=== PATIENT | male | born 1990 | race Caucasian/White ===

== ENCOUNTER 2018-11-05 12:28 | Emergency (ER) | payer SELFPAY ==
[2018-11-05] MEDS ORDERED: NA CHLORIDE 0.9% 2,000 ML ONE (13:01)
[2018-11-05] MEDS ORDERED: MORPHINE 4 MG/ML SYR ONE ×2 (13:01→15:12)
[2018-11-05] MEDS ORDERED: ONDANSETRON 4 MG/2 ML VIAL ONE (13:01)
[2018-11-05] MEDS ORDERED: TETANUS & DIPHTHERIA TOX,ADULT 0.5 ML VIAL ONE (13:02)
[2018-11-05 13:11] LABS: Absolute Lymphocytes (CBC) 0.7 K/uL (0.7-4.9); Absolute Monocytes 0.4 K/uL (0.1-1.3); Absolute Neutrophil 3.7 K/uL (1.8-8.0); Basophils % 0.9 % (0-1.3); Eosinophils % 5.2 % (0-4.4); Hematocrit 50.2 % (39.6-49.0); Lymphocytes % 13.4 % (15.3-44.8); MPV 10.6 fL (7.6-11.3); Monocytes % 8.6 % (3.3-12.3); RBC Red Blood Cell Count 5.11 M/uL (4.33-5.43)
[2018-11-05 13:39] LABS: ALT/SGPT 131 U/L (12-78); AST/SGOT 120 U/L (15-37); Albumin 4.3 g/dL (3.4-5.0); Alkaline Phosphatase 108 U/L (45-117); BUN Blood Urea Nitrogen 11 mg/dL (7-18); Bicarbonate 16 mmol/L (21-32); Bilirubin Direct 0.2 mg/dL (0-0.2); Glucose Level 213 mg/dL (74-106); Lipase 107 U/L (73-393); Potassium 4.5 mmol/L (3.5-5.1); Protein, Total 7.9 g/dL (6.4-8.2); Sodium Level 133 mmol/L (136-145)
[2018-11-05 13:44] LABS: Blood Morphology Comment NOT SEEN (NOT SEEN); Platelet Estimate DECR; Urine White Blood Cell Casts OK
--- NOTE | 2018-11-05 14:09 | RAD REPORT ---
EXAM DESCRIPTION: CT - CTHCSPWOC - 11/05/2018 2:03 pm CLINICAL HISTORY: Trauma, head and neck injury. laceration head, syncope;Pain COMPARISON: No comparisons TECHNIQUE: Axial 5 mm thick images of the head were obtained. Axial 2 mm thick images of the cervical spine were obtained with sagittal and coronal reconstruction images generated and reviewed. All CT scans are performed using dose optimization technique as appropriate and may include automated exposure control or mA/KV adjustment according to patient size. FINDINGS: CT HEAD WITHOUT CONTRAST: No acute hemorrhage, hydrocephalus or extra-axial collection is identified.No areas of brain edema or midline shift. The paranasal sinuses and mastoids are clear.The calvarium is intact. CT CERVICAL SPINE WITHOUT CONTRAST: No fracture or subluxation.No prevertebral soft tissues swelling is identified. IMPRESSION: No acute intracranial or cervical spine findings.
--- NOTE | 2018-11-05 14:13 | RAD REPORT ---
EXAM DESCRIPTION: CTAbdomen Pelvis W Contrast - 11/05/2018 2:03 pm CLINICAL HISTORY: Abdominal pain. ABD PAIN COMPARISON: No comparisons TECHNIQUE: Biphasic CT imaging of the abdomen and pelvis was performed with 100 ml non-ionic IV cont rast. All CT scans are performed using dose optimization technique as appropriate and may include automated exposure control or mA/KV adjustment according to patient size. FINDINGS: The lung bases are clear. Diffuse fatty liver is present. Focal liver lesion or biliary dilatation not observed. The spleen, pa ncreas, adrenal glands and kidneys are within normal limits. No bowel obstruction, free air, free fluid or abscess. Prominent amount of stool is retained in the c olon. The appendix is normal. No evidence of significant lymphadenopathy. No suspicious bony findings. IMPRESSION: Moderate fecal retention in the colon. Diffuse fatty liver.
--- NOTE | 2018-11-05 16:01 | EDPHYS ---
Physician Documentation [facility] Name: Mitchell Mendez III Age: 27 yrs Sex: Male : 1990 Arrival Date: 11/05/2018 Time: 12:30 Bed 13 Private MD: ED Physician Edson Hoang HPI: 11/05 13:54 This 27 yrs old Male presents to ER via EMS with complaints of Vomiting, pm1 Diarrhea, Syncope, Head laceration. 13:54 The patient has experienced syncope, collapsed. Onset: The symptoms/episode pm1 began/occurred just prior to arrival. Duration: This was a single episode. Context: the episode(s) was witnessed, by family, mother, occurred at home, Just prior to the episode the patient experienced vomiting and diarrhea for 3 days. Associated injury: Head/face: back of head and scalp, laceration. Associated signs and symptoms: Pertinent positives: abdominal pain, diarrhea, vomiting. Current symptoms: Currently, the patient is not experiencing any symptoms. The patient has not experienced similar symptoms in the past. The patient has not recently seen a physician. Historical: - Allergies: 13:15 No Known Allergies; mg2 - Home Meds: 13:15 None [Active]; mg2 - PMHx: 13:15 None; mg2 - PSHx: 13:15 None; mg2 - Immunization history:: Flu vaccine is not up to date. - Social history:: Smoking status: Patient uses tobacco products, smokes one-half pack cigarettes per day, Patient uses alcohol, but reports only rare drinking. - Ebola Screening: : No symptoms or risks identified at this time. ROS: 13:54 Constitutional: Negative for fever, chills, and weight loss, Eyes: Negative for injury, pm1 pain, redness, and discharge, ENT: Negative for injury, pain, and discharge, Neck: Negative for injury, pain, and swelling, Cardiovascular: Negative for chest pain, palpitations, and edema, Respiratory: Negative for shortness of breath, cough, wheezing, and pleuritic chest pain. 13:54 Back: Negative for injury and pain, : Negative for injury, bleeding, discharge, and swelling, MS/Extremity: Negative for injury and deformity. 13:54 Abdomen/GI: Positive for abdominal pain, nausea, vomiting, and diarrhea, Negative for constipation. 13:54 Skin: Positive for laceration(s), of the scalp and back of head. 13:54 Neuro: Positive for headache, syncope, Negative for altered mental status. Exam: 22:58 Abdomen/GI: Inspection: abdomen appears normal, Bowel sounds: normal, Palpation: pm1 abdomen is soft and non-tender. 22:58 Constitutional: This is a well developed, well nourished patient who is awake, alert, and in no acute distress. Eyes: Pupils equal round and reactive to light, extra-ocular motions intact. Lids and lashes normal. Conjunctiva and sclera are non-icteric and not injected. Cornea within normal limits. Periorbital areas with no swelling, redness, or edema. ENT: Nares patent. No nasal discharge, no septal abnormalities noted. Tympanic membranes are normal and external auditory canals are clear. Oropharynx with no redness, swelling, or masses, exudates, or evidence of obstruction, uvula midline. Mucous membranes moist. Neck: Trachea midline, no thyromegaly or masses palpated, and no cervical lymphadenopathy. Supple, full range of motion without nuchal rigidity, or vertebral point tenderness. No Meningismus. Chest/axilla: Normal chest wall appearance and motion. Nontender with no deformity. No lesions are appreciated. Cardiovascular: Regular rate and rhythm with a normal S1 and S2. No gallops, murmurs, or rubs. Normal PMI, no JVD. No pulse deficits. Respiratory: Lungs have equal breath sounds bilaterally, clear to auscultation and percussion. No rales, rhonchi or wheezes noted. No increased work of breathing, no retractions or nasal flaring. Back: No spinal tenderness. No costovertebral tenderness. Full range of motion. Skin: Warm, dry with normal turgor. Normal color with no rashes, no lesions, and no evidence of cellulitis. MS/ Extremity: Pulses equal, no cyanosis. Neurovascular intact. Full, normal range of motion. Neuro: Awake and alert, GCS 15, oriented to person, place, time, and situation. Cranial nerves II-XII grossly intact. Motor strength 5/5 in all extremities. Sensory grossly intact. Cerebellar exam normal. Normal gait. 22:58 Head/face: Noted is no obvious of injury or deformity except a laceration(s), that is linear, 7 cm(s), of the back of head and scalp. Vital Signs: 12:34 BP 107 / 83; Pulse 109; Resp 18; Temp 98.3; Pulse Ox 100% on R/A; Weight 58.97 kg; mg2 Height 6 ft. 3 in. (190.50 cm); Pain 4/10; 13:54 BP 120 / 78; Pulse 90; Resp 18; Temp 98; Pulse Ox 100% on R/A; mg2 15:17 BP 121 / 64; Pulse 61; Resp 18; Temp 98; Pulse Ox 100% on R/A; Pain 3/10; mg2 16:12 BP 120 / 70; Pulse 60; Resp 8; Temp 98; Pulse Ox 100% on R/A; Pain 0/10; mg2 12:34 Body Mass Index 16.25 (58.97 kg, 190.50 cm) mg2 Laceration: 15:25 Wound Repair of 7cm ( 2.8in ) subcutaneous laceration to scalp. Linear shaped.. Distal pm1 neuro/vascular/tendon intact. Wound prep: Extensive cleansing with hibiclenz by nurse, Wound irrigation with saline by nurse, Wound explored extensively, Copious irrigation. Skin closed with 12 1-0 Pennington using staple gun. Dressed with 4x4's, Kerlix. Patient tolerated well. MDM: 12:36 Patient medically screened. [facility] 15:59 Data reviewed: vital signs. Data interpreted: Pulse oximetry: on room air is 100 %. pm1 Interpretation: normal. Counseling: I had a detailed discussion with the patient and/or guardian regarding: the historical points, exam findings, and any diagnostic results supporting the discharge/admit diagnosis, lab results, radiology results, the need for outpatient follow up, to return to the emergency department if symptoms worsen or persist or if there are any questions or concerns that arise at home. 11/05 12:40 Order name: Basic Metabolic Panel pm1 11/05 12:40 Order name: CBC with Diff; Complete Time: 14:07 pm11/05 12:40 Order name: Creatinine for Radiology; Complete Time: 14:07 pm11/05 12:40 Order name: Hepatic Function; Complete Time: 14:07 pm1 11/05 12:40 Order name: Lipase; Complete Time: 14:07 pm11/05 12:42 Order name: Basic Metabolic Panel; Complete Time: 14:07 EDMS 11/05 12:40 Order name: CT Head C Spine; Complete Time: 14:16 pm1 11/05 12:40 Order name: CT Abd/Pelvis - W/Contrast: IV contrast only; Complete Time: 14:16 pm1 11/05 13:16 Order name: CBC Smear Scan; Complete Time: 14:07 [facility] 11/05 12:40 Order name: IV Saline Lock; Complete Time: 13:13 pm1 11/05 12:40 Order name: Labs collected and sent; Complete Time: 13:13 pm1 11/05 12:40 Order name: Urine Dipstick-Ancillary (obtain specimen) pm1 Administered Medications: 13:11 Drug: Tetanus-Diphtheria Toxoid Adult 0.5 ml {Rehab Services Aide: [employer]. Exp: mg2 08/30/2020. Lot #: [id number]. } Route: IM; Site: right deltoid; 15:17 Follow up: Response: No adverse reaction mg2 13:11 Drug: NS 0.9% 1000 ml Route: IV; Rate: 1000 ml; Site: right forearm; mg2 15:15 Follow up: Response: No adverse reaction; IV Status: Completed infusion; IV Intake: mg2 1000ml 13:11 Drug: Zofran 4 mg Route: IVP; Site: right forearm; mg2 15:15 Follow up: Response: No adverse reaction; Marked relief of symptoms mg2 13:11 Drug: morphine 4 mg Route: IVP; Site: right forearm; mg2 15:15 Follow up: Response: No adverse reaction; Marked relief of symptoms mg2 13:53 Drug: NS 0.9% 1000 ml Route: IV; Rate: 1000 ml; Site: right forearm; mg2 15:16 Follow up: Response: No adverse reaction; IV Status: Completed infusion; IV Intake: mg2 1000ml 15:10 Drug: morphine 4 mg Route: IVP; Site: right forearm; mg2 16:12 Follow up: Response: No adverse reaction; Marked relief of symptoms mg2 Disposition: 11/06 06:52 Co-signature as Attending Physician, Edson Hoang MD I agree with the assessment and shani plan of care. Disposition: 11/05/18 16:00 Discharged to Home. Impression: Superficial injury of head, Laceration without foreign body of scalp, Vomiting, Diarrhea, unspecified, Dehydration. - Condition is Stable. - Discharge Instructions: Food Choices to Help Relieve Diarrhea, Adult, Dehydration, Adult, Diarrhea, Adult, Head Injury, Adult, Laceration Care, Adult, Nausea and Vomiting, Adult, Stitches, Pennington, or Adhesive Wound Closure, Viral Gastroenteritis, Adult, Rehydration, Adult. - Prescriptions for Zofran 4 mg Oral Tablet - take 1 tablet by ORAL route every 12 hours As needed; 20 tablet. promethazine 25 mg Oral Tablet - take 1 tablet by ORAL route every 6 hours As needed; 20 tablet. Bentyl 20 mg Oral Tablet - take 1 tablet by ORAL route every 6 hours As needed; 20 tablet. - Medication Reconciliation Form, Thank You Letter, Antibiotic Education, Prescription Opioid Use form. - Follow up: Emergency Department; When: As needed; Reason: Worsening of condition. Follow up: Private Physician; When: 10 - 14 days; Reason: Recheck today's complaints, Continuance of care, Staple/Suture removal, Re-evaluation by your physician. - Problem is new. - Symptoms have improved. Signatures: Dispatcher [employer] EDMS Edson Hoang MD MD cha Marinas, Patrick, ENTERPRISE CLOUD ARCHITECT ENTERPRISE CLOUD ARCHITECT pm1 Devendra Murray RN RN mg2 Corrections: (The following items were deleted from the chart) 11/05 16:04 16:00 11/05/2018 16:00 Discharged to Home. Impression: Superficial injury of head; pm1 Laceration without foreign body of scalp; Vomiting; Diarrhea, unspecified. Condition is Stable. Forms are Medication Reconciliation Form, Thank You Letter, Antibiotic Education, Prescription Opioid Use. Follow up: Emergency Department; When: As needed; Reason: Worsening of condition. Follow up: Private Physician; When: 10 - 14 days; Reason: Recheck today's complaints, Continuance of care, Staple/Suture removal, Re-evaluation by your physician. Problem is new. Symptoms have improved. pm1 16:17 16:04 11/05/2018 16:00 Discharged to Home. Impression: Superficial injury of head; mg2 Laceration without foreign body of scalp; Vomiting; Diarrhea, unspecified; Dehydration. Condition is Stable. Discharge Instructions: Food Choices to Help Relieve Diarrhea, Adult, Diarrhea, Adult, Head Injury, Adult, Laceration Care, Adult, Nausea and Vomiting, Adult, Stitches, Pennington, or Adhesive Wound Closure, Viral Gastroenteritis, Adult. Prescriptions for Zofran 4 mg Oral Tablet - take 1 tablet by ORAL route every 12 hours As needed; 20 tablet, promethazine 25 mg Oral Tablet - take 1 tablet by ORAL route every 6 hours As needed; 20 tablet. and Forms are Medication Reconciliation Form, Thank You Letter, Antibiotic Education, Prescription Opioid Use. Follow up: Emergency Department; When: As needed; Reason: Worsening of condition. Follow up: Private Physician; When: 10 - 14 days; Reason: Recheck today's complaints, Continuance of care, Staple/Suture removal, Re-evaluation by your physician. Problem is new. Symptoms have improved. pm1 22:57 13:54 This 27 yrs old Male presents to ER via EMS with unknown complaint. pm1 pm1
--- NOTE | 2018-11-05 16:01 | ER ---
Nurse's Notes [facility] Name: Mitchell Mendez III Age: 27 yrs Sex: Male : 1990 Arrival Date: 11/05/2018 Time: 12:30 Bed 13 Private MD: Diagnosis: Superficial injury of head;Laceration without foreign body of scalp;Vomiting;Diarrhea, unspecified;Dehydration Presentation: 11/05 12:30 Presenting complaint: EMS states: he's been sick for 3 days now, nauseous, had stomach mg2 bug, been warm/feverish today today he was found by his mon on the floor, been incoherent since then doesn't remember how he get there, sustained 2 lacerations in the scalp. BGL-155 mg/dl. Transition of care: patient was not received from another setting of care. Onset of symptoms was October 31, 2018. Risk Assessment: Do you want to hurt yourself or someone else? Patient reports no desire to harm self or others. Initial Sepsis Screen: Does the patient meet any 2 criteria? No. Patient's initial sepsis screen is negative. Does the patient have a suspected source of infection? No. Patient's initial sepsis screen is negative. Care prior to arrival: None. 12:30 Method Of Arrival: EMS: [facility] mg2 12:30 Acuity: CAROLINE 3 mg2 Triage Assessment: 13:16 General: Appears in no apparent distress. comfortable, Behavior is calm, cooperative. mg2 Pain: Complains of pain in scalp, abdomen Pain does not radiate. Pain currently is 3 out of 10 on a pain scale. Quality of pain is described as aching, Pain began gradually. EENT: No signs and/or symptoms were reported regarding the EENT system. Neuro: Level of Consciousness is awake, alert, obeys commands, Oriented to person, place, time, situation. Neuro:. Cardiovascular: Capillary refill < 3 seconds Patient's skin is warm and dry. Respiratory: Airway is patent Respiratory effort is even, unlabored, Respiratory pattern is regular, symmetrical. GI: No signs and/or symptoms were reported involving the gastrointestinal system. GI: Reports lower abdominal pain, upper abdominal pain, diarrhea, nausea, vomiting, since 3 days. : No signs and/or symptoms were reported regarding the genitourinary system. Derm: Skin is pale, Wound noted scalp Wound is open and 2 separate lac. Musculoskeletal: Circulation, motion, and sensation intact. Capillary refill < 3 seconds. Injury Description: Laceration was sustained 1-2 hours ago. a small amount of bleeding noted at this time. Historical: - Allergies: 13:15 No Known Allergies; mg2 - Home Meds: 13:15 None [Active]; mg2 - PMHx: 13:15 None; mg2 - PSHx: 13:15 None; mg2 - Immunization history:: Flu vaccine is not up to date. - Social history:: Smoking status: Patient uses tobacco products, smokes one-half pack cigarettes per day, Patient uses alcohol, but reports only rare drinking. - Ebola Screening: : No symptoms or risks identified at this time. Screenin:21 Abuse screen: Denies threats or abuse. Denies injuries from another. Nutritional mg2 screening: No deficits noted. Tuberculosis screening: No symptoms or risk factors identified. Fall Risk IV access (20 points). Assessment: 15:17 General: Appears in no apparent distress. comfortable, Behavior is calm, cooperative. mg2 Pain: Complains of pain in scalp Pain does not radiate. Pain currently is 3 out of 10 on a pain scale. Quality of pain is described as aching, Pain began gradually, Is intermittent. Neuro: Level of Consciousness is awake, alert, obeys commands, Oriented to person, place, time, situation. Cardiovascular: Capillary refill < 3 seconds Patient's skin is warm and dry. Respiratory: Airway is patent Respiratory effort is even, unlabored, Respiratory pattern is regular, symmetrical. GI: No signs and/or symptoms were reported involving the gastrointestinal system. : No signs and/or symptoms were reported regarding the genitourinary system. EENT: No signs and/or symptoms were reported regarding the EENT system. Derm: Skin is intact, is healthy with good turgor, Skin is pink, warm \T\ dry. normal. Musculoskeletal: Circulation, motion, and sensation intact. Capillary refill < 3 seconds. 16:12 Reassessment: Patient states feeling better. Patient states symptoms have improved. mg2 Vital Signs: 12:34 BP 107 / 83; Pulse 109; Resp 18; Temp 98.3; Pulse Ox 100% on R/A; Weight 58.97 kg; mg2 Height 6 ft. 3 in. (190.50 cm); Pain 4/10; 13:54 BP 120 / 78; Pulse 90; Resp 18; Temp 98; Pulse Ox 100% on R/A; mg2 15:17 BP 121 / 64; Pulse 61; Resp 18; Temp 98; Pulse Ox 100% on R/A; Pain 3/10; mg2 16:12 BP 120 / 70; Pulse 60; Resp 8; Temp 98; Pulse Ox 100% on R/A; Pain 0/10; mg2 12:34 Body Mass Index 16.25 (58.97 kg, 190.50 cm) mg2 ED Course: 12:30 Patient arrived in ED. mg2 12:32 Triage completed. mg2 12:34 Bert Rodriguez, GAS GENERATOR OPERATOR is PHCP. pm1 12:34 Edson Hoang MD is Attending Physician. pm1 12:45 Devendra Murray RN is Primary Nurse. mg2 13:15 Inserted saline lock: 20 gauge in right forearm, using aseptic technique. Blood mg2 collected. 13:21 Patient has correct armband on for positive identification. Call light in reach. Side mg2 rails up X 1. Pulse ox on. NIBP on. Door closed. Warm blanket given. 13:21 Arm band placed on. mg2 14:03 CT completed. Patient tolerated procedure well. Patient moved to CT via wheelchair. sw Patient moved back from CT. 14:03 CT Head C Spine In Process Unspecified. EDMS 14:04 CT Abd/Pelvis - W/Contrast: IV contrast only In Process Unspecified. EDMS 15:41 Assist provider with laceration repair on back of head that was 2.5 cm. or less using mg2 stefan. Set up tray. Performed by Bert Rodriguez GAS GENERATOR OPERATOR Dressed with 4X4s, Patient tolerated well. 12 stefan applied on 2 lac. 16:16 IV discontinued, intact, bleeding controlled, No redness/swelling at site. Pressure mg2 dressing applied. Administered Medications: 13:11 Drug: Tetanus-Diphtheria Toxoid Adult 0.5 ml {Exp[employer]iter Service Order: [employer]. Exp: mg2 08/30/2020. Lot #: [id number]. } Route: IM; Site: right deltoid; 15:17 Follow up: Response: No adverse reaction mg2 13:11 Drug: NS 0.9% 1000 ml Route: IV; Rate: 1000 ml; Site: right forearm; mg2 15:15 Follow up: Response: No adverse reaction; IV Status: Completed infusion; IV Intake: mg2 1000ml 13:11 Drug: Zofran 4 mg Route: IVP; Site: right forearm; mg2 15:15 Follow up: Response: No adverse reaction; Marked relief of symptoms mg2 13:11 Drug: morphine 4 mg Route: IVP; Site: right forearm; mg2 15:15 Follow up: Response: No adverse reaction; Marked relief of symptoms mg2 13:53 Drug: NS 0.9% 1000 ml Route: IV; Rate: 1000 ml; Site: right forearm; mg2 15:16 Follow up: Response: No adverse reaction; IV Status: Completed infusion; IV Intake: mg2 1000ml 15:10 Drug: morphine 4 mg Route: IVP; Site: right forearm; mg2 16:12 Follow up: Response: No adverse reaction; Marked relief of symptoms mg2 Intake: 15:15 IV: 1000ml; Total: 1000ml. mg2 15:16 IV: 1000ml; Total: 2000ml. mg2 Outcome: 16:00 Discharge ordered by MD. pm1 16:17 Discharged to home ambulatory, with family. mg2 16:17 Condition: stable 16:17 Discharge instructions given to patient, family, Instructed on discharge instructions, follow up and referral plans. medication usage, Demonstrated understanding of instructions, follow-up care, medications, wound care, Prescriptions given X 3. 16:17 Patient left the ED. mg2 Signatures: Dispatcher [employer] EDMS Jillian Buckley Patrick GAS GENERATOR OPERATOR GAS GENERATOR OPERATOR pm1 Devendra Murray, RN RN mg2 Corrections: (The following items were deleted from the chart) 13:15 12:34 Pulse 109bpm; Resp 18bpm; Pulse Ox 100% RA; Temp 98.3F; 58.97 kg; Height 6 ft. 3 mg2 in.; BMI: 16.2; Pain 4/10; mg2 15:46 13:15 No provider procedures requiring assistance completed. mg2 mg2
[2018-11-05 16:24] VITALS: O2SAT 100
[2018-11-05 16:26] VITALS: TEMP 98
[2018-11-05 16:29] VITALS: BP 120/70
== END 2018-11-05 16:17 | disposition home or self-care (01) ==
LOC: ER 12:28
PROC: 0JQ00ZZ Repair Scalp Subcutaneous Tissue and Fascia, Open Approach (ICD-10-PCS; principal; 2018-11-05)
DX: S01.01XA Laceration without foreign body of scalp, initial encounter (principal); E86.0 Dehydration; R11.10 Vomiting, unspecified; R19.7 Diarrhea, unspecified; S00.90XA Unspecified superficial injury of unspecified part of head, initial encounter; F17.210 Nicotine dependence, cigarettes, uncomplicated; Z23 Encounter for immunization
CPT/HCPCS: 36415; 70450; 72125; 74177; 80048; 80076; 83690; 85025; 90471; 90714; 96361; 96374; 96375; 99285; J2405; J7030; Q9967

== ENCOUNTER 2019-02-16 18:15 | Emergency (ER) | payer SELFPAY ==
--- NOTE | 2019-02-16 19:17 | RAD REPORT ---
EXAM DESCRIPTION: CT - Head Brain Wo Cont - 02/16/2019 7:00 pm CLINICAL HISTORY: Seizures COMPARISON: None. TECHNIQUE: Axial 5 mm thick images of the head were obtained without IV contrast. All CT scans are performed using dose optimization technique as appropriate and may include automated exposure control or mA/KV adjustment according to patient size. FINDINGS: No intracranial hemorrhage, mass, edema or shift of mid-line structures. No acute infarcti on changes seen. No abnormal extra-axial fluid collections. Ventricles are normal. Mastoid air cells and visualized portions of the paranasal sinuses are clear. No acute bony findings. IMPRESSION: Negative non-contrast CT head examination.
[2019-02-16 19:30] LABS: Absolute Lymphocytes (CBC) 1.7 K/uL (0.7-4.9); Basophils % 1.8 % (0-1.3); Hematocrit 44.4 % (39.6-49.0); Lymphocytes % 30.3 % (15.3-44.8); MPV 8.3 fL (7.6-11.3); RBC Red Blood Cell Count 4.52 M/uL (4.33-5.43)
[2019-02-16 19:49] LABS: Protime INR 0.88
[2019-02-16 19:57] LABS: ALT/SGPT 48 U/L (12-78); AST/SGOT 44 U/L (15-37); Albumin 4.3 g/dL (3.4-5.0); Alkaline Phosphatase 90 U/L (45-117); BUN Blood Urea Nitrogen 12 mg/dL (7-18); Bicarbonate 27 mmol/L (21-32); Bilirubin Direct 0.1 mg/dL (0-0.2); Bilirubin Total 0.3 mg/dL (0.2-1.0); Glucose Level 106 mg/dL (74-106); Potassium 3.8 mmol/L (3.5-5.1); Protein, Total 7.8 g/dL (6.4-8.2); Sodium Level 143 mmol/L (136-145)
[2019-02-16 20:12] LABS: Urine Blood NEGATIVE (NEG); Urine Glucose NEGATIVE (NEG); Urine Protein 2+ (NEG); Urine Specific Gravity 1.025 (1.005-1.030)
[2019-02-16 20:37] LABS: Barbiturates NEGATIVE (NEGATIVE); Benzodiazepines POSITIVE (NEGATIVE); Cocaine NEGATIVE (NEGATIVE); METHAMPHETAM NEGATIVE (NEGATIVE); Methadone NEGATIVE (NEGATIVE); Opiates NEGATIVE (NEGATIVE); Phencyclidine NEGATIVE (NEGATIVE); THC Cannibis NEGATIVE (NEGATIVE)
--- NOTE | 2019-02-16 21:21 | EDPHYS ---
Physician Documentation [facility] Name: Mitchell Mendez III Age: 28 yrs Sex: Male : 1990 Arrival Date: 02/16/2019 Time: 18:19 Bed 2 Private MD: ED Physician Torsten Arvizu HPI: 02/16 19:05 This 28 yrs old Male presents to ER via Ambulatory with complaints of pm1 Probable Seizure. 19:05 The patient presents after having a possible seizure episode, for the past 4 days pm1 except for today. Mother reports 5 minutes duration of generalized shaking. No postictal period. Character of seizure(s): Loss of consciousness: it is not known if the patient experienced loss of consciousness, Motor activity: generalized, Incontinence: none, Apnea: the patient did not experience apnea, Circulation: the patient did not experience evidence of pulse disturbance, Eye movements: are unknown. Context: the seizure(s) was witnessed, by family, mother, occurred at home, Contributing factors: recent alcohol abuse. Seizure Hx: the patient has no previous seizure history. Associated injury: The patient did not suffer any apparent associated injury. Current symptoms: Currently, the patient is not experiencing any symptoms. The patient has not recently seen a physician. Historical: - Allergies: 18:49 No Known Allergies; iw - Home Meds: 18:49 None [Active]; iw - PMHx: 18:50 None; iw - PSHx: 18:49 None; iw - Immunization history:: Adult Immunizations unknown. - Social history:: Smoking status: Smoking status: Patient uses tobacco products, smokes one-half pack cigarettes per day. - Ebola Screening: : Patient negative for fever greater than or equal to 101.5 degrees Fahrenheit, and additional compatible Ebola Virus Disease symptoms Patient denies exposure to infectious person Patient denies travel to an Ebola-affected area in the 21 days before illness onset No symptoms or risks identified at this time. ROS: 19:05 Constitutional: Negative for fever, chills, and weight loss, Eyes: Negative for injury, pm1 pain, redness, and discharge, ENT: Negative for injury, pain, and discharge, Neck: Negative for injury, pain, and swelling, Cardiovascular: Negative for chest pain, palpitations, and edema, Respiratory: Negative for shortness of breath, cough, wheezing, and pleuritic chest pain, Abdomen/GI: Negative for abdominal pain, nausea, vomiting, diarrhea, and constipation, Back: Negative for injury and pain, MS/Extremity: Negative for injury and deformity, Skin: Negative for injury, rash, and discoloration. 19:05 Neuro: Positive for seizure activity, Negative for altered mental status, numbness, tingling, weakness. Exam: 19:05 Constitutional: This is a well developed, well nourished patient who is awake, alert, pm1 and in no acute distress. Head/Face: Normocephalic, atraumatic. Eyes: Pupils equal round and reactive to light, extra-ocular motions intact. Lids and lashes normal. Conjunctiva and sclera are non-icteric and not injected. Cornea within normal limits. Periorbital areas with no swelling, redness, or edema. ENT: Nares patent. No nasal discharge, no septal abnormalities noted. Tympanic membranes are normal and external auditory canals are clear. Oropharynx with no redness, swelling, or masses, exudates, or evidence of obstruction, uvula midline. Mucous membranes moist. Neck: Trachea midline, no thyromegaly or masses palpated, and no cervical lymphadenopathy. Supple, full range of motion without nuchal rigidity, or vertebral point tenderness. No Meningismus. Chest/axilla: Normal chest wall appearance and motion. Nontender with no deformity. No lesions are appreciated. Cardiovascular: Regular rate and rhythm with a normal S1 and S2. No gallops, murmurs, or rubs. Normal PMI, no JVD. No pulse deficits. Respiratory: Lungs have equal breath sounds bilaterally, clear to auscultation and percussion. No rales, rhonchi or wheezes noted. No increased work of breathing, no retractions or nasal flaring. Abdomen/GI: Soft, non-tender, with normal bowel sounds. No distension or tympany. No guarding or rebound. No evidence of tenderness throughout. Back: No spinal tenderness. No costovertebral tenderness. Full range of motion. Skin: Warm, dry with normal turgor. Normal color with no rashes, no lesions, and no evidence of cellulitis. MS/ Extremity: Pulses equal, no cyanosis. Neurovascular intact. Full, normal range of motion. 19:05 Neuro: Orientation: is normal, Mentation: is normal, Motor: is normal, moves all fours. Vital Signs: 18:49 BP 121 / 82; Pulse 106; Resp 18; Temp 98.2; Pulse Ox 98% on R/A; iw 19:32 BP 111 / 78; Pulse 90; Resp 16; Pulse Ox 95% on R/A; mt 20:00 BP 115 / 76; Pulse 89; Resp 16; Pulse Ox 98% on R/A; rr5 21:00 BP 119 / 76; Pulse 84; Resp 19; Pulse Ox 98% ; rr5 22:00 BP 125 / 70; Pulse 85; Resp 17; Temp 98; Pulse Ox 99% ; rr5 [place] Coma Score: 19:20 Eye Response: spontaneous(4). Verbal Response: oriented(5). Motor Response: obeys rr5 commands(6). Total: 15. MDM: 18:42 Patient medically screened. pm1 21:19 Data reviewed: vital signs. Data interpreted: Pulse oximetry: on room air is 95 %. pm1 Interpretation: normal. Counseling: I had a detailed discussion with the patient and/or guardian regarding: the historical points, exam findings, and any diagnostic results supporting the discharge/admit diagnosis, lab results, radiology results, the need for outpatient follow up, to return to the emergency department if symptoms worsen or persist or if there are any questions or concerns that arise at home. 02/16 18:46 Order name: Acetaminophen; Complete Time: 20:05 pm1 02/16 18:46 Order name: Basic Metabolic Panel; Complete Time: 20:05 pm1 02/16 18:46 Order name: CBC with Diff; Complete Time: 19:41 pm1 02/16 18:46 Order name: ETOH Level; Complete Time: 20:58 pm1 02/16 18:46 Order name: Hepatic Function; Complete Time: 20:05 pm1 02/16 18:46 Order name: PT-INR; Complete Time: 20:05 pm1 02/16 18:46 Order name: Ptt, Activated; Complete Time: 20:05 pm1 02/16 18:46 Order name: Salicylate; Complete Time: 20:05 pm1 02/16 18:46 Order name: Urine Drug Screen; Complete Time: 20:58 pm1 02/16 18:46 Order name: EKG; Complete Time: 18:48 pm1 02/16 18:46 Order name: EKG - Nurse/Tech; Complete Time: 19:15 pm1 02/16 18:46 Order name: IV Saline Lock; Complete Time: 19:16 pm1 02/16 18:46 Order name: CT Head Brain wo Cont; Complete Time: 19:32 pm1 02/16 20:07 Order name: Urine Dipstick--Ancillary (enter results); Complete Time: 20:58 em1 02/16 18:46 Order name: Labs collected and sent; Complete Time: 19:16 pm1 02/16 18:46 Order name: Urine Dipstick-Ancillary (obtain specimen); Complete Time: 20:05 pm1 Administered Medications: No medications were administered Disposition: 02/16/19 21:20 Discharged to Home. Impression: Alcohol abuse. - Condition is Stable. - Discharge Instructions: Finding Treatment for Addiction, Seizure, Adult, Alcohol Abuse and Nutrition. - Prescriptions for chlordiazepoxide HCl 25 mg Oral capsule - take 1 capsule by ORAL route as directed Day 1: Librium 25 mg every 6 hours scheduled, Day 2: Librium 25 mg every 8 hours scheduled, Day 3: Librium 25 mg every 12 hours scheduled, Day 4: Librium 25 mg at bedtime scheduled, Day 5: Librium 25 mg at bedtime scheduled; 11 capsule. - Medication Reconciliation Form, Thank You Letter, Antibiotic Education, Prescription Opioid Use form. - Follow up: Emergency Department; When: As needed; Reason: Worsening of condition. Follow up: Private Physician; When: 2 - 3 days; Reason: Recheck today's complaints, Continuance of care, Re-evaluation by your physician. - Problem is new. - Symptoms have improved. Signatures: Dispatcher [employer] Tania Olson RN RN iw Marinas, Patrick, NP ELECTROPHYSIOLOGY TECHNOLOGIST pm1 Leonidas Kumar RN RN rr5 Corrections: (The following items were deleted from the chart) 21:36 21:20 02/16/2019 21:20 Discharged to Home. Impression: Alcohol abuse; Benzodiazepime pm1 abuse. Condition is Stable. Forms are Medication Reconciliation Form, Thank You Letter, Antibiotic Education, Prescription Opioid Use. Follow up: Emergency Department; When: As needed; Reason: Worsening of condition. Follow up: Private Physician; When: 2 - 3 days; Reason: Recheck today's complaints, Continuance of care, Re-evaluation by your physician. Problem is new. Symptoms have improved. pm1 22:08 21:36 02/16/2019 21:20 Discharged to Home. Impression: Alcohol abuse. Condition is rr5 Stable. Discharge Instructions: Finding Treatment for Addiction, Alcohol Abuse and Nutrition. Forms are Medication Reconciliation Form, Thank You Letter, Antibiotic Education, Prescription Opioid Use. Follow up: Emergency Department; When: As needed; Reason: Worsening of condition. Follow up: Private Physician; When: 2 - 3 days; Reason: Recheck today's complaints, Continuance of care, Re-evaluation by your physician. Problem is new. Symptoms have improved. pm1
--- NOTE | 2019-02-16 21:21 | ER ---
Nurse's Notes [facility] Name: Mitchell Mendez III Age: 28 yrs Sex: Male : 1990 Arrival Date: 02/16/2019 Time: 18:19 Bed 2 Private MD: Diagnosis: Alcohol abuse Presentation: 02/16 18:46 Presenting complaint: Patient states: has been having a lot of seizures for past couple iw weeks, was seen here 3 weeks ago for seizure, mother states he had a seizure once a day for past 4 days, not today, seizure behavior described as foaming at mouth and shaking/jerking that lasts about 5 minutes with no post-ictal period. Transition of care: patient was not received from another setting of care. Onset of symptoms was February 08, 2019. Risk Assessment: Do you want to hurt yourself or someone else? Patient reports no desire to harm self or others. Initial Sepsis Screen: Does the patient meet any 2 criteria? No. Patient's initial sepsis screen is negative. Does the patient have a suspected source of infection? No. Patient's initial sepsis screen is negative. Care prior to arrival: None. 18:46 Method Of Arrival: Ambulatory iw 18:46 Acuity: CAROLINE 3 iw Historical: - Allergies: 18:49 No Known Allergies; iw - Home Meds: 18:49 None [Active]; iw - PMHx: 18:50 None; iw - PSHx: 18:49 None; iw - Immunization history:: Adult Immunizations unknown. - Social history:: Smoking status: Smoking status: Patient uses tobacco products, smokes one-half pack cigarettes per day. - Ebola Screening: : Patient negative for fever greater than or equal to 101.5 degrees Fahrenheit, and additional compatible Ebola Virus Disease symptoms Patient denies exposure to infectious person Patient denies travel to an Ebola-affected area in the 21 days before illness onset No symptoms or risks identified at this time. Screenin:22 Abuse screen: Denies threats or abuse. Denies injuries from another. Nutritional rr5 screening: No deficits noted. Tuberculosis screening: No symptoms or risk factors identified. Fall Risk Secondary diagnosis (15 points) seizures, IV access (20 points). Total Lemus Fall Scale indicates Low Risk Score (25-44 pts). Fall prevention measures have been instituted. Side Rails Up X 2 Placed close to Nursing Station Frequent Obs/Assesments occuring Family Present and informed to notify staff if they need to leave bedside As available Patient and Family Educated on Fall Prevention Program and strategies. Assessment: 19:20 General: Appears in no apparent distress. comfortable, Behavior is calm, cooperative, rr5 appropriate for age. Pain: Denies pain. Neuro: Level of Consciousness is awake, alert, obeys commands, Oriented to person, place, time, situation, Appropriate for age Reports weakness had a seizures. Cardiovascular: Capillary refill < 3 seconds Patient's skin is warm and dry. Respiratory: Airway is patent Respiratory effort is even, unlabored, Respiratory pattern is regular, symmetrical. GI: No signs and/or symptoms were reported involving the gastrointestinal system. : No signs and/or symptoms were reported regarding the genitourinary system. EENT: No signs and/or symptoms were reported regarding the EENT system. Derm: Skin is intact, Skin temperature is warm. Musculoskeletal: Circulation, motion, and sensation intact. Capillary refill < 3 seconds. 20:31 Reassessment: Patient appears in no apparent distress at this time. Patient is alert, rr5 oriented x 3, equal unlabored respirations, skin warm/dry/pink. no seizure activity noted. awaiting for laboratory results. Patient states feeling better. Patient states symptoms have improved. 21:30 Reassessment: Patient appears in no apparent distress at this time. Patient and/or rr5 family updated on plan of care and expected duration. Pain level reassessed. Patient is alert, oriented x 3, equal unlabored respirations, skin warm/dry/pink. reassess by the ED provider ordered for discharge patient agreed. 22:05 Reassessment: Patient appears in no apparent distress at this time. Patient is alert, rr5 oriented x 3, equal unlabored respirations, skin warm/dry/pink. discharge instruction given and explained without complaints made. Vital Signs: 18:49 BP 121 / 82; Pulse 106; Resp 18; Temp 98.2; Pulse Ox 98% on R/A; iw 19:32 BP 111 / 78; Pulse 90; Resp 16; Pulse Ox 95% on R/A; mt 20:00 BP 115 / 76; Pulse 89; Resp 16; Pulse Ox 98% on R/A; rr5 21:00 BP 119 / 76; Pulse 84; Resp 19; Pulse Ox 98% ; rr5 22:00 BP 125 / 70; Pulse 85; Resp 17; Temp 98; Pulse Ox 99% ; rr5 [place] Coma Score: 19:20 Eye Response: spontaneous(4). Verbal Response: oriented(5). Motor Response: obeys rr5 commands(6). Total: 15. ED Course: 18:19 Patient arrived in ED. mr 18:41 Bert Rodriguez, DENNIS is PHCP. pm1 18:41 Torsten Arvizu MD is Attending Physician. pm1 18:48 Triage completed. iw 18:49 Arm band placed on. iw 18:[address] via stretcher. nj 18:59 CT completed. Patient tolerated procedure well. Patient moved back from CT. id 19:04 Areli Salazar, RN is Primary Nurse. 19:04 Leonidas Kumar, PALAK is Primary Nurse. rr5 19:15 CT Head Brain wo Cont In Process Unspecified. EDMS 19:22 Inserted saline lock: 20 gauge in right forearm, using aseptic technique. Blood rr5 collected. 21:50 No provider procedures requiring assistance completed. IV discontinued, intact, rr5 bleeding controlled, No redness/swelling at site. Pressure dressing applied. 21:52 Seizure precautions initiated. rr5 Administered Medications: No medications were administered Outcome: 21:20 Discharge ordered by MD. pm1 22:05 Discharged to home ambulatory, with family. rr5 22:05 Condition: stable 22:05 Discharge instructions given to patient, Instructed on discharge instructions, follow up and referral plans. medication usage, Demonstrated understanding of instructions, follow-up care, medications, Prescriptions given X 1. 22:08 Patient left the ED. rr5 Signatures: Dispatcher [employer] Carmina Benitez Irene, PALAK CID Areli Salazar, RN RN Bert Rodriguez, EDNNIS BURGLARY INVESTIGATOR pm1 Eduard Jones [place] Leonidas Kumar RN RN rr5
[2019-02-16 23:33] VITALS: TEMP 98.2
[2019-02-16 23:34] VITALS: BP 111/78; O2SAT 95
--- NOTE | 2019-02-17 10:37 | EKG ---
Test Date: 2019-02-16 Test Time: 18:49:56 Rotor Assembler: DIAMOND MEASUREMENT RESULTS: Intervals: Rate: 101 MA: 140 QRSD: 92 QT: 328 QTc: 425 [place]: P: 65 MA: 140 QRS: 76 T: 56 INTERPRETIVE STATEMENTS: Sinus tachycardia Possible Left atrial enlargement Nonspecific T wave abnormality Abnormal ECG No previous ECG available for comparison Electronically Signed On 02-17-19 10:36:35 CDT by Puneet Blake
== END 2019-02-16 22:08 | disposition home or self-care (01) ==
LOC: ER 18:15
DX: F10.10 Alcohol abuse, uncomplicated (principal); F17.210 Nicotine dependence, cigarettes, uncomplicated
CPT/HCPCS: 36415; 70450; 80048; 80076; 80307; 80320; 80329; 81003; 85025; 85610; 85730; 93005; 99284

== ENCOUNTER 2019-03-20 18:34 | Emergency (ER) | payer SELFPAY ==
[2019-03-20] MEDS ORDERED: HYDROCODONE/APAP 7.5/325 MG TAB ONE (19:05)
--- NOTE | 2019-03-20 19:23 | ER ---
Nurse's Notes [facility] Name: Mitchell Mendez III Age: 28 yrs Sex: Male : 1990 Arrival Date: 03/20/2019 Time: 18:36 Bed 20 Private MD: Diagnosis: Pain in right shoulder Presentation: 03/20 18:37 Presenting complaint: Right shoulder pain after lifting tree limb 2-3 days ago. hb Transition of care: patient was not received from another setting of care. Onset of symptoms was March 18, 2019. Risk Assessment: Do you want to hurt yourself or someone else? Patient reports no desire to harm self or others. Care prior to arrival: None. 18:37 Method Of Arrival: Ambulatory hb 18:37 Acuity: CAROLINE 4 hb 19:15 Initial Sepsis Screen: Does the patient meet any 2 criteria? No. Patient's initial cc3 sepsis screen is negative. Does the patient have a suspected source of infection? No. Patient's initial sepsis screen is negative. Triage Assessment: 19:15 General: Appears in no apparent distress. comfortable, Behavior is calm, cooperative, cc3 appropriate for age. Pain: Complains of pain in right shoulder. Historical: - Allergies: 18:41 No Known Allergies; hb - Home Meds: 18:41 None [Active]; hb - PMHx: 18:41 None; hb - PSHx: 18:41 None; hb - Immunization history:: Adult Immunizations up to date. - Social history:: Smoking status: Patient uses tobacco products, smokes one-half pack cigarettes per day. - Ebola Screening: : No symptoms or risks identified at this time. Screenin:15 Abuse screen: Denies threats or abuse. Denies injuries from another. Nutritional cc3 screening: No deficits noted. Tuberculosis screening: No symptoms or risk factors identified. Fall Risk Ambulatory Aid- None/Bed Rest/Nurse Assist (0 pts). Gait- Normal/Bed Rest/Wheelchair (0 pts) Mental Status- Oriented to own ability (0 pts). Assessment: 19:15 Reassessment: Patient appears in no apparent distress at this time. Patient and/or cc3 family updated on plan of care and expected duration. Pain level reassessed. Patient is alert, oriented x 3, equal unlabored respirations, skin warm/dry/pink. Received this male patient from morning shift BAKERY MANAGERDahiana Ochoa as a case of right shoulder pain. No IV cannula in situ. General: Appears in no apparent distress. comfortable, Behavior is calm, cooperative, appropriate for age. Pain: Complains of pain in right shoulder Pain currently is 8 out of 10 on a pain scale. Quality of pain is described as aching. Neuro: Level of Consciousness is awake, alert, obeys commands, Oriented to person, place, time, situation, Appropriate for age. Cardiovascular: Denies chest pain, Capillary refill < 3 seconds in bilateral fingers Patient's skin is warm and dry. Respiratory: Airway is patent Respiratory effort is even, unlabored, Respiratory pattern is regular, symmetrical. GI: Abdomen is flat. : No signs and/or symptoms were reported regarding the genitourinary system. EENT: No signs and/or symptoms were reported regarding the EENT system. Derm: Skin is intact, is healthy with good turgor, Skin is pink, warm \T\ dry. normal. Musculoskeletal: Circulation, motion, and sensation intact. Range of motion: intact in all extremities. 19:45 Reassessment: Patient appears in no apparent distress at this time. Patient and/or cc3 family updated on plan of care and expected duration. Pain level reassessed. Patient is alert, oriented x 3, equal unlabored respirations, skin warm/dry/pink. DNENIS Rodriguez discharged the patient home with prescription given. No IV cannula in situ. Patient left ER vitally stable and ambulatory. No valuables left in the patient's room. Patient states feeling better. Patient states symptoms have improved. Vital Signs: 18:40 BP 135 / 90; Pulse 93; Resp 16; Temp 97.2; Pulse Ox 100% on R/A; Weight 65.77 kg; em Height 6 ft. 3 in. (190.50 cm); Pain 8/10; 19:45 BP 129 / 87; Pulse 89; Resp 15 S; Temp 97.6(O); Pulse Ox 100% on R/A; Pain 4/10; cc3 18:40 Body Mass Index 18.12 (65.77 kg, 190.50 cm) em ED Course: 18:36 Patient arrived in ED. mr 18:40 Triage completed. hb 18:41 Arm band placed on. hb 18:43 Don Ray LVN is Primary Nurse. em 18:49 Bert Rodriguez NP is PHCP. pm1 18:49 Cory Lopez MD is Attending Physician. pm1 19:15 Patient has correct armband on for positive identification. Bed in low position. Call cc3 light in reach. Side rails up X 1. Pulse ox on. NIBP on. 19:18 Shoulder Right (2 View) XRAY In Process Unspecified. EDMS 19:45 No provider procedures requiring assistance completed. Patient did not have IV access cc3 during this emergency room visit. Administered Medications: 19:17 Drug: [place] (7.5 mg-325 mg) 1 tabs Route: PO; 19:45 Follow up: Response: No adverse reaction; Pain is decreased; RASS: Alert and Calm (0) cc3 Outcome: 19:23 Discharge ordered by . pm1 19:45 Discharged to home ambulatory. cc3 19:45 Condition: stable 19:45 Discharge instructions given to patient, Instructed on discharge instructions, follow up and referral plans. medication usage, Demonstrated understanding of instructions, follow-up care, medications, Prescriptions given X 1. 19:48 Patient left the ED. cc3 Signatures: Dispatcher [employer] EDFL Eyad Carmina Ray, Don, BAKERY MANAGER BAKERY MANAGER em Bert Rodriguez, BAG MAKING MACHINE OPERATOR BAG MAKING MACHINE OPERATOR pm1 Annalise Cobb, PALAK RN Marlee Harding Muna Stewart cc3 Corrections: (The following items were deleted from the chart) 18:58 18:40 BP 135 / 90; Pulse 16bpm; Resp 93bpm; Pulse Ox 100% RA; Temp 97.2F; 65.77 kg; em Height 6 ft. 3 in.; BMI: 18.1; Pain 8/10; hb 21:42 19:15 Pain: Complains of pain in right shoulder Pain currently is 6 out of 10 on a pain cc3 scale. Quality of pain is described as aching, cc3
--- NOTE | 2019-03-20 19:24 | EDPHYS ---
Physician Documentation [facility] Name: Mitchell Mendez III Age: 28 yrs Sex: Male : 1990 Arrival Date: 03/20/2019 Time: 18:36 Bed 20 Private MD: ED Physician Cory Lopez HPI: 03/20 18:57 This 28 yrs old Male presents to ER via Ambulatory with complaints of Right pm1 Shoulder Pain. 18:57 The patient or guardian complains of pain, that is acute. right shoulder. Context: The pm1 problem was sustained outdoors, The patient experiences decreased range of motion, when attempts to raise arm, The patient reports no obvious deformity. Onset: The symptoms/episode began/occurred 3 day(s) ago. Modifying factors: the symptoms are alleviated by remaining still, The symptoms are aggravated by raising shoulder. Associated signs and symptoms: Pertinent negatives: Numbness in right arm tingling. Severity of symptoms: in the emergency department the symptoms are unchanged. Treatment prior to arrival includes: no previous treatment. Patient was lifting a log and holding the heavy end. The person he was lifting the log with dropped her end earlier than he expected so all the weight of the log was transferred to him and caused pain to his right shoulder. Historical: - Allergies: 18:41 No Known Allergies; hb - Home Meds: 18:41 None [Active]; hb - PMHx: 18:41 None; hb - PSHx: 18:41 None; hb - Immunization history:: Adult Immunizations up to date. - Social history:: Smoking status: Patient uses tobacco products, smokes one-half pack cigarettes per day. - Ebola Screening: : No symptoms or risks identified at this time. ROS: 18:57 Constitutional: Negative for fever, chills, and weight loss, Neck: Negative for injury, pm1 pain, and swelling, Cardiovascular: Negative for chest pain, palpitations, and edema, Respiratory: Negative for shortness of breath, cough, wheezing, and pleuritic chest pain, Abdomen/GI: Negative for abdominal pain, nausea, vomiting, diarrhea, and constipation, Back: Negative for injury and pain. 18:57 Skin: Negative for injury, rash, and discoloration, Neuro: Negative for headache, weakness, numbness, tingling, and seizure. 18:57 MS/extremity: Positive for pain, of the right shoulder. Exam: 18:57 Constitutional: This is a well developed, well nourished patient who is awake, alert, pm1 and in no acute distress. Head/Face: Normocephalic, atraumatic. 18:57 Chest/axilla: Normal chest wall appearance and motion. Nontender with no deformity. No lesions are appreciated. Cardiovascular: Regular rate and rhythm with a normal S1 and S2. No gallops, murmurs, or rubs. Normal PMI, no JVD. No pulse deficits. Respiratory: Lungs have equal breath sounds bilaterally, clear to auscultation and percussion. No rales, rhonchi or wheezes noted. No increased work of breathing, no retractions or nasal flaring. Abdomen/GI: Soft, non-tender, with normal bowel sounds. No distension or tympany. No guarding or rebound. No evidence of tenderness throughout. Back: No spinal tenderness. No costovertebral tenderness. Full range of motion. Skin: Warm, dry with normal turgor. Normal color with no rashes, no lesions, and no evidence of cellulitis. 18:57 Neck: External neck: tenderness, of the right trapezius, C-spine: appears grossly normal, no vertebral tenderness, no crepitus, vertebral tenderness, is not appreciated, ROM/movement: is normal, is supple. 18:57 Musculoskeletal/extremity: Extremities: grossly normal except: noted in the right shoulder: tenderness, at supraspinatus insertion point. Patient with pain attempting to raise right arm up past shoulder level, There is no evidence of deformity. 18:57 Neuro: Orientation: is normal, Motor: is normal, moves all fours. Vital Signs: 18:40 BP 135 / 90; Pulse 93; Resp 16; Temp 97.2; Pulse Ox 100% on R/A; Weight 65.77 kg; em Height 6 ft. 3 in. (190.50 cm); Pain 8/10; 19:45 BP 129 / 87; Pulse 89; Resp 15 S; Temp 97.6(O); Pulse Ox 100% on R/A; Pain 4/10; cc3 18:40 Body Mass Index 18.12 (65.77 kg, 190.50 cm) em MDM: 18:50 Patient medically screened. pm 19:01 Data reviewed: vital signs. Data interpreted: Pulse oximetry: on room air is 100 %. pm1 Interpretation: normal. 19:22 Counseling: I had a detailed discussion with the patient and/or guardian regarding: the pm1 historical points, exam findings, and any diagnostic results supporting the discharge/admit diagnosis, radiology results, the need for outpatient follow up, for definitive care, a orthopedic surgeon, MRI of shoulder to rule out rotator cuff injury, to return to the emergency department if symptoms worsen or persist or if there are any questions or concerns that arise at home. 03/20 18:55 Order name: Shoulder Right (2 View) XRAY pm1 03/20 18:57 Order name: Sling; Complete Time: 19:16 pm1 Administered Medications: 19:17 Drug: [place] (7.5 mg-325 mg) 1 tabs Route: PO; 19:45 Follow up: Response: No adverse reaction; Pain is decreased; RASS: Alert and Calm (0) cc3 Disposition: 03/20/19 19:23 Discharged to Home. Impression: Pain in right shoulder. - Condition is Stable. - Discharge Instructions: Rotator Cuff Injury, Shoulder Pain, How to Use a Sling. - Prescriptions for Tramadol 50 mg Oral Tablet - take 1 tablet by ORAL route every 8 hours as needed; 12 tablet. - Medication Reconciliation Form, Thank You Letter, Antibiotic Education, Prescription Opioid Use form. - Follow up: Emergency Department; When: As needed; Reason: Worsening of condition. Follow up: Private Physician; When: 2 - 3 days; Reason: Recheck today's complaints, Continuance of care, Re-evaluation by your physician. - Problem is new. - Symptoms have improved. Addendum: 03/22/2019 22:45 Co-signature as Attending Physician, Cory Lopez MD. g s Signatures: Dispatcher [employer] EDMS Bert Rodriguez, DENNIS [employer] APPLICATIONS ENGINEER pm1 Annalise Cobb, PALAK RN Marlee Harding Cory Lopez MD MD gs Cordel, Charlene cc3 Corrections: (The following items were deleted from the chart) 03/20 19:48 19:23 03/20/2019 19:23 Discharged to Home. Impression: Pain in right shoulder. cc3 Condition is Stable. Discharge Instructions: Rotator Cuff Injury, Shoulder Pain, How to Use a Sling. Prescriptions for Tramadol 50 mg Oral Tablet - take 1 tablet by ORAL route every 8 hours as needed; 12 tablet. and Forms are Medication Reconciliation Form, Thank You Letter, Antibiotic Education, Prescription Opioid Use. Follow up: Emergency Department; When: As needed; Reason: Worsening of condition. Follow up: Private Physician; When: 2 - 3 days; Reason: Recheck today's complaints, Continuance of care, Re-evaluation by your physician. Problem is new. Symptoms have improved. pm1
[2019-03-20 19:52] VITALS: BP 135/90; TEMP 97.2; O2SAT 100
--- NOTE | 2019-03-20 22:46 | RAD REPORT ---
EXAM DESCRIPTION: Shoulder Right 2 View - 03/20/2019 7:18 pm CLINICAL HISTORY: Right shoulder pain following lifting injury COMPARISON: None. TECHNIQUE: Internal and external rotation views of the right shoulder were obtained. FINDINGS: There is no fracture or dislocation. AC joint is normal in appearance. No acute or suspic ious findings. IMPRESSION: Negative two-view right shoulder examination.
== END 2019-03-20 19:48 | disposition home or self-care (01) ==
LOC: ER 18:34
DX: M25.511 Pain in right shoulder (principal); F17.210 Nicotine dependence, cigarettes, uncomplicated
CPT/HCPCS: 99284

== ENCOUNTER 2019-05-18 19:13 | Emergency (ER) | payer SELFPAY ==
[2019-05-18] MEDS ORDERED: TETANUS & DIPHTHERIA TOX,ADULT 0.5 ML VIAL ONE (20:00)
--- NOTE | 2019-05-18 20:48 | EDPHYS ---
Physician Documentation [facility] Name: Mitchell Mendez III Age: 28 yrs Sex: Male : 1990 Arrival Date: 05/18/2019 Time: 19:15 Bed 16 Private MD: ED Physician Asad Lea HPI: 05/19 04:50 This 28 yrs old Male presents to ER via Ambulatory with complaints of Wrist tw4 Injury. 04:50 The patient or guardian reports a laceration. tw4 Historical: - Allergies: 05/18 19:24 No Known Allergies; aj1 - Home Meds: 19:24 Xanax Oral [Active]; aj1 - PMHx: 19:24 scoliosis; aj1 - Immunization history:: Flu vaccine is not up to date. - Social history:: Smoking status: Patient uses tobacco products, smokes one pack cigarettes per day. - Ebola Screening: : Patient denies travel to an Ebola-affected area in the 21 days before illness onset. Vital Signs: 19:24 BP 115 / 85; Pulse 108; Resp 20; Temp 98.6; Pulse Ox 98% on R/A; Weight 58.97 kg (R); aj1 Height 6 ft. 3 in. (190.50 cm) (R); Pain 6/10; 20:52 BP 121 / 94; Pulse 92; Resp 16; Pulse Ox 98% on R/A; jb4 19:24 Body Mass Index 16.25 (58.97 kg, 190.50 cm) aj1 MDM: 19:36 Patient medically screened. tw4 Administered Medications: 20:01 CANCELLED (Physician Discretion): ADAcel 0.5 ml IM once; indicated for adults and tw4 teenagers 11 to 64 years of age 20:12 Drug: Tetanus-Diphtheria Toxoid Adult 0.5 ml {Crime Specialist: [email or web address]. Exp: jb4 11/13/2020. Lot #: [id number]. } Route: IM; Site: left deltoid; 20:56 Follow up: Response: No adverse reaction jb4 Disposition: 05/18/19 20:48 Discharged to Home. Impression: Laceration of dorsal aspect of left hand, laceration superficial volar aspect of left wrist. - Condition is Stable. - Discharge Instructions: Laceration Care, Adult. - Medication Reconciliation Form, Thank You Letter, Antibiotic Education, Prescription Opioid Use form. - Follow up: Private Physician; When: Upon discharge from the Emergency Department; Reason: Recheck today's complaints, Continuance of care. - Problem is new. - Symptoms have improved. Signatures: Silvana Garcia, RN RN aj1 Bruce Viramontes RN RN jb4 Asad Lea MD MD tw4 Corrections: (The following items were deleted from the chart) 20:01 19:58 ADAcel 0.5 ml IM once; indicated for adults and teenagers 11 to 64 years of age tw4 ordered. tw4 20:56 20:48 05/18/2019 20:48 Discharged to Home. Impression: Laceration of dorsal aspect of jb4 left hand; laceration superficial volar aspect of left wrist. Condition is Stable. Forms are Medication Reconciliation Form, Thank You Letter, Antibiotic Education, Prescription Opioid Use. Follow up: Private Physician; When: Upon discharge from the Emergency Department; Reason: Recheck today's complaints, Continuance of care. Problem is new. Symptoms have improved. tw4
--- NOTE | 2019-05-18 20:48 | ER ---
Nurse's Notes [facility] Name: Mitchell Mendez III Age: 28 yrs Sex: Male : 1990 Arrival Date: 05/18/2019 Time: 19:15 Bed 16 Private MD: Diagnosis: Laceration of dorsal aspect of left hand;laceration superficial volar aspect of left wrist Presentation: 05/18 19:23 Presenting complaint: Mother states: He was splitting wood with my and a piece aj1 of wood got him and cut his wrist and his hand. Bandage noted to right wrist, dry and intact. Transition of care: patient was not received from another setting of care. Onset of symptoms was May 18, 2019. Risk Assessment: Do you want to hurt yourself or someone else? Patient reports no desire to harm self or others. Initial Sepsis Screen: Does the patient meet any 2 criteria? HR > 90 bpm. No. Patient's initial sepsis screen is negative. Does the patient have a suspected source of infection? No. Patient's initial sepsis screen is negative. Care prior to arrival: None. 19:23 Method Of Arrival: Ambulatory aj 19:23 Acuity: CAROLINE 4 aj1 Triage Assessment: 19:24 General: Appears in no apparent distress. comfortable, Behavior is calm, cooperative, aj1 appropriate for age. Pain: Complains of pain in palmar aspect of right wrist Pain currently is 6 out of 10 on a pain scale. Neuro: Level of Consciousness is awake, alert, obeys commands. Cardiovascular: Patient's skin is warm and dry. Respiratory: Airway is patent Respiratory effort is even, unlabored, Respiratory pattern is regular, symmetrical. Musculoskeletal: Range of motion: intact in all extremities. Injury Description: Laceration sustained to medial aspect of right wrist and dorsum of right hand. Historical: - Allergies: 19:24 No Known Allergies; aj1 - Home Meds: 19:24 Xanax Oral [Active]; aj1 - PMHx: 19:24 scoliosis; aj1 - Immunization history:: Flu vaccine is not up to date. - Social history:: Smoking status: Patient uses tobacco products, smokes one pack cigarettes per day. - Ebola Screening: : Patient denies travel to an Ebola-affected area in the 21 days before illness onset. Screenin:30 Abuse screen: Denies threats or abuse. Nutritional screening: No deficits noted. jb4 Tuberculosis screening: No symptoms or risk factors identified. Fall Risk None identified. Assessment: 19:30 General: Appears in no apparent distress. comfortable, Behavior is calm, cooperative, jb4 appropriate for age. Pain: Denies pain. Neuro: Level of Consciousness is awake, alert, obeys commands, Oriented to person, place, time, situation. Cardiovascular: Respiratory: Airway is patent Respiratory effort is even, unlabored, Respiratory pattern is regular, symmetrical. GI: No signs and/or symptoms were reported involving the gastrointestinal system. : No signs and/or symptoms were reported regarding the genitourinary system. EENT: No signs and/or symptoms were reported regarding the EENT system. Derm: Skin is intact, Skin is pink, warm \T\ dry. Musculoskeletal: Circulation, motion, and sensation intact. Range of motion: intact in all extremities. 19:30 Injury Description: Laceration sustained to dorsum of left hand and palmar aspect of jb4 left wrist is clean, full thickness, superficial, 0.5 to 2.5 cm long, 2.6 to 7.5 cm long, a small amount of bleeding noted at this time. 20:52 Reassessment: Patient appears in no apparent distress at this time. Patient and/or jb4 family updated on plan of care and expected duration. Pain level reassessed. Patient is alert, oriented x 3, equal unlabored respirations, skin warm/dry/pink. Vital Signs: 19:24 BP 115 / 85; Pulse 108; Resp 20; Temp 98.6; Pulse Ox 98% on R/A; Weight 58.97 kg (R); aj1 Height 6 ft. 3 in. (190.50 cm) (R); Pain 6/10; 20:52 BP 121 / 94; Pulse 92; Resp 16; Pulse Ox 98% on R/A; jb4 19:24 Body Mass Index 16.25 (58.97 kg, 190.50 cm) aj1 ED Course: 19:15 Patient arrived in ED. jg7 19:23 Triage completed. aj1 19:24 Arm band placed on Patient placed in an exam room. aj1 19:26 Bruce Viramontes, RN is Primary Nurse. jb4 19:30 Patient has correct armband on for positive identification. Placed in gown. Bed in low jb4 position. Call light in reach. Side rails up X 1. Pulse ox on. NIBP on. 19:34 Asad Lea MD is Attending Physician. tw4 20:54 Assist provider with laceration repair on dorsum of left hand and palmar aspect of left jb4 wrist that was between 2.6 to 7.5 cm using Steri-strips. Performed by Asad Lea MD Patient tolerated well. Patient did not have IV access during this emergency room visit. Administered Medications: 20:01 CANCELLED (Physician Discretion): ADAcel 0.5 ml IM once; indicated for adults and tw4 teenagers 11 to 64 years of age 20:12 Drug: Tetanus-Diphtheria Toxoid Adult 0.5 ml {Environmental Consultant: [email or web address]. Exp: jb4 11/13/2020. Lot #: [id number]. } Route: IM; Site: left deltoid; 20:56 Follow up: Response: No adverse reaction jb4 Outcome: 20:48 Discharge ordered by . tw4 20:56 Patient left the ED. 4 Signatures: Silvana Garcia, RN RN aj1 Bruce Viramontes RN RN jb4 Asad Lea MD MD tw4 Yancy Farah jg7
[2019-05-18 21:07] VITALS: TEMP 98.6; O2SAT 98
[2019-05-18 21:09] VITALS: BP 121/94
== END 2019-05-18 20:56 | disposition home or self-care (01) ==
LOC: ER 19:13
DX: S61.412A Laceration without foreign body of left hand, initial encounter (principal); S61.512A Laceration without foreign body of left wrist, initial encounter; W26.8XXA Contact with other sharp object(s), not elsewhere classified, initial encounter; Y93.89 Activity, other specified; Y92.9 Unspecified place or not applicable; F17.210 Nicotine dependence, cigarettes, uncomplicated; Z23 Encounter for immunization
CPT/HCPCS: 90471; 90714; 99283

== ENCOUNTER 2019-12-28 21:33 | Emergency (ER) | payer SELFPAY ==
[2019-12-28 22:43] LABS: Absolute Lymphocytes (CBC) 1.1 K/uL (0.7-4.9); Basophils % 0.5 % (0-1.3); Hematocrit 37.9 % (39.6-49.0); Lymphocytes % 28.9 % (15.3-44.8); MPV 8.5 fL (7.6-11.3); RBC Red Blood Cell Count 3.73 M/uL (4.33-5.43)
[2019-12-28 22:46] LABS: Protime INR 0.91
[2019-12-28 23:23] LABS: Barbiturates NEGATIVE (NEGATIVE); Benzodiazepines POSITIVE (NEGATIVE); Cocaine NEGATIVE (NEGATIVE); METHAMPHETAM NEGATIVE (NEGATIVE); Methadone NEGATIVE (NEGATIVE); Opiates NEGATIVE (NEGATIVE); Phencyclidine NEGATIVE (NEGATIVE); THC Cannibis NEGATIVE (NEGATIVE)
[2019-12-28 23:25] LABS: Potassium 3.9 mmol/L (3.5-5.1)
--- NOTE | 2019-12-29 00:04 | EDPHYS ---
Physician Documentation [facility] Name: Mitchell Mendez III Age: 29 yrs Sex: Male : 1990 Arrival Date: 12/28/2019 Time: 21:52 Bed 18 Private MD: ED Physician Kirill Flores HPI: 12/27 22:15 This 29 yrs old Male presents to ER via EMS with complaints of Seizure. mh7 22:15 The patient presents. mh7 22:16 The patient presents after having a single isolated seizure, that lasted an unknown mh7 period of time, the episode(s) was witnessed, by family. Character of seizure(s):. 22:17 Character of seizure(s): Loss of consciousness: it is not known if the patient mh7 experienced loss of consciousness, Motor activity: the motor activity is unknown, Incontinence: none, Apnea: the patient did not experience apnea, Circulation: the patient did not experience evidence of pulse disturbance, Eye movements: are unknown. Seizure onset: today. Context: the seizure(s) was witnessed, by family, occurred at home, occurred while the patient was at rest, Contributing factors: unknown. Seizure Hx: Original onset: since childhood,\E\ Cause: unknown, Last seizure: The patient's last seizure was approximately 2 week(s) ago, Usual frequency: irregular frequency, Seizure medications: none. Associated injury: The patient did not suffer any apparent associated injury. EMS care: none. Current symptoms: Currently, the patient is not experiencing any symptoms, the patient feels back to baseline, no decreased level of consciousness, no confusion, no dysphasia, no headache, no paralysis, no visual changes. The patient has experienced similar episodes in the past, multiple times. Historical: - Allergies: 21:57 No Known Allergies; mt2 - PMHx: 21:57 Seizures; mt2 - Immunization history:: Adult Immunizations up to date. - Social history:: Smoking status: Patient reports the use of cigarette tobacco products, smokes one-half pack cigarettes per day, Patient/guardian denies using alcohol, street drugs. ROS: 22:17 Constitutional: Negative for fever, chills, and weight loss, Eyes: Negative for injury, mh7 pain, redness, and discharge, ENT: Negative for injury, pain, and discharge, Neck: Negative for injury, pain, and swelling, Cardiovascular: Negative for chest pain, palpitations, and edema, Respiratory: Negative for shortness of breath, cough, wheezing, and pleuritic chest pain, Abdomen/GI: Negative for abdominal pain, nausea, vomiting, diarrhea, and constipation, Back: Negative for injury and pain, : Negative for injury, bleeding, discharge, and swelling, MS/Extremity: Negative for injury and deformity, Skin: Negative for injury, rash, and discoloration, Psych: Negative for depression, anxiety, suicide ideation, homicidal ideation, and hallucinations, Allergy/Immunology: Negative for hives, rash, and allergies, Endocrine: Negative for neck swelling, polydipsia, polyuria, polyphagia, and marked weight changes, Hematologic/Lymphatic: Negative for swollen nodes, abnormal bleeding, and unusual bruising. Exam: 22:17 Constitutional: This is a well developed, well nourished patient who is awake, alert, mh7 and in no acute distress. Head/Face: Normocephalic, atraumatic. Eyes: Pupils equal round and reactive to light, extra-ocular motions intact. Lids and lashes normal. Conjunctiva and sclera are non-icteric and not injected. Cornea within normal limits. Periorbital areas with no swelling, redness, or edema. ENT: Nares patent. No nasal discharge, no septal abnormalities noted. Tympanic membranes are normal and external auditory canals are clear. Oropharynx with no redness, swelling, or masses, exudates, or evidence of obstruction, uvula midline. Mucous membranes moist. Neck: Trachea midline, no thyromegaly or masses palpated, and no cervical lymphadenopathy. Supple, full range of motion without nuchal rigidity, or vertebral point tenderness. No Meningismus. Chest/axilla: Normal chest wall appearance and motion. Nontender with no deformity. No lesions are appreciated. Cardiovascular: Regular rate and rhythm with a normal S1 and S2. No gallops, murmurs, or rubs. Normal PMI, no JVD. No pulse deficits. Respiratory: Lungs have equal breath sounds bilaterally, clear to auscultation and percussion. No rales, rhonchi or wheezes noted. No increased work of breathing, no retractions or nasal flaring. Abdomen/GI: Soft, non-tender, with normal bowel sounds. No distension or tympany. No guarding or rebound. No evidence of tenderness throughout. Back: No spinal tenderness. No costovertebral tenderness. Full range of motion. Skin: Warm, dry with normal turgor. Normal color with no rashes, no lesions, and no evidence of cellulitis. MS/ Extremity: Pulses equal, no cyanosis. Neurovascular intact. Full, normal range of motion. Neuro: Awake and alert, GCS 15, oriented to person, place, time, and situation. Cranial nerves II-XII grossly intact. Motor strength 5/5 in all extremities. Sensory grossly intact. Cerebellar exam normal. Normal gait. Psych: Awake, alert, with orientation to person, place and time. Behavior, mood, and affect are within normal limits. Vital Signs: 21:40 BP 133 / 101; Pulse 86; Resp 17; Temp 97.9; Pulse Ox 97% on R/A; Weight 56.7 kg; Pain mt2 0/10; 22:05 BP 110 / 71; Pulse 85; Resp 16; Pulse Ox 99% on R/A; Pain 5/10; mt2 23:30 BP 129 / 89; Pulse 79; Resp 16; Pulse Ox 97% on R/A; Pain 0/10; mt2 12/28 00:14 BP 132 / 83; Pulse 83; Resp 16; Temp 98.0(TE); Pulse Ox 97% ; Pain 0/10; mt2 MDM: 12/27 22:12 Patient medically screened. [facility] 23:59 Differential diagnosis: seizure, Alcohol Abuse, Substance Abuse. Data reviewed: vital [facility] signs, nurses notes, EMS record, old medical records, lab test result(s), CBC, drug level(s), alcohol, electrolytes, urine drug screen. Data interpreted: Pulse oximetry: on room air is 97 %. Interpretation: normal. Counseling: I had a detailed discussion with the patient and/or guardian regarding: the historical points, exam findings, and any diagnostic results supporting the discharge/admit diagnosis, lab results, radiology results, the need for outpatient follow up, to return to the emergency department if symptoms worsen or persist or if there are any questions or concerns that arise at home. Response to treatment: the patient's symptoms have resolved after treatment, the patient's blood pressure is in an acceptable range, mental status has returned to baseline, the patient no longer shows bradycardia, the patient is not short of breath, the patient is not tachycardic, the patient's pain is gone, the patient's temperature has normalized. 12/27 22:13 Order name: CBC with Diff; Complete Time: 22:46 [facility] 12/27 22:13 Order name: Basic Metabolic Panel; Complete Time: 23:45 [facility] 12/27 22:13 Order name: Protime (+inr); Complete Time: 22:54 [facility] 12/27 22:13 Order name: Ptt, Activated; Complete Time: 22:54 [facility] 12/27 22:13 Order name: Alcohol Level; Complete Time: 23:45 [facility] 12/27 22:13 Order name: UDS; Complete Time: 23:45 [facility] 12/27 22:13 Order name: CT Head Brain wo Cont 7 Administered Medications: No medications were administered Disposition: 12/29/19 00:03 Discharged to Home. Impression: Alcohol abuse. - Condition is Stable. - Discharge Instructions: Alcohol Use Disorder, Alcohol Intoxication, [id number]. - Medication Reconciliation Form, Thank You Letter, Antibiotic Education, Prescription Opioid Use form. - Follow up: Private Physician; When: 1 - 2 days; Reason: Worsening of condition, Recheck today's complaints, Continuance of care, Re-evaluation by your physician. Follow up: Saad Grier MD; When: 1 - 2 days; Reason: Worsening of condition, Recheck today's complaints. - Problem is an acute exacerbation. - Symptoms have improved. Signatures: Dispatcher [employer] EDMS Kirill Flores MD MD 7 Irma Gavin RN RN mt2 Corrections: (The following items were deleted from the chart) 12/28 00:16 00:03 12/29/2019 00:03 Discharged to Home. Impression: Alcohol abuse. Condition is mt2 Stable. Forms are Medication Reconciliation Form, Thank You Letter, Antibiotic Education, Prescription Opioid Use. Follow up: Private Physician; When: 1 - 2 days; Reason: Worsening of condition, Recheck today's complaints, Continuance of care, Re-evaluation by your physician. Follow up: Saad Grier; When: 1 - 2 days; Reason: Worsening of condition, Recheck today's complaints. Problem is an acute exacerbation. Symptoms have improved. mh7
--- NOTE | 2019-12-29 00:04 | ER ---
Nurse's Notes [facility] Name: Mitchell Mendez III Age: 29 yrs Sex: Male : 1990 Arrival Date: 12/28/2019 Time: 21:52 Bed 18 Private MD: Diagnosis: Alcohol abuse Presentation: 12/27 21:40 Chief complaint: EMS states: BIBA FROM HOME WITNESSED SZ FROM PARENTS/ PT WITH HX OF SZ mt2 DURING CHILDHOOD. HAS NOT TAKEN ANY MEDS SINCE THEN. PER EMS UPON ARRIVAL PT WAS A\T\OX3. VS WNL. ABLE TO RECALL EPISODE. PT STATES SEVERAL FALLS IN THE T MONTH HITTING HEAD. 2 WEEKS AGO WENT TO ED AND HAD OSMAR PUT IN. Coronavirus screen: Patient denies a cough. Patient denies shortness of breath or difficulty breathing. Patient denies measured and/or subjective temperature greater than 100.4F prior to today's visit. Patient denies travel on a cruise ship or to a country the [facility] currently lists as an affected area. Patient denies contact with known and/or suspected case of COVID-19. Ebola Screen: No symptoms or risks identified at this time. Initial Sepsis Screen: Does the patient meet any 2 criteria? No. Patient's initial sepsis screen is negative. Does the patient have a suspected source of infection? No. Patient's initial sepsis screen is negative. Risk Assessment: Do you want to hurt yourself or someone else? Patient reports no desire to harm self or others. Onset of symptoms was December 28, 2019. 21:40 Method Of Arrival: EMS: [facility] mt2 21:40 Acuity: CAROLINE 3 mt2 Triage Assessment: 21:40 General: Appears in no apparent distress. comfortable, Behavior is calm, cooperative. mt2 Pain: Denies pain. 21:40 EENT: No deficits noted. Neuro: No deficits noted. Seizure activity reported prior to mt2 arrival. Cardiovascular: No deficits noted. Respiratory: No deficits noted. GI: No deficits noted. : No deficits noted. Derm: No deficits noted. Musculoskeletal: No deficits noted. Historical: - Allergies: 21:57 No Known Allergies; mt2 - PMHx: 21:57 Seizures; mt2 - Immunization history:: Adult Immunizations up to date. - Social history:: Smoking status: Patient reports the use of cigarette tobacco products, smokes one-half pack cigarettes per day, Patient/guardian denies using alcohol, street drugs. Screenin:59 Abuse screen: Denies threats or abuse. Nutritional screening: No deficits noted. mt2 Tuberculosis screening: No symptoms or risk factors identified. Fall Risk Fall in past 12 months (25 points). Assessment: 21:59 Reassessment: No changes from previously documented assessment. Patient and/or family mt2 updated on plan of care and expected duration. Pain level reassessed. Patient denies pain at this time. 22:30 Reassessment: Patient and/or family updated on plan of care and expected duration. Pain mt2 level reassessed. Patient denies pain at this time. General: Appears uncomfortable. General: Behavior is anxious. 23:30 Reassessment: No changes from previously documented assessment. Patient and/or family mt2 updated on plan of care and expected duration. Pain level reassessed. Patient denies pain at this time. 12/28 00:14 Reassessment: Patient and/or family updated on plan of care and expected duration. Pain mt2 level reassessed. Patient denies pain at this time. Patient states symptoms have improved. General: Appears in no apparent distress. Behavior is cooperative. Vital Signs: 12/27 21:40 BP 133 / 101; Pulse 86; Resp 17; Temp 97.9; Pulse Ox 97% on R/A; Weight 56.7 kg; Pain mt2 0/10; 22:05 BP 110 / 71; Pulse 85; Resp 16; Pulse Ox 99% on R/A; Pain 5/10; mt2 23:30 BP 129 / 89; Pulse 79; Resp 16; Pulse Ox 97% on R/A; Pain 0/10; mt2 12/28 00:14 BP 132 / 83; Pulse 83; Resp 16; Temp 98.0(TE); Pulse Ox 97% ; Pain 0/10; mt2 ED Course: 12/27 21:40 Arm band placed on right wrist. Patient placed in the treatment room. mt2 21:52 Patient arrived in ED. lp1 21:53 Irma Gavin RN is Primary Nurse. mt2 21:57 Triage completed. mt2 22:00 Kirill Flores MD is Attending Physician. 7 22:00 Patient has correct armband on for positive identification. Placed in gown. Bed in low mt2 position. Call light in reach. Side rails up X2. Seizure precautions initiated. 22:00 Maintain EMS IV. Dressing intact. Good blood return noted. Site clean \T\ dry. Gauge \T\ mt 2 site: 20 G LEFT AC. 22:33 UDS Sent. mt2 22:33 Alcohol Level Sent. mt2 22:33 Protime (+inr) Sent. mt2 22:33 Ptt, Activated Sent. mt2 22:33 Basic Metabolic Panel Sent. mt2 22:33 CBC with Diff Sent. mt2 22:52 CT Head Brain wo Cont In Process Unspecified. EDLA 12/28 00:01 Saad Grier MD is Referral Physician. [facility] 00:14 No provider procedures requiring assistance completed. IV discontinued, intact, mt2 bleeding controlled, No redness/swelling at site. Pressure dressing applied. Administered Medications: No medications were administered Outcome: 00:03 Discharge ordered by . [facility] 00:14 Discharged to home ambulatory. ga2 00:14 Condition: good 00:14 Discharge instructions given to patient, Instructed on discharge instructions, follow up and referral plans. Demonstrated understanding of instructions, follow-up care, medications. 00:16 Patient left the ED. ga2 Signatures: Dispatcher [employer] EDLA Cheryl Smith RN RN lp1 Kirill Flores MD MD 7 Irma Gavin RN RN mt2
[2019-12-29 10:24] VITALS: O2SAT 97
[2019-12-29 10:25] VITALS: BP 132/83; TEMP 98
--- NOTE | 2019-12-30 10:48 | RAD REPORT ---
EXAM DESCRIPTION: CT - Head Brain Wo Cont - 12/29/2019 3:10 am CLINICAL HISTORY: 29 years Male, SEIZURE TECHNIQUE: 5 mm axial images were obtained along with 3 mm reformatted coronal and sagittal images. This exam was performed according to our departmental dose-optimization program, which includes autom ated exposure control, adjustment of the mA and/or kV according to patient size and/or use of iterati ve reconstruction technique. COMPARISON: 02/16/2019. FINDINGS: No acute abnormal extracerebral fluid collections are demonstrated. The cortical sulci, ventricles, and cisterns are within normal limits. There are no areas of altered attenuation identified to suggest acute hemorrhage, infarction, or mass lesion. The visualized portions of the paranasal sinuses and mastoid air cells are clear. IMPRESSION: 1. Normal study. Electronically signed by: Hima Ferrari MD 12/28/2019 11:03 PM CDT Due to temporary technical issues with the PACS/Fluency reporting system, reports are being signed by the in house radiologist without review as a courtesy to ensure prompt reporting. The interpreting r adiologist is fully responsible for the content of the report.
== END 2019-12-29 00:16 | disposition home or self-care (01) ==
LOC: ER 21:33
DX: F10.10 Alcohol abuse, uncomplicated (principal); F17.210 Nicotine dependence, cigarettes, uncomplicated
CPT/HCPCS: 36415; 70450; 80048; 80307; 80320; 85025; 85610; 85730; 99284

== ENCOUNTER 2020-08-17 10:56 | Inpatient (IN) | payer SELFPAY ==
[2020-08-17 12:11] LABS: Absolute Lymphocytes (CBC) 0.4 K/uL (0.7-4.9); Basophils % 0.5 % (0-1.3); Hematocrit 52.3 % (39.6-49.0); MPV 9.3 fL (7.6-11.3)
[2020-08-17] MEDS ORDERED: NA CHLORIDE 0.9% 2,000 ML ONE (12:24)
[2020-08-17] MEDS ORDERED: ONDANSETRON 4 MG/2 ML VIAL ONE (12:24)
[2020-08-17 12:39] LABS: Albumin 5.1 g/dL (3.4-5.0); Bilirubin Direct 0.2 mg/dL (0-0.2); Bilirubin Total 1.2 mg/dL (0.2-1.0); Potassium 4.1 mmol/L (3.5-5.1); Protein, Total 9.4 g/dL (6.4-8.2)
--- NOTE | 2020-08-17 12:49 | RAD REPORT ---
EXAM DESCRIPTION: CT - Abdomen Pelvis W Contrast - 08/17/2020 12:25 pm CLINICAL HISTORY: Abdominal pain COMPARISON: 2019 TECHNIQUE: Computed axial tomography of the abdomen pelvis was obtained. 100 cc Isovue-300 was admin istered intravenously. Oral contrast was not requested which limits evaluation of bowel. All CT scans are performed using dose optimization technique as appropriate and may include automated exposure control or mA/KV adjustment according to patient size. FINDINGS: Marked fatty liver. Hepatomegaly. Spleen, adrenal and kidneys appear unremarkable. Mild stranding adjacent to pancreatic There is no evidence of diverticulitis. Normal appendix. Borderline gallbladder distention The wall of portions of the ascending colon, transverse colon left colon appear mildly thickened. Mild anterior subluxation L5 on S1 with subchondral sclerosis involving the vertebral endplates presu mably degenerative nature. IMPRESSION: The wall of portions of the ascending colon, transverse colon left colon appear mildly t hickened. . This may indicate a mild colitis Mild peripancreatic stranding may indicate mild pancreatitis Borderline gallbladder distention
[2020-08-17 12:55] LABS: White Blood Cell Scan OK (OK)
[2020-08-17 12:56] LABS: Blood Morphology Comment NOT SEEN (NOT SEEN); Platelet Estimate DECR
[2020-08-17 14:45] LABS: SARS-COV-2 RT PCR NEGATIVE (NEGATIVE)
--- NOTE | 2020-08-17 14:45 | RAD REPORT ---
EXAM DESCRIPTION: US - Abdomen Exam Limited - 08/17/2020 2:32 pm CLINICAL HISTORY: Abdominal pain. COMPARISON: None. FINDINGS: The gallbladder wall is not thickened. A gallstone is not seen. Borderline gallbladder di stention The common bile duct is upper limits normal caliber. IMPRESSION: Borderline gallbladder distention
[2020-08-17] MEDS ORDERED: MORPHINE 4 MG/ML SYR ONE ×2 (15:11→17:05)
--- NOTE | 2020-08-17 16:01 | EDPHYS ---
Physician Documentation [facility] Name: Mitchell Mendez III Age: 29 yrs Sex: Male : 1990 Arrival Date: 08/17/2020 Time: 10:59 Bed 4 Private MD: ED Physician Harris Batista HPI: 08/17 11:35 This 29 yrs old Male presents to ER via Ambulatory with complaints of rn Vomiting/Diarrhea, Abdominal Pain. 11:35 The patient presents to the emergency department with nausea, vomiting, diarrhea, rn abdominal pain, of the abdomen diffusely, described as achy. The patient presents to the emergency department with abdominal pain, and does not radiate. Onset: The symptoms/episode began/occurred 3 day(s) ago. Possible causes: unknown. The symptoms are aggravated by food , The symptoms are alleviated by nothing. Associated signs and symptoms: Pertinent positives: abdominal pain, diarrhea, nausea, vomiting, Pertinent negatives: fever, GI bleeding. Severity of symptoms: At their worst the symptoms were moderate in the emergency department the symptoms are unchanged. The patient has experienced a previous episode. The patient has not recently seen a physician. Historical: - Allergies: 11:24 No Known Allergies; aa5 - PMHx: 11:24 Seizures; Scoliosis; aa5 - Immunization history:: Adult Immunizations up to date. - Family history:: not pertinent. - Social history:: Smoking status: . - Hospitalizations: : No recent hospitalization is reported. ROS: 11:35 Constitutional: Negative for fever, chills Eyes: Negative for injury, pain, redness, rn and discharge, Cardiovascular: Negative for chest pain, palpitations, and edema, Respiratory: Negative for shortness of breath, cough, wheezing, and pleuritic chest pain, Abdomen/GI: Negative for constipation Back: Negative for injury and pain, : Negative for injury, bleeding, discharge, and swelling, MS/Extremity: Negative for injury and deformity, Skin: Negative for injury, rash, and discoloration, Neuro: Negative for headache, numbness, tingling 11:35 All other systems are negative. Exam: 11:35 Constitutional: Thin male, ambulatory to room Head/Face: Normocephalic, atraumatic. rn Eyes: Pupils equal round and reactive to light ENT: dry MM Neck: No Meningismus. Cardiovascular: Tachycardic, regular Respiratory: Mild tachypnea, speaking full sentences. Abdomen/GI: Soft, non-tender, non-distended Skin: Warm, dry MS/ Extremity: Pulses equal, no cyanosis. Neuro: Awake and alert, GCS 15 Vital Signs: 11:21 BP 138 / 99; Pulse 101; Resp 20 S; Temp 98.1(O); Pulse Ox 98% on R/A; Weight 59 kg; bp Height 6 ft. 3 in. (190.50 cm); 12:48 BP 155 / 94; Pulse 87; Resp 17; Pulse Ox 100% ; bp 14:08 BP 125 / 74; Pulse 81; Resp 11; Pulse Ox 98% on R/A; mh5 14:58 BP 140 / 88; Pulse 82; Resp 16; Pulse Ox 99% on R/A; mh5 16:00 BP 146 / 82; Pulse 87; Resp 17; Pulse Ox 99% ; bp 18:00 BP 150 / 92; Pulse 84; Resp 17; Pulse Ox 96% ; bp 19:00 BP 146 / 89; Pulse 75; Resp 19; Pulse Ox 99% ; Pain 8/10; rr5 20:00 BP 141 / 80; Pulse 70; Resp 17; Pulse Ox 98% on R/A; rr5 21:09 BP 133 / 84; Pulse 69; Resp 19; Pulse Ox 97% on R/A; ea 21:40 BP 160 / 94; Pulse 79; Resp 18; Temp 98.4; Pulse Ox 99% ; rr5 11:21 Body Mass Index 16.26 (59.00 kg, 190.50 cm) bp MDM: 11:26 Patient medically screened. rn 15:59 Differential diagnosis: Nonspecific abd pain, cholecystitis, pancreatitis, rn appendicitis, diverticulitis, viral gastroenteritis, gastroenteritis. Data reviewed: vital signs, nurses notes, lab test result(s), radiologic studies, CT scan, ultrasound, and as a result, I will admit patient. Counseling: I had a detailed discussion with the patient and/or guardian regarding: the historical points, exam findings, and any diagnostic results supporting the discharge/admit diagnosis, lab results, radiology results, the need for further work-up and treatment in the hospital. Response to treatment: the patient's symptoms have mildly improved after treatment, and as a result, I will admit patient. Admission orders: after a detailed discussion of the patient's condition and case, the admit orders are written by me. ED course: Pt will be admitted to Dr. Gomez for colits, pancreatitis, is a drinker, reports nightcaps. No surgical intervention needed at this point, will cover with abx and administer fluids. . 08/17 11:27 Order name: Basic Metabolic Panel rn 08/17 11:27 Order name: CBC with Diff rn 08/17 11:27 Order name: Hepatic Function rn 08/17 11:27 Order name: Lipase; Complete Time: 12:47 rn 08/17 11:28 Order name: Basic Metabolic Panel; Complete Time: 12:47 EDMS 08/17 11:28 Order name: CBC with Automated Diff; Complete Time: 13:54 EDMS 08/17 11:27 Order name: CT Abd/Pelvis - IV Contrast Only; Complete Time: 13:54 rn 08/17 11:28 Order name: Liver (Hepatic) Function; Complete Time: 12:47 EDMS 08/17 12:12 Order name: CBC Smear Scan; Complete Time: 13:54 EDMS 08/17 12:48 Order name: US Abdomen Limited; Complete Time: 14:51 rn 08/17 14:45 Order name: COVID-19/FLU A+B; Complete Time: 14:51 EDMS 08/17 18:49 Order name: MRI; Complete Time: 18:59 EDMS 08/17 11:27 Order name: IV Saline Lock; Complete Time: 12:24 rn 08/17 11:27 Order name: Labs collected and sent; Complete Time: 12:24 rn Administered Medications: 12:00 Drug: Zofran (Ondansetron) 4 mg Route: IVP; Site: left upper arm; bp 19:06 Follow up: Response: No adverse reaction bp 12:00 Drug: NS 0.9% 1000 ml Route: IV; Rate: 1000 ml; Site: left upper arm; bp 19:05 Follow up: IV Status: Completed infusion; IV Intake: 1000ml bp 12:00 Drug: NS 0.9% 1000 ml Route: IV; Rate: 1000 ml; Site: left upper arm; bp 19:06 Follow up: IV Status: Completed infusion; IV Intake: 1000ml bp 15:00 Drug: morphine 4 mg Route: IVP; Site: left upper arm; bp 19:03 Follow up: Response: Pain is decreased bp 16:30 Drug: Cipro 400 mg Volume: 200 ml; Route: IVPB; Infused Over: 60 mins; Site: left upper bp arm; 19:03 Follow up: IV Status: Completed infusion; IV Intake: 200ml bp 16:30 Drug: Flagyl 500 mg Volume: 100 ml; Route: IVPB; Rate: 200 ml/hr; Infused Over: 30 bp mins; Site: left upper arm; 19:04 Follow up: IV Status: Completed infusion; IV Intake: 100ml bp 16:45 Drug: Lactated Ringers Solution 1000 ml Route: IV; Rate: 150 ml/hr; Site: left upper bp arm; 19:04 Follow up: IV Status: Completed infusion; IV Intake: 1000ml bp 16:45 Drug: morphine 4 mg Route: IVP; Site: left upper arm; bp 19:05 Follow up: Response: Pain is decreased bp 16:45 Drug: Zofran (Ondansetron) 4 mg Route: IVP; Site: left upper arm; bp 19:05 Follow up: Response: No adverse reaction bp Disposition: 08/17/20 16:00 Hospitalization ordered by Analilia Gomez for Inpatient Admission. Preliminary diagnosis are Acidosis, Dehydration, Colitis, Acute pancreatitis. - Bed requested for Telemetry/MedSurg (Inpatient). - Status is Inpatient Admission. ea - Condition is Stable. - Problem is new. - Symptoms have improved. Signatures: Dispatcher [employer] EDMS Don Ray RN RN em Nieto, Roman, MD MD rn Calderon, Audri, RN RN aa5 Cecy Marques RN RN ea Peltier, Brian, RN RN bp Corrections: (The following items were deleted from the chart) 13:55 11:35 Influenza Screen (A \T\ B)+BA.LAB.BRZ ordered. EDMS EDMS 13:55 11:35 CORONAVIRUS+MR.LAB.BRZ ordered. EDCA EDMS 16:47 16:00 Hospitalization Ordered by Analilia Gomez MD for Inpatient Admission. Preliminary aa5 diagnosis is Acidosis; Dehydration; Colitis; Acute pancreatitis. Bed requested for Telemetry/MedSurg (Inpatient). Status is Inpatient Admission. Condition is Stable. Problem is new. Symptoms have improved. rn 21:04 16:47 08/17/2020 16:00 Hospitalization Ordered by Analilia Gomez MD for Inpatient em Admission. Preliminary diagnosis is Acidosis; Dehydration; Colitis; Acute pancreatitis. Bed requested for [facility] ER HOLD. Status is Inpatient Admission. Condition is Stable. Problem is new. Symptoms have improved. aa5 21:38 21:04 08/17/2020 16:00 Hospitalization Ordered by Analilia Gomez MD for Inpatient ea Admission. Preliminary diagnosis is Acidosis; Dehydration; Colitis; Acute pancreatitis. Bed requested for Telemetry/MedSurg (Inpatient). Status is Inpatient Admission. Condition is Stable. Problem is new. Symptoms have improved. em
--- NOTE | 2020-08-17 16:01 | ER ---
Nurse's Notes [facility] Name: Mitchell Mendez III Age: 29 yrs Sex: Male : 1990 Arrival Date: 08/17/2020 Time: 10:59 Bed 4 Private MD: Diagnosis: Acidosis;Dehydration;Colitis;Acute pancreatitis Presentation: 08/17 11:21 Chief complaint: Patient states: vomiting for 3 days, cramping all over, unable to aa5 tolerate fluids and food. Pt states "I had diarrhea but I have nothing else in my stomach to go again". Coronavirus screen: diarrhea, nausea, vomiting. Ebola Screen: Patient negative for fever greater than or equal to 101.5 degrees Fahrenheit, and additional compatible Ebola Virus Disease symptoms. Initial Sepsis Screen: Does the patient meet any 2 criteria? HR > 90 bpm. Does the patient have a suspected source of infection? No. Patient's initial sepsis screen is negative. Risk Assessment: Do you want to hurt yourself or someone else? Patient reports no desire to harm self or others. Onset of symptoms was August 2020. 11:21 Method Of Arrival: Ambulatory aa5 11:21 Acuity: CAROLINE 3 aa5 Triage Assessment: 11:45 General: Appears distressed, uncomfortable, slender, Behavior is cooperative, bp appropriate for age, anxious. Pain: Complains of pain in abdomen. EENT: No deficits noted. Neuro: No deficits noted. Cardiovascular: No deficits noted. Respiratory: No deficits noted. GI: Reports diarrhea, nausea. : No signs and/or symptoms were reported regarding the genitourinary system. Derm: No deficits noted. Musculoskeletal: No deficits noted. Historical: - Allergies: 11:24 No Known Allergies; aa5 - PMHx: 11:24 Seizures; Scoliosis; aa5 - Immunization history:: Adult Immunizations up to date. - Family history:: not pertinent. - Social history:: Smoking status: . - Hospitalizations: : No recent hospitalization is reported. Screenin:45 Abuse screen: Denies threats or abuse. Denies injuries from another. Nutritional bp screening: No deficits noted. Tuberculosis screening: No symptoms or risk factors identified. Fall Risk None identified. Assessment: 11:45 General: SEE TRIAGE NOTE. bp 12:48 Reassessment: No changes from previously documented assessment. Patient and/or family bp updated on plan of care and expected duration. Pain level reassessed. CT RESULTS PENDING. GI: Abdomen is non-distended. 15:00 Reassessment: No changes from previously documented assessment. Patient and/or family bp updated on plan of care and expected duration. Pain level reassessed. PT NPO PER MD. 16:00 Reassessment: No changes from previously documented assessment. Patient and/or family bp updated on plan of care and expected duration. Pain level reassessed. ADMIT INITIATED. 18:00 Reassessment: PT TO CT. bp 19:30 General: Appears in no apparent distress. uncomfortable, Behavior is calm, cooperative, rr5 appropriate for age. 19:30 Pain: Complains of pain in abdomen. Neuro: Level of Consciousness is awake, alert, rr5 obeys commands, Oriented to person, place, time. Cardiovascular: Capillary refill < 3 seconds Patient's skin is warm and dry. Respiratory: Airway is patent Respiratory effort is even, unlabored, Respiratory pattern is regular, symmetrical. GI: Abdomen is non-distended, Reports lower abdominal pain, upper abdominal pain, diarrhea, nausea. : No signs and/or symptoms were reported regarding the genitourinary system. Derm: Skin is intact, is healthy with good turgor, Skin temperature is warm. Musculoskeletal: Circulation, motion, and sensation intact. Capillary refill < 3 seconds. 20:00 Reassessment: Patient and/or family updated on plan of care and expected duration. Pain ea level reassessed. Pt resting with eyes closed, respirations even and unlabored, chest expansions even and symmetrical. 21:00 Reassessment: Patient appears in no apparent distress at this time. Patient and/or rr5 family updated on plan of care and expected duration. Pain level reassessed. Patient is alert, oriented x 3, equal unlabored respirations, skin warm/dry/pink. awaiting for room assignment. 21:45 Reassessment: Patient appears in no apparent distress at this time. morphine given as rr5 PRN dose signed in [facility] prior admission in 230. Vital Signs: 11:21 BP 138 / 99; Pulse 101; Resp 20 S; Temp 98.1(O); Pulse Ox 98% on R/A; Weight 59 kg; bp Height 6 ft. 3 in. (190.50 cm); 12:48 BP 155 / 94; Pulse 87; Resp 17; Pulse Ox 100% ; bp 14:08 BP 125 / 74; Pulse 81; Resp 11; Pulse Ox 98% on R/A; mh5 14:58 BP 140 / 88; Pulse 82; Resp 16; Pulse Ox 99% on R/A; mh5 16:00 BP 146 / 82; Pulse 87; Resp 17; Pulse Ox 99% ; bp 18:00 BP 150 / 92; Pulse 84; Resp 17; Pulse Ox 96% ; bp 19:00 BP 146 / 89; Pulse 75; Resp 19; Pulse Ox 99% ; Pain 8/10; rr5 20:00 BP 141 / 80; Pulse 70; Resp 17; Pulse Ox 98% on R/A; rr5 21:09 BP 133 / 84; Pulse 69; Resp 19; Pulse Ox 97% on R/A; ea 21:40 BP 160 / 94; Pulse 79; Resp 18; Temp 98.4; Pulse Ox 99% ; rr5 11:21 Body Mass Index 16.26 (59.00 kg, 190.50 cm) bp ED Course: 10:59 Patient arrived in ED. mr 11:21 Arm band placed on. aa5 11:23 Triage completed. aa5 11:26 Harris Batista MD is Attending Physician. rn 11:45 Patient has correct armband on for positive identification. Bed in low position. Call bp light in reach. Side rails up X2. 11:46 Jeff Steward, RN is Primary Nurse. bp 12:00 Inserted saline lock: 20 gauge in left upper arm, using aseptic technique. Blood bp collected. 12:25 CT Abd/Pelvis - IV Contrast Only In Process Unspecified. EDMS 13:07 US Abdomen Limited In Process Unspecified. EDMS 16:00 Analilia Gomez MD is Hospitalizing Provider. rn 21:07 No provider procedures requiring assistance completed. Patient admitted, IV remains in ea place. Administered Medications: 12:00 Drug: Zofran (Ondansetron) 4 mg Route: IVP; Site: left upper arm; bp 19:06 Follow up: Response: No adverse reaction bp 12:00 Drug: NS 0.9% 1000 ml Route: IV; Rate: 1000 ml; Site: left upper arm; bp 19:05 Follow up: IV Status: Completed infusion; IV Intake: 1000ml bp 12:00 Drug: NS 0.9% 1000 ml Route: IV; Rate: 1000 ml; Site: left upper arm; bp 19:06 Follow up: IV Status: Completed infusion; IV Intake: 1000ml bp 15:00 Drug: morphine 4 mg Route: IVP; Site: left upper arm; bp 19:03 Follow up: Response: Pain is decreased bp 16:30 Drug: Cipro 400 mg Volume: 200 ml; Route: IVPB; Infused Over: 60 mins; Site: left upper bp arm; 19:03 Follow up: IV Status: Completed infusion; IV Intake: 200ml bp 16:30 Drug: Flagyl 500 mg Volume: 100 ml; Route: IVPB; Rate: 200 ml/hr; Infused Over: 30 bp mins; Site: left upper arm; 19:04 Follow up: IV Status: Completed infusion; IV Intake: 100ml bp 16:45 Drug: Lactated Ringers Solution 1000 ml Route: IV; Rate: 150 ml/hr; Site: left upper bp arm; 19:04 Follow up: IV Status: Completed infusion; IV Intake: 1000ml bp 16:45 Drug: morphine 4 mg Route: IVP; Site: left upper arm; bp 19:05 Follow up: Response: Pain is decreased bp 16:45 Drug: Zofran (Ondansetron) 4 mg Route: IVP; Site: left upper arm; bp 19:05 Follow up: Response: No adverse reaction bp Intake: 19:03 IV: 200ml; Total: 200ml. bp 19:04 IV: 100ml; Total: 300ml. bp 19:04 IV: 1000ml; Total: 1300ml. bp 19:05 IV: 1000ml; Total: 2300ml. bp 19:06 IV: 1000ml; Total: 3300ml. bp Outcome: 16:00 Decision to Hospitalize by Provider. rn 21:07 Instructed on the need for admit. ea 21:33 Admitted to Med/surg accompanied by tech, via stretcher, room 230, with chart, Report rr5 called to bibiana 21:33 Condition: stable 21:38 Patient left the ED. ea Signatures: Dispatcher [employer] EDNC CastanoCarmina Roman, MD MD rn Calderon, Audri RN RN Candi Garnica Cecy Chambers RN RN ea Peltier, Brian, RN RN bp Roque, Leonidas, RN RN rr5 Corrections: (The following items were deleted from the chart) 19:02 11:21 BP 138 / 99; Pulse 101bpm; Resp 20bpm; Spontaneous; Pulse Ox 98% RA; Temp 98.1F bp Oral; aa5
[2020-08-17] MEDS ORDERED: ACETAMINOPHEN 500 MG TAB PO PRN (16:34)
[2020-08-17] MEDS ORDERED: ONDANSETRON 4 MG/2 ML VIAL IV PRN (16:34)
[2020-08-17] MEDS: NA CHLORIDE 0.9% 1,000 ML IV SCH ×2 (17:00→23:14)
[2020-08-17] MEDS ORDERED: Ringers Lactate 1,000 ML IV ONE (17:05)
[2020-08-17] MEDS ORDERED: CIPROFLOXACIN 400mg IV 400 MG/200 ML BAG IV ONE (17:07)
[2020-08-17] MEDS: METRONIDAZOLE 500mg IVPB 500 MG/100 ML BAG IV SCH (18:00)
[2020-08-17] MEDS ORDERED: NA CHLORIDE 0.9% 1,000 ML ONE (18:43)
--- NOTE | 2020-08-17 18:49 | RAD REPORT ---
EXAM DESCRIPTION: MRICholangiogram08/17/2020 6:31 pm CLINICAL HISTORY: Abdominal pain COMPARISON: June 2018 cat scan and ultrasound TECHNIQUE: Magnetic resonance cholangiogram was performed.3D MIP reconstruction performed FINDINGS: A filling defect within the gallbladder is not seen. The gallbladder is distended. The wal l is not thickened The biliary tree is normal caliber without a filling defect. Pancreatic duct is normal caliber. Small amount peripancreatic fluid IMPRESSION: Distended gallbladder Small amount of peripancreatic fluid likely related to pancreatitis
[2020-08-17] MEDS ORDERED: INFLUENZA VACCINE (for 3y+) 0.5 ML DOSE IMVAC ONE (20:00)
[2020-08-17] MEDS ORDERED: CEFTRIAXONE/SWI 1gm 1 GM/10 ML SYR ONE (20:09)
[2020-08-17] MEDS: CEFTRIAXONE/SWI 1gm 1 GM/10 ML SYR IVP SCH (20:13)
[2020-08-17] MEDS: MORPHINE 2 MG/ML SYR IV PRN (21:35)
[2020-08-17] MEDS ORDERED: MORPHINE 2 MG/ML SYR ONE (21:54)
[2020-08-17 22:56] VITALS: BMI 16.9
[2020-08-18] MEDS: METRONIDAZOLE 500mg IVPB 500 MG/100 ML BAG IV SCH ×4 (00:08→16:11)
[2020-08-18] MEDS: MORPHINE 2 MG/ML SYR IV PRN ×5 (01:40→20:44)
[2020-08-18 03:40] LABS: Absolute Lymphocytes (CBC) 0.6 K/uL (0.7-4.9); Basophils % 0.4 % (0-1.3); Hematocrit 39.8 % (39.6-49.0); Lymphocytes % 11.8 % (15.3-44.8); MPV 9.7 fL (7.6-11.3); RBC Red Blood Cell Count 4.01 M/uL (4.33-5.43)
[2020-08-18 03:43] LABS: Protime INR 0.92
[2020-08-18 04:14] LABS: ALT/SGPT 96 U/L (12-78); AST/SGOT 72 U/L (15-37); Albumin 3.4 g/dL (3.4-5.0); Alkaline Phosphatase 92 U/L (45-117); BUN Blood Urea Nitrogen 8 mg/dL (7-18); Bicarbonate 21 mmol/L (21-32); Bilirubin Total 0.7 mg/dL (0.2-1.0); Glucose Level 88 mg/dL (74-106); HDL Cholesterol 67 mg/dL (40-60); Potassium 3.8 mmol/L (3.5-5.1); Protein, Total 6.3 g/dL (6.4-8.2); Sodium Level 138 mmol/L (136-145)
[2020-08-18 04:15] LABS: LDL Cholesterol, Calculated 78 (<130); Lipase 1438 U/L (73-393)
[2020-08-18 04:18] LABS: Blood Morphology Comment NOT SEEN (NOT SEEN); Platelet Estimate DECR; White Blood Cell Scan OK (OK)
[2020-08-18] MEDS: NA CHLORIDE 0.9% 1,000 ML IV SCH ×4 (06:19→20:51)
--- NOTE | 2020-08-18 08:43 | P.HP ---
Certification for Inpatient Patient admitted to: Inpatient With expected LOS: >2 Midnights Patient will require the following post-hospital care: None Practitioner: I am a practitioner with admitting privileges, knowledge of patient current condition, hospital course, and medical plan of care. Services: Services provided to patient in accordance with Admission requirements found in Title 42 Section 412.3 of the Code of Federal Regulations Patient History Date of Service: 08/17/20 Reason for admission: Abdominal pain/acute pancreatitis History of Present Illness: Patient is a 29-year-old gentleman who denies any prior medical problems the states that he was having some abdominal discomfort over the last week. It got progressively worse over the last 24-48 hr so he decided to come into the emergency room for further evaluation. Patient was having intractable nausea and vomiting. He states that he is not a heavy drinker. His last drink was about a week ago. He does not feel that he drank heavily. He has had a workup in the emergency room with elevated lipase levels and CT imaging indicating acute pancreatitis. There is no evidence of gallstones. Will check the lipid profile as well. Patient will be admitted to the hospital for further evaluation. Allergies No Known Allergies Allergy (Verified 08/17/20 23:26) Home Medications: NK [No Home Meds] 08/17/20 - Past Medical/Surgical History Has patient received pneumonia vaccine in the past: No -: None Past Surgical History: Patient denies surgical history - Family History Father Family History: Reviewed- Non-Contributory - Social History Smoking Status: Current every day smoker Alcohol use: Yes Place of Residence: Home Review of Systems 10-point ROS is otherwise unremarkable Physical Examination - Vital Signs Temperature: 98.7 F Blood Pressure: 137/68 Pulse: 71 Respirations: 16 Pulse Ox (%): 96 - Physical Exam General: Alert, In no apparent distress, Oriented x3 HEENT: Atraumatic, PERRLA, Mucous membr. moist/pink, EOMI, Sclerae nonicteric Neck: Supple, 2+ carotid pulse no bruit, No LAD, Without JVD or thyroid abnormality Respiratory: Clear to auscultation bilaterally, Normal air movement Cardiovascular: Normal pulses, Regular rate/rhythm, Normal S1 S2 Gastrointestinal: Absent bowel sounds, Distended, Tenderness, Rebound, Guarding Musculoskeletal: No clubbing, No swelling, No tenderness Integumentary: No rashes Neurological: Normal gait, Normal speech, Normal strength at 5/5 x4 extr, Normal tone, Sensation intact, Cranial nerves 3-12 intact, Normal affect Lymphatics: No axilla or inguinal lymphadenopathy - Studies Laboratory Data (last 24 hrs) 08/17/20 12:00: WBC 9.70, Hgb 17.3, Hct 52.3 H, Plt Count 106 L 08/17/20 12:00: Sodium 132 L, Potassium 4.1, BUN 14, Creatinine 1.36 H, Glucose 146 H, Total Bilirubin 1.2 H, AST 147 H, ALT 167 H, Alkaline Phosphatase 150 H, Lipase 4641 H Assessment & Plan - Problems (Diagnosis) (1) Acute pancreatitis Current Visit: Yes Status: Acute - Plan 1. Continue with IV hydration 2. Continue with IV antibiotics 3. Continue with pain control 4. NPO 5. GI consultation; outpatient colonoscopy in 6-12 weeks 6. Serial H&H, and we will monitor CBC, BMP, LFTs and lipase along with electrolytes. 7. GI and DVT prophylaxis Discharge Plan: Home Plan to discharge in: Greater than 2 days - Advance Directives Does patient have a Living Will: No Does patient have a Durable POA for Healthcare: No - Code Status/Comfort Care Code Status Assessed: Yes Code Status: Full Code Critical Care: No Time Spent Managing PTS Care (In Minutes): 45
--- NOTE | 2020-08-18 08:49 | P.PN ---
Subjective Date of Service: 08/18/20 Subjective: No new changes, No C/O voiced, Improving Review of Systems 10-point ROS is otherwise unremarkable Physical Examination - Vital Signs Temperature: 98.7 F Blood Pressure: 137/68 Pulse: 71 Respirations: 16 Pulse Ox (%): 96 - Physical Exam General: Alert, In no apparent distress, Oriented x3 Respiratory: Clear to auscultation bilaterally, Normal air movement Cardiovascular: Regular rate/rhythm, Normal S1 S2, No murmurs Gastrointestinal: Non-distended, Absent bowel sounds, Tenderness Musculoskeletal: No clubbing, No swelling, No tenderness Neurological: Normal speech, Sensation intact, Cranial nerves 3-12 intact - Studies Laboratory Data (last 24 hrs) 08/17/20 12:00: WBC 9.70, Hgb 17.3, Hct 52.3 H, Plt Count 106 L 08/17/20 12:00: Sodium 132 L, Potassium 4.1, BUN 14, Creatinine 1.36 H, Glucose 146 H, Total Bilirubin 1.2 H, AST 147 H, ALT 167 H, Alkaline Phosphatase 150 H, Lipase 4641 H Medications List Reviewed: Yes Assessment & Plan - Problems (Diagnosis) (1) Acute pancreatitis Current Visit: Yes Status: Acute - Plan Continue with plan of care as mentioned below 1. Continue with IV hydration 2. Continue with IV antibiotics 3. Continue with pain control 4. NPO 5. GI consultation; 6. Monitor CBC, BMP, LFTs and lipase along with electrolytes. 7. GI and DVT prophylaxis Discharge Plan: Home Plan to discharge in: Greater than 2 days - Advance Directives Does patient have a Living Will: No Does patient have a Durable POA for Healthcare: No - Code Status/Comfort Care Code Status: Full Code Critical Care: No Time Spent Managing PTS Care (In Minutes): 35
[2020-08-18] MEDS: CEFTRIAXONE/SWI 1gm 1 GM/10 ML SYR IVP SCH ×2 (11:57→20:44)
[2020-08-18 15:16] VITALS: O2SAT 99
[2020-08-19] MEDS: METRONIDAZOLE 500mg IVPB 500 MG/100 ML BAG IV SCH ×4 (00:12→17:11)
[2020-08-19] MEDS: MORPHINE 2 MG/ML SYR IV PRN ×3 (02:10→20:55)
[2020-08-19] MEDS: NA CHLORIDE 0.9% 1,000 ML IV SCH ×4 (06:04→16:58)
[2020-08-19 06:16] LABS: Absolute Lymphocytes (CBC) 1.1 K/uL (0.7-4.9); Basophils % 0.8 % (0-1.3); MPV 10.2 fL (7.6-11.3); RBC Red Blood Cell Count 4.05 M/uL (4.33-5.43)
[2020-08-19 06:35] LABS: ALT/SGPT 83 U/L (12-78); AST/SGOT 80 U/L (15-37); Albumin 3.5 g/dL (3.4-5.0); Alkaline Phosphatase 95 U/L (45-117); BUN Blood Urea Nitrogen 6 mg/dL (7-18); Bicarbonate 20 mmol/L (21-32); Bilirubin Direct 0.2 mg/dL (0-0.2); Bilirubin Total 0.9 mg/dL (0.2-1.0); Glucose Level 73 mg/dL (74-106); Lipase 623 U/L (73-393); Magnesium 1.9 mg/dL (1.8-2.4); Phosphorus 1.8 mg/dL (2.5-4.9); Potassium 3.5 mmol/L (3.5-5.1); Protein, Total 6.4 g/dL (6.4-8.2); Sodium Level 138 mmol/L (136-145)
[2020-08-19] MEDS ORDERED: POTASSIUM PHOS 30 MM in NA CHLORIDE 0.9% 500 ML IV ONE (07:41)
[2020-08-19] MEDS: CEFTRIAXONE/SWI 1gm 1 GM/10 ML SYR IVP SCH ×2 (09:00→20:55)
[2020-08-20] MEDS: METRONIDAZOLE 500mg IVPB 500 MG/100 ML BAG IV SCH ×3 (06:00→13:00)
[2020-08-20] MEDS: CEFTRIAXONE/SWI 1gm 1 GM/10 ML SYR IVP SCH (10:19)
[2020-08-20 13:16] LABS: Absolute Lymphocytes (CBC) 0.7 K/uL (0.7-4.9); Basophils % 1.5 % (0-1.3); Hematocrit 41.8 % (39.6-49.0); Lymphocytes % 19.4 % (15.3-44.8); MPV 9.9 fL (7.6-11.3); RBC Red Blood Cell Count 4.26 M/uL (4.33-5.43)
[2020-08-20 13:33] LABS: ALT/SGPT 110 U/L (12-78); AST/SGOT 160 U/L (15-37); Albumin 3.7 g/dL (3.4-5.0); Alkaline Phosphatase 97 U/L (45-117); BUN Blood Urea Nitrogen 2 mg/dL (7-18); Bicarbonate 29 mmol/L (21-32); Bilirubin Total 0.6 mg/dL (0.2-1.0); Glucose Level 103 mg/dL (74-106); Lipase 1082 U/L (73-393); Potassium 3.8 mmol/L (3.5-5.1); Sodium Level 140 mmol/L (136-145)
[2020-08-23 05:50] VITALS: BP 137/68; TEMP 98.7
--- NOTE | 2020-08-23 05:51 | P.PN ---
Date of Service: 08/19/20 Subjective Subjective: Patient continues to improve with no new Changes. Pain is improved. Advance diet as tolerated Review of Systems 10-point ROS is otherwise unremarkable Physical Examination - Vital Signs Reviewed - Physical Exam General: Alert, In no apparent distress, Oriented x3 Respiratory: Clear to auscultation bilaterally, Normal air movement Cardiovascular: Regular rate/rhythm, Normal S1 S2, No murmurs Gastrointestinal: Non-distended, Absent bowel sounds, Tenderness Musculoskeletal: No clubbing, No swelling, No tenderness Neurological: Normal speech, Sensation intact, Cranial nerves 3-12 intact Assessment & Plan - Problems (Diagnosis) (1) Acute pancreatitis Current Visit: Yes Status: Acute - Plan Continue with plan of care as mentioned below 1. Continue with IV hydration 2. Continue with IV antibiotics 3. Continue with pain control 4. Clear liquid diet and advance as tolerated 5. GI consultation As an outpatient 6. Monitor CBC, BMP, LFTs and lipase along with electrolytes. 7. GI and DVT prophylaxis Discharge Plan: Home Plan to discharge in: Greater than 2 days - Advance Directives Does patient have a Living Will: No Does patient have a Durable POA for Healthcare: No - Code Status/Comfort Care Code Status: Full Code Critical Care: No Time Spent Managing PTS Care (In Minutes): 35
--- NOTE | 2020-08-23 05:52 | P.DS ---
Discharge Date: 08/20/20 Disposition: AMA-LEFT AGAINST MEDICAL ADVIC Reason for Admission: Abdominal pain/acute pancreatitis - Problems (1) Acute pancreatitis Status: Resolved Brief History of Present Illness: Patient is a 29-year-old gentleman who denies any prior medical problems the states that he was having some abdominal discomfort over the last week. It got progressively worse over the last 24-48 hr so he decided to come into the emergency room for further evaluation. Patient was having intractable nausea and vomiting. He states that he is not a heavy drinker. His last drink was about a week ago. He does not feel that he drank heavily. He has had a workup in the emergency room with elevated lipase levels and CT imaging indicating acute pancreatitis. There is no evidence of gallstones. Will check the lipid profile as well. Patient will be admitted to the hospital for further evaluation. Hospital Course: Discussion was doing better. However his liver enzymes and is lipase more elevated. I want him to stay overnight but he wanted to leave. He went ahead and signed a form that leave against medical advice. 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 Vital Signs/Physical Exam: Temp Pulse Resp BP Pulse Ox 98.7 F 71 16 137/68 96 08/23/20 05:50 08/23/20 05:50 08/23/20 05:50 08/23/20 05:50 08/23/20 05:50 General: Alert, In no apparent distress, Oriented x3 Laboratory Data at Discharge: WBC 3.50 K/uL (4.3-10.9) L D 08/20/20 12:55 Hgb 14.0 g/dL (13.6-17.9) 08/20/20 12:55 Hct 41.8 % (39.6-49.0) 08/20/20 12:55 Plt Count 91 K/uL (152-406) L D 08/20/20 12:55 PT 10.6 SECONDS (9.5-12.5) 08/18/20 03:15 INR 0.92 08/18/20 03:15 APTT 28.6 SECONDS (24.3-36.9) 08/18/20 03:15 Sodium 140 mmol/L (136-145) 08/20/20 12:55 Potassium 3.8 mmol/L (3.5-5.1) 08/20/20 12:55 BUN 2 mg/dL (7-18) L 08/20/20 12:55 Creatinine 0.41 mg/dL (0.55-1.3) L 08/20/20 12:55 Glucose 103 mg/dL (74-106) 08/20/20 12:55 Phosphorus 1.8 mg/dL (2.5-4.9) L 08/19/20 05:47 Magnesium 1.9 mg/dL (1.8-2.4) 08/19/20 05:47 Total Bilirubin 0.6 mg/dL (0.2-1.0) 08/20/20 12:55 AST 160 U/L (15-37) H 08/20/20 12:55 ALT 110 U/L (12-78) H 08/20/20 12:55 Alkaline Phosphatase 97 U/L (45-117) 08/20/20 12:55 Triglycerides 57 mg/dL (<150) 08/18/20 03:15 Cholesterol 156 mg/dL (<200) 08/18/20 03:15 HDL Cholesterol 67 mg/dL (40-60) H 08/18/20 03:15 Cholesterol/HDL Ratio 2.33 08/18/20 03:15 Lipase 1082 U/L (73-393) H 08/20/20 12:55 Home Medications: NK [No Home Meds] 08/17/20 Physician Discharge Instructions: Patient has left against medical advice Followup: NONE,NONE [Primary Care Provider] - Time spent managing pt's care (in minutes): 35
== END 2020-08-20 16:21 | disposition left against medical advice (07) | DRG 440 ==
LOC: ER 10:56 → ERHOLD 16:34 → 2ND 21:32
PROVIDERS: ADMIT Hospitalist; ATTEND Hospitalist
DX: K85.90 Acute pancreatitis without necrosis or infection, unspecified (principal); F17.200 Nicotine dependence, unspecified, uncomplicated; R94.5 Abnormal results of liver function studies; Z53.29 Procedure and treatment not carried out because of patient's decision for other reasons; Z20.822 Contact with and (suspected) exposure to COVID-19
CPT/HCPCS: 0240U; 36415; 74177; 74181; 76705; 80048; 80053; 80061; 80076; 80320; 82565; 83690; 83735; 84100; 85025; 85610; 85730; 96361; 96365; 96366; 96368; 96375; 99285; J0696; J0744; J2270; J2405; J7030; J7040; J7120; Q9967

== ENCOUNTER 2021-02-26 18:35 | Emergency (ER) | payer SELFPAY ==
[2021-02-26] MEDS ORDERED: PANTOPRAZOLE 40 MG INJ ONE (19:48)
[2021-02-26] MEDS ORDERED: ONDANSETRON 4 MG/2 ML VIAL ONE (19:48)
[2021-02-26] MEDS ORDERED: MORPHINE 4 MG/ML SYR ONE ×2 (19:48→22:48)
[2021-02-26] MEDS ORDERED: NA CHLORIDE 0.9% 1,000 ML ONE (19:49)
[2021-02-26 19:52] LABS: Urine Glucose Negative (Negative); Urine Specific Gravity 1.015 (1.005-1.030)
[2021-02-26 19:53] LABS: Urine Blood Negative (Negative); Urine Protein Negative (Negative)
[2021-02-26 20:01] LABS: Protime INR 0.91
[2021-02-26 20:14] LABS: ALT/SGPT 128 U/L (12-78); AST/SGOT 105 U/L (15-37); Albumin 3.9 g/dL (3.4-5.0); Alkaline Phosphatase 118 U/L (45-117); BUN Blood Urea Nitrogen 6 mg/dL (7-18); Bicarbonate 29 mmol/L (21-32); Bilirubin Direct 0.1 mg/dL (0-0.2); Bilirubin Total 0.3 mg/dL (0.2-1.0); Glucose Level 99 mg/dL (74-106); Lipase 105 U/L (73-393); Potassium 3.3 mmol/L (3.5-5.1); Sodium Level 145 mmol/L (136-145)
--- NOTE | 2021-02-26 20:21 | RAD REPORT ---
EXAM DESCRIPTION: CT - Abdomen Pelvis W Contrast - 02/26/2021 8:01 pm CLINICAL HISTORY: Abdominal pain COMPARISON: August 2020 TECHNIQUE: Computed axial tomography of the abdomen pelvis was obtained. 100 cc Isovue-300 was admin istered intravenously. Oral contrast was not requested which limits evaluation of bowel. All CT scans are performed using dose optimization technique as appropriate and may include automated exposure control or mA/KV adjustment according to patient size. FINDINGS: Fatty liver Spleen, pancreas, adrenal and kidneys appear unremarkable. There is no evidence of diverticulitis. Mild thickening of the wall of a portion of transverse colon. Small left inguinal hernia IMPRESSION: Mild thickening of the wall of the transverse colon may indicate a mild colitis
[2021-02-26 20:25] LABS: Absolute Lymphocytes (CBC) 1.2 K/uL (0.7-4.9); Basophils % 1.3 % (0-1.3); Hematocrit 44.2 % (39.6-49.0); Lymphocytes % 25.3 % (15.3-44.8); MPV 8.3 fL (7.6-11.3); RBC Red Blood Cell Count 4.39 M/uL (4.33-5.43)
--- NOTE | 2021-02-26 21:21 | EDPHYS ---
Physician Documentation [facility] Name: Mitchell Mendez III Age: 30 yrs Sex: Male : 1990 Arrival Date: 02/26/2021 Time: 18:35 Bed 13 Private MD: ED Physician Kirill Flores HPI: 02/26 19:10 This 30 yrs old Male presents to ER via Ambulatory with complaints of mh7 Abdominal Pain, Bloody Stools. 19:10 The patient presents with abdominal pain that is diffuse. Onset: The symptoms/episode mh7 began/occurred 1 week(s) ago. The symptoms do not radiate. Associated signs and symptoms: Pertinent positives: nausea, vomiting, and diarrhea, blood in stools, Pertinent negatives: anorexia, chest pain, constipation, dysuria, fever, headache, hematuria, palpitations, shortness of breath, testicular pain, vomiting blood. The symptoms are described as intermittent, vague, waxing/waning. Modifying factors: The symptoms are alleviated by nothing, the symptoms are aggravated by food. Severity of pain: At its worst the pain was moderate 4 day(s) ago, in the emergency department the pain is unchanged. Historical: - Allergies: 18:42 No Known Allergies; aa5 - PMHx: 18:42 scoliosis; Seizures; aa5 18:42 Pancreatitis; aa5 - Immunization history:: Adult Immunizations not up to date, Client reports having NOT received the Covid vaccine. pt states he does not take any vaccines . - Social history:: Smoking status: Patient reports the use of cigarette tobacco products, smokes one-half pack cigarettes per day, Patient uses alcohol, occasionally. ROS: 19:10 Constitutional: Negative for fever, chills, and weight loss, Eyes: Negative for injury, mh7 pain, redness, and discharge, ENT: Negative for injury, pain, and discharge, Neck: Negative for injury, pain, and swelling, Cardiovascular: Negative for chest pain, palpitations, and edema, Respiratory: Negative for shortness of breath, cough, wheezing, and pleuritic chest pain, Back: Negative for injury and pain, : Negative for injury, bleeding, discharge, and swelling, MS/Extremity: Negative for injury and deformity, Skin: Negative for injury, rash, and discoloration, Neuro: Negative for headache, weakness, numbness, tingling, and seizure, Psych: Negative for depression, anxiety, suicide ideation, homicidal ideation, and hallucinations, Allergy/Immunology: Negative for hives, rash, and allergies, Endocrine: Negative for neck swelling, polydipsia, polyuria, polyphagia, and marked weight changes, Hematologic/Lymphatic: Negative for swollen nodes, abnormal bleeding, and unusual bruising. Exam: 19:10 Constitutional: This is a well developed, well nourished patient who is awake, alert, mh7 and in no acute distress. Head/Face: Normocephalic, atraumatic. Eyes: Pupils equal round and reactive to light, extra-ocular motions intact. Lids and lashes normal. Conjunctiva and sclera are non-icteric and not injected. Cornea within normal limits. Periorbital areas with no swelling, redness, or edema. Neck: Trachea midline, no thyromegaly or masses palpated, and no cervical lymphadenopathy. Supple, full range of motion without nuchal rigidity, or vertebral point tenderness. No Meningismus. Chest/axilla: Normal chest wall appearance and motion. Nontender with no deformity. No lesions are appreciated. Cardiovascular: Regular rate and rhythm with a normal S1 and S2. No gallops, murmurs, or rubs. Normal PMI, no JVD. No pulse deficits. Respiratory: Lungs have equal breath sounds bilaterally, clear to auscultation and percussion. No rales, rhonchi or wheezes noted. No increased work of breathing, no retractions or nasal flaring. Back: No spinal tenderness. No costovertebral tenderness. Full range of motion. Skin: Warm, dry with normal turgor. Normal color with no rashes, no lesions, and no evidence of cellulitis. MS/ Extremity: Pulses equal, no cyanosis. Neurovascular intact. Full, normal range of motion. Neuro: Awake and alert, GCS 15, oriented to person, place, time, and situation. Cranial nerves II-XII grossly intact. Motor strength 5/5 in all extremities. Sensory grossly intact. Cerebellar exam normal. Normal gait. 19:10 Abdomen/GI: Inspection: abdomen appears normal, Bowel sounds: normal, in all quadrants, mh7 Palpation: moderate abdominal tenderness, in all quadrants, mass, is not appreciated, rebound tenderness, is not appreciated, voluntary guarding, is not appreciated, involuntary guarding, is not appreciated, no appreciated organomegaly, Rectal exam: the exam is deferred, because of patient request, Indicators: McBurney's point is not tender, Clemens's sign is negative, Rovsing's sign is negative, Obturator sign is negative, Psoas sign is negative, Liver: no appreciated palpable abnormalities, Hernia: not appreciated. Vital Signs: 18:43 BP 127 / 87; Pulse 110; Resp 18 S; Temp 99.0(TE); Pulse Ox 99% on R/A; Weight 61.23 kg aa5 (R); Height 6 ft. 3 in. (190.50 cm) (R); 19:44 BP 116 / 77; Pulse 80; Resp 16; Pulse Ox 97% on R/A; Pain 6/10; bs2 18:43 Body Mass Index 16.87 (61.23 kg, 190.50 cm) aa5 MDM: 19:10 Differential diagnosis: appendicitis, bowel obstruction, cholecystitis, Cholelithiasis, 7 diverticulitis, gastritis, gastroesophageal reflux disease, GI Bleed, non-specific abd pain, pancreatitis, Peptic Ulcer Disease, Pyelonephritis, Ureterolithiasis, urinary tract infection. Data reviewed: vital signs, nurses notes, lab test result(s), CBC, electrolytes, radiologic studies, CT scan. Data interpreted: Pulse oximetry: on room air is 97 %. Interpretation: normal. 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 Response to treatment: the patient's symptoms have resolved after treatment, the patient's blood pressure is in an acceptable range, mental status has returned to baseline, the patient no longer shows bradycardia, the patient is not short of breath, the patient is not tachycardic, the patient's pain is gone. 21:20 Patient medically screened. [facility] 02/26 19:19 Order name: Basic Metabolic Panel; Complete Time: 20:24 [facility] 02/26 19:19 Order name: CBC with Diff; Complete Time: 20:29 [facility] 09/19 19:19 Order name: Hepatic Function; Complete Time: 20:24 [facility] 02/26 19:19 Order name: Lipase; Complete Time: 20:24 [facility] 02/26 19:19 Order name: Protime (+inr); Complete Time: 20:24 [facility] 02/26 19:19 Order name: Ptt, Activated; Complete Time: 20:24 [facility] 02/26 19:19 Order name: Type And Screen; Complete Time: 21:27 [facility] 02/26 19:19 Order name: CT Abd/Pelvis - IV Contrast Only; Complete Time: 20:24 [facility] 02/26 19:52 Order name: Urine Dipstick-Ancillary; Complete Time: 20:00 [facility] 02/26 21:51 Order name: Urine Dipstick-Ancillary [facility] 02/26 19:19 Order name: IV Saline Lock; Complete Time: 19:39 [facility] 02/26 19:19 Order name: Labs collected and sent; Complete Time: 19:39 [facility] 02/26 19:19 Order name: Urine Dipstick-Ancillary (obtain specimen); Complete Time: 19:52 [facility] Administered Medications: 19:38 Drug: Zofran (Ondansetron) 4 mg Route: IVP; Site: right forearm; bs2 21:01 Follow up: Response: No adverse reaction bs2 19:38 Drug: morphine 4 mg Route: IVP; Site: right forearm; bs2 21:27 Follow up: Response: No adverse reaction bs2 19:39 Drug: NS 0.9% 1000 ml Route: IV; Rate: 1000 ml; Site: right forearm; bs2 21:45 Follow up: IV Status: Completed infusion; IV Intake: 1000ml bs2 19:39 Drug: ProTONIX (pantoprazole) 80 mg Route: IVP; Site: right forearm; bs2 21:01 Follow up: Response: No adverse reaction bs2 21:26 Drug: Flagyl (metroNIDAZOLE) 500 mg Volume: 100 ml; Route: IVPB; Rate: 200 ml/hr; bs2 Infused Over: 30 mins; Site: right antecubital; 22:15 Follow up: IV Status: Completed infusion; IV Intake: 100ml bb 22:20 Drug: Cipro (ciprofloxacin) 400 mg Volume: 200 ml; Route: IVPB; Infused Over: 60 mins; bb Site: right forearm; 02/27 00:10 Follow up: IV Status: Completed infusion; IV Intake: 100ml bs2 02/26 22:31 Drug: morphine 4 mg {Note: RASS 0.} Route: IVP; Site: right forearm; bb 02/27 00:10 Follow up: Response: No adverse reaction bs2 Disposition Summary: 02/26/21 21:20 Discharge Ordered Location: Home [facility] Problem: new [facility] Symptoms: have improved [facility] Condition: Stable [facility] Diagnosis - Colitis [facility] Followup: [facility] - With: Private Physician - When: 1 - 2 days - Reason: Worsening of condition, Recheck today's complaints, Continuance of care, Re-evaluation by your physician Followup: [facility] - With: Alfredito Sood MD - When: 2 - 3 days - Reason: Worsening of condition, Recheck today's complaints Discharge Instructions: - Discharge Summary Sheet [facility] - Colitis [facility] Forms: - Medication Reconciliation Form [facility] - Thank You Letter [facility] - Antibiotic Education [facility] - Prescription Opioid Use [facility] Prescriptions: - ondansetron 4 mg Oral tablet,disintegrating - place 1 tablet by TRANSLINGUAL route every 8 hours As needed; 10 tablet; [facility] Refills: 0, Product Selection Permitted - Flagyl 500 mg Oral Tablet - take 1 tablet by ORAL route every 8 hours for 10 days; 30 tablet; Refills: 0, [facility] Product Selection Permitted - Cipro 500 mg Oral Tablet - take 1 tablet by ORAL route every 12 hours for 10 days; 20 tablet; Refills: 0, [facility] Product Selection Permitted - dicyclomine 20 mg Oral Tablet - take 1 tablet by ORAL route 4 times per day As needed; 20 tablet; Refills: 0, [facility] Product Selection Permitted Signatures: Dispatcher [employer] Tmaar Rodriguez RN RN bb Wanda Lau RN RN aa5 Kirill Flores MD MD 7 Jesi Power RN RN bs2
--- NOTE | 2021-02-26 21:21 | ER ---
Nurse's Notes [facility] Name: Mitchell Mendez III Age: 30 yrs Sex: Male : 1990 Arrival Date: 02/26/2021 Time: 18:35 Bed 13 Private MD: Diagnosis: Colitis Presentation: 02/26 18:43 Chief complaint: Pt's mother reports blood in stool and vomiting that began 5-6 days aa5 ago, pt also c/o abd pain. Pt's mother reports hx of pancreatitis. Coronavirus screen: vomiting. Ebola Screen: Patient negative for fever greater than or equal to 101.5 degrees Fahrenheit, and additional compatible Ebola Virus Disease symptoms. Initial Sepsis Screen: Does the patient meet any 2 criteria? HR > 90 bpm. Does the patient have a suspected source of infection? No. Patient's initial sepsis screen is negative. Risk Assessment: Do you want to hurt yourself or someone else? Patient reports no desire to harm self or others. Onset of symptoms was February 2021. 18:43 Method Of Arrival: Ambulatory aa5 18:43 Acuity: CAROLINE 3 aa5 Historical: - Allergies: 18:42 No Known Allergies; aa5 - PMHx: 18:42 scoliosis; Seizures; aa5 18:42 Pancreatitis; aa5 - Immunization history:: Adult Immunizations not up to date, Client reports having NOT received the Covid vaccine. pt states he does not take any vaccines . - Social history:: Smoking status: Patient reports the use of cigarette tobacco products, smokes one-half pack cigarettes per day, Patient uses alcohol, occasionally. Screenin:41 Abuse screen: Denies threats or abuse. Denies injuries from another. Nutritional bs2 screening: No deficits noted. Tuberculosis screening: No symptoms or risk factors identified. Fall Risk None identified. Assessment: 19:40 General: Appears uncomfortable, slender, Behavior is calm, cooperative, appropriate for bs2 age. Pain: Complains of pain in right upper quadrant and left upper quadrant Pain currently is 7 out of 10 on a pain scale. Pain began 2-3 days ago. Neuro: No deficits noted. Cardiovascular: No deficits noted. Respiratory: No deficits noted. GI: Abd is soft and non tender in right lower quadrant and left lower quadrant Abdomen is tender to palpation in right upper quadrant and left upper quadrant. 19:41 GI: Bowel sounds present X 4 quads. bs2 22:31 Reassessment: Patient is alert, oriented x 3, equal unlabored respirations, skin bb warm/dry/pink. pt states pain has gotten worse Dr Flores notified new orders received pt medicated see MAR. Vital Signs: 18:43 BP 127 / 87; Pulse 110; Resp 18 S; Temp 99.0(TE); Pulse Ox 99% on R/A; Weight 61.23 kg aa5 (R); Height 6 ft. 3 in. (190.50 cm) (R); 19:44 BP 116 / 77; Pulse 80; Resp 16; Pulse Ox 97% on R/A; Pain 6/10; bs2 18:43 Body Mass Index 16.87 (61.23 kg, 190.50 cm) aa5 ED Course: 18:35 Patient arrived in ED. am2 18:41 Arm band placed on. aa5 18:44 Triage completed. aa5 19:02 Kirill Flores MD is Attending Physician. [facility] 19:20 Cheryl Smith, RN is Primary Nurse. lp1 19:38 Jesi Power, RN is Primary Nurse. bs2 19:39 Type And Screen Sent. bs2 19:39 Protime (+inr) Sent. bs2 19:39 Ptt, Activated Sent. bs2 19:39 Basic Metabolic Panel Sent. bs2 19:39 CBC with Diff Sent. bs2 19:39 Hepatic Function Sent. bs2 19:39 Lipase Sent. bs2 19:41 Patient has correct armband on for positive identification. Placed in gown. Bed in low bs2 position. Call light in reach. Side rails up X 1. Pulse ox on. NIBP on. Door closed. 19:41 Inserted saline lock: 18 gauge in right forearm, using aseptic technique. bs2 19:[address] dc2 20:00 CT Abd/Pelvis - IV Contrast Only In Process Unspecified. EDMS 21:19 Alfredito Sood MD is Referral Physician. 7 Administered Medications: 19:38 Drug: Zofran (Ondansetron) 4 mg Route: IVP; Site: right forearm; bs2 21:01 Follow up: Response: No adverse reaction bs2 19:38 Drug: morphine 4 mg Route: IVP; Site: right forearm; bs2 21:27 Follow up: Response: No adverse reaction bs2 19:39 Drug: NS 0.9% 1000 ml Route: IV; Rate: 1000 ml; Site: right forearm; bs2 21:45 Follow up: IV Status: Completed infusion; IV Intake: 1000ml bs2 19:39 Drug: ProTONIX (pantoprazole) 80 mg Route: IVP; Site: right forearm; bs2 21:01 Follow up: Response: No adverse reaction bs2 21:26 Drug: Flagyl (metroNIDAZOLE) 500 mg Volume: 100 ml; Route: IVPB; Rate: 200 ml/hr; bs2 Infused Over: 30 mins; Site: right antecubital; 22:15 Follow up: IV Status: Completed infusion; IV Intake: 100ml bb 22:20 Drug: Cipro (ciprofloxacin) 400 mg Volume: 200 ml; Route: IVPB; Infused Over: 60 mins; bb Site: right forearm; 02/27 00:10 Follow up: IV Status: Completed infusion; IV Intake: 100ml bs2 02/26 22:31 Drug: morphine 4 mg {Note: RASS 0.} Route: IVP; Site: right forearm; 02/27 00:10 Follow up: Response: No adverse reaction bs2 Intake: 02/26 21:45 IV: 1000ml; Total: 1000ml. bs2 22:15 IV: 100ml; Total: 1100ml. bb 02/27 00:10 IV: 100ml; Total: 1200ml. bs2 Outcome: 02/26 21:20 Discharge ordered by . Letty 02/27 00:10 Patient left the ED. bs2 Signatures: Dispatcher [employer] EDMS Tamar Rollins RN RN bb Wanda Lau RN RN aa5 Cheryl Smith RN RN lp1 Faviola Singh amKirill Brambila MD MD mh7 Jesi Power RN RN bs2 Candace Church RN RN dc2 Corrections: (The following items were deleted from the chart) 02/26 18:45 18:43 BP 127 / 87; Pulse 110bpm; Resp 18bpm; Spontaneous; Pulse Ox 99% RA; Temp 99.0F aa5 Temporal; aa5
[2021-02-26] MEDS ORDERED: CIPROFLOXACIN 400mg IV 400 MG/200 ML BAG IV ONE (21:40)
[2021-02-26] MEDS ORDERED: METRONIDAZOLE 500mg IVPB 500 MG/100 ML BAG IV ONE (21:40)
[2021-02-26 21:51] LABS: Urine Blood Negative (Negative); Urine Glucose Negative (Negative); Urine Protein Negative (Negative)
[2021-02-27 00:35] VITALS: TEMP 99
[2021-02-27 00:36] VITALS: BP 116/77; O2SAT 97
== END 2021-02-27 00:10 | disposition home or self-care (01) ==
LOC: ER 18:35
DX: K52.9 Noninfective gastroenteritis and colitis, unspecified (principal); F17.210 Nicotine dependence, cigarettes, uncomplicated
CPT/HCPCS: 36415; 74177; 80048; 80076; 81003; 82565; 83690; 85025; 85610; 85730; 86850; 86900; 86901; 99284; C9113; J0744; J2405; J7030; Q9967

== ENCOUNTER 2021-03-28 14:26 | Emergency (ER) | payer SELFPAY ==
--- NOTE | 2021-03-28 16:01 | RAD REPORT ---
EXAM DESCRIPTION: RAD - Ankle Right 3 View - 03/28/2021 3:34 pm CLINICAL HISTORY: Right ankle pain status post injury FINDINGS: No fracture or dislocation is seen. A large amount of soft tissue swelling
[2021-03-28] MEDS ORDERED: ONDANSETRON 4 MG (ODT) TAB ONE (16:25)
[2021-03-28] MEDS ORDERED: MORPHINE 4 MG/ML SYR ONE (16:25)
--- NOTE | 2021-03-28 17:19 | ER ---
Nurse's Notes [facility] Name: Mitchell Mendez III Age: 30 yrs Sex: Male : 1990 Arrival Date: 03/28/2021 Time: 14:27 Bed 14 Private MD: Diagnosis: Sprain of ankle Presentation: 03/28 15:08 Chief complaint: Patient states: About two hours ago, pt was walking out of trailer and vg1 slipped and rolled onto Right ankle. Right ankle is swollen and bruised. + Pedal pulsed, Right toes Cap refill less that 3 sec. ROM limited in Right ankle. Coronavirus screen: Vaccine status: Patient reports being unvaccinated. Client denies travel out of the [place] in the last 14 days. Ebola Screen: Patient negative for fever greater than or equal to 101.5 degrees Fahrenheit, and additional compatible Ebola Virus Disease symptoms. Initial Sepsis Screen: Does the patient meet any 2 criteria? No. Patient's initial sepsis screen is negative. Does the patient have a suspected source of infection? No. Patient's initial sepsis screen is negative. Risk Assessment: Do you want to hurt yourself or someone else? Patient reports no desire to harm self or others. Onset of symptoms was March 28, 2021. 15:08 Method Of Arrival: Wheelchair vg1 15:08 Acuity: CAROLINE 4 vg1 Triage Assessment: 15:10 General: Appears in no apparent distress. uncomfortable, Behavior is calm, cooperative. vg1 Pain: Complains of pain in right lateral malleolus and dorsum of right foot. Musculoskeletal: Range of motion: limited in right ankle Swelling present in right lateral malleolus. Historical: - Allergies: 15:10 No Known Allergies; vg1 - Home Meds: 15:10 None [Active]; vg1 - PMHx: 15:10 Pancreatitis; scoliosis; Seizures; vg1 - PSHx: 15:10 None; vg1 - Immunization history:: Adult Immunizations up to date, Client reports having NOT received the Covid vaccine. - Social history:: Smoking status: Patient reports the use of cigarette tobacco products, smokes one-half pack cigarettes per day. Screenin:56 Abuse screen: Denies threats or abuse. Denies injuries from another. Nutritional tc5 screening: No deficits noted. Tuberculosis screening: No symptoms or risk factors identified. Assessment: 15:51 General: Appears uncomfortable, Behavior is calm, cooperative, appropriate for age. tc5 Pain: Complains of pain in right ankle. 15:55 General: rt ankle pain and swelling, rolled rt ankle about 2 hours ago.. tc5 Vital Signs: 15:08 BP 130 / 80; Pulse 124; Resp 16; Temp 99.1(T); Pulse Ox 100% ; Weight 63.5 kg; Height 6 vg1 ft. 3 in. (190.50 cm); Pain 10/10; 15:56 BP 124 / 92; Pulse 90; Resp 16; Pulse Ox 97% ; Pain 10/10; tc5 18:05 BP 133 / 90; Pulse 80; Resp 18; Pulse Ox 99% ; Pain 10/10; tc5 15:08 Body Mass Index 17.50 (63.50 kg, 190.50 cm) vg1 ED Course: 14:27 Patient arrived in ED. am2 15:10 Triage completed. vg1 15:10 Arm band placed on. vg1 15:14 Ice pack on Right ankle. vg1 15:32 Taco Nguyen PA is PHCP. chaimm 15:33 Analilia Borrego MD is Attending Physician. m 15:34 Ankle Right 3 View XRAY In Process Unspecified. EDMS 15:37 Hyacinth Wharton, RN is Primary Nurse. tc5 17:18 Hernan Whitman MD is Referral Physician. [facility] Administered Medications: 16:15 Drug: Zofran (Ondansetron) 4 mg Route: PO; tc5 18:05 Follow up: Response: No adverse reaction tc5 16:16 Drug: morphine 4 mg Route: IM; Site: right deltoid; tc5 18:05 Follow up: Response: No adverse reaction tc5 Outcome: 17:18 Discharge ordered by . vinayak 18:48 Patient left the ED. tc5 Signatures: Dispatcher [employer] EDMS Taco Nguyen PA PA Faviola Green am2 Fabiana Pimentel RN RN vg1 Hyacinth Wharton RN RN tc5
--- NOTE | 2021-03-28 17:19 | EDPHYS ---
Physician Documentation [facility] Name: Mitchell Mendez III Age: 30 yrs Sex: Male : 1990 Arrival Date: 03/28/2021 Time: 14:27 Bed 14 Private MD: ED Physician Analilia Borrego HPI: 03/28 17:17 This 30 yrs old Male presents to ER via Wheelchair with complaints of Ankle jmm Injury - right. 17:17 The patient presents with an injury, pain. Onset: The symptoms/episode began/occurred jmm acutely, just prior to arrival. Associated signs and symptoms: Pertinent positives: swelling. Historical: - Allergies: 15:10 No Known Allergies; vg1 - Home Meds: 15:10 None [Active]; vg1 - PMHx: 15:10 Pancreatitis; scoliosis; Seizures; vg1 - PSHx: 15:10 None; vg1 - Immunization history:: Adult Immunizations up to date, Client reports having NOT received the Covid vaccine. - Social history:: Smoking status: Patient reports the use of cigarette tobacco products, smokes one-half pack cigarettes per day. ROS: 17:17 Constitutional: Negative for fever, chills, and weight loss, Cardiovascular: Negative jmm for chest pain, palpitations, and edema, Respiratory: Negative for shortness of breath, cough, wheezing, and pleuritic chest pain. 17:17 MS/extremity: Positive for swelling. 17:17 All other systems are negative. Exam: 17:17 Constitutional: This is a well developed, well nourished patient who is awake, alert, jmm and in no acute distress. Head/Face: atraumatic. Eyes: EOMI, no conjunctival erythema appreciated ENT: Moist Mucus Membranes Neck: Trachea midline, Supple Chest/axilla: Normal chest wall appearance and motion. Cardiovascular: Regular rate and rhythm. No edema appreciated Respiratory: Normal respirations, no respiratory distress appreciated Abdomen/GI: Non distended, soft Back: Normal ROM Skin: General appearance color normal 17:17 Musculoskeletal/extremity: ROM: intact in all extremities, Noted to the right ankle, compartments are soft, full dorsalis pedis pulse appreciated, neurovascular intact. 17:17 Skin: Appearance: Color: normal in color. 17:17 Neuro: Orientation: is normal, Mentation: is normal, Memory: is normal. 17:17 Psych: Behavior/mood is pleasant, cooperative. Vital Signs: 15:08 BP 130 / 80; Pulse 124; Resp 16; Temp 99.1(T); Pulse Ox 100% ; Weight 63.5 kg; Height 6 vg1 ft. 3 in. (190.50 cm); Pain 10/10; 15:56 BP 124 / 92; Pulse 90; Resp 16; Pulse Ox 97% ; Pain 10/10; tc5 18:05 BP 133 / 90; Pulse 80; Resp 18; Pulse Ox 99% ; Pain 10/10; tc5 15:08 Body Mass Index 17.50 (63.50 kg, 190.50 cm) vg1 MDM: 15:42 Patient medically screened. [facility] 17:18 Data reviewed: vital signs, nurses notes. Counseling: I had a detailed discussion with vinayak the patient and/or guardian regarding: the historical points, exam findings, and any diagnostic results supporting the discharge/admit diagnosis, radiology results, the need for outpatient follow up, to return to the emergency department if symptoms worsen or persist or if there are any questions or concerns that arise at home. 03/28 15:12 Order name: Ankle Right 3 View XRAY; Complete Time: 16:05 [facility] 03/28 16:06 Order name: Tomás wrap-joint; Complete Time: 18:04 [facility] 03/28 16:06 Order name: Crutches; Complete Time: 18:04 [facility] Administered Medications: 16:15 Drug: Zofran (Ondansetron) 4 mg Route: PO; tc5 18:05 Follow up: Response: No adverse reaction tc5 16:16 Drug: morphine 4 mg Route: IM; Site: right deltoid; tc5 18:05 Follow up: Response: No adverse reaction tc5 Disposition Summary: 03/28/21 17:18 Discharge Ordered Location: Home [facility] Condition: Stable [facility] Diagnosis - Sprain of ankle [facility] Followup: [facility] - With: Hernan Whitman MD - When: 2 - 3 days - Reason: Recheck today's complaints, Continuance of care, Re-evaluation by your physician Discharge Instructions: - Discharge Summary Sheet [facility] - Ankle Sprain [facility] Forms: - Medication Reconciliation Form [facility] - Thank You Letter [facility] - Antibiotic Education [facility] - Prescription Opioid Use [facility] Prescriptions: - Ibuprofen 800 mg Oral Tablet - take 1 tablet by ORAL route every 8 hours As needed take with food; 30 tablet; [facility] Refills: 0, Product Selection Permitted Addendum: 04/01/2021 17:31 Co-signature as Attending Physician, Analilia Borrego MD. m a2 Signatures: Dispatcher [employer] Taco Jacques PA PA jmm Alzahri, Mohammad, MD MD ma2 Fabiana Pimentel RN RN vg1 Hyacinth Wharton RN RN tc5
[2021-03-28 18:54] VITALS: TEMP 99.1
[2021-03-28 18:57] VITALS: BP 133/90; O2SAT 99
== END 2021-03-28 18:48 | disposition home or self-care (01) ==
LOC: ER 14:26
DX: S93.401A Sprain of unspecified ligament of right ankle, initial encounter (principal); F17.210 Nicotine dependence, cigarettes, uncomplicated
CPT/HCPCS: 96372; 99283

== ENCOUNTER 2021-06-26 00:29 | Emergency (ER) | payer SELFPAY ==
[2021-06-26 01:37] LABS: Urine Blood Negative (Negative); Urine Glucose Negative (Negative); Urine Protein Negative (Negative)
[2021-06-26 02:03] LABS: Absolute Lymphocytes (CBC) 2.1 K/uL (0.7-4.9); Hematocrit 52.8 % (39.6-49.0); Lymphocytes % 30.1 % (15.3-44.8); MPV 8.5 fL (7.6-11.3); RBC Red Blood Cell Count 5.33 M/uL (4.33-5.43)
[2021-06-26 02:06] LABS: Protime INR 0.84
[2021-06-26 02:20] LABS: ALT/SGPT 53 U/L (12-78); AST/SGOT 64 U/L (15-37); Albumin 3.6 g/dL (3.4-5.0); Alkaline Phosphatase 166 U/L (45-117); BUN Blood Urea Nitrogen 9 mg/dL (7-18); Barbiturates NEGATIVE (NEGATIVE); Benzodiazepines POSITIVE (NEGATIVE); Bicarbonate 25 mmol/L (21-32); Bilirubin Direct < 0.1 mg/dL (0-0.2); Bilirubin Total 0.3 mg/dL (0.2-1.0); Cocaine NEGATIVE (NEGATIVE); Glucose Level 95 mg/dL (74-106); METHAMPHETAM NEGATIVE (NEGATIVE); Methadone NEGATIVE (NEGATIVE); Opiates NEGATIVE (NEGATIVE); Phencyclidine NEGATIVE (NEGATIVE); Potassium 3.6 mmol/L (3.5-5.1); Protein, Total 7.5 g/dL (6.4-8.2); Sodium Level 142 mmol/L (136-145); THC Cannibis NEGATIVE (NEGATIVE)
[2021-06-26] MEDS ORDERED: LEVETIRACETAM 500 MG/5 ML VIAL IV ONE (02:37)
[2021-06-26] MEDS ORDERED: NA CHLORIDE 0.9% 100 ML IV ONE (02:38)
[2021-06-26] MEDS ORDERED: NA CHLORIDE 0.9% 1,000 ML ONE (02:38)
--- NOTE | 2021-06-26 03:31 | ER ---
Nurse's Notes [facility] Name: Mitchell Mendez III Age: 30 yrs Sex: Male : 1990 Arrival Date: 06/26/2021 Time: 00:35 Bed 14 Private MD: Diagnosis: Other seizures;Alcohol use, unspecified Presentation: 06/26 01:08 Chief complaint: Spouse and/or significant other states: Reported 3 seizures today, hx lp1 of seizures, reports on no medications for condition; Patient admits to ETOH use; reports back pain. Coronavirus screen: At this time, the client does not indicate any symptoms associated with coronavirus-19. Ebola Screen: No symptoms or risks identified at this time. Initial Sepsis Screen: Does the patient meet any 2 criteria? No. Patient's initial sepsis screen is negative. Does the patient have a suspected source of infection? No. Patient's initial sepsis screen is negative. Risk Assessment: Do you want to hurt yourself or someone else? Patient reports no desire to harm self or others. Onset of symptoms was June 26, 2021. 01:08 Method Of Arrival: Wheelchair lp1 01:08 Acuity: CAROLINE 2 lp1 Historical: - Allergies: 01:12 No Known Allergies; lp1 - Home Meds: 01:12 None [Active]; lp1 - PMHx: 01:12 Pancreatitis; scoliosis; Seizures; lp1 - PSHx: 01:12 None; lp1 - Immunization history:: Adult Immunizations not up to date. - Social history:: Smoking status: Patient reports the use of cigarette tobacco products, smokes one pack cigarettes per day. Screenin:11 Abuse screen: Denies threats or abuse. Denies injuries from another. Nutritional tk1 screening: No deficits noted. Tuberculosis screening: No symptoms or risk factors identified. Fall Risk None identified. Assessment: 01:06 General: Appears in no apparent distress. Behavior is calm, cooperative, Smells of tk1 alcohol, Cigarette smoke. Reports. Pain:. Pain: Complains of pain in lumbar area, left low back and right low back Pain currently is 7 out of 10 on a pain scale. Quality of pain is described as aching, Pain began years ago. Is intermittent, Alleviated by medications, Aggravated by increased activity, Noted to be. Neuro: No deficits noted. Respiratory: No deficits noted. GI: No signs and/or symptoms were reported involving the gastrointestinal system. : No deficits noted. EENT: No deficits noted. 01:46 Reassessment: Patient to CT via stretcher with tech. tk1 02:28 Reassessment: Patient appears in no apparent distress at this time. Patient and/or vc1 family updated on plan of care and expected duration. Pain level reassessed. Patient is alert, oriented x 3, equal unlabored respirations, skin warm/dry/pink. 02:52 Reassessment: Patient appears in no apparent distress at this time. Patient and/or vc1 family updated on plan of care and expected duration. Pain level reassessed. Patient is alert, oriented x 3, equal unlabored respirations, skin warm/dry/pink. Patient denies pain at this time. Patient states feeling better. Patient states symptoms have improved. Vital Signs: 01:06 BP 107 / 89 LA Supine (auto/reg); Pulse 90 LA; Resp 18 S; Pulse Ox 98% on R/A; tk1 01:08 BP 134 / 90; Pulse 103; Resp 18; Temp 98.2(O); Pulse Ox 98% on R/A; Weight 56.7 kg (R); lp1 Height 6 ft. 3 in. (190.50 cm); Pain 7/10; 02:00 BP 136 / 92; Pulse 100; Resp 18; Pulse Ox 97% on R/A; vc1 01:08 Body Mass Index 15.62 (56.70 kg, 190.50 cm) lp1 Pippa Coma Score: 01:05 Eye Response: spontaneous(4). Verbal Response: oriented(5). Motor Response: obeys tk1 commands(6). Total: 15. 01:12 Eye Response: spontaneous(4). Verbal Response: oriented(5). Motor Response: obeys lp1 commands(6). Total: 15. ED Course: 00:35 Patient arrived in ED. wm 01:04 Inserted saline lock: 18 gauge in right forearm, using aseptic technique. Missed tk1 attempt(s): 18 gauge in right forearm. Bleeding controlled, band aid applied, catheter tip intact. 01:05 Initial lab(s) drawn, by nm, sent to lab. tk1 01:12 Triage completed. lp1 01:13 Kirill Flores MD is Attending Physician. mh7 01:15 Arm band placed on right wrist. vc1 01:15 Patient has correct armband on for positive identification. Placed in gown. Bed in low vc1 position. Call light in reach. Side rails up X2. Adult w/ patient. 01:46 Jaylyn Sánchez is Primary Nurse. tk1 01:53 CT Head Brain wo Cont In Process Unspecified. EDMS 03:29 Saad Grier MD is Referral Physician. [facility] 03:43 No provider procedures requiring assistance completed. IV discontinued, intact, vc1 bleeding controlled, No redness/swelling at site. Pressure dressing applied. Administered Medications: 02:51 Drug: Keppra (levETIRAcetam) 1000 mg Route: IV; Rate: per protocol; Site: right forearm;vc1 03:05 Follow up: Response: No adverse reaction; IV Status: Completed infusion; IV Intake: vc1 100ml 02:51 Drug: NS 0.9% 1000 ml Route: IV; Rate: 1000 ml; Site: right forearm; vc1 03:40 Follow up: IV Status: Completed infusion; IV Intake: 1000ml vc1 Intake: 03:05 IV: 100ml; Total: 100ml. vc1 03:40 IV: 1000ml; Total: 1100ml. vc1 Outcome: 03:31 Discharge ordered by . [facility] 03:43 Discharged to home ambulatory, with significant other. vc1 03:43 Condition: stable 03:43 Discharge instructions given to patient, significant other, Instructed on discharge instructions, follow up and referral plans. no drinking with medication, medication usage, Demonstrated understanding of instructions, follow-up care, medications, Prescriptions given X 1. 03:44 Patient left the ED. vc1 Signatures: Dispatcher [employer] EDVT Cheryl Smith, RN RN lp1 Kirill Flores MD MD Senia Tello Jaylyn Sánchez tk1 Faye Shetty RN RN vc1
--- NOTE | 2021-06-26 03:31 | EDPHYS ---
Physician Documentation [facility] Name: Mitchell Mendez III Age: 30 yrs Sex: Male : 1990 Arrival Date: 06/26/2021 Time: 00:35 Bed 14 Private MD: ABA Physician Kirill Flores HPI: 06/26 01:32 This 30 yrs old Male presents to ER via Wheelchair with complaints of Seizure - 3 mh7 Today, Most Recent An Hour Ago. 01:32 The patient presents with a history of multiple seizures, a total of 3, that last 3 mh7 minute(s), the episode(s) was witnessed, by a significant other, girlfriend. Character of seizure(s): Loss of consciousness: the patient experienced loss of consciousness, during seizure(s), Motor activity: generalized, shaking all over, Incontinence: none, Apnea: the patient did not experience apnea, Circulation: the patient did not experience evidence of pulse disturbance, Eye movements: are unknown. Seizure onset: Yesterday. Context: the seizure(s) was witnessed, by a significant other, girlfriend, occurred at home, occurred while the patient was sitting, Contributing factors: recent alcohol abuse. Seizure Hx: Original onset: 5 year(s) ago. Associated injury: The patient did not suffer any apparent associated injury. The patient has experienced similar episodes in the past, a few times. Patient encouraged to report seizure episodes over the past 2 weeks. Patient has had seizures intermittently in the past as well. He reports drinking alcohol daily for several years. His last drink was last night. Denies any headache, fever, chest pain, abdominal pain, shortness of breath, nausea, vomiting, diarrhea, dizziness, numbness/tingling, or weakness.. Historical: - Allergies: 01:12 No Known Allergies; lp1 - Home Meds: 01:12 None [Active]; lp1 - PMHx: 01:12 Pancreatitis; scoliosis; Seizures; lp1 - PSHx: 01:12 None; lp1 - Immunization history:: Adult Immunizations not up to date. - Social history:: Smoking status: Patient reports the use of cigarette tobacco products, smokes one pack cigarettes per day. ROS: 01:32 Constitutional: Negative for fever, chills, and weight loss, Eyes: Negative for injury, mh7 pain, redness, and discharge, ENT: Negative for injury, pain, and discharge, Neck: Negative for injury, pain, and swelling, Cardiovascular: Negative for chest pain, palpitations, and edema, Respiratory: Negative for shortness of breath, cough, wheezing, and pleuritic chest pain, Abdomen/GI: Negative for abdominal pain, nausea, vomiting, diarrhea, and constipation, Back: Negative for injury and pain, : Negative for injury, bleeding, discharge, and swelling, MS/Extremity: Negative for injury and deformity, Skin: Negative for injury, rash, and discoloration, Psych: Negative for depression, anxiety, suicide ideation, homicidal ideation, and hallucinations, Allergy/Immunology: Negative for hives, rash, and allergies, Endocrine: Negative for neck swelling, polydipsia, polyuria, polyphagia, and marked weight changes, Hematologic/Lymphatic: Negative for swollen nodes, abnormal bleeding, and unusual bruising. Exam: 01:32 Constitutional: This is a well developed, well nourished patient who is awake, alert, mh7 and in no acute distress. Head/Face: Normocephalic, atraumatic. Eyes: Pupils equal round and reactive to light, extra-ocular motions intact. Lids and lashes normal. Conjunctiva and sclera are non-icteric and not injected. Cornea within normal limits. Periorbital areas with no swelling, redness, or edema. Neck: Trachea midline, no thyromegaly or masses palpated, and no cervical lymphadenopathy. Supple, full range of motion without nuchal rigidity, or vertebral point tenderness. No Meningismus. Chest/axilla: Normal chest wall appearance and motion. Nontender with no deformity. No lesions are appreciated. Cardiovascular: Regular rate and rhythm with a normal S1 and S2. No gallops, murmurs, or rubs. Normal PMI, no JVD. No pulse deficits. Respiratory: Lungs have equal breath sounds bilaterally, clear to auscultation and percussion. No rales, rhonchi or wheezes noted. No increased work of breathing, no retractions or nasal flaring. Abdomen/GI: Soft, non-tender, with normal bowel sounds. No distension or tympany. No guarding or rebound. No evidence of tenderness throughout. Back: No spinal tenderness. No costovertebral tenderness. Full range of motion. Skin: Warm, dry with normal turgor. Normal color with no rashes, no lesions, and no evidence of cellulitis. MS/ Extremity: Pulses equal, no cyanosis. Neurovascular intact. Full, normal range of motion. Neuro: Awake and alert, GCS 15, oriented to person, place, time, and situation. Cranial nerves II-XII grossly intact. Motor strength 5/5 in all extremities. Sensory grossly intact. Cerebellar exam normal. Normal gait. Psych: Awake, alert, with orientation to person, place and time. Behavior, mood, and affect are within normal limits. Vital Signs: 01:06 BP 107 / 89 LA Supine (auto/reg); Pulse 90 LA; Resp 18 S; Pulse Ox 98% on R/A; tk1 01:08 BP 134 / 90; Pulse 103; Resp 18; Temp 98.2(O); Pulse Ox 98% on R/A; Weight 56.7 kg (R); lp1 Height 6 ft. 3 in. (190.50 cm); Pain 7/10; 02:00 BP 136 / 92; Pulse 100; Resp 18; Pulse Ox 97% on R/A; vc1 01:08 Body Mass Index 15.62 (56.70 kg, 190.50 cm) lp1 [place] Coma Score: 01:05 Eye Response: spontaneous(4). Verbal Response: oriented(5). Motor Response: obeys tk1 commands(6). Total: 15. 01:12 Eye Response: spontaneous(4). Verbal Response: oriented(5). Motor Response: obeys lp1 commands(6). Total: 15. MDM: 03:28 Differential diagnosis: drug overdose, cardiac arrhythmia, seizure. Data reviewed: [facility] vital signs, nurses notes, old medical records, lab test result(s), CBC, drug level(s), acetaminophen, alcohol, salicylate, electrolytes, urine drug screen, EKG. Data reviewed: radiologic studies, CT scan. Data interpreted: Pulse oximetry: on room air is 97 %. Interpretation: normal. Counseling: I had a detailed discussion with the patient and/or guardian regarding: the historical points, exam findings, and any diagnostic results supporting the discharge/admit diagnosis, the presence of at least one elevated blood pressure reading (>120/80) during this emergency department visit, lab results, radiology results, the need for outpatient follow up, a neurologist, to return to the emergency department if symptoms worsen or persist or if there are any questions or concerns that arise at home. Response to treatment: the patient's symptoms have resolved after treatment, the patient's blood pressure is in an acceptable range, mental status has returned to baseline, the patient no longer shows bradycardia, the patient is not short of breath, the patient is not tachycardic, the patient's pain is gone, the patient's temperature has normalized, patient is well hydrated. 03:31 Patient medically screened. [facility] 06/26 01:17 Order name: Acetaminophen; Complete Time: 02:26 lp06/26 01:17 Order name: Basic Metabolic Panel; Complete Time: 02:06/26 01:17 Order name: CBC with Diff; Complete Time: 02:06/26 01:17 Order name: ETOH Level; Complete Time: 02:26 lp06/26 01:17 Order name: Hepatic Function; Complete Time: 02:06/26 01:17 Order name: PT-INR; Complete Time: 02:06/26 01:17 Order name: Ptt, Activated; Complete Time: 02:26 06/26 01:17 Order name: Salicylate; Complete Time: 02:26 06/26 01:17 Order name: Urine Drug Screen; Complete Time: 02:26 lp06/26 01:17 Order name: EKG; Complete Time: 01:17 lp06/26 01:29 Order name: CT Head Brain wo Cont [facility] 06/26 01:36 Order name: Urine Dipstick-Ancillary; Complete Time: 02:26 EDMS 06/26 01:17 Order name: EKG - Nurse/Tech; Complete Time: 02:17 06/26 01:17 Order name: IV Saline Lock; Complete Time: 02:17 lp06/26 01:17 Order name: Labs collected and sent; Complete Time: 02:17 lp06/26 01:17 Order name: Urine Dipstick-Ancillary (obtain specimen); Complete Time: 02:17 lp06/26 01:29 Order name: Suicide Screening (Lind); Complete Time: 02:52 7 Administered Medications: 02:51 Drug: Keppra (levETIRAcetam) 1000 mg Route: IV; Rate: per protocol; Site: right forearm;vc1 03:05 Follow up: Response: No adverse reaction; IV Status: Completed infusion; IV Intake: vc1 100ml 02:51 Drug: NS 0.9% 1000 ml Route: IV; Rate: 1000 ml; Site: right forearm; vc1 03:40 Follow up: IV Status: Completed infusion; IV Intake: 1000ml vc1 Disposition Summary: 06/26/21 03:31 Discharge Ordered Location: Home [facility] Problem: an acute exacerbation [facility] Symptoms: have improved mh Condition: Stable 7 Diagnosis - Other seizures 7 - Alcohol use, unspecified 7 Followup: [facility] - With: Private Physician - When: 1 - 2 days - Reason: Worsening of condition, Recheck today's complaints, Continuance of care, Re-evaluation by your physician Followup: [facility] - With: Saad Grier MD - When: 1 - 2 days - Reason: Worsening of condition, Recheck today's complaints Discharge Instructions: - Discharge Summary Sheet 7 - Alcohol Use Disorder 7 - Seizure, Adult, [id number] [facility] Forms: - Medication Reconciliation Form 7 - Thank You Letter 7 - Antibiotic Education 7 - Prescription Opioid Use [facility] Prescriptions: - Keppra 500 mg Oral Tablet - take 1 tablet by ORAL route every 12 hours; 30 tablet; Refills: 0, Product 7 Selection Permitted Signatures: Dispatcher [employer] EDCheryl Bowers RN RN lp1 Kirill Flores MD MD 7 Jaylyn Sánchez tk1 Faye Shetty RN RN vc1 Corrections: (The following items were deleted from the chart) 01:17 Suicide Screening (Lind) ordered. lp1 lp1
[2021-06-26 03:50] VITALS: TEMP 98.2
[2021-06-26 03:52] VITALS: BP 136/92; O2SAT 97
--- NOTE | 2021-06-26 13:17 | RAD REPORT ---
EXAM DESCRIPTION: CT - Head Brain Wo Cont - 06/26/2021 6:46 am CLINICAL HISTORY: SEIZURE COMPARISON: 12/28/2019 TECHNIQUE: Axial CT of the head obtained from the skull apex to the skull base without contrast. Thi s exam was performed according to our departmental dose-optimization program, which includes automate d exposure control, adjustment of the mA and/or kV according to patient size and/or use of iterative reconstruction technique. FINDINGS: No acute intracranial hemorrhage identified. No mass, mass effect, shift of the midline, a bnormal extra-axial fluid collection or CT evidence of acute ischemic change identified. The ventricu lar system is unremarkable. No acute abnormalities of the supratentorial white matter, basal gangli a, cerebellum, or brainstem. Mucosal thickening of paranasal sinuses. Mastoid air cells are well aerated. No skull fracture identi fied. Visualized orbits and globes are unremarkable. Stable appearance of the nasal bones. IMPRESSION: 1. No acute intracranial abnormality identified. Electronically signed by: Cheo Campbell 06/26/2021 2:15 AM TEAM LEAD Due to temporary technical issues with the PACS/Fluency reporting system, reports are being signed by the in house radiologist without review as a courtesy to ensure prompt reporting. The interpreting r adiologist is fully responsible for the content of the report.
--- NOTE | 2021-06-28 07:32 | EKG ---
Test Date: 2021-06-26 Test Time: 01:36:38 [employer] Psychologist: [place] MEASUREMENT RESULTS: Intervals: Rate: 88 CT: 138 QRSD: 96 QT: 376 QTc: 454 [place]: P: 56 CT: 138 QRS: 59 T: 67 INTERPRETIVE STATEMENTS: Normal sinus rhythm Normal ECG Compared to ECG 02/16/2019 18:49:56 Sinus tachycardia no longer present T-wave abnormality no longer present Electronically Signed On 06-28-21 07:26:44 GLOBE CHANGER by Puneet Blake
== END 2021-06-26 03:44 | disposition home or self-care (01) ==
LOC: ER 00:29
DX: G40.89 Other seizures (principal); Z72.89 Other problems related to lifestyle
CPT/HCPCS: 36415; 70450; 80048; 80076; 80307; 80320; 80329; 81003; 85025; 85610; 85730; 93005; 96361; 96374; 99284; J1953; J7030

== ENCOUNTER 2021-06-27 21:31 | Emergency (ER) | payer SELFPAY ==
[2021-06-27 22:36] LABS: Absolute Lymphocytes (CBC) 1.8 K/uL (0.7-4.9); Lymphocytes % 27.9 % (15.3-44.8); MPV 8.4 fL (7.6-11.3); RBC Red Blood Cell Count 5.35 M/uL (4.33-5.43)
[2021-06-27] MEDS ORDERED: LEVETIRACETAM 500 MG/5 ML VIAL IV ONE (22:43)
[2021-06-27] MEDS ORDERED: NA CHLORIDE 0.9% 1,000 ML ONE (22:44)
[2021-06-27] MEDS ORDERED: NA CHLORIDE 0.9% 50 ML ONE (22:46)
[2021-06-27 22:52] LABS: BUN Blood Urea Nitrogen 7 mg/dL (7-18); Bicarbonate 30 mmol/L (21-32); Creatine Phosphokinase 61 U/L (39-308); Glucose Level 90 mg/dL (74-106); Potassium 4.2 mmol/L (3.5-5.1); Sodium Level 142 mmol/L (136-145)
--- NOTE | 2021-06-28 00:42 | ER ---
Nurse's Notes [facility] Name: Mitchell Mendez III Age: 30 yrs Sex: Male : 1990 Arrival Date: 06/27/2021 Time: 21:34 Bed 6 Private MD: Diagnosis: Epileptic seizures related to external causes, not intractable;Dehydration Presentation: 06/27 22:02 Chief complaint: Parent and/or Guardian states: Mother states she found the pt 'passed mk out and not breathing with pretty much no heart beat', mother states she did 5 rounds of CPR. Pt having slurred speech but wheeled the wheelchair 20ft across the lobby with his arms and Oriented x4, pt states "I think I had a seizure, I can feel it". Coronavirus screen: Vaccine status:. Ebola Screen: Patient negative for fever greater than or equal to 101.5 degrees Fahrenheit, and additional compatible Ebola Virus Disease symptoms. Initial Sepsis Screen: Does the patient meet any 2 criteria? Yes No. Patient's initial sepsis screen is negative. Does the patient have a suspected source of infection? No. Patient's initial sepsis screen is negative. Risk Assessment: Do you want to hurt yourself or someone else? Patient reports no desire to harm self or others. Onset of symptoms was June 27, 2021 at 21:00. 22:02 Method Of Arrival: Ambulatory 22:02 Acuity: CAROLINE 2 Triage Assessment: 06/28 01:06 General: Appears in no apparent distress. Behavior is calm, making inappropriate sf1 comments to female staff. Pain: Denies pain. Neuro: No deficits noted. Historical: - PMHx: 01:07 Pancreatitis; scoliosis; Seizures; sf1 - Immunization history:: Adult Immunizations unknown. - Family history:: not pertinent. - Social history:: Smoking status: unknown. - Hospitalizations: : No recent hospitalization is reported. Screenin:05 Abuse screen: Denies threats or abuse. Nutritional screening: No deficits noted. sf1 Tuberculosis screening: No symptoms or risk factors identified. Fall Risk Fall in past 12 months (25 points). Secondary diagnosis (15 points) seizures, IV access (20 points). Vital Signs: 06/27 22:02 BP 124 / 81; Pulse 88; Resp 18; Pulse Ox 99% on R/A; Weight 58.97 kg; Height 6 ft. 3 mk in. (190.50 cm); 22:02 Body Mass Index 16.25 (58.97 kg, 190.50 cm) [place] Coma Score: 06/28 01:06 Eye Response: spontaneous(4). Verbal Response: oriented(5). Motor Response: obeys sf1 commands(6). Total: 15. ED Course: 06/27 21:34 Patient arrived in ED. 21:57 Yesy Duncan RN is Primary Nurse. 22:04 Harris Batista MD is Attending Physician. rn 22:05 Triage completed. 22:40 CT Head C Spine In Process Unspecified. EDMS 22:59 CBC with Diff Sent. sf1 22:59 Basic Metabolic Panel Sent. sf1 06/28 00:42 Saad Grier MD is Referral Physician. rn 01:05 No provider procedures requiring assistance completed. IV discontinued, intact, sf1 bleeding controlled, No redness/swelling at site. Pressure dressing applied. 01:05 Patient has correct armband on for positive identification. Bed in low position. Call sf1 light in reach. 01:08 Arm band placed on right wrist. sf1 01:08 Seizure precautions initiated. sf1 Administered Medications: 06/27 22:58 Drug: NS 0.9% 1000 ml Route: IV; Rate: 1000 ml; Site: right antecubital; sf1 22:59 Drug: Keppra (levETIRAcetam) 1000 mg Route: IV; Rate: calculated rate; Site: right sf1 antecubital; Outcome: 06/28 00:42 Discharge ordered by . rn 01:05 Discharged to home ambulatory. sf1 01:05 Condition: good 01:05 Discharge instructions given to patient, Instructed on discharge instructions, follow up and referral plans. Demonstrated understanding of instructions, follow-up care. 01:09 Patient left the ED. sf1 Signatures: Dispatcher [employer] [place] Roman, MD MD rn Kotarski, Madeline, RN RN mk Fillers, Samantha, RN RN sf1
--- NOTE | 2021-06-28 00:43 | EDPHYS ---
Physician Documentation [facility] Name: Mitchell Mendez III Age: 30 yrs Sex: Male : 1990 Arrival Date: 06/27/2021 Time: 21:34 Bed 6 Private MD: ED Physician Harris Batista HPI: 06/27 22:21 This 30 yrs old Male presents to ER via Ambulatory with complaints of Seizure. rn 22:21 The patient presents after having a single isolated seizure, that lasted an unknown rn period of time. Seizure onset: the onset is not known. Seizure Hx: Last seizure: The patient's last seizure was approximately 2 day(s) ago. Associated injury: The patient did not suffer any apparent associated injury. Current symptoms: confusion, headache. The patient has experienced similar episodes in the past. The patient has been recently seen at the [facility] Emergency Department. Mother states patient with known seizure disorder, has been having seizures for 5 or 6 years, last seizure was 2 days ago and seen here. Patient states written for seizure medication but has not filled it from his last visit and does not take any seizure medication. States was feeling okay today, no recent illness, no recent trauma. Mother found him down on the floor in the living room in front of couch, no convulsions, states commonly finds him on the floor after seizures. She was not sure if he was breathing or not so rolled him over and did a few rounds of CPR or chest compressions, patient began to respond and improve. Mother states has found him like that multiple times and has tried CPR or chest compressions several times in the past due to being unresponsive. Patient reports sore all over. Historical: - PMHx: 06/28 01:07 Pancreatitis; scoliosis; Seizures; sf1 - Immunization history:: Adult Immunizations unknown. - Family history:: not pertinent. - Social history:: Smoking status: unknown. - Hospitalizations: : No recent hospitalization is reported. ROS: 06/27 22:21 Constitutional: Negative for fever, chills, and weight loss, Eyes: Negative for injury, rn pain, redness, and discharge, Neck: Negative for injury, pain, and swelling, Cardiovascular: Negative for chest pain, palpitations, and edema, Respiratory: Negative for shortness of breath, cough, wheezing, and pleuritic chest pain, Abdomen/GI: Negative for abdominal pain, nausea, vomiting, diarrhea, and constipation, Back: Negative for injury and pain, : Negative for injury, bleeding, discharge, and swelling, MS/Extremity: Negative for injury and deformity, Skin: Negative for injury, rash, and discoloration, Neuro: Positive for headache and seizure Exam: 22:21 Constitutional: This is a well developed, well nourished patient who is awake, alert, rn and in no acute distress. Slow to respond but answers all questions Head/Face: Normocephalic, atraumatic. Eyes: Pupils equal round and reactive to light, extra-ocular motions intact. Lids and lashes normal. Conjunctiva and sclera are non-icteric and not injected. Cornea within normal limits. Periorbital areas with no swelling, redness, or edema. ENT: Dry mucous membranes Neck: No midline cervical tenderness Cardiovascular: Regular rate and rhythm. No pulse deficits. Respiratory: Speaking full sentences, unlabored. No increased work of breathing, no retractions or nasal flaring. Abdomen/GI: Soft, non-tender Skin: Warm, dry MS/ Extremity: Pulses equal, no cyanosis. Neurovascular intact. Full, normal range of motion. Equal circumference. Neuro: Awake and alert, GCS 15, oriented to person, place, and situation. Cranial nerves II-XII grossly intact. Motor strength 5/5 in all extremities. Sensory grossly intact. Cerebellar exam normal. 06/28 00:37 ECG was reviewed by the Attending Physician. rn Vital Signs: 06/27 22:02 BP 124 / 81; Pulse 88; Resp 18; Pulse Ox 99% on R/A; Weight 58.97 kg; Height 6 ft. 3 mk in. (190.50 cm); 22:02 Body Mass Index 16.25 (58.97 kg, 190.50 cm) [place] Coma Score: 06/28 01:06 Eye Response: spontaneous(4). Verbal Response: oriented(5). Motor Response: obeys sf1 commands(6). Total: 15. MDM: 06/27 22:04 Patient medically screened. rn 06/28 00:40 Differential diagnosis: seizure, Alcohol intoxication, syncope, dehydration. Data rn reviewed: vital signs, nurses notes, lab test result(s), EKG, radiologic studies, CT scan, and as a result, I will discharge patient. Counseling: I had a detailed discussion with the patient and/or guardian regarding: the historical points, exam findings, and any diagnostic results supporting the discharge/admit diagnosis, lab results, radiology results, the need for outpatient follow up, to return to the emergency department if symptoms worsen or persist or if there are any questions or concerns that arise at home. Response to treatment: the patient's symptoms have markedly improved after treatment, the patient's condition has returned to base line, the patient is now symptom free, and as a result, I will discharge patient. Special discussion: I discussed with the patient/guardian in detail that at this point there is no indication for admission to the hospital. It is understood, however, that if the symptoms persist or worsen the patient needs to return immediately for re-evaluation. Based on the history and exam findings, there is no indication for further emergent testing or inpatient evaluation. I discussed with the patient/guardian the need to see the neurologist for further evaluation of the symptoms. ED course: No acute findings on CT head or C-spine. Patient feels better, back to baseline, more hydrated. EKG without ischemia. Patient already has prescription for Keppra and loaded with Keppra tonight, is having frequent seizures. States has prescription for Keppra on his counter at home and plans on filling it tomorrow, also has appointment tomorrow with neurology per patient.. 06/27 22:16 Order name: CBC with Diff rn 06/27 22:16 Order name: Basic Metabolic Panel rn 06/27 22:16 Order name: CK; Complete Time: 00:33 rn 06/27 22:16 Order name: Troponin High Sensitivity; Complete Time: 00:33 rn 06/27 22:16 Order name: ETOH Level; Complete Time: 00:33 rn 06/27 22:16 Order name: CBC with Automated Diff; Complete Time: 00:33 EDMS 06/27 22:16 Order name: CT Head C Spine rn 06/27 22:16 Order name: IV Start; Complete Time: 22:59 rn 06/27 22:16 Order name: EKG; Complete Time: 22:16 rn 06/27 22:16 Order name: EKG - Nurse/Tech; Complete Time: 22:57 rn 06/27 22:16 Order name: Basic Metabolic Panel; Complete Time: 00:33 EDMS EC:37 Rate is 76 beats/min. Rhythm is regular. QRS [place] is Normal. MT interval is normal. QRS rn interval is normal. QT interval is normal. No Q waves. T waves are Normal. No ST changes noted. Clinical impression: NSR, LVH. Reviewed by me. Administered Medications: 06/27 22:58 Drug: NS 0.9% 1000 ml Route: IV; Rate: 1000 ml; Site: right antecubital; sf1 22:59 Drug: Keppra (levETIRAcetam) 1000 mg Route: IV; Rate: calculated rate; Site: right sf1 antecubital; Disposition Summary: 06/28/21 00:42 Discharge Ordered Location: Home rn Problem: an ongoing problem rn Symptoms: have improved rn Condition: Stable rn Diagnosis - Epileptic seizures related to external causes, not intractable rn - Dehydration rn Followup: rn - With: Saad Grier MD - When: As needed - Reason: Recheck today's complaints, Re-evaluation by your physician Discharge Instructions: - Discharge Summary Sheet rn - Dehydration, Adult rn - Seizure, Adult rn Forms: - Medication Reconciliation Form rn - Thank You Letter rn - Antibiotic rn hemodialysis charge - Prescription Opioid Use rn Signatures: Dispatcher [employer] [facility] Harris Batista MD MD rn Fillers, Samantha, RN RN 1
[2021-06-28 01:15] VITALS: BP 124/81; O2SAT 99
--- NOTE | 2021-06-28 11:52 | RAD REPORT ---
EXAM DESCRIPTION: CT - Head C Spine Mpr Wo Con - 06/28/2021 6:02 am CLINICAL HISTORY: The patient is 30 years old and is Male; seizure, fall TECHNIQUE: Axial computed tomography images of the head/brain and cervical spine without intravenous contrast. Sagittal and coronal reformatted images were created and reviewed. This CT exam was pe rformed using one or more of the following dose reduction techniques: automated exposure control, a djustment of the mA and/or kV according to patient size, and/or use of iterative reconstruction techn ique. DLP: 1089 mGy*cm COMPARISON: CT head without contrast dated 06/26/2021. FINDINGS: BRAIN: Unremarkable. No hemorrhage. No significant white matter disease. No edema . VENTRICLES: Unremarkable. No ventriculomegaly. SKULL: No acute fracture. SINUSES: Unremarkable as visualized. No acute sinusitis. MASTOID AIR CELLS: Unremarkable as visualized. No mastoid effusion. VERTEBRAE: Unremarkable. No acute fracture. Normal alignment. DISCS/SPINAL CANAL/NEURAL FORAMINA: No acute findings. No spinal canal stenosis. SOFT TISSUES: Unremarkable. IMPRESSION: 1. No acute intracranial abnormality. 2. No cervical spine fracture or subluxation. Electronically signed by: Kieran Anderson DO 06/27/2021 11:01 PM WALL MAN Due to temporary technical issues with the PACS/Fluency reporting system, reports are being signed by the in house radiologist without review as a courtesy to ensure prompt reporting. The interpreting r adiologist is fully responsible for the content of the report.
--- NOTE | 2021-06-29 03:55 | EKG ---
Test Date: 2021-06-27 Test Time: 22:52:52 Geographic Analyst: MEASUREMENT RESULTS: Intervals: Rate: 76 RI: 144 QRSD: 102 QT: 392 QTc: 441 [place]: P: 39 RI: 144 QRS: 75 T: 66 INTERPRETIVE STATEMENTS: Normal sinus rhythm with sinus arrhythmia Moderate voltage criteria for LVH, may be normal variant Borderline ECG Compared to ECG 06/26/2021 01:36:38 Left ventricular hypertrophy now present Electronically Signed On 06-29-21 03:54:12 TRANSPORT CONDUCTOR by Puneet Blake
== END 2021-06-28 01:09 | disposition home or self-care (01) ==
LOC: ER 21:31
DX: G40.509 Epileptic seizures related to external causes, not intractable, without status epilepticus (principal); E86.0 Dehydration
CPT/HCPCS: 36415; 70450; 72125; 80048; 80320; 82550; 84484; 85025; 93005; 96374; 99283; J1953; J7030

== ENCOUNTER 2021-08-17 14:31 | Emergency (ER) | payer SELFPAY ==
[2021-08-17] MEDS ORDERED: NA CHLORIDE 0.9% 100 ML IV ONE (14:59)
[2021-08-17] MEDS ORDERED: NA CHLORIDE 0.9% 1,000 ML ONE (14:59)
[2021-08-17] MEDS ORDERED: LEVETIRACETAM 500 MG/5 ML VIAL IV ONE (14:59)
[2021-08-17 15:21] LABS: Absolute Lymphocytes (CBC) 0.8 K/uL (0.7-4.9); Hematocrit 47.1 % (39.6-49.0); Lymphocytes % 14.2 % (15.3-44.8); MPV 8.2 fL (7.6-11.3); RBC Red Blood Cell Count 4.87 M/uL (4.33-5.43)
[2021-08-17 15:27] LABS: BUN Blood Urea Nitrogen 10 mg/dL (7-18); Bicarbonate 20 mmol/L (21-32); Glucose Level 84 mg/dL (74-106); Potassium 3.5 mmol/L (3.5-5.1); Sodium Level 138 mmol/L (136-145)
--- NOTE | 2021-08-17 16:07 | ER ---
Nurse's Notes [facility] Name: Mitchell Mendez III Age: 30 yrs Sex: Male : 1990 Arrival Date: 08/17/2021 Time: 14:33 Bed 18 Private MD: Diagnosis: Epileptic seizures related to external causes, not intractable, without status epilepticus Presentation: 08/17 14:39 Chief complaint: Patient states: Patient received EMS via stretcher alert and awake, ag7 trembling, with IV left AC 20 gauge, c/o seizure for fifteen minutes at home. Coronavirus screen: Client denies travel out of the [place] in the last 14 days. At this time, the client does not indicate any symptoms associated with coronavirus-19. Ebola Screen: No symptoms or risks identified at this time. Initial Sepsis Screen: Does the patient meet any 2 criteria? No. Patient's initial sepsis screen is negative. Does the patient have a suspected source of infection? No. Patient's initial sepsis screen is negative. Risk Assessment: Do you want to hurt yourself or someone else? Patient reports no desire to harm self or others. Onset of symptoms was August 17, 2021. 14:39 Method Of Arrival: EMS: [facility] ag7 14:39 Acuity: CAROLINE 3 ag7 Historical: - Allergies: 14:42 No Known Allergies; ag7 - Home Meds: 14:42 None [Active]; ag7 - PMHx: 14:42 Seizures; Pancreatitis; scoliosis; repetitive head injury; ag7 - PSHx: 14:42 None; ag7 - Immunization history:: Adult Immunizations up to date, Client reports having NOT received the Covid vaccine. Flu vaccine is not up to date. Patient has never been vaccinated. - Social history:: Smoking status: Patient reports the use of cigarette tobacco products, smokes one-half pack cigarettes per day. Screenin:28 Abuse screen: Denies threats or abuse. Nutritional screening: No deficits noted. ag7 Tuberculosis screening: No symptoms or risk factors identified. Fall Risk No fall in past 12 months (0 pts). Secondary diagnosis (15 points) seizures, IV access (20 points). Ambulatory Aid- None/Bed Rest/Nurse Assist (0 pts). Gait- Weak (10 pts.). Mental Status- Oriented to own ability (0 pts). Total Lemus Fall Scale indicates High Risk Score (45 or more points). Fall prevention measures have been instituted. Side Rails Up X 2 Placed Close to Nursing Station Frequent Obs/Assessments Occuring Family Present and informed to notify staff if the need to leave the bedside As available patient and family educated on Fall Prevention Program and Strategies. Assessment: 15:11 General: Appears distressed, slender, Behavior is cooperative, agitated, muscle tremor ag7 generalized. Pain: Complains of pain in generalized Pain does not radiate. Pain currently is 10 out of 10 on a pain scale. Quality of pain is described as aching, Pain began suddenly, Is episodic. Neuro: Level of Consciousness is awake, alert, obeys commands, Oriented to person, place, time, situation, Appropriate for age Infection Prevention Practitioner are equal bilaterally Moves all extremities. Speech is normal, Reports. Neuro: Seizure activity noted at this time. [id number] tremors, stiffness, jerking to the left side. Cardiovascular: Heart tones S1 S2 present Capillary refill < 3 seconds Patient's skin is warm and dry. Pulses are all present. Edema is absent. Rhythm is sinus tachycardia. Respiratory: Airway is patent Trachea midline Respiratory effort is even, unlabored, Respiratory pattern is regular, symmetrical, Breath sounds are clear bilaterally. Vital Signs: 14:39 BP 137 / 88; Pulse 103 RA; Resp 25 S; Temp 98.0; Pulse Ox 98% on R/A; Weight 65.77 kg; ag7 Height 6 ft. 3 in. (190.50 cm); Pain 10/10; 15:05 BP 122 / 72; Pulse 72; Resp 23; Pulse Ox 97% on R/A; Pain 10/10; ag7 15:15 BP 128 / 66; Pulse 77; Resp 22; Pulse Ox 100% on R/A; ag7 16:27 BP 123 / 77; Pulse 70; Resp 16; Pulse Ox 98% ; Pain 0/10; ag7 14:39 Body Mass Index 18.12 (65.77 kg, 190.50 cm) ag7 [place] Coma Score: 15:05 Eye Response: spontaneous(4). Verbal Response: oriented(5). Motor Response: obeys ag7 commands(6). Total: 15. ED Course: 14:33 Patient arrived in ED. em1 14:34 Fiorella Bean FNP-C is [facility]. kb 14:34 Irving Lorenzana DO is Attending Physician. kb 14:38 Silvana Bedoya, RN is Primary Nurse. ag7 14:42 Triage completed. ag7 15:10 Maintain EMS IV. Dressing intact. Good blood return noted. Site clean \T\ dry. Gauge \T\ ag 7 site: 20 gauge left ac. 15:19 Arm band placed on right wrist. ag7 16:29 No provider procedures requiring assistance completed. IV discontinued, intact, ag7 bleeding controlled, No redness/swelling at site. Pressure dressing applied. 16:29 Patient has correct armband on for positive identification. Bed in low position. Call ag7 light in reach. Side rails up X 1. Administered Medications: 15:09 Drug: Keppra (levETIRAcetam) 1000 mg Route: IV; Rate: calculated rate; Site: left ag7 antecubital; 15:24 Follow up: Response: No adverse reaction; Marked relief of symptoms; IV Status: ag7 Completed infusion 15:10 Drug: NS 0.9% 1000 ml Route: IV; Rate: 1000 ml; Site: left antecubital; ag7 15:45 Follow up: IV Status: Completed infusion; IV Intake: 1000ml ag7 16:30 Drug: Zofran (Ondansetron) 4 mg Route: IVP; Site: left antecubital; ag7 16:30 Follow up: Response: No adverse reaction; Medication administered at discharge. ag7 Intake: 15:45 IV: 1000ml; Total: 1000ml. ag7 Outcome: 16:07 Discharge ordered by . kb 16:29 Condition: stable ag7 16:29 Discharge instructions given to patient, Instructed on discharge instructions, follow up and referral plans. medication usage, Demonstrated understanding of instructions, follow-up care, medications, Prescriptions given X 1. 16:29 Discharged to home via wheelchair. ag7 16:31 Patient left the ED. ag7 Signatures: Fiorella Bean FNP-C FNP-[place] em1 Silvana Bedoya, RN RN ag7
--- NOTE | 2021-08-17 16:07 | EDPHYS ---
Physician Documentation [facility] Name: Mitchell Mendez III Age: 30 yrs Sex: Male : 1990 Arrival Date: 08/17/2021 Time: 14:33 Bed 18 Private MD: ED Physician Irving Lorenzana HPI: 08/17 15:14 This 30 yrs old Male presents to ER via EMS with complaints of seizure. kb 15:16 The patient presents after having a single isolated seizure. Character of seizure(s): kb Loss of consciousness: the patient experienced loss of consciousness, Motor activity: generalized, shaking all over, Incontinence: none. Seizure onset: just prior to arrival. Context: the seizure(s) was witnessed, by family, occurred at home. Seizure Hx: Original onset: 2 year(s) ago, Last seizure: The patient's last seizure was approximately 1 month(s) ago, Usual frequency: several times a month. Associated injury: The patient did not suffer any apparent associated injury. Current symptoms: Currently, the patient is not experiencing any symptoms, the patient feels back to baseline, no decreased level of consciousness, no confusion, no dysphasia, no headache, no paralysis, no visual changes. The patient has experienced similar episodes in the past. The patient has not recently seen a physician. Pt reports he had a seizure this morning that lasted longer than normal. EMS responded and pt was A\T\Ox4 upon their arrival. Pt has been prescribed keppra, but doesn't take it because he doesn't like how it makes him feel. States he just deals with the seizures. Historical: - Allergies: 14:42 No Known Allergies; ag7 - Home Meds: 14:42 None [Active]; ag7 - PMHx: 14:42 Seizures; Pancreatitis; scoliosis; repetitive head injury; ag7 - PSHx: 14:42 None; ag7 - Immunization history:: Adult Immunizations up to date, Client reports having NOT received the Covid vaccine. Flu vaccine is not up to date. Patient has never been vaccinated. - Social history:: Smoking status: Patient reports the use of cigarette tobacco products, smokes one-half pack cigarettes per day. ROS: 15:15 Constitutional: Negative for fever, chills, and weight loss. kb 15:15 Cardiovascular: Positive for chest pain, Negative for edema, orthopnea, palpitations, paroxysmal nocturnal dyspnea. 15:15 Neuro: Positive for seizure activity. 15:15 All other systems are negative. Exam: 15:15 Constitutional: This is a well developed, well nourished patient who is awake, alert, kb and in no acute distress. Head/Face: Normocephalic, atraumatic. ENT: Moist Mucous membranes Cardiovascular: Regular rate and rhythm with a normal S1 and S2. No gallops, murmurs, or rubs. No pulse deficits. Respiratory: Respirations even and unlabored. No increased work of breathing. Talking in full sentences Abdomen/GI: Soft, non-tender. No distention Skin: Warm, dry with normal turgor. Normal color. MS/ Extremity: Pulses equal, no cyanosis. Neurovascular intact. Full, normal range of motion. Neuro: Awake and alert, GCS 15, oriented to person, place, time, and situation. Moves all extremities. Normal gait. Psych: Awake, alert, with orientation to person, place and time. Behavior, mood, and affect are within normal limits. 15:15 ECG was reviewed by the Attending Physician. Vital Signs: 14:39 BP 137 / 88; Pulse 103 RA; Resp 25 S; Temp 98.0; Pulse Ox 98% on R/A; Weight 65.77 kg; ag7 Height 6 ft. 3 in. (190.50 cm); Pain 10/10; 15:05 BP 122 / 72; Pulse 72; Resp 23; Pulse Ox 97% on R/A; Pain 10/10; ag7 15:15 BP 128 / 66; Pulse 77; Resp 22; Pulse Ox 100% on R/A; ag7 16:27 BP 123 / 77; Pulse 70; Resp 16; Pulse Ox 98% ; Pain 0/10; ag7 14:39 Body Mass Index 18.12 (65.77 kg, 190.50 cm) ag7 [place] Coma Score: 15:05 Eye Response: spontaneous(4). Verbal Response: oriented(5). Motor Response: obeys ag7 commands(6). Total: 15. MDM: 14:35 Patient medically screened. kb 15:15 Data reviewed: vital signs, nurses notes. Data interpreted: Pulse oximetry: on room air kb is 98 %. Interpretation: normal. 15:28 Physician consultation: Saad Grier MD was contacted at 15:29, regarding consult, kb patient's condition, and will see patient in office, Recommended Keppra 250mg QHS for one week, then 250mg BID for one week, then 250mg QAM and 500mg QHS for one week, finally 500mg BID. 08/17 14:42 Order name: CBC with Diff kb 08/17 14:42 Order name: Basic Metabolic Panel; Complete Time: 16:00 kb 08/17 14:42 Order name: Troponin High Sensitivity; Complete Time: 16:00 kb 08/17 14:42 Order name: IV Start; Complete Time: 14:53 kb 08/17 14:42 Order name: EKG; Complete Time: 14:42 kb 08/17 14:42 Order name: EKG - Nurse/Tech; Complete Time: 15:10 kb EC:15 Rate is 75 beats/min. Rhythm is regular. QRS [place] is Normal. [place] interval is normal at kb 114 msec. QRS interval is normal at 98 msec. QT interval is normal at 400 msec. Administered Medications: 15:09 Drug: Keppra (levETIRAcetam) 1000 mg Route: IV; Rate: calculated rate; Site: left 7 antecubital; 15:24 Follow up: Response: No adverse reaction; Marked relief of symptoms; IV Status: ag7 Completed infusion 15:10 Drug: NS 0.9% 1000 ml Route: IV; Rate: 1000 ml; Site: left antecubital; ag7 15:45 Follow up: IV Status: Completed infusion; IV Intake: 1000ml ag7 16:30 Drug: Zofran (Ondansetron) 4 mg Route: IVP; Site: left antecubital; 7 16:30 Follow up: Response: No adverse reaction; Medication administered at discharge. ag7 Disposition: 20:26 Co-signature as Attending Physician, Irving Lorenzana DO I agree with the assessment and ms3 plan of care. Disposition Summary: 08/17/21 16:07 Discharge Ordered Location: Home Condition: Stable kb Diagnosis - Epileptic seizures related to external causes, not intractable, without status kb epilepticus Followup: kb - With: Emergency Department - When: As needed - Reason: Worsening of condition Followup: kb - With: Private Physician - When: 2 - 3 days - Reason: Recheck today's complaints, Continuance of care, Re-evaluation by your physician Discharge Instructions: - Discharge Summary Sheet kb - Seizure, Adult, [id number] kb Forms: - Medication Reconciliation Form kb - Thank You Letter kb - Antibiotic Education kb - Prescription Opioid Use kb Prescriptions: - Keppra 250 mg Oral tablet - take 1 tablet by ORAL route 2 times per day Take 1 tab at bedtime for 7 days, kb then 1 tab twice per day for 7 days, then 1 tab in the morning and 2 at night for 7 days; 42 tablet; Refills: 0, Product Selection Permitted Signatures: Dispatcher [employer] EDMS Fiorella Bean, ASSEMBLER RADIO AND ELECTRICAL-C ASSEMBLER RADIO AND ELECTRICAL-Ckb Irving Lorenzana DO DO ms3 Silvana Bedoya, RN RN ag7 Corrections: (The following items were deleted from the chart) 15:29 15:28 Physician consultation: Saad Grier MD was contacted at 15:29, regarding kb consult, patient's condition, and will see patient in office, kb
[2021-08-17] MEDS ORDERED: ONDANSETRON 4 MG/2 ML VIAL ONE (16:16)
[2021-08-17 17:50] VITALS: TEMP 98
[2021-08-17 17:54] VITALS: BP 123/77; O2SAT 98
--- NOTE | 2021-08-18 13:12 | EKG ---
Test Date: 2021-08-17 Test Time: 15:08:12 Bus Aide: LUIS MEASUREMENT RESULTS: Intervals: Rate: 75 MA: 114 QRSD: 98 QT: 400 QTc: 446 [place]: P: 21 MA: 114 QRS: 87 T: 49 INTERPRETIVE STATEMENTS: Normal sinus rhythm with sinus arrhythmia Minimal voltage criteria for LVH, may be normal variant Borderline ECG Compared to ECG 06/27/2021 22:52:52 No significant changes Electronically Signed On 08-18-21 13:08:16 CUTTER GAS by Puneet Blake
== END 2021-08-17 16:31 | disposition home or self-care (01) ==
LOC: ER 14:31
DX: G40.509 Epileptic seizures related to external causes, not intractable, without status epilepticus (principal)
CPT/HCPCS: 36415; 80048; 84484; 85025; 93005; 96361; 96374; 96375; 99284; J1953; J2405; J7030

== ENCOUNTER 2021-11-02 22:53 | Observation (INO) | payer SELFPAY ==
[2021-11-02 23:39] LABS: Absolute Lymphocytes (CBC) 2.1 K/uL (0.7-4.9); Hematocrit 46.6 % (39.6-49.0); Lymphocytes % 39.5 % (15.3-44.8); MPV 7.9 fL (7.6-11.3); RBC Red Blood Cell Count 4.57 M/uL (4.33-5.43)
[2021-11-02 23:43] LABS: Protime INR 0.89
[2021-11-03 00:09] LABS: ALT/SGPT 38 U/L (12-78); Albumin 3.7 g/dL (3.4-5.0); Alkaline Phosphatase 117 U/L (45-117); BUN Blood Urea Nitrogen 8 mg/dL (7-18); Bicarbonate 28 mmol/L (21-32); Bilirubin Total 0.2 mg/dL (0.2-1.0); Glomerular Filtration Rate 123 ml/min (=/>90); Glucose Level 88 mg/dL (74-106); Sodium Level 143 mmol/L (136-145)
--- NOTE | 2021-11-03 00:09 | ER ---
Nurse's Notes [facility] Name: Mitchell Mendez III Age: 30 yrs Sex: Male : 1990 Arrival Date: 11/02/2021 Time: 22:55 Bed 5 Private MD: Diagnosis: Weakness;Paresthesia of skin Presentation: 11/02 22:55 Chief complaint: Patient states: "I have been having multiple seizures the past few vc1 days and I now have left sided numbness and tingling. I think I have had 2 strokes in the last 4-5 days." EMS states: "We were called on this patient that stated 2.5 days ago he started having left sided weakness. He admits to drinking 1 Liter of vodka today saying he "self medicates for chronic pain". He also said he has been having multiple seizures the last few days.". 22:55 Coronavirus screen: Vaccine status: Patient reports being unvaccinated. "I don't vc1 believe in vaccines." At this time, the client does not indicate any symptoms associated with coronavirus-19. Ebola Screen: No symptoms or risks identified at this time. Initial Sepsis Screen: Does the patient meet any 2 criteria? HR > 90 bpm. No. Patient's initial sepsis screen is negative. Does the patient have a suspected source of infection? No. Patient's initial sepsis screen is negative. Risk Assessment: Do you want to hurt yourself or someone else? Patient reports no desire to harm self or others. Onset of symptoms is unknown. Care prior to arrival: IV initiated. 20 GA, in the left forearm, Glucose check: 85. 22:55 Method Of Arrival: EMS: [facility] vc1 22:55 Acuity: CAROLINE 3 vc1 Triage Assessment: 23:16 General: Appears in no apparent distress. Behavior is flat. Pain: Denies pain. EENT: No vc1 deficits noted. Neuro: Reports numbness in left arm and left leg weakness in left arm and left leg. Cardiovascular: No deficits noted. Respiratory: Airway is patent Respiratory effort is even, unlabored, Respiratory pattern is regular, symmetrical. GI: No deficits noted. : No deficits noted. Derm: Skin is intact, is healthy with good turgor, Skin temperature is warm. Historical: - Allergies: 23:20 No Known Allergies; vc1 - Home Meds: 23:16 Keppra Oral [Active]; vc1 - PMHx: 23:16 Pancreatitis; repetitive head injury; scoliosis; Seizures; Migraine; vc1 - PSHx: 23:16 None; vc1 - Immunization history:: Adult Immunizations unknown, Client reports having NOT received the Covid vaccine. - Social history:: Smoking status: Patient reports the use of cigarette tobacco products, Less than half a pack a day, Patient uses alcohol, on a daily basis. Screenin:00 VAN Screening: Arm Drift: Flaccid or no effort against gravity. Visual Disturbance: No vc1 visual disturbance noted. Aphasia: No aphasia noted. Neglect: Patient is noted to be ignoring one side of their body. Patient demonstrates neglect. Provider notified of +VAN scoring. Pt states he can't feel on the left side of his body. Patient has been NPO before screening. The patient is alert, able to follow commands. The patient does not exhibit slurred or garbled speech The patient is not exhibiting difficulty speaking. The patient does not exhibit difficulty understanding words. The patient is able to swallow own secretions with no drooling or need for suction. Patient tolerated one teaspoon of water. No drooling, immediate coughing, gurgling, or clearing of the throat was noted. The patient tolerated 90mL of water. No drooling, immediate coughing, gurgling, or clearing of the throat was noted. The patient passed the bedside swallow screening. Oral medications may be given as ordered. Contact Physician for further diet orders. 23:19 Abuse screen: Denies threats or abuse. Nutritional screening: No deficits noted. vc1 Tuberculosis screening: No symptoms or risk factors identified. Fall Risk Fall in past 12 months (25 points). Secondary diagnosis (15 points) impaired mobility, IV access (20 points). Ambulatory Aid- None/Bed Rest/Nurse Assist (0 pts). Gait- Weak (10 pts.). Mental Status- Oriented to own ability (0 pts). Total Lemus Fall Scale indicates High Risk Score (45 or more points). Fall prevention measures have been instituted. Side Rails Up X 2. Assessment: 23:00 General: Appears uncomfortable, slender, Behavior is cooperative, flat, Smells of vc1 alcohol. 11/03 00:00 Reassessment: No changes from previously documented assessment. Patient and/or family vc1 updated on plan of care and expected duration. Pain level reassessed. Patient is alert, oriented x 3, equal unlabored respirations, skin warm/dry/pink. Pain: Denies pain. Neuro: Level of Consciousness is alert, obeys commands, Oriented to person, place, time, situation, Appropriate for age Drug Abuse Worker are weak on left Weakness in left arm(s) leg(s) Speech is normal, Facial symmetry appears normal, Reports numbness in left leg and left arm since 4-5 days weakness in left leg and left arm Seizure activity reported prior to arrival. Cardiovascular: Patient's skin is warm and dry. Respiratory: Airway is patent Respiratory effort is even, unlabored, Respiratory pattern is regular, symmetrical. GI: No deficits noted. : No deficits noted. Derm: No deficits noted. 01:00 Reassessment: No changes from previously documented assessment. Patient and/or family vc1 updated on plan of care and expected duration. Pain level reassessed. 02:00 Reassessment: No changes from previously documented assessment. Patient and/or family vc1 updated on plan of care and expected duration. Pain level reassessed. Patient is alert, oriented x 3, equal unlabored respirations, skin warm/dry/pink. 03:00 Reassessment: Pt sleeping, significant other at bedside. vc1 04:00 Reassessment: See [facility] for further charting. vc1 17:00 Reassessment: PT D/C FROM [facility]. bp Vital Signs: 11/02 22:55 BP 112 / 87; Pulse 94; Resp 12; Temp 97.9; Pulse Ox 96% on R/A; Weight 67.13 kg; Height vc1 6 ft. 3 in. (190.50 cm); Pain 0/10; 23:00 BP 113 / 85; Pulse 87; Resp 14; Pulse Ox 96% on R/A; vc1 11/03 00:00 BP 108 / 74; Pulse 77; Resp 13; Pulse Ox 95% on R/A; vc1 02:00 BP 110 / 76; Pulse 78; Resp 13; Pulse Ox 95% on R/A; vc1 04:00 BP 109 / 71; Pulse 79; Resp 14; Pulse Ox 91% on R/A; vc1 11/02 22:55 Body Mass Index 18.50 (67.13 kg, 190.50 cm) vc1 NIH Stroke Scale Scores: 11/02 23:00 NIHSS Score: 8 vc1 11/03 00:02 NIHSS Score: 2 jr8 ED Course: 11/02 22:55 Patient arrived in ED. ds4 22:58 Arnie Viveros PA is PHCP. jr8 22:58 Kirill Flores MD is Attending Physician. jr8 23:09 CT-STROKE BRAIN W/O CONTRAST CT In Process Unspecified. EDMS 23:11 Faye Shetty, RN is Primary Nurse. vc1 23:16 Triage completed. vc1 23:19 Patient has correct armband on for positive identification. Client placed on continuous vc1 cardiac and pulse oximetry monitoring. NIBP monitoring applied. 23:19 No provider procedures requiring assistance completed. Maintain EMS IV. Dressing vc1 intact. Good blood return noted. Site clean \\T\\ dry. Gauge \\T\\ site: 20G Left forearm. 23:20 Arm band placed on right wrist. vc1 11/03 00:07 Leonidas Batista MD is Hospitalizing Provider. jr8 00:32 CT C Spine In Process Unspecified. EDMS 04:00 Patient admitted, IV remains in place. vc1 07:07 Primary Nurse role handed off by Faye Shetty RN bp 07:07 Jeff Steward, PALAK is Primary Nurse. bp Administered Medications: 01:05 Drug: Banana Bag - (NS 0.9% 1000 ml, foLIC Acid 1 mg, Thiamine 100 mg, Multivitamin 1 vc1 amp) Route: IV; Rate: 125 ml/hr; Site: left forearm; 04:00 Follow up: IV Status: Infusion continued upon admission vc1 01:30 Drug: Nicoderm CQ Patch 21 mg/24 hr 21 mg Route: Transdermal; Site: affected area; vc1 Medication: 04:00 VIS not applicable for this client. vc1 Outcome: 00:08 Decision to Hospitalize by Provider. jr8 04:00 Admitted to ER Hold. Please see [facility] for further documentation. vc1 04:00 Condition: good 04:00 Instructed on the need for admit. 17:04 Patient left the ED. NIH Stroke Scale - NIH Stroke Score Date: 11/02/2021 Time: 23:00 Total Score = 8 1a. Level of Consciousness (LOC) - 0(Alert) 1b. Level of Consciousness (LOC) (Month \\T\\ Age) - 0(Both) 1c. LOC Commands (Open \\T\\ Closes Eyes/Plate Maker) - 1(One) 2. Best Gaze (Lateral Gaze Paresis) - 0(Normal) 3. Visual Field Loss - 0(No visual loss) 4. Facial Palsy - 0(Normal) 5a. Left Arm: Motor (10-second hold) - 3(No effort against gravity) 5b. Right Arm: Motor (10-second hold) - 0(No drift) 6a. Left Leg: Motor (5-second hold - always test supine) - 3(No effort against gravity) 6b. Right Leg: Motor (5-second hold - always test supine) - 0(No drift) 7. Limb Ataxia (finger/nose \\T\\ heel/anaya - test with eyes open) - 0(Absent) 8. Sensory Loss (pinprick arms/legs/face) - 1(Mild to moderate loss) 9. Best Language: Aphasia (description/naming/reading) - 0(No aphasia) 10. Dysarthria (speech clarity - read or repeat words) - 0(Normal) 11. Extinction and Inattention (visual/tactile/auditory/spatial/personal) - 0(No abnormality) Initials: vc1 NIH Stroke Scale - NIH Stroke Score Date: 11/03/2021 Time: 00:02 Total Score = 2 1a. Level of Consciousness (LOC) - 0(Alert) 1b. Level of Consciousness (LOC) (Month \\T\\ Age) - 0(Both) 1c. LOC Commands (Open \\T\\ Closes Eyes/Plate Maker) - 0(Both) 2. Best Gaze (Lateral Gaze Paresis) - 0(Normal) 3. Visual Field Loss - 0(No visual loss) 4. Facial Palsy - 0(Normal) 5a. Left Arm: Motor (10-second hold) - 1(Drift) 5b. Right Arm: Motor (10-second hold) - 0(No drift) 6a. Left Leg: Motor (5-second hold - always test supine) - 0(No drift) 6b. Right Leg: Motor (5-second hold - always test supine) - 0(No drift) 7. Limb Ataxia (finger/nose \\T\\ heel/anaya - test with eyes open) - 0(Absent) 8. Sensory Loss (pinprick arms/legs/face) - 1(Mild to moderate loss) 9. Best Language: Aphasia (description/naming/reading) - 0(No aphasia) 10. Dysarthria (speech clarity - read or repeat words) - 0(Normal) 11. Extinction and Inattention (visual/tactile/auditory/spatial/personal) - 0(No abnormality) Initials: oli Signatures: Dispatcher [employer] EDTania Queen, RN RN Arnie Dallas PA PA jr8 Nolan Bowman ds4 Jeff Steward RN RN bp Faye Shetty RN RN vc1
--- NOTE | 2021-11-03 00:10 | EDPHYS ---
Physician Documentation [facility] Name: Mitchell Mendez III Age: 30 yrs Sex: Male : 1990 Arrival Date: 11/02/2021 Time: 22:55 Bed 5 Private MD: ED Physician Kirill Flores HPI: 11/02 23:59 This 30 yrs old Male presents to ER via EMS with complaints of Numbness. jr8 23:59 The patient's problem is reported as paresthesias, in left upper extremity, in left jr8 lower extremity, weakness, in the left upper extremity, in the left lower extremity. Onset: The symptoms/episode began/occurred gradually, 1 week(s) ago. Duration: The episode is continuous. Context: occurred at home, occurred while the patient was at rest. The symptoms are alleviated by nothing. The symptoms are aggravated by walking. Associated signs and symptoms: The patient has no apparent associated signs or symptoms. Severity of symptoms: At their worst the symptoms were moderate in the emergency department the symptoms are unchanged. Patient's baseline: Neuro: alert and fully oriented, Motor: no deficits, Ambulation: walks without assistance, Speech: normal. The patient has not experienced similar symptoms in the past. The patient has not recently seen a physician. Patient stated that he noticed that his left arm and leg were tingling and now numb and having hard time getting around secondary to weakness. Denies trauma. History of seizures and is currently on Keppra. Drinks routinely as well . Historical: - Allergies: 23:20 No Known Allergies; vc1 - Home Meds: 23:16 Keppra Oral [Active]; vc1 - PMHx: 23:16 Pancreatitis; repetitive head injury; scoliosis; Seizures; Migraine; vc1 - PSHx: 23:16 None; vc1 - Immunization history:: Adult Immunizations unknown, Client reports having NOT received the Covid vaccine. - Social history:: Smoking status: Patient reports the use of cigarette tobacco products, Less than half a pack a day, Patient uses alcohol, on a daily basis. ROS: 23:59 Eyes: Negative for injury, pain, redness, and discharge, ENT: Negative for injury, jr8 pain, and discharge, Neck: Negative for injury, pain, and swelling, Cardiovascular: Negative for chest pain, palpitations, and edema, Respiratory: Negative for shortness of breath, cough, wheezing, and pleuritic chest pain, Abdomen/GI: Negative for abdominal pain, nausea, vomiting, diarrhea, and constipation, Back: Negative for injury and pain, MS/Extremity: Negative for injury and deformity, Skin: Negative for injury, rash, and discoloration. 23:59 Neuro: Positive for numbness, tingling, weakness. Exam: 23:59 Radiologist reports: No acute findings jr8 23:59 Constitutional: This is a well developed, well nourished patient who is awake, alert, and in no acute distress. Eyes: Pupils equal round and reactive to light, extra-ocular motions intact. Lids and lashes normal. Conjunctiva and sclera are non-icteric and not injected. Cornea within normal limits. Periorbital areas with no swelling, redness, or edema. ENT: Nares patent. No nasal discharge, no septal abnormalities noted. Tympanic membranes are normal and external auditory canals are clear. Oropharynx with no redness, swelling, or masses, exudates, or evidence of obstruction, uvula midline. Mucous membranes moist. Neck: Trachea midline, no thyromegaly or masses palpated, and no cervical lymphadenopathy. Supple, full range of motion without nuchal rigidity, or vertebral point tenderness. No Meningismus. Cardiovascular: Regular rate and rhythm with a normal S1 and S2. No gallops, murmurs, or rubs. Normal PMI, no JVD. No pulse deficits. Respiratory: Lungs have equal breath sounds bilaterally, clear to auscultation and percussion. No rales, rhonchi or wheezes noted. No increased work of breathing, no retractions or nasal flaring. Abdomen/GI: Soft, non-tender, with normal bowel sounds. No distension or tympany. No guarding or rebound. No evidence of tenderness throughout. Back: No spinal tenderness. No costovertebral tenderness. Full range of motion. Skin: Warm, dry with normal turgor. Normal color with no rashes, no lesions, and no evidence of cellulitis. MS/ Extremity: Pulses equal, no cyanosis. Neurovascular intact. Full, normal range of motion. 23:59 Neuro: Orientation: to person, place \\T\\ time. Mentation: is normal, Memory: is normal, Cranial nerves: CN I not tested, CN II- XII are normal as tested, visual oropeza are intact. extraocular movements are intact, Facial palsy and sensory deficits are absent. Speech is clear and appropriate. Cerebellar function: normal finger to nose testing, heel to anaya testing is normal, Motor: moves all fours, strength is 4/5 in the left arm and left leg, Sensation: numbness, that is mild, of the left arm and left leg, seizure activity, is not displayed by the patient, Abnormal movements: there are no abnormal movements. Vital Signs: 22:55 BP 112 / 87; Pulse 94; Resp 12; Temp 97.9; Pulse Ox 96% on R/A; Weight 67.13 kg; Height vc1 6 ft. 3 in. (190.50 cm); Pain 0/10; 23:00 BP 113 / 85; Pulse 87; Resp 14; Pulse Ox 96% on R/A; vc1 11/03 00:00 BP 108 / 74; Pulse 77; Resp 13; Pulse Ox 95% on R/A; vc1 02:00 BP 110 / 76; Pulse 78; Resp 13; Pulse Ox 95% on R/A; vc1 04:00 BP 109 / 71; Pulse 79; Resp 14; Pulse Ox 91% on R/A; 1 11/02 22:55 Body Mass Index 18.50 (67.13 kg, 190.50 cm) 1 NIH Stroke Scale Scores: 11/02 23:00 NIHSS Score: 8 1 11/03 00:02 NIHSS Score: 2 [facility] MDM: 11/02 22:58 Patient medically screened. [facility] 11/03 00:03 Data reviewed: vital signs, nurses notes, lab test result(s), EKG, radiologic studies, [facility] CT scan, plain films. Data interpreted: Pulse oximetry: on room air is 96 %. Interpretation: normal. Counseling: I had a detailed discussion with the patient and/or guardian regarding: the historical points, exam findings, and any diagnostic results supporting the discharge/admit diagnosis, lab results, radiology results. 11/02 23:01 Order name: Acetaminophen; Complete Time: 01:12 [facility] 11/02 23:01 Order name: Basic Metabolic Panel; Complete Time: 01:12 [facility] 11/02 23:01 Order name: CBC with Diff; Complete Time: 23:43 [facility] 11/02 23:01 Order name: ETOH Level; Complete Time: 01:12 [facility] 11/02 23:01 Order name: Hepatic Function; Complete Time: 01:12 [facility] 11/02 23:01 Order name: PT-INR; Complete Time: 23:59 [facility] 11/02 23:01 Order name: Ptt, Activated; Complete Time: 23:59 [facility] 11/02 23:01 Order name: Salicylate; Complete Time: 23:59 [facility] 11/02 23:01 Order name: Urine Drug Screen [facility] 11/02 23:03 Order name: Magnesium; Complete Time: 01:12 [facility] 11/02 23:56 Order name: B12; Complete Time: 01:12 [facility] 11/02 23:56 Order name: Folic Acid,Serum (folate); Complete Time: 01:12 [facility] 11/03 05:10 Order name: Lipid Profile [facility] 11/03 07:02 Order name: SARS-COV-2 RT PCR (Document "Date of Onset" if Symptomatic) [facility] 11/02 22:58 Order name: CT-STROKE BRAIN W/O CONTRAST CT [facility] 11/02 23:01 Order name: EKG; Complete Time: 23:01 [facility] 11/02 23:01 Order name: EKG - Nurse/Tech; Complete Time: 00:05 [facility] 11/02 23:01 Order name: IV Saline Lock; Complete Time: 23:36 [facility] 11/02 23:01 Order name: Labs collected and sent; Complete Time: 23:36 [facility] 11/03 00:06 Order name: CT C Spine [facility] 11/03 07:16 Order name: Urine Dipstick-Ancillary [facility] 11/03 07:24 Order name: Urinalysis [facility] 11/03 10:14 Order name: MRI [facility] 11/03 10:15 Order name: MRI [facility] 11/03 10:17 Order name: MRI [facility] 11/03 10:28 Order name: SARS-COV-2 RT PCR [facility] 11/03 10:50 Order name: US [facility] 11/02 23:01 Order name: Suicide Screening ([place]); Complete Time: 23:36 [facility] 11/02 23:01 Order name: Urine Dipstick-Ancillary (obtain specimen); Complete Time: 23:36 [facility] Administered Medications: 01:05 Drug: Banana Bag - (NS 0.9% 1000 ml, foLIC Acid 1 mg, Thiamine 100 mg, Multivitamin 1 vc1 amp) Route: IV; Rate: 125 ml/hr; Site: left forearm; 04:00 Follow up: IV Status: Infusion continued upon admission vc1 01:30 Drug: Nicoderm CQ Patch 21 mg/24 hr 21 mg Route: Transdermal; Site: affected area; vc1 Disposition: 11/04 07:58 Co-signature as Attending Physician, Kirill Flores MD. [email or web address] Disposition Summary: 11/03/21 00:08 Hospitalization Ordered Hospitalization Status: Observation jr8 Provider: Leonidas Batista Condition: Stable jr8 Problem: new jr8 Symptoms: are unchanged jr8 Bed/Room Type: Standard jr8 Location: [facility] ER HOLD(11/03/21 00:36) cg Room Assignment: ERHOLD-(11/03/21 00:36) cg Diagnosis - Weakness jr8 - Paresthesia of skin jr8 Forms: - Medication Reconciliation Form jr8 - SBAR form jr8 NIH Stroke Scale - NIH Stroke Score Date: 11/02/2021 Time: 23:00 Total Score = 8 1a. Level of Consciousness (LOC) - 0(Alert) 1b. Level of Consciousness (LOC) (Month \\T\\ Age) - 0(Both) 1c. LOC Commands (Open \\T\\ Closes Eyes/Reconstructive Surgeon) - 1(One) 2. Best Gaze (Lateral Gaze Paresis) - 0(Normal) 3. Visual Field Loss - 0(No visual loss) 4. Facial Palsy - 0(Normal) 5a. Left Arm: Motor (10-second hold) - 3(No effort against gravity) 5b. Right Arm: Motor (10-second hold) - 0(No drift) 6a. Left Leg: Motor (5-second hold - always test supine) - 3(No effort against gravity) 6b. Right Leg: Motor (5-second hold - always test supine) - 0(No drift) 7. Limb Ataxia (finger/nose \\T\\ heel/anaya - test with eyes open) - 0(Absent) 8. Sensory Loss (pinprick arms/legs/face) - 1(Mild to moderate loss) 9. Best Language: Aphasia (description/naming/reading) - 0(No aphasia) 10. Dysarthria (speech clarity - read or repeat words) - 0(Normal) 11. Extinction and Inattention (visual/tactile/auditory/spatial/personal) - 0(No abnormality) Initials: vc1 NIH Stroke Scale - NIH Stroke Score Date: 11/03/2021 Time: 00:02 Total Score = 2 1a. Level of Consciousness (LOC) - 0(Alert) 1b. Level of Consciousness (LOC) (Month \\T\\ Age) - 0(Both) 1c. LOC Commands (Open \\T\\ Closes Eyes/Reconstructive Surgeon) - 0(Both) 2. Best Gaze (Lateral Gaze Paresis) - 0(Normal) 3. Visual Field Loss - 0(No visual loss) 4. Facial Palsy - 0(Normal) 5a. Left Arm: Motor (10-second hold) - 1(Drift) 5b. Right Arm: Motor (10-second hold) - 0(No drift) 6a. Left Leg: Motor (5-second hold - always test supine) - 0(No drift) 6b. Right Leg: Motor (5-second hold - always test supine) - 0(No drift) 7. Limb Ataxia (finger/nose \\T\\ heel/anaya - test with eyes open) - 0(Absent) 8. Sensory Loss (pinprick arms/legs/face) - 1(Mild to moderate loss) 9. Best Language: Aphasia (description/naming/reading) - 0(No aphasia) 10. Dysarthria (speech clarity - read or repeat words) - 0(Normal) 11. Extinction and Inattention (visual/tactile/auditory/spatial/personal) - 0(No abnormality) Initials: jr8 Signatures: Dispatcher [employer] EDNJ Arnie Viveros PA PA jr8 Hever Oakes, ATHLETIC FIELD CUSTODIAN-C ATHLETIC FIELD CUSTODIAN-Cla1 Angeles Pimentel, RN RN cg Kirill Flores MD MD [id number] Tyra Chung RN RN ld1 Faye Shetty RN RN vc1 Corrections: (The following items were deleted from the chart) 11/02 23:07 23:01 Head Brain Wo [id number].[email or web address] ordered. [facility] 11/03 00:36 00:08 Telemetry/MedSurg (observation) jr8 cg 00:36 00:08 jr8
[2021-11-03 00:11] LABS: AST/SGOT 49 U/L (15-37); Bilirubin Direct < 0.1 mg/dL (0-0.2); Potassium 3.6 mmol/L (3.5-5.1)
[2021-11-03 00:56] LABS: Folic Acid, (Folate) 3.5 ng/mL (3.1-17.5)
[2021-11-03] MEDS ORDERED: THIAMINE 200 MG/2 ML INJ ONE (00:57)
[2021-11-03] MEDS ORDERED: NA CHLORIDE 0.9% 1,000 ML ONE (00:57)
[2021-11-03] MEDS ORDERED: MULTIVITAMINS 10 ML VIAL (INJ) IV ONE (00:58)
[2021-11-03] MEDS ORDERED: FOLIC ACID 5 MG/ML VIAL ONE (00:59)
[2021-11-03] MEDS ORDERED: NICOTINE 21 MG/PAT TD ONE (01:30)
--- NOTE | 2021-11-03 01:35 | P.HP ---
Certification for Inpatient Patient admitted to: Observation With expected LOS: <2 Midnights Patient will require the following post-hospital care: None Practitioner: I am a practitioner with admitting privileges, knowledge of patient current condition, hospital course, and medical plan of care. Services: Services provided to patient in accordance with Admission requirements found in Title 42 Section 412.3 of the Code of Federal Regulations Patient History Date of Service: 11/03/21 Reason for admission: Left Sided weakness History of Present Illness: 30-year-old male with history of seizure disorder, alcohol abuse presents emergency department for left-sided weakness he reports the left-sided weakness has been going on over the course of the last 4 to 7 days he cannot be specific. He was noted to have left upper and lower extremity drift sensation changes in the left lower extremity CT head was negative for acute findings labs were overall unremarkable. Patient also reports he had multiple seizures last few days he admits to drinking daily approximately half a liter per day of vodka. Provider wishes to admit under observation for left-sided weakness rule out CVA Allergies No Known Allergies Allergy (Verified 08/17/20 23:26) Home Medications: NK [No Home Meds] 08/17/20 - Past Medical/Surgical History -: None -: Seizure disorder -: migraines -: Alcohol abuse -: None Psychosocial/ Personal History: Unemployed, lives at home with significant other - Family History Mother -: Heart disease - Social History Smoking Status: Current every day smoker Counseled patient to stop smoking for: less than 10 minutes Smoking therapy provided: Yes Alcohol use: Yes CD- Drugs: Yes Caffeine use: Yes Place of Residence: Home Review of Systems 10-point ROS is otherwise unremarkable Neurological: Weakness, Numbness, Seizures, As per HPI Physical Examination - Physical Exam General: Alert, In no apparent distress, Oriented x3 HEENT: Atraumatic, PERRLA, Mucous membr. moist/pink, EOMI, Sclerae nonicteric Neck: Supple, 2+ carotid pulse no bruit, No LAD, Without JVD or thyroid abnormality Respiratory: Clear to auscultation bilaterally, Normal air movement Cardiovascular: Regular rate/rhythm, Normal S1 S2 Capillary refill: <2 Seconds Gastrointestinal: Normal bowel sounds, No tenderness Musculoskeletal: No tenderness Integumentary: No rashes Neurological: Normal speech, Normal tone, Normal affect, Abnormal strength (4/5 strength left upper and lower extremity), Abnormal sensation - Studies Laboratory Data (last 24 hrs) 11/02/21 23:26: Magnesium 2.0 11/02/21 23:26: PT 9.8, INR 0.89, APTT 33.1 11/02/21 23:26: WBC 5.3, Hgb 15.8, Hct 46.6, Plt Count 152 11/02/21 23:26: Sodium 143, Potassium 3.6, BUN 8, Creatinine 0.79, Glucose 88, Total Bilirubin 0.2, AST 49 H, ALT 38, Alkaline Phosphatase 117 Assessment and Plan - Plan Assessment: Left-sided weakness rule out CVA Seizure disorder alcohol abuse Tobacco Abuse Plan: Left-sided weakness rule out CVA: MRI to R/O CVA. carotid doppler, ASA, statin, folic acid. Physical therapy eval. No changes in speech or swallowing noted. Seizure disorder: Continue keppra 250 PO BID alcohol abuse: monitor for signs of withdrawal, discussed need for cessation. Drinks 0.5L vodka/day Tobacco Abuse: nicoderm patch, discussed need for cessation. DVT PPX: lovenox Code status:full Discharge Plan: Home Plan to discharge in: 24 Hours - Advance Directives Does patient have a Living Will: No Does patient have a Durable POA for Healthcare: No - Code Status/Comfort Care Code Status Assessed: Yes (full code) Critical Care: No Time Spent Managing Pts Care (In Minutes): 55
[2021-11-03] MEDS ORDERED: ONDANSETRON 4 MG/2 ML VIAL IV PRN (04:01)
[2021-11-03] MEDS ORDERED: HYDROCODONE/APAP 5/325 MG TAB PO PRN (04:01)
[2021-11-03 04:09] VITALS: TEMP 97.9
[2021-11-03] MEDS ORDERED: POTASSIUM 25 MEQ EFFERV TAB PO ONE (06:39)
[2021-11-03 06:51] VITALS: O2SAT 95; BMI 18.3
[2021-11-03] MEDS ORDERED: POTASSIUM 25 MEQ EFFERV TAB ONE (06:58)
[2021-11-03 07:15] LABS: Urine Blood Negative (Negative); Urine Glucose Negative (Negative); Urine Protein Trace (Negative); Urine Specific Gravity >=1.030 (1.005-1.030); Urine pH 5.5 (5.0-7.0)
[2021-11-03 07:24] LABS: Urine Appearance Clear (Clear); Urine Bilirubin Negative (Negative); Urine Blood Negative (Negative); Urine Color Yellow (Yellow); Urine Glucose Negative (Negative); Urine Microscopic Reflex NO UMIC; Urine Protein Negative (Negative); Urine Specific Gravity >=1.030 (1.005-1.030); Urine Urobilinogen 0.2 mg/dL (0.2-1.0); Urine pH 5.5 (5.0-7.0)
[2021-11-03 07:36] LABS: Barbiturates NEGATIVE (NEGATIVE); Benzodiazepines POSITIVE (NEGATIVE); Cocaine NEGATIVE (NEGATIVE); METHAMPHETAM NEGATIVE (NEGATIVE); Methadone NEGATIVE (NEGATIVE); Opiates NEGATIVE (NEGATIVE); Phencyclidine NEGATIVE (NEGATIVE); THC Cannibis NEGATIVE (NEGATIVE)
[2021-11-03 08:48] VITALS: BP 111/69
[2021-11-03] MEDS ORDERED: FOLIC ACID 1 MG, MULTIVITAMINS INJ 10 ML, THIAMINE HCL 100 MG in NA CHLORIDE 0.9% 1,000 ML IV SCH (09:00)
[2021-11-03] MEDS ORDERED: ASPIRIN EC 81 MG TAB PO SCH (09:00)
[2021-11-03] MEDS ORDERED: levETIRAcetam 500 MG TAB PO SCH (09:00)
[2021-11-03] MEDS ORDERED: FOLIC ACID 1 MG TABLET PO SCH (09:00)
[2021-11-03] MEDS ORDERED: THIAMINE HCL 100 MG TABLET PO SCH (09:00)
[2021-11-03] MEDS ORDERED: ENOXAPARIN 40 MG/0.4 ML SQ SCH (09:00)
[2021-11-03] MEDS ORDERED: FOLIC ACID 1 MG TABLET ONE (09:56)
[2021-11-03] MEDS ORDERED: ASPIRIN EC 81 MG TAB PO ONE (09:57)
[2021-11-03] MEDS ORDERED: levETIRAcetam 500 MG TAB ONE (09:57)
[2021-11-03] MEDS ORDERED: ENOXAPARIN 40 MG/0.4 ML SQ ONE (09:57)
[2021-11-03] MEDS ORDERED: THIAMINE HCL 100 MG TABLET ONE (09:57)
--- NOTE | 2021-11-03 10:13 | RAD REPORT ---
EXAM DESCRIPTION: MRI - Brain W/Wo Cont - 11/03/2021 9:51 am CLINICAL HISTORY: Left-sided weakness COMPARISON: head CT November 02, 2021 TECHNIQUE: Axial, sagittal, and coronal magnetic images of the brain were obtained. 15 cc MultiHance administered intravenously FINDINGS: No significant abnormal signal within the brain The ventricles are normal in caliber. Diffusion-weighted/ ADC mapping sequences do not demonstrate evidence of an acute infarction. No abnormal enhancement within the brain is seen. An extra-axial fluid collection is not noted. Fluid within the sinuses/mastoids is not seen. Mild chronic sinusitis IMPRESSION: No acute intracranial abnormality displayed
--- NOTE | 2021-11-03 10:15 | RAD REPORT ---
EXAM DESCRIPTION: MRI - MRA Neck W/Wo Cont - 11/03/2021 9:50 am CLINICAL HISTORY: Left-sided weakness COMPARISON: None. TECHNIQUE: Magnetic resonance angiogram of the neck was performed. 15 cc MultiHance was administered intravenously. 3D MIPS reconstruction performed FINDINGS: The common carotid, internal carotid and external carotid arteries do not demonstrate a si gnificant stenosis. An aneurysm is not seen. The vertebral arteries are codominant without visualization of an abnormality. IMPRESSION: Unremarkable MRA neck NASCET criteria used. Mild 0-49% stenosis Moderate 50-69% stenosis Severe 70-99% stenosis
--- NOTE | 2021-11-03 10:16 | RAD REPORT ---
EXAM DESCRIPTION: MRI - MRA Head Wo Cont - 11/03/2021 9:47 am CLINICAL HISTORY: Left-sided weakness COMPARISON: None. TECHNIQUE: Magnetic resonance angiogram was performed. 3D MIPS reconstruction performed FINDINGS: Left anterior cerebral artery is hypoplastic. The right anterior cerebral, middle cerebral, posterior cerebral, distal internal carotid and basilar arteries do not demonstrate a significant stenosis. origin left posterior cerebral artery An aneurysm is not displayed. IMPRESSION: No significant abnormality is displayed
--- NOTE | 2021-11-03 10:49 | RAD REPORT ---
EXAM DESCRIPTION: USCarotid Artery Bilateral11/03/2021 10:32 am CLINICAL HISTORY: CVA COMPARISON: None FINDINGS: The velocity of the right internal carotid artery equals 92 cm/sec. The right ICA/CCA rati o 0.8 The velocity of the left internal carotid artery equals 97 cm/sec. The left ICA/CCA ratio 0.7 Plaque is not visualized within carotid arteries The vertebral arteries demonstrate antegrade flow IMPRESSION: Unremarkable exam NASCET criteria used. Mild 0-49% stenosis Moderate 50-69% stenosis Severe 70-99% stenosis
[2021-11-03] MEDS ORDERED: HYDROCODONE/APAP 5/325 MG TAB ONE (11:18)
--- NOTE | 2021-11-03 12:32 | RAD REPORT ---
EXAM DESCRIPTION: CT - Ct Stroke Brain Wo Cont - 11/03/2021 6:54 am ADDENDUM #1 ADDENDUM: THIS REPORT CONTAINS FINDINGS THAT MAY BE CRITICAL TO PATIENT'S CARE: The findings were verbally discussed via telephone conference with Dr. Viveros by Dr. Anderson on 11/02 11:24 PM CDT. The results were acknowledged and understood. Electronically signed by: Kieran Anderson DO 11/02/2021 11:24 PM CDT End of Addendum EXAM DESCRIPTION: Ct Stroke Brain Wo Cont CLINICAL HISTORY: 30 years Male Neuro deficit, acute, stroke suspected COMPARISON: CT head without contrast dated 06/27/2021 TECHNIQUE: Contiguous axial images of the brain were obtained without the administration of intraven ous contrast.This exam was performed according to our departmental dose-optimization program which in cludes use of Automated Exposure Control, adjustment of the mA and/or kV according to patient size an d/or use of iterative reconstruction technique. DLP: 925 mGy*cm FINDINGS: Brain: No acute intracranial hemorrhage. No extra-axial collection. No mass effect or josee iation. Ventricles: Within normal limits in size. Globes and orbits: No acute abnormality. Bones: No acute osseous finding Paranasal sinuses: Paranasal sinuses are clear. Mastoid air cells: Well pneumatized. Soft tissues: Within normal limits IMPRESSION: No acute intracranial abnormality. Electronically signed by: Kieran Anderson DO 11/02/2021 11:18 PM CDT Due to temporary technical issues with the PACS/Fluency reporting system, reports are being signed by the in house radiologist without review as a courtesy to ensure prompt reporting. The interpreting r adiologist is fully responsible for the content of the report.
--- NOTE | 2021-11-03 13:45 | RAD REPORT ---
EXAM DESCRIPTION: CT - C Spine Wo Con - 11/03/2021 6:53 am CLINICAL HISTORY: 30 years Male Cervical radiculopathy, no red flags COMPARISON: None TECHNIQUE: Multiplanar imaging through the cervical spine without contrast. This exam was performe d according to our departmental dose-optimization program, which includes automated exposure control, adjustment of the mA and/or kV according to patient size and/or use of iterative reconstruction tech nique. DLP: 320 mGy*cm FINDINGS: No fracture. No subluxation. Disc spaces are preserved. Paraspinal soft tissues are unremarkable. Visualized lung is clear. Bilateral mandibular dentigerous cysts IMPRESSION: No acute abnormality. No fracture or subluxation. Bilateral mandibular dentigerous cysts or periapical lucencies Electronically signed by: Kieran Anderson DO 11/03/2021 1:17 AM CDT Due to temporary technical issues with the PACS/Fluency reporting system, reports are being signed by the in house radiologist without review as a courtesy to ensure prompt reporting. The interpreting r adiologist is fully responsible for the content of the report.
--- NOTE | 2021-11-03 17:58 | EKG ---
Test Date: 2021-11-03 Test Time: 00:00:07 Resource Conservation Specialist: BING MEASUREMENT RESULTS: Intervals: Rate: 80 MS: 148 QRSD: 106 QT: 406 QTc: 468 [place]: P: 44 MS: 148 QRS: 64 T: 63 INTERPRETIVE STATEMENTS: Normal sinus rhythm Nonspecific ST abnormality Abnormal ECG Compared to ECG 08/17/2021 15:08:12 ST (T wave) deviation now present Sinus arrhythmia no longer present Left ventricular hypertrophy no longer present Electronically Signed On 11-03-21 17:56:54 CDT by Silverio Will
[2021-11-03] MEDS ORDERED: ATORVASTATIN 40 MG TAB PO SCH (21:00)
--- NOTE | 2021-11-03 23:21 | CON ---
Reason For Consultation: Consultation called because of left-sided weakness. History Of Present Illness: Mr. Mendez is a 30-year-old right-handed patient with history of heavy ch ronic alcohol abuse up to 0.5 L of vodka daily and reported seizures of unclear etiology, who comes t [facility] with left-sided arm and leg weakness of about a week's duration. The patient d id not immediately seek medical attention, but as the symptoms did not improve, he presents to the [facility]. His workup did reveal no acute ischemic or hemorrhagic stroke in terms of brain M RI and CT scan. No significant blood flow abnormalities on MRA of head and neck. Carotid artery betzaida wed no hemodynamically significant stenosis. The patient does say his symptoms have resolved almost back to normal as he is hydrated. He did admit his last drink was about a day and a half prior to co osiris to [facility]. He does say that he has had alcohol withdrawal symptoms in the past aft er stopping for about 4 days. He is not likely to stop, his girlfriend said that his family, his mot her and siblings, apparently bring him the alcohol to keep him calm. Past Medical History: As noted in addition to migraine. Allergies: NO KNOWN DRUG ALLERGIES. Medications: None. Family History: Heart disease in mother. Social History: Smokes a pack of cigarettes daily. Drinks 0.5 L of vodka daily. Denies IV drugs or marijuana, but what he said he would like to go to smoke marijuana at this point. Review of Systems: He denies any recent fevers, chills, nausea, vomiting, myalgias, arthralgias, headache, weight change , or rash. No psychiatric complaints. Gastrointestinal issues are aside from mentioned. Physical Examination: Vital Signs: Blood pressure 111/69, pulse 79, respiratory rate 14 to 17, temperature 97.9, oxygen sa turation 95% on room air. Weight 147 pounds, height 6 feet 3 inches, BMI 17. General: Mr. Mendez is sitting inside his bed. He is in no significant distress. HEENT: He is normocephalic and atraumatic. Sclerae are anicteric. Oropharynx is pink and moist. Neck: Supple. Chest: Clear. Heart: Regular. Extremities: Show no clubbing, cyanosis, or edema. Neurological: He does have 4/5 strength in the left upper extremity, right upper extremity 5/5 proxi justin and distally. Lower extremities, left also 4/5 proximally and distally and on the right 5/5. Sensory exam intact in the upper and lower extremities. Coordination intact, although some difficult y with [id number] on the left. He does have some difficulty with terms of gait with tandem gait an d dependency due to fall to either side. Laboratory Studies: Complete blood count with differential shows elevated MCV at 102, otherwise esse ntially unremarkable. Coagulation panel is normal. Chemistries show no significant abnormalities, a lthough calcium is slightly low at 8.3. AST is elevated at 49; ALT 38, which is normal; alkaline bette s is 117. LDL cholesterol 49, HDL 102. B12 is low therapeutic at 271, folic acid 3.5. Urinalysis s howed trace protein, otherwise unremarkable. His benzodiazepine screen was positive and alcohol leve l 316 with normal less than 10. COVID-19 testing is negative. Assessment: Mr. Mendez is a 30-year-old patient with chronic heavy alcohol and tobacco abuse, who has left upper and lower extremities of unclear etiology. He does not have a stroke on MRI of the brain and does not have any hyperreflexia. Does have gait instability, probably related to chronic alcoho l abuse. Plan: 1.Thiamine 100 mg daily, folate 1 mg daily, multivitamin daily. 2.The patient was advised to enter a drug rehabilitation program and seek counseling, and if unable to, perhaps with Psychiatry. This is to help him stop smoking and drinking alcohol. 3.He may be discharged home with outpatient physical therapy to help regain strength in the left upp er and lower extremities. He is also on aspirin and may continue that along with Lipitor 40 mg at [facility]. He needs folate 1 mg daily, vitamin B12 sublingual 2500 mcg daily. He may follow up with Dr. Grier in 1 month after discharge. JAZMINE/WILBER Voice ID: [id number] Report ID: [id number]
--- NOTE | 2021-11-07 07:00 | ECHO ---
HEIGHT: 6 ft 3 in WEIGHT: 147 lb 11.355 oz DATE OF STUDY: 11/03/[address]: Hever Oakes NP 2-DIMENSIONAL: YES M.MODE: YES DOPPLER: YES COLOR FLOW: YES TDS: PORTABLE: YES DEFINITY: BUBBLE STUDY: DIAGNOSIS: SUSPECT CEREBRAL VASCULAR ACCIDENT CARDIAC HISTORY: CATHERIZATION: NO SURGERY: NO PROSTHETIC VALVE: NO PACEMAKER: NO MEASUREMENTS (cm) DIASTOLIC (NORMALS) SYSTOLIC (NORMALS) IVSd 0.8 (0.6-1.2) LA Diam 2.4 (1.9-4.0) LVEF 57% LVIDd 5.1 (3.5-5.7) LVIDs 3.6 (2.0-3.5) %FS 30% LVPWd 1.0 (0.6-1.2) Ao Diam 2.5 (2.0-3.7) 2 DIMENSIONAL ASSESSMENT: RIGHT ATRIUM: NORMAL LEFT ATRIUM: NORMAL RIGHT VENTRICLE: NORMAL LEFT VENTRICLE: NORMAL TRICUSPID VALVE: NORMAL MITRAL VALVE: NORMAL PULMONIC VALVE: NORMAL AORTIC VALVE: NORMAL PERICARDIAL EFFUSION: NONE AORTIC ROOT: NORMAL LEFT VENTRICULAR WALL MOTION: NORMAL DOPPLER/COLOR FLOW: TRACE MITRAL REGURGITATION COMMENTS: NORMAL LEFT VENTRICULAR EJECTION FRACTION 55-60%. NORMAL WALL MOTION. TRACE MITRAL REGURGITATION. RECOMMEND BUBBLE STUDY TO EVALUATE FOR PATENT FORMEN OVALE. TECHNOLOGIST: BERNABE PALAFOX
== END 2021-11-03 17:01 | disposition home or self-care (01) ==
LOC: ER 22:53 → ERHOLD 11-03 01:07
PROVIDERS: ADMIT Hospitalist; ATTEND Hospitalist
DX: R53.1 Weakness (principal); G40.909 Epilepsy, unspecified, not intractable, without status epilepticus; R27.0 Ataxia, unspecified; R20.0 Anesthesia of skin; F10.10 Alcohol abuse, uncomplicated; R26.89 Other abnormalities of gait and mobility; G43.909 Migraine, unspecified, not intractable, without status migrainosus; M41.9 Scoliosis, unspecified; F17.210 Nicotine dependence, cigarettes, uncomplicated; Z71.6 Tobacco abuse counseling; Z79.82 Long term (current) use of aspirin; Z28.310 Unvaccinated for COVID-19; Z20.822 Contact with and (suspected) exposure to COVID-19; Z82.49 Family history of ischemic heart disease and other diseases of the circulatory system
CPT/HCPCS: 36415; 70450; 70544; 70549; 70553; 72125; 80048; 80061; 80076; 80307; 80320; 80329; 81003; 82607; 82746; 83735; 85025; 85610; 85730; 93005; 93306; 93880; 96365; 96366; 97161; 99285; A9577; G0378; J1650; J3411; J7030; U0003

== ENCOUNTER 2022-04-10 12:22 | Emergency (ER) | payer SELFPAY ==
[2022-04-10] MEDS ORDERED: NA CHLORIDE 0.9% 1,000 ML ONE (12:40)
[2022-04-10] MEDS ORDERED: FAMOTIDINE 20 MG/2 ML VIAL IV ONE (12:40)
[2022-04-10] MEDS ORDERED: LEVETIRACETAM 500 MG/5 ML VIAL IV ONE (12:40)
[2022-04-10] MEDS ORDERED: ONDANSETRON 4 MG/2 ML VIAL ONE (12:40)
[2022-04-10] MEDS ORDERED: NA CHLORIDE 0.9% 100 ML IV ONE (12:41)
[2022-04-10 12:45] LABS: Absolute Lymphocytes (CBC) 1.3 K/uL (0.7-4.9); Hematocrit 53.6 % (39.6-49.0); Lymphocytes % 14.5 % (15.3-44.8); MCV 93.4 fL (80-100); MPV 8.8 fL (7.6-11.3); RBC Red Blood Cell Count 5.73 M/uL (4.33-5.43)
[2022-04-10 13:02] LABS: Albumin 4.3 g/dL (3.4-5.0); Bilirubin Total 0.7 mg/dL (0.2-1.0); Potassium 3.4 mmol/L (3.5-5.1); Protein, Total 8.1 g/dL (6.4-8.2)
--- NOTE | 2022-04-10 13:30 | RAD REPORT ---
EXAM DESCRIPTION: CT - Abdomen Pelvis W Contrast - 04/10/2022 1:19 pm CLINICAL HISTORY: Abdominal pain/vomiting COMPARISON: 2020 TECHNIQUE: Computed axial tomography of the abdomen pelvis was obtained. 100 cc Isovue-300 was admin istered intravenously. Oral contrast was not requested which limits evaluation of bowel and appendix All CT scans are performed using dose optimization technique as appropriate and may include automated exposure control or mA/KV adjustment according to patient size. FINDINGS: Mild fatty liver Spleen, pancreas, adrenal and kidneys appear unremarkable. There is no evidence of diverticulitis. Apparent mild thickening of the wall of the transverse and le ft colon Normal appendix. Small left inguinal hernia Mild gallbladder distention IMPRESSION: Apparent mild thickening of the wall of the transverse and left colon. This can be secon mike to incomplete distention or a mild colitis Mild gallbladder distention
[2022-04-10 14:54] LABS: Urine Blood Negative (Negative); Urine Glucose Negative (Negative); Urine Protein Negative (Negative); Urine Specific Gravity <=1.005 (1.005-1.030)
--- NOTE | 2022-04-10 14:59 | RAD REPORT ---
EXAM DESCRIPTION: US - Abdomen Exam Limited - 04/10/2022 2:15 pm CLINICAL HISTORY: Abdominal pain. COMPARISON: CT April 10, 2022 FINDINGS: The gallbladder wall is upper limits normal thickness Gallbladder is upper limits normal caliber. A gallstone is not seen. The biliary tree is normal caliber. IMPRESSION: No significant abnormalities splayed
[2022-04-10 15:00] LABS: Urine Mucus Slight /HPF (None Seen); Urine RBC <5 /HPF (None Seen)
--- NOTE | 2022-04-10 15:10 | EDPHYS ---
Physician Documentation [facility] Name: Mitchell Mendez III Age: 31 yrs Sex: Male : 1990 Arrival Date: 04/10/2022 Time: 12:24 Bed 17 Private MD: ED Physician Irving Lorenzana HPI: 04/10 12:34 This 31 yrs old Male presents to ER via Wheelchair with complaints of tremors, nausea ms3 and vomiting. 12:34 Character of seizure(s): Loss of consciousness: the patient did not lose consciousness, ms3 Motor activity: tremors bilaterally, Incontinence: none, Apnea: the patient did not experience apnea, Circulation: the patient did not experience evidence of pulse disturbance. Seizure onset: this morning. Context: shaking of upper extremities. Seizure Hx: Usual frequency: irregular frequency, Seizure medications: Keppra. Associated injury: The patient did not suffer any apparent associated injury. Current symptoms: Currently, the patient is not experiencing any symptoms, the patient feels back to baseline. Historical: - Allergies: 12:35 No Known Allergies; iw - Home Meds: 12:35 Keppra Oral [Active]; Folic Acid Oral [Active]; iw - PMHx: 12:35 Migraine; Pancreatitis; repetitive head injury; scoliosis; Seizures; iw ROS: 12:34 Constitutional: Negative for fever, and chills. Neck: Negative for injury, pain, and ms3 swelling, Cardiovascular: Negative for chest pain, and palpitations. Respiratory: Negative for shortness of breath, cough, wheezing, and pleuritic chest pain, Abdomen/GI: Negative for abdominal pain, nausea, vomiting, diarrhea, and constipation, Skin: Negative for injury, rash, and discoloration. 12:34 Neuro: Positive for tremor. 12:34 All other systems are negative. Exam: 12:34 Constitutional: This is a well developed, well nourished patient who is awake, alert, ms3 and in no acute distress. Head/Face: Normocephalic, atraumatic. Neck: Trachea midline, no cervical lymphadenopathy. Supple, full range of motion without nuchal rigidity, or vertebral point tenderness. No Meningismus. Chest/axilla: Normal chest wall appearance and motion. Nontender with no deformity. Cardiovascular: Regular rate and rhythm with a normal S1 and S2. No gallops, murmurs, or rubs. Normal PMI, no JVD. No pulse deficits. Respiratory: Lungs have equal breath sounds bilaterally, clear to auscultation and percussion. No rales, rhonchi or wheezes noted. No increased work of breathing, no retractions or nasal flaring. Back: No spinal tenderness. No costovertebral tenderness. Full range of motion. 12:34 Abdomen/GI: Inspection: abdomen appears normal, Bowel sounds: normal, Palpation: moderate abdominal tenderness, in the epigastric area. 12:34 Neuro: Orientation: is normal, Mentation: is normal, Memory: is normal, Cranial nerves: CN II- XII are normal as tested, Motor: is normal, Sensation: is normal. Vital Signs: 12:26 BP 112 / 85; Pulse 117; Resp 18; Temp 97.9; Pulse Ox 100% on R/A; Weight 54.43 kg; iw Height 6 ft. 3 in. (190.50 cm); 13:50 BP 116 / 80; Pulse 82; Resp 14; Pulse Ox 98% on R/A; mb8 14:54 BP 122 / 76; Pulse 94; Resp 18; Pulse Ox 97% on R/A; Pain 0/10; mb8 12:26 Body Mass Index 15.00 (54.43 kg, 190.50 cm) iw MDM: 12:31 Patient medically screened. ms3 15:12 Data reviewed: vital signs, nurses notes, lab test result(s), radiologic studies, and ms3 as a result, I will discharge patient. Counseling: I had a detailed discussion with the patient and/or guardian regarding: the historical points, exam findings, and any diagnostic results supporting the discharge/admit diagnosis, lab results, radiology results, the need for outpatient follow up, to return to the emergency department if symptoms worsen or persist or if there are any questions or concerns that arise at home. ED course: Discussed labs and imaging with patient and his . Patient to follow-up with Dr. Grier in 2 to 3 days. Patient understands agrees with plan. All questions were answered. Return precautions discussed include worsening symptoms, or any other concerns. On reevaluation patient's tremors have stopped, patient is alert and oriented x4, in no apparent distress, nontoxic-appearing, tolerating p.o.. 04/10 12:33 Order name: CBC with Diff; Complete Time: 13:34 ms3 04/10 12:33 Order name: CMP; Complete Time: 13:34 ms3 04/10 12:33 Order name: Lipase; Complete Time: 13:34 ms3 04/10 12:33 Order name: Urine Microscopic Only; Complete Time: 15:07 ms3 04/10 12:33 Order name: CT Abd/Pelvis - IV Contrast Only; Complete Time: 13:34 ms3 04/10 14:54 Order name: Urine Dipstick-Ancillary; Complete Time: 15:07 EDMS 04/10 12:33 Order name: IV Saline Lock; Complete Time: 12:38 ms3 04/10 12:33 Order name: Labs collected and sent; Complete Time: 12:38 ms3 04/10 12:33 Order name: Urine Dipstick-Ancillary (obtain specimen); Complete Time: 14:53 ms3 04/10 13:35 Order name: US Abdomen Limited; Complete Time: 15:07 ms3 Administered Medications: 12:48 Drug: Keppra (levETIRAcetam) 1000 mg Route: IV; Rate: calculated rate; Site: right mb8 antecubital; 13:05 Follow up: Response: No adverse reaction; RASS: Alert and Calm (0); IV Status: mb8 Completed infusion 12:52 Drug: NS 0.9% 1000 ml Route: IV; Rate: 1 bolus; Site: right antecubital; mb8 14:53 Follow up: IV Status: Completed infusion mb8 12:53 Drug: Pepcid (famotidine) 20 mg Route: IVP; Site: right antecubital; mb8 14:53 Follow up: Response: No adverse reaction; Nausea is decreased mb8 12:53 Drug: Zofran (Ondansetron) 4 mg Route: IVP; Site: right antecubital; mb8 14:54 Follow up: Response: No adverse reaction; Nausea is decreased mb8 Disposition Summary: 04/10/22 15:10 Discharge Ordered Location: Home ms3 Condition: Stable ms3 Diagnosis - Tremor, unspecified ms3 - Nausea with vomiting, unspecified ms3 - Upper abdominal pain, unspecified ms3 Followup: ms3 - With: Saad Grier MD - When: 2 - 3 days - Reason: Recheck today's complaints Discharge Instructions: - Discharge Summary Sheet ms3 - Abdominal Pain, Adult ms3 - Nausea and Vomiting, Adult ms3 Forms: - Medication Reconciliation Form ms3 - Thank You Letter ms3 - Antibiotic Education ms3 - Prescription Opioid Use ms3 Prescriptions: - ondansetron 4 mg Oral tablet,disintegrating - take 1 tablet by ORAL route 3 times per day; 15 tablet; Refills: 0, Product ms3 Selection Permitted Signatures: Dispatcher [employer] Tania Olson RN RN iw Sims, Marcus, DO DO ms3 Anastacio Wallace RN RN mb8
--- NOTE | 2022-04-10 15:10 | ER ---
Nurse's Notes [facility] Name: Mitchell Mendez III Age: 31 yrs Sex: Male : 1990 Arrival Date: 04/10/2022 Time: 12:24 Bed 17 Private MD: Diagnosis: Tremor, unspecified;Nausea with vomiting, unspecified;Upper abdominal pain, unspecified Presentation: 04/10 12:24 Chief complaint: Patient states: hasn't had his keppra in 3-4 days, has been vomiting iw and not eating for past week, denies ETOH or drug use, stopped drinking a while back and was told that may have started his seizures, today he has had a lot of tremors abd jerking in all extremities which is what his seizures normally look like. Coronavirus screen: At this time, the client does not indicate any symptoms associated with coronavirus-19. Risk Assessment: Do you want to hurt yourself or someone else? Patient reports no desire to harm self or others. Onset of symptoms was April 03, 2022. 12:24 Method Of Arrival: Wheelchair iw 12:24 Acuity: CAROLINE 3 iw Historical: - Allergies: 12:35 No Known Allergies; iw - Home Meds: 12:35 Keppra Oral [Active]; Folic Acid Oral [Active]; iw - PMHx: 12:35 Migraine; Pancreatitis; repetitive head injury; scoliosis; Seizures; iw Screenin:40 Abuse screen: Denies threats or abuse. Denies injuries from another. Nutritional mb8 screening: No deficits noted. Tuberculosis screening: No symptoms or risk factors identified. Fall Risk None identified. Assessment: 12:40 Pain: Denies pain. Neuro: Reports weakness. GI: Reports nausea, vomiting, Patient mb8 currently denies diarrhea. 12:40 General: Appears uncomfortable, Behavior is cooperative, appropriate for age, anxious, mb8 restless. Vital Signs: 12:26 BP 112 / 85; Pulse 117; Resp 18; Temp 97.9; Pulse Ox 100% on R/A; Weight 54.43 kg; iw Height 6 ft. 3 in. (190.50 cm); 13:50 BP 116 / 80; Pulse 82; Resp 14; Pulse Ox 98% on R/A; mb8 14:54 BP 122 / 76; Pulse 94; Resp 18; Pulse Ox 97% on R/A; Pain 0/10; mb8 12:26 Body Mass Index 15.00 (54.43 kg, 190.50 cm) iw ED Course: 12:24 Patient arrived in ED. iw 12:26 Triage completed. iw 12:27 Irving Lorenzana DO is Attending Physician. ms3 12:29 Anastacio Wallace, RN is Primary Nurse. mb8 12:35 Arm band placed on. iw 12:40 Patient has correct armband on for positive identification. Placed in gown. Bed in low mb8 position. Call light in reach. Side rails up X2. Client placed on continuous cardiac and pulse oximetry monitoring. NIBP monitoring applied. manager monitoring on. 12:40 No provider procedures requiring assistance completed. Inserted saline lock: 18 gauge mb8 in right antecubital area, using aseptic technique. Blood collected. 13:21 CT Abd/Pelvis - IV Contrast Only In Process Unspecified. EDMS 14:17 US Abdomen Limited In Process Unspecified. EDMS 15:09 Saad Grier MD is Referral Physician. ms3 15:18 IV discontinued, intact, bleeding controlled, No redness/swelling at site. Pressure mb8 dressing applied. Administered Medications: 12:48 Drug: Keppra (levETIRAcetam) 1000 mg Route: IV; Rate: calculated rate; Site: right mb8 antecubital; 13:05 Follow up: Response: No adverse reaction; RASS: Alert and Calm (0); IV Status: mb8 Completed infusion 12:52 Drug: NS 0.9% 1000 ml Route: IV; Rate: 1 bolus; Site: right antecubital; mb8 14:53 Follow up: IV Status: Completed infusion mb8 12:53 Drug: Pepcid (famotidine) 20 mg Route: IVP; Site: right antecubital; mb8 14:53 Follow up: Response: No adverse reaction; Nausea is decreased mb8 12:53 Drug: Zofran (Ondansetron) 4 mg Route: IVP; Site: right antecubital; mb8 14:54 Follow up: Response: No adverse reaction; Nausea is decreased mb8 Medication: 13:09 VIS not applicable for this client. mb8 Outcome: 15:10 Discharge ordered by . ms3 15:18 Discharged to home ambulatory, with family. mb8 15:18 Condition: stable 15:18 Discharge instructions given to patient, Instructed on discharge instructions, follow up and referral plans. medication usage, Demonstrated understanding of instructions, follow-up care, medications, Prescriptions given X 1. 15:18 Patient left the ED. mb8 Signatures: Dispatcher [employer] EDTania Queen RN RN iw Irving Lorenzana DO DO ms3 Anastacio Wallace RN RN [email or web address] Corrections: (The following items were deleted from the chart) 12:35 12:26 BP 112 / 85; Pulse 117bpm; Resp 18bpm; Pulse Ox 100% RA; 54.43 kg; Height 6 ft. 3 iw in.; BMI: 15.0; iw
[2022-04-10 15:26] VITALS: TEMP 97.9
[2022-04-10 15:28] VITALS: BP 122/76; O2SAT 97
== END 2022-04-10 15:18 | disposition home or self-care (01) ==
LOC: ER 12:22
DX: R25.1 Tremor, unspecified (principal); R11.2 Nausea with vomiting, unspecified; R10.10 Upper abdominal pain, unspecified
CPT/HCPCS: 36415; 74177; 76705; 80053; 81003; 81015; 83690; 85025; 96361; 96365; 96375; 99284; J1953; J2405; J7030; Q9967

== ENCOUNTER 2022-05-10 10:34 | Inpatient (IN) | payer SELFPAY ==
[2022-05-10] MEDS ORDERED: NA CHLORIDE 0.9% 1,000 ML ONE (10:56)
[2022-05-10] MEDS ORDERED: ONDANSETRON 4 MG/2 ML VIAL ONE ×2 (10:56→20:29)
[2022-05-10] MEDS ORDERED: MORPHINE 4 MG/ML SYR ONE (10:56)
[2022-05-10 11:22] LABS: Absolute Lymphocytes (CBC) 1.1 K/uL (0.7-4.9); Hematocrit 49.8 % (39.6-49.0); Lymphocytes % 18.8 % (15.3-44.8); MCV 96.1 fL (80-100); MPV 8.6 fL (7.6-11.3); RBC Red Blood Cell Count 5.19 M/uL (4.33-5.43)
[2022-05-10] MEDS ORDERED: FAMOTIDINE 20 MG/2 ML VIAL IV ONE (11:26)
[2022-05-10] MEDS ORDERED: KETOROLAC 30 MG/ML INJ ONE (11:26)
[2022-05-10 11:40] LABS: Albumin 4.2 g/dL (3.4-5.0); Bilirubin Total 0.8 mg/dL (0.2-1.0)
--- NOTE | 2022-05-10 12:12 | RAD REPORT ---
EXAM DESCRIPTION: CT - Abdomen Pelvis W Contrast - 05/10/2022 11:53 am CLINICAL HISTORY: Abdominal pain COMPARISON: April 2022 TECHNIQUE: Computed axial tomography of the abdomen pelvis was obtained. 100 cc Isovue-300 was admin istered intravenously. Oral contrast was not requested which limits evaluation of bowel and appendix All CT scans are performed using dose optimization technique as appropriate and may include automated exposure control or mA/KV adjustment according to patient size. FINDINGS: The liver is enlarged with fatty infiltration Spleen, pancreas, adrenals and kidneys unremarkable There is no evidence of diverticulitis. Wall of portions of the colon appear mildly thickened. Normal appendix The gallbladder is mildly distended IMPRESSION: Hepatomegaly with fatty infiltration Apparent wall thickening of portions of the colon may be secondary to incomplete distention, hypoalbu minemia or mild colitis Mild gallbladder distention
--- NOTE | 2022-05-10 12:35 | ER ---
Nurse's Notes [facility] Name: Mitchell Mendez III Age: 31 yrs Sex: Male : 1990 Arrival Date: 05/10/2022 Time: 10:36 Bed 20 Private MD: Diagnosis: Metabolic Acidosis;Chronic alcoholism;Nausea and vomiting Presentation: 05/10 10:36 Chief complaint:. Chief complaint: Patient states: Pt reports being alcoholic - doctor ld1 told to slow down drinking but not completely stop. N/V all night. This morning noticed blood in emesis this morning. C/O ABD pain. Coronavirus screen: At this time, the client does not indicate any symptoms associated with coronavirus-19. Ebola Screen: No symptoms or risks identified at this time. Initial Sepsis Screen: Does the patient meet any 2 criteria? No. Patient's initial sepsis screen is negative. Does the patient have a suspected source of infection? No. Patient's initial sepsis screen is negative. Risk Assessment: Do you want to hurt yourself or someone else? Patient reports no desire to harm self or others. Onset of symptoms was May 10, 2022 at 10:40. 10:36 Method Of Arrival: EMS: [facility] ld1 10:36 Acuity: CAROLINE 3 ld1 Triage Assessment: 10:40 General: Appears in no apparent distress. comfortable, Behavior is calm, cooperative, ld1 appropriate for age. Pain: Complains of pain in abdomen Pain does not radiate. Pain currently is 9 out of 10 on a pain scale. Quality of pain is described as sharp, shooting, throbbing. EENT: No signs and/or symptoms were reported regarding the EENT system. Neuro: Level of Consciousness is awake, alert, obeys commands, Oriented to person, place, time, situation. Cardiovascular: Capillary refill < 3 seconds Patient's skin is warm and dry. Respiratory: Airway is patent Respiratory effort is even, unlabored. GI: Abdomen is round non-distended, Reports lower abdominal pain, upper abdominal pain, nausea, vomiting. : No signs and/or symptoms were reported regarding the genitourinary system. Derm: No signs and/or symptoms reported regarding the dermatologic system. Musculoskeletal: No signs and/or symptoms reported regarding the musculoskeletal system. Historical: - Allergies: 10:40 No Known Allergies; ld1 - Home Meds: 10:40 Keppra Oral [Active]; ld1 - PMHx: 10:40 Migraine; Pancreatitis; repetitive head injury; scoliosis; Seizures; ld1 - PSHx: 10:40 None; ld1 - Immunization history:: Adult Immunizations up to date, Client reports having NOT received the Covid vaccine. - Social history:: Smoking status: Patient denies any tobacco usage or history of. Patient uses alcohol, on a daily basis. Screenin:45 Abuse screen: Denies threats or abuse. Denies injuries from another. Nutritional hb screening: No deficits noted. Tuberculosis screening: No symptoms or risk factors identified. Fall Risk None identified. Assessment: 13:05 Reassessment: Patient appears in no apparent distress at this time. Patient and/or hb family updated on plan of care and expected duration. Pain level reassessed. Patient is alert, oriented x 3, equal unlabored respirations, skin warm/dry/pink. 14:33 Reassessment: Patient appears in no apparent distress at this time. Patient and/or hb family updated on plan of care and expected duration. Pain level reassessed. Patient is alert, oriented x 3, equal unlabored respirations, skin warm/dry/pink. 16:05 Reassessment: Patient appears in no apparent distress at this time. Patient and/or hb family updated on plan of care and expected duration. Pain level reassessed. Patient is alert, oriented x 3, equal unlabored respirations, skin warm/dry/pink. 17:31 Reassessment: Patient appears in no apparent distress at this time. Patient and/or hb family updated on plan of care and expected duration. Pain level reassessed. Patient is alert, oriented x 3, equal unlabored respirations, skin warm/dry/pink. 18:15 Reassessment: Patient appears in no apparent distress at this time. Patient and/or hb family updated on plan of care and expected duration. Pain level reassessed. Patient is alert, oriented x 3, equal unlabored respirations, skin warm/dry/pink. 19:30 Reassessment: Patient appears in no apparent distress at this time. Patient and/or hb family updated on plan of care and expected duration. Pain level reassessed. Patient is alert, oriented x 3, equal unlabored respirations, skin warm/dry/pink. Vital Signs: 10:36 BP 130 / 89; Pulse 91; Resp 17; Temp 97.9(O); Pulse Ox 98% on R/A; Weight 56.7 kg; ld1 Height 5 ft. 8 in. (172.72 cm); Pain 9/10; 14:33 BP 134 / 86; Pulse 88; Resp 15; Pulse Ox 99% on R/A; hb 17:00 BP 136 / 84; Pulse 81; Resp 16; Pulse Ox 00% on R/A; hb 18:00 BP 148 / 88; Pulse 88; Resp 17; Pulse Ox 99% on R/A; hb 19:00 BP 156 / 86; Pulse 90; Resp 17; Pulse Ox 99% on R/A; hb 10:36 Body Mass Index 19.01 (56.70 kg, 172.72 cm) ld1 ED Course: 10:36 Patient arrived in ED. as 10:38 Vania Menon FNP is PHCP. jh7 10:38 Edson Hoang MD is Attending Physician. jh7 10:40 Triage completed. ld1 10:40 Arm band placed on right wrist. ld1 10:57 Inserted saline lock: 20 gauge in right antecubital area, using aseptic technique. ld1 Blood collected. 11:55 CT Abd/Pelvis - IV Contrast Only In Process Unspecified. EDMS 12:34 Cristhian Cates MD is Hospitalizing Provider. jh7 12:39 Annalise Cobb, PALAK is Primary Nurse. hb 14:46 Analilia Gomez MD is Hospitalizing Provider. jh7 16:05 Patient has correct armband on for positive identification. hb 20:40 Inserted saline lock: 20 gauge in left forearm, using aseptic technique. ld1 1205 10:32 No provider procedures requiring assistance completed. IV discontinued, intact, kc6 bleeding controlled, No redness/swelling at site. Pressure dressing applied. Administered Medications: 05/10 10:57 Drug: NS 0.9% 1000 ml Route: IV; Rate: 1 bolus; Site: right antecubital; ld1 12:10 Follow up: Response: No adverse reaction; IV Status: Infusion continued; IV Intake: hb 1000ml 10:57 Drug: Zofran (Ondansetron) 4 mg Route: IVP; Site: right antecubital; ld1 12:00 Follow up: Response: No adverse reaction hb 10:57 Drug: morphine 4 mg Route: IVP; Infused Over: 4 mins; Site: right antecubital; ld1 12:00 Follow up: Response: No adverse reaction hb 12:44 Drug: fentaNYL (PF) 50 mcg Route: IVP; Site: right antecubital; hb 13:33 Follow up: Response: No adverse reaction hb 14:58 Drug: Valium (diazepam) 5 mg Route: IVP; Site: right antecubital; hb 15:25 Follow up: Response: No adverse reaction hb 15:25 Drug: D5W 1000 ml, Sodium Bicarbonate 150 mEq Route: IV; Rate: 150 ml/hr; Site: right hb antecubital; Medication: 17:32 VIS not applicable for this client. hb Intake: 12:10 IV: 1000ml; Total: 1000ml. hb Outcome: 12:34 Decision to Hospitalize by Provider. jh7 14:47 Decision to Hospitalize by Provider. [facility] 05/14 10:32 Discharged to home ambulatory, with family. kc6 Condition: stable Discharge instructions given to patient, Instructed on discharge instructions, follow up and referral plans. medication usage, Demonstrated understanding of instructions, follow-up care, medications. 10:33 Patient left the ED. kc6 Signatures: Dispatcher [employer] Lindy Colmenares Heather, RN RN Tyra Chung RN RN ld1 Vania Menon, MANAGER COLLECTION MANAGER COLLECTION 7 Dee Dee Shaikh RN RN kc6 Corrections: (The following items were deleted from the chart) 05/10 19:55 18:00 BP 156 / 86; Pulse 90bpm; Resp 17bpm; Pulse Ox 99% RA; hb hb
--- NOTE | 2022-05-10 12:35 | EDPHYS ---
Physician Documentation [facility] Name: Mitchell Mendez III Age: 31 yrs Sex: Male : 1990 Arrival Date: 05/10/2022 Time: 10:36 Bed 20 Private MD: ABA Physician Edson Hoang HPI: 05/10 10:40 This 31 yrs old Male presents to ER via EMS with complaints of Nausea/Vomiting, jh7 Abdominal Pain. 10:40 The patient presents to the emergency department with nausea, vomiting, abdominal pain, jh7 of the left upper quadrant and left lower quadrant. Onset: The symptoms/episode began/occurred yesterday. Associated signs and symptoms: Pertinent positives: abdominal pain, nausea, vomiting, Pertinent negatives: diarrhea. Patient reports nausea vomiting and left-sided abdominal pain since yesterday. States that he recently cut the amount of alcohol that he drinks, but admits to drinking vodka yesterday afternoon. Reports that he is a history of pancreatitis.. Historical: - Allergies: 10:40 No Known Allergies; ld1 - Home Meds: 10:40 Keppra Oral [Active]; ld1 - PMHx: 10:40 Migraine; Pancreatitis; repetitive head injury; scoliosis; Seizures; ld1 - PSHx: 10:40 None; ld1 - Immunization history:: Adult Immunizations up to date, Client reports having NOT received the Covid vaccine. - Social history:: Smoking status: Patient denies any tobacco usage or history of. Patient uses alcohol, on a daily basis. ROS: 10:40 Constitutional: Negative for fever, chills, and weight loss, Eyes: Negative for injury, jh7 pain, redness, and discharge, Neck: Negative for injury, pain, and swelling, Cardiovascular: Negative for chest pain, palpitations, and edema, Respiratory: Negative for shortness of breath, cough, wheezing, and pleuritic chest pain, Back: Negative for injury and pain, MS/Extremity: Negative for injury and deformity, Skin: Negative for injury, rash, and discoloration, Neuro: Negative for headache, weakness, numbness, tingling, and seizure. 10:40 Abdomen/GI: Positive for abdominal pain, nausea and vomiting, Negative for diarrhea, constipation, dysphagia, black/tarry stool. 10:40 All other systems are negative. Exam: 10:40 Head/Face: Normocephalic, atraumatic. Eyes: Pupils equal round and reactive to light, jh7 extra-ocular motions intact. Lids and lashes normal. Conjunctiva and sclera are non-icteric and not injected. Cornea within normal limits. Periorbital areas with no swelling, redness, or edema. Neck: Trachea midline, no thyromegaly or masses palpated, and no cervical lymphadenopathy. Supple, full range of motion without nuchal rigidity, or vertebral point tenderness. No Meningismus. Cardiovascular: Regular rate and rhythm with a normal S1 and S2. No gallops, murmurs, or rubs. Normal PMI, no JVD. No pulse deficits. Respiratory: Lungs have equal breath sounds bilaterally, clear to auscultation and percussion. No rales, rhonchi or wheezes noted. No increased work of breathing, no retractions or nasal flaring. Back: No spinal tenderness. No costovertebral tenderness. Full range of motion. Skin: Warm, dry with normal turgor. Normal color with no rashes, no lesions, and no evidence of cellulitis. MS/ Extremity: Pulses equal, no cyanosis. Neurovascular intact. Full, normal range of motion. Neuro: Awake and alert, GCS 15, oriented to person, place, time, and situation. Motor strength 5/5 in all extremities. Sensory grossly intact. Normal gait. 10:40 Constitutional: The patient appears alert, awake, uncomfortable, Actively vomiting 10:40 Abdomen/GI: Inspection: abdomen appears normal, Bowel sounds: normal, Palpation: soft, moderate abdominal tenderness, in the left upper quadrant and left lower quadrant. Vital Signs: 10:36 BP 130 / 89; Pulse 91; Resp 17; Temp 97.9(O); Pulse Ox 98% on R/A; Weight 56.7 kg; ld1 Height 5 ft. 8 in. (172.72 cm); Pain 9/10; 14:33 BP 134 / 86; Pulse 88; Resp 15; Pulse Ox 99% on R/A; hb 17:00 BP 136 / 84; Pulse 81; Resp 16; Pulse Ox 00% on R/A; hb 18:00 BP 148 / 88; Pulse 88; Resp 17; Pulse Ox 99% on R/A; hb 19:00 BP 156 / 86; Pulse 90; Resp 17; Pulse Ox 99% on R/A; hb 10:36 Body Mass Index 19.01 (56.70 kg, 172.72 cm) ld1 MDM: 10:38 Patient medically screened. [facility] 14:45 Differential diagnosis: gastritis, pancreatitis, viral gastroenteritis. Data reviewed: [facility] vital signs, nurses notes, lab test result(s), radiologic studies, CT scan. Data interpreted: Pulse oximetry: is 99 %. Interpretation: normal. Counseling: I had a detailed discussion with the patient and/or guardian regarding: the historical points, exam findings, and any diagnostic results supporting the discharge/admit diagnosis, the need for further work-up and treatment in the hospital. ED course: Spoke with hospitalist Darlene Jaramillo regarding patient admission. Agreed to start the patient on a sodium bicarbonate drip and admit under inpatient status.. 05/10 10:41 Order name: CBC with Diff; Complete Time: 11:45 [facility] 05/10 10:41 Order name: CMP; Complete Time: 11:45 [facility] 05/10 10:41 Order name: Lipase; Complete Time: 11:45 [facility] 05/10 10:41 Order name: ETOH Level; Complete Time: 11:45 [facility] 05/10 11:46 Order name: Lactate w/ 2H reflex if indic.; Complete Time: 14:44 [facility] 05/10 11:46 Order name: Ketone, Serum; Complete Time: 14:44 [facility] 05/10 11:48 Order name: ABG; Complete Time: 07:29 [facility] 05/10 12:44 Order name: COVID-19/FLU A+B; Complete Time: 14:06 [facility] 05/10 14:59 Order name: Acetone Level [facility] 05/10 14:59 Order name: Acetone Level; Complete Time: 07:29 [facility] 05/10 14:59 Order name: CBC with Automated Diff [facility] 05/10 14:59 Order name: CBC with Automated Diff; Complete Time: 07:29 [facility] 05/10 14:59 Order name: Comprehensive Metabolic Panel [facility] 05/10 14:59 Order name: Comprehensive Metabolic Panel; Complete Time: 07:29 [facility] 05/10 14:59 Order name: Lipase [facility] 05/10 14:59 Order name: Lipase; Complete Time: 07:29 [facility] 05/10 14:59 Order name: Lipid Profile [facility] 05/10 14:59 Order name: Lipid Profile; Complete Time: 07:29 EDMS 05/10 14:59 Order name: Protime (+INR) EDMS 05/10 14:59 Order name: Protime (+INR); Complete Time: 07:29 EDMS 05/10 14:59 Order name: PTT, Activated Partial Thromb EDMS 05/10 14:59 Order name: PTT, Activated Partial Thromb; Complete Time: 07:29 EDMS 05/12 03:30 Order name: CBC with Automated Diff; Complete Time: 07:29 EDMS 05/12 03:42 Order name: Comprehensive Metabolic Panel; Complete Time: 07:29 EDMS 05/12 03:42 Order name: Lipase; Complete Time: 07:29 EDMS 05/13 03:36 Order name: Comprehensive Metabolic Panel; Complete Time: 02:35 EDMS 05/13 03:36 Order name: Lipase; Complete Time: 02:35 EDMS 05/13 03:37 Order name: CBC with Automated Diff; Complete Time: 02:35 EDMS 05/14 02:53 Order name: Comprehensive Metabolic Panel EDID 05/14 02:53 Order name: Lipase EDID 05/10 10:41 Order name: CT Abd/Pelvis - IV Contrast Only; Complete Time: 12:17 [facility] 05/10 10:41 Order name: IV Saline Lock; Complete Time: 10:57 [facility] 05/10 10:41 Order name: Labs collected and sent; Complete Time: 10:57 [facility] 05/10 14:59 Order name: Regular EDID 05/12 15:36 Order name: RAD; Complete Time: 20:46 [facility] 05/13 09:58 Order name: CT; Complete Time: 02:35 [facility] 05/14 03:02 Order name: CBC with Automated Diff EDMS Administered Medications: 10:57 Drug: NS 0.9% 1000 ml Route: IV; Rate: 1 bolus; Site: right antecubital; ld1 12:10 Follow up: Response: No adverse reaction; IV Status: Infusion continued; IV Intake: hb 1000ml 10:57 Drug: Zofran (Ondansetron) 4 mg Route: IVP; Site: right antecubital; ld1 12:00 Follow up: Response: No adverse reaction hb 10:57 Drug: morphine 4 mg Route: IVP; Infused Over: 4 mins; Site: right antecubital; ld1 12:00 Follow up: Response: No adverse reaction hb 12:44 Drug: fentaNYL (PF) 50 mcg Route: IVP; Site: right antecubital; hb 13:33 Follow up: Response: No adverse reaction hb 14:58 Drug: Valium (diazepam) 5 mg Route: IVP; Site: right antecubital; hb 15:25 Follow up: Response: No adverse reaction hb 15:25 Drug: D5W 1000 ml, Sodium Bicarbonate 150 mEq Route: IV; Rate: 150 ml/hr; Site: right hb antecubital; Disposition Summary: 05/10/22 14:47 Hospitalization Ordered Hospitalization Status: Inpatient Admission(05/10/22 14:47) [facility] Provider: Analilia Gomez(05/10/22 14:47) [facility] Condition: Stable(05/10/22 14:47) [facility] Problem: new(05/10/22 14:47) [facility] Symptoms: are unchanged(05/10/22 14:47) [facility] Bed/Room Type: Standard(05/10/22 14:47) [facility] Location: [facility] ER HOLD(05/10/22 19:38) Room Assignment: ERHOLD-(05/10/22 19:38) Diagnosis - Metabolic Acidosis [facility] - Chronic alcoholism [facility] - Nausea and vomiting [facility] Forms: - Medication Reconciliation Form [facility] - SBAR form [facility] Signatures: Dispatcher [employer] Fiorella Ochoa RN RN dw Anderson, Corey, MD MD cha Baxter, Heather RN RN Tyra Chung RN RN ld1 Vania Menon FNP DYE OPERATOR [facility] Gela Sosa PA-C PA-C sb4 Corrections: (The following items were deleted from the chart) 12:35 12:34 Inpatient Admission [place] [id number] 12:35 12:34 Cristhian Cates [place] [address] 12:35 12:34 Telemetry/MedSurg (Inpatient) [place] [address] 12:35 12:34 Stable [place] [address] 12:35 12:34 [place] [address] 12:35 12:34 are unchanged [place] [address] 12:35 12:34 Standard [place] [address] 12:35 12:34 [place] [address] 12:35 12:34 Systolic (congestive) heart failure jh7 jh7 19:38 14:47 Telemetry/MedSurg (Inpatient) jh7 dw 19:38 14:47 7 dw
[2022-05-10] MEDS ORDERED: FENTANYL CITR 100 MCG/2 ML ONE (12:44)
[2022-05-10 13:57] LABS: SARS-COV-2 RT PCR NEGATIVE (NEGATIVE)
[2022-05-10] MEDS ORDERED: MORPHINE 2 MG/ML SYR IV PRN (14:53)
[2022-05-10] MEDS ORDERED: ACETAMINOPHEN 500 MG TAB PO PRN (14:53)
[2022-05-10] MEDS ORDERED: DIAZEPAM 10 MG/2 ML INJ SYRINGE ONE (14:55)
[2022-05-10] MEDS ORDERED: D5W 1,000 ML with NA BICARB 8.4% 150 MEQ IV SCH ×2 (15:00)
[2022-05-10] MEDS: D5W 1,000 ML with NA BICARB 8.4% 100 MEQ IV SCH ×4 (15:00→20:20)
[2022-05-10] MEDS: levETIRAcetam 500 MG in NA CHLORIDE 0.9% 100 ML IV SCH ×2 (15:15→20:39)
[2022-05-10 16:56] LABS: Arterial Blood Carboxyhemoglob 2.2 % (0-1.5); Blood Gas Oxyhemoglobin 93.4 % (94-97); Blood O2 Saturation 97.1 % (92-98.5)
[2022-05-10] MEDS ORDERED: chlordiazePOXIDE HCl 5 MG CAP PO ONE (20:29)
[2022-05-10] MEDS ORDERED: HYDROMORPHONE HCL 0.5 MG/0.5 ML INJ ONE (20:29)
[2022-05-10] MEDS: ONDANSETRON 4 MG/2 ML VIAL IV PRN (20:31)
[2022-05-10] MEDS: chlordiazePOXIDE HCl 5 MG CAP PO SCH (20:32)
[2022-05-10] MEDS: HYDROMORPHONE HCL 0.5 MG/0.5 ML INJ IV PRN (20:32)
[2022-05-10] MEDS ORDERED: levETIRAcetam 500 MG in NA CHLORIDE 0.9% 100 ML IV SCH (21:00)
[2022-05-10 23:41] VITALS: BMI 19.0
[2022-05-11] MEDS ORDERED: HYDROMORPHONE HCL 0.5 MG/0.5 ML INJ ONE ×3 (00:06→19:29)
[2022-05-11] MEDS: HYDROMORPHONE HCL 0.5 MG/0.5 ML INJ IV PRN ×3 (00:11→19:36)
[2022-05-11] MEDS: D5W 1,000 ML with NA BICARB 8.4% 100 MEQ IV SCH ×2 (01:29)
[2022-05-11 05:44] LABS: Absolute Lymphocytes (CBC) 1.2 K/uL (0.7-4.9); Hematocrit 41.6 % (39.6-49.0); Lymphocytes % 21.8 % (15.3-44.8); MCV 94.8 fL (80-100); MPV 8.1 fL (7.6-11.3); RBC Red Blood Cell Count 4.38 M/uL (4.33-5.43)
[2022-05-11 05:58] LABS: ALT/SGPT 134 U/L (12-78); AST/SGOT 93 U/L (15-37); Albumin 3.2 g/dL (3.4-5.0); Alkaline Phosphatase 106 U/L (45-117); BUN Blood Urea Nitrogen 6 mg/dL (7-18); Bicarbonate 30 mmol/L (21-32); Bilirubin Total 0.8 mg/dL (0.2-1.0); Glomerular Filtration Rate 122 ml/min (=/>90); Glucose Level 118 mg/dL (74-106); HDL Cholesterol 73 mg/dL (40-60); LDL Cholesterol, Calculated 41 mg/dL (<130); Lipase 271 U/L (73-393); Potassium 3.1 mmol/L (3.5-5.1); Sodium Level 131 mmol/L (136-145)
[2022-05-11 06:02] LABS: Protime INR 0.94
[2022-05-11] MEDS ORDERED: INFLUENZA VACCINE (for 6+ mo) 0.5 ML DOSE IMVAC ONE (08:00)
--- NOTE | 2022-05-11 08:50 | P.HP ---
Certification for Inpatient Patient admitted to: Inpatient With expected LOS: >2 Midnights Patient will require the following post-hospital care: None Practitioner: I am a practitioner with admitting privileges, knowledge of patient current condition, hospital course, and medical plan of care. Services: Services provided to patient in accordance with Admission requirements found in Title 42 Section 412.3 of the Code of Federal Regulations Patient History Date of Service: 05/10/22 Reason for admission: Abdominal pain and intractable nausea and vomiting History of Present Illness: Patient is a 31-year-old gentleman came to the hospital with abdominal pain along with intractable nausea and vomiting. Patient has multiple admissions in the past for alcohol abuse and pancreatitis. However, his CT is negative. Patient has been drinking once again. According to his he had cut down on drinking a couple of beers daily. But he started drinking vodka again and he got abdominal pain and nausea and vomiting. Patient has severe metabolic acidosis and will be admitted for IV rehydration. Allergies No Known Allergies Allergy (Verified 08/17/20 23:26) Home Medications: Levetiracetam [Keppra Xr] 500 mg PO DAILY 11/03/21 Ondansetron [Zofran] 4 mg PO Q8H PRN #20 tab 11/03/21 - Past Medical/Surgical History Has patient received pneumonia vaccine in the past: No Diabetic: No -: Heart palpitations -: Seizure disorder -: Migraines -: Alcohol abuse -: None Psychosocial/ Personal History: Unemployed, lives at home with significant other - Family History Mother Medical History: Heart disease, Diabetes, Stroke - Social History Smoking Status: Current every day smoker Alcohol use: Yes CD- Drugs: Yes Caffeine use: Yes Place of Residence: Home Review of Systems 10-point ROS is otherwise unremarkable Physical Examination - Vital Signs Temperature: 96.9 F Blood Pressure: 109/68 Pulse: 71 Respirations: 17 Pulse Ox (%): 98 - Physical Exam General: Alert, In no apparent distress, Oriented x3 HEENT: Atraumatic, PERRLA, Mucous membr. moist/pink, EOMI, Sclerae nonicteric Neck: Supple, 2+ carotid pulse no bruit, No LAD, Without JVD or thyroid abnormality Respiratory: Clear to auscultation bilaterally, Normal air movement Cardiovascular: Regular rate/rhythm, Normal S1 S2, No murmurs Gastrointestinal: Normal bowel sounds, Soft and benign, Non-distended, No rebound, No guarding, Tenderness Musculoskeletal: No clubbing, No swelling, No tenderness Integumentary: No rashes Neurological: Normal gait, Normal speech, Normal strength at 5/5 x4 extr, Normal tone, Sensation intact, Cranial nerves 3-12 intact, Normal affect Lymphatics: No axilla or inguinal lymphadenopathy - Studies Laboratory Data (last 24 hrs) 05/10/22 11:00: Sodium 133 L, Potassium 4.0, BUN 8, Creatinine 0.88, Glucose 82, Total Bilirubin 0.8, AST 172 H, ALT 210 H, Alkaline Phosphatase 150 H, Lipase 96 05/10/22 11:00: WBC 5.70, Hgb 16.7, Hct 49.8 H, Plt Count 121 L Assessment & Plan - Problems (Diagnosis) (1) Abdominal pain Current Visit: Yes Status: Acute (2) Metabolic acidosis Current Visit: Yes Status: Acute (3) Nausea and vomiting Current Visit: Yes Status: Acute (4) Alcohol abuse Current Visit: Yes Status: Acute (5) History of seizure disorder Current Visit: Yes Status: Acute - Plan -IV fluids; may need banana bag -Continue with bicarb drip -CBC, CMP, lipase, stool cultures -CT negative -Repeat abdominal film as needed -Antiemetics -antiepileptics -librium Discharge Plan: Home Plan to discharge in: Greater than 2 days - Advance Directives Does patient have a Living Will: No Does patient have a Durable POA for Healthcare: No - Code Status/Comfort Care Code Status Assessed: Yes Code Status: Full Code Critical Care: No Time Spent Managing PTS Care (In Minutes): 45
--- NOTE | 2022-05-11 08:51 | P.PN ---
Date of Service: 05/11/22 Subjective Patient appears to be doing better. Physical Examination - Vital Signs reviewed - Physical Exam General: Alert, In no apparent distress, Oriented x3 Respiratory: Clear to auscultation bilaterally, Normal air movement Cardiovascular: Regular rate/rhythm, Normal S1 S2, No murmurs Gastrointestinal: Normal bowel sounds, Soft and benign, Non-distended, No rebound, No guarding, Tenderness Musculoskeletal: No clubbing, No swelling, No tenderness Neurological: No focal deficits Assessment & Plan - Problems (Diagnosis) (1) Abdominal pain Current Visit: Yes Status: Acute (2) Metabolic acidosis Current Visit: Yes Status: Acute (3) Nausea and vomiting Current Visit: Yes Status: Acute (4) Alcohol abuse Current Visit: Yes Status: Acute (5) History of seizure disorder Current Visit: Yes Status: Acute - Plan Cont. w/ current plan of care as mentioned below: -IV fluids; may need banana bag -Continue with bicarb drip -CBC, CMP, lipase, stool cultures -CT negative -Repeat abdominal film as needed -Antiemetics -antiepileptics -librium Discharge Plan: Home Plan to discharge in: Greater than 2 days - Advance Directives Does patient have a Living Will: No Does patient have a Durable POA for Healthcare: No - Code Status/Comfort Care Code Status Assessed: Yes Code Status: Full Code Critical Care: No Time Spent Managing PTS Care (In Minutes): 45
[2022-05-11] MEDS: chlordiazePOXIDE HCl 5 MG CAP PO SCH ×3 (09:00→21:00)
[2022-05-11] MEDS ORDERED: D5W 0 ML IV ONE (09:54)
[2022-05-11] MEDS ORDERED: chlordiazePOXIDE HCl 5 MG CAP PO ONE ×4 (09:57→21:07)
[2022-05-11] MEDS: levETIRAcetam 500 MG in NA CHLORIDE 0.9% 100 ML IV SCH ×2 (10:00→19:40)
[2022-05-11] MEDS: D5 0.9 NS 1,000 ML IV SCH ×2 (10:00→16:00)
[2022-05-11] MEDS: KCL 20 MEQ/100 mL IVPB 20 MEQ/100 ML BAG IV SCH ×2 (10:00→13:00)
[2022-05-11] MEDS ORDERED: D5 0.9 NS 1,000 ML IV ONE ×2 (10:07→19:30)
[2022-05-11] MEDS ORDERED: KCL 20 MEQ/100 mL IVPB 100 ML IV ONE ×2 (10:07→15:14)
[2022-05-11] MEDS ORDERED: ONDANSETRON 4 MG/2 ML VIAL ONE ×2 (10:26→15:14)
[2022-05-11] MEDS: ONDANSETRON 4 MG/2 ML VIAL IV PRN ×2 (10:32→15:20)
[2022-05-12] MEDS ORDERED: HYDROMORPHONE HCL 0.5 MG/0.5 ML INJ ONE ×5 (02:36→23:57)
[2022-05-12] MEDS: HYDROMORPHONE HCL 0.5 MG/0.5 ML INJ IV PRN ×4 (02:50→19:35)
[2022-05-12 03:23] LABS: Absolute Lymphocytes (CBC) 0.7 K/uL (0.7-4.9); Lymphocytes % 18.9 % (15.3-44.8); MPV 8.7 fL (7.6-11.3); RBC Red Blood Cell Count 4.53 M/uL (4.33-5.43)
[2022-05-12 03:32] LABS: ALT/SGPT 142 U/L (12-78); AST/SGOT 133 U/L (15-37); Albumin 3.3 g/dL (3.4-5.0); Alkaline Phosphatase 110 U/L (45-117); Bicarbonate 29 mmol/L (21-32); Bilirubin Total 0.7 mg/dL (0.2-1.0); Glomerular Filtration Rate 122 ml/min (=/>90); Glucose Level 110 mg/dL (74-106); Lipase 161 U/L (73-393); Potassium 3.6 mmol/L (3.5-5.1); Protein, Total 6.3 g/dL (6.4-8.2); Sodium Level 134 mmol/L (136-145)
[2022-05-12 03:42] LABS: BUN Blood Urea Nitrogen < 3 mg/dL (7-18)
[2022-05-12] MEDS ORDERED: D5W 0 ML IV ONE (05:09)
[2022-05-12] MEDS: D5 0.9 NS 1,000 ML IV SCH ×4 (05:10→16:00)
[2022-05-12] MEDS ORDERED: POLYETHYL GLY 3350 17 GM/DOSE PO ONE (08:46)
[2022-05-12] MEDS ORDERED: ONDANSETRON 4 MG/2 ML VIAL ONE (08:50)
[2022-05-12] MEDS: ONDANSETRON 4 MG/2 ML VIAL IV PRN (08:50)
[2022-05-12] MEDS: levETIRAcetam 500 MG in NA CHLORIDE 0.9% 100 ML IV SCH ×2 (09:00→21:18)
[2022-05-12] MEDS: chlordiazePOXIDE HCl 5 MG CAP PO SCH ×3 (09:00→21:18)
[2022-05-12] MEDS ORDERED: chlordiazePOXIDE HCl 5 MG CAP PO ONE ×3 (10:00→21:03)
[2022-05-12] MEDS ORDERED: POLYETHYL GLY 3350 17 GM/DOSE ONE (10:27)
[2022-05-12] MEDS ORDERED: DIAZEPAM 10 MG/2 ML INJ SYRINGE ONE ×2 (10:27→19:22)
[2022-05-12] MEDS: DIAZEPAM 10 MG/2 ML INJ SYRINGE IV PRN ×2 (10:40→19:35)
[2022-05-12] MEDS ORDERED: METHYLPREDNISOLONE 125 MG INJ IV ONE (14:20)
[2022-05-12] MEDS ORDERED: D5 0.9 NS 1,000 ML IV ONE (14:43)
--- NOTE | 2022-05-12 15:35 | RAD REPORT ---
EXAM DESCRIPTION: RAD - Abdomen W Erect - 05/12/2022 3:12 pm CLINICAL HISTORY: Abdominal pain FINDINGS: Bowel gas pattern is unremarkable. No abnormal calcification is displayed Free air is not seen beneath the diaphragm
[2022-05-12] MEDS ORDERED: MINERAL OIL 30 ML UCUP PO ONE (16:52)
[2022-05-12] MEDS: METHYLPREDNISOLONE 40 MG INJ IV SCH (17:00)
[2022-05-12] MEDS: METRONIDAZOLE 500mg IVPB 500 MG/100 ML BAG IV SCH (17:00)
[2022-05-12] MEDS ORDERED: METRONIDAZOLE 500mg IVPB 500 MG/100 ML BAG IV ONE (18:09)
[2022-05-12] MEDS ORDERED: METHYLPREDNISOLONE 40 MG INJ ONE (18:09)
[2022-05-12] MEDS ORDERED: NA CHLORIDE 0.9% 50 ML IV ONE (21:03)
[2022-05-12] MEDS ORDERED: CEFTRIAXONE 1000 MG/VIAL ONE (21:03)
[2022-05-12] MEDS: CEFTRIAXONE 1,000 MG in NA CHLORIDE 0.9% 50 ML IVPB SCH (21:19)
[2022-05-12] MEDS ORDERED: D5W 1,000 ML IV ONE (23:57)
[2022-05-13] MEDS: HYDROMORPHONE HCL 0.5 MG/0.5 ML INJ IV PRN ×2 (00:06→05:10)
[2022-05-13 03:14] LABS: Absolute Lymphocytes (CBC) 0.3 K/uL (0.7-4.9); Hematocrit 45.4 % (39.6-49.0); Lymphocytes % 8.6 % (15.3-44.8); MCV 94.8 fL (80-100); MPV 9.1 fL (7.6-11.3); RBC Red Blood Cell Count 4.79 M/uL (4.33-5.43)
[2022-05-13] MEDS ORDERED: DIAZEPAM 10 MG/2 ML INJ SYRINGE ONE ×2 (03:27→10:40)
[2022-05-13] MEDS ORDERED: METHYLPREDNISOLONE 40 MG INJ ONE ×4 (03:28→20:45)
[2022-05-13] MEDS ORDERED: METRONIDAZOLE 500mg IVPB 500 MG/100 ML BAG IV ONE ×2 (03:29→08:13)
[2022-05-13 03:36] LABS: Albumin 3.4 g/dL (3.4-5.0); Bilirubin Total 0.5 mg/dL (0.2-1.0); Potassium 3.9 mmol/L (3.5-5.1); Protein, Total 6.7 g/dL (6.4-8.2)
[2022-05-13] MEDS: METHYLPREDNISOLONE 40 MG INJ IV SCH ×3 (03:39→17:00)
[2022-05-13] MEDS: METRONIDAZOLE 500mg IVPB 500 MG/100 ML BAG IV SCH ×2 (03:39→09:00)
[2022-05-13] MEDS: DIAZEPAM 10 MG/2 ML INJ SYRINGE IV PRN ×2 (03:40→10:53)
[2022-05-13] MEDS ORDERED: HYDROMORPHONE HCL 0.5 MG/0.5 ML INJ ONE (05:07)
[2022-05-13] MEDS: D5 0.9 NS 1,000 ML IV SCH ×3 (08:00→16:00)
[2022-05-13] MEDS ORDERED: chlordiazePOXIDE HCl 5 MG CAP PO ONE ×5 (08:11→20:44)
[2022-05-13] MEDS ORDERED: LEVETIRACETAM 500 MG/5 ML VIAL IV ONE (08:11)
[2022-05-13] MEDS ORDERED: NA CHLORIDE 0.9% 50 ML IV ONE ×2 (08:12→20:45)
[2022-05-13] MEDS ORDERED: CEFTRIAXONE 1000 MG/VIAL ONE ×2 (08:12→20:45)
[2022-05-13] MEDS ORDERED: NA CHLORIDE 0.9% 200 ML IV ONE (08:13)
[2022-05-13] MEDS ORDERED: D5 0.9 NS 1,000 ML IV ONE ×3 (08:14→17:08)
[2022-05-13] MEDS ORDERED: NA CHLORIDE 0.9% 100 ML IV ONE (08:17)
[2022-05-13] MEDS: ONDANSETRON 4 MG/2 ML VIAL IV PRN ×2 (08:50→21:04)
[2022-05-13] MEDS ORDERED: ONDANSETRON 4 MG/2 ML VIAL ONE ×2 (09:05→20:50)
[2022-05-13] MEDS: levETIRAcetam 500 MG in NA CHLORIDE 0.9% 100 ML IV SCH (09:20)
[2022-05-13] MEDS: CEFTRIAXONE 1,000 MG in NA CHLORIDE 0.9% 50 ML IVPB SCH ×2 (09:20→21:00)
[2022-05-13] MEDS: chlordiazePOXIDE HCl 5 MG CAP PO SCH ×3 (09:47→21:00)
--- NOTE | 2022-05-13 09:58 | RAD REPORT ---
EXAM DESCRIPTION: CT - Abdomen Pelvis W Contrast - 05/13/2022 9:21 am CLINICAL HISTORY: abd pain COMPARISON: Abdomen Pelvis W Contrast dated 05/10/2022 TECHNIQUE: Biphasic, helical CT imaging of the abdomen and pelvis was performed following 100 ml non -ionic IV contrast. Oral contrast: Yes All CT scans are performed using dose optimization technique as appropriate and may include automated exposure control or mA/KV adjustment according to patient size. FINDINGS: No suspicious findings in the lung bases. Diffuse fatty infiltration is again noted in the liver with no focal liver lesions identifiable. Live r size has not changed. There is normal opacification of the portal vein. No pancreatic or peripancre atic abnormality seen. Spleen is unremarkable. Gallbladder and biliary tree are also without suspicio us finding. Symmetric renal function is seen with no hydronephrosis or suspicious renal mass. No pyelonephritis o r acute parenchymal process. Urinary bladder is fully contracted limiting assessment. Prostate gland and seminal vesicles within normal range. No adrenal abnormalities. No gastric wall thickening, mass or edema identifiable. No abnormal varices seen. Mucosal level ulcer ation and inflammatory change can be occult on CT imaging. No dilation of the small bowel. No focal small bowel abnormality. The appendix is normal. Colon is de compressed with no stool content. Oral contrast has reached the distal rectum. Colon is not sufficien tly distended to allow accurate assessment of any possible mass. No edema in the adjacent fat. An acu te colon process is not seen. No free air, free fluid or inflammatory stranding. No mass or bulky lymphadenopathy. Small fat onl y left inguinal hernia is present. No suspicious bony findings. No suspicious vascular finding. IMPRESSION: As detailed above, CT abdomen and pelvis imaging shows no acute or emergent finding. No specific finding to explain abdominal pain and hematemesis. Small to medium sized gastric and duo denal ulcers and mucosal level inflammatory changes can be occult on CT imaging.
[2022-05-13] MEDS ORDERED: HYDROCORTISONE SUC 100 MG INJ IV ONE (11:00)
[2022-05-13] MEDS ORDERED: HYDROCORTISONE SUC 100 MG INJ ONE (11:40)
[2022-05-13 12:33] VITALS: O2SAT 100
[2022-05-13] MEDS ORDERED: metroNIDAZOLE 500 MG TABLET ONE ×2 (13:44→20:45)
[2022-05-13] MEDS: metroNIDAZOLE 500 MG TABLET PO SCH ×2 (14:00→21:00)
[2022-05-13] MEDS ORDERED: DIAZEPAM 2 MG TABLET PO SCH (14:00)
--- NOTE | 2022-05-13 16:26 | P.PN ---
Date of Service: 05/12/22 Subjective Still having some complaints of abdominal pain. Overall he looks to be doing better. His LFTs are stable. Continue to monitor. May need to repeat CT imaging. Will reassess in a.m. Physical Examination - Vital Signs reviewed - Physical Exam General: Alert, In no apparent distress, Oriented x3 Respiratory: Clear to auscultation bilaterally, Normal air movement Cardiovascular: Regular rate/rhythm, Normal S1 S2, No murmurs Gastrointestinal: Normal bowel sounds, Soft and benign, Non-distended, No rebound, No guarding, Tenderness Musculoskeletal: No clubbing, No swelling, No tenderness Neurological: No focal deficits Assessment & Plan - Problems (Diagnosis) (1) Abdominal pain Current Visit: Yes Status: Acute (2) Metabolic acidosis Current Visit: Yes Status: Acute (3) Nausea and vomiting Current Visit: Yes Status: Acute (4) Alcohol abuse Current Visit: Yes Status: Acute (5) History of seizure disorder Current Visit: Yes Status: Acute - Plan Cont. w/ current plan of care as mentioned below: -IV fluids; may need banana bag -Continue monitoring labs -A repeat CT if symptoms worsening -Repeat abdominal film in a.m. -Antiemetics -antiepileptics -librium
--- NOTE | 2022-05-13 16:28 | P.PN ---
Date of Service: 05/13/22 Subjective Patient is still having some pain and tenderness. CT scan is pending. Labs are stable. Physical Examination - Vital Signs reviewed - Physical Exam General: Alert, In no apparent distress, Oriented x3 Respiratory: Clear to auscultation bilaterally, Normal air movement Cardiovascular: Regular rate/rhythm, Normal S1 S2, No murmurs Gastrointestinal: Normal bowel sounds, Soft and benign, Non-distended, No rebound, No guarding, Tenderness Musculoskeletal: No clubbing, No swelling, No tenderness Neurological: No focal deficits Assessment & Plan - Problems (Diagnosis) (1) Abdominal pain Current Visit: Yes Status: Acute (2) Metabolic acidosis Current Visit: Yes Status: Acute (3) Nausea and vomiting Current Visit: Yes Status: Acute (4) Alcohol abuse Current Visit: Yes Status: Acute (5) History of seizure disorder Current Visit: Yes Status: Acute - Plan Cont. w/ current plan of care as mentioned below: -We will continue with IV hydration -CBC, CMP, lipase -CT is pending -Antiemetics -antiepileptics -librium
[2022-05-13] MEDS ORDERED: CEFDINIR 300 MG CAP PO ONE (20:44)
[2022-05-13] MEDS ORDERED: levETIRAcetam 500 MG TAB ONE (20:45)
[2022-05-13] MEDS: levETIRAcetam 500 MG TAB PO SCH (21:00)
[2022-05-13] MEDS: CEFDINIR 300 MG CAP PO SCH (21:00)
[2022-05-14] MEDS: D5 0.9 NS 1,000 ML IV SCH
[2022-05-14] MEDS ORDERED: METHYLPREDNISOLONE 40 MG INJ ONE ×2 (00:47→08:17)
[2022-05-14] MEDS ORDERED: D5 0.45 NS 1,000 ML IV ONE (00:47)
[2022-05-14] MEDS: METHYLPREDNISOLONE 40 MG INJ IV SCH ×2 (00:53→08:45)
[2022-05-14 02:47] LABS: ALT/SGPT 223 U/L (12-78); AST/SGOT 180 U/L (15-37); Albumin 3.1 g/dL (3.4-5.0); Alkaline Phosphatase 97 U/L (45-117); Bicarbonate 29 mmol/L (21-32); Bilirubin Total 0.3 mg/dL (0.2-1.0); Glomerular Filtration Rate 131 ml/min (=/>90); Glucose Level 154 mg/dL (74-106); Lipase 84 U/L (73-393); Potassium 3.2 mmol/L (3.5-5.1); Protein, Total 6.1 g/dL (6.4-8.2); Sodium Level 138 mmol/L (136-145)
[2022-05-14 02:53] LABS: BUN Blood Urea Nitrogen < 3 mg/dL (7-18)
[2022-05-14 03:01] LABS: Absolute Lymphocytes (CBC) 0.5 K/uL (0.7-4.9); Hematocrit 42.3 % (39.6-49.0); Lymphocytes % 6.6 % (15.3-44.8); MCV 95.2 fL (80-100); MPV 9.2 fL (7.6-11.3); RBC Red Blood Cell Count 4.44 M/uL (4.33-5.43)
[2022-05-14 04:27] VITALS: TEMP 98.3
[2022-05-14] MEDS ORDERED: CEFDINIR 300 MG CAP PO ONE (08:16)
[2022-05-14] MEDS ORDERED: metroNIDAZOLE 500 MG TABLET ONE (08:17)
[2022-05-14] MEDS ORDERED: levETIRAcetam 500 MG TAB ONE (08:17)
[2022-05-14] MEDS ORDERED: chlordiazePOXIDE HCl 5 MG CAP PO ONE (08:17)
[2022-05-14] MEDS ORDERED: CEFTRIAXONE 1000 MG/VIAL ONE ×2 (08:18→08:24)
[2022-05-14] MEDS ORDERED: NA CHLORIDE 0.9% 50 ML IV ONE (08:18)
[2022-05-14] MEDS ORDERED: ONDANSETRON 4 MG/2 ML VIAL ONE (08:18)
[2022-05-14] MEDS ORDERED: D5 0.9 NS 0 ML IV ONE (08:19)
[2022-05-14] MEDS: levETIRAcetam 500 MG TAB PO SCH (08:45)
[2022-05-14] MEDS: CEFTRIAXONE 1,000 MG in NA CHLORIDE 0.9% 50 ML IVPB SCH (08:45)
[2022-05-14] MEDS: metroNIDAZOLE 500 MG TABLET PO SCH (08:45)
[2022-05-14] MEDS: ONDANSETRON 4 MG/2 ML VIAL IV PRN (08:45)
[2022-05-14] MEDS: CEFDINIR 300 MG CAP PO SCH (08:45)
[2022-05-14] MEDS: chlordiazePOXIDE HCl 5 MG CAP PO SCH (08:45)
[2022-05-14 10:28] VITALS: BP 108/73
--- NOTE | 2022-05-14 11:09 | P.DS ---
Discharge Date: 05/14/22 Disposition: ROUTINE DISCHARGE Discharge Condition: GOOD Reason for Admission: Abdominal pain and intractable nausea and vomiting - Problems (1) Abdominal pain Status: Acute (2) Metabolic acidosis Status: Acute (3) Nausea and vomiting Status: Acute (4) Alcohol abuse Status: Acute (5) History of seizure disorder Status: Acute Brief History of Present Illness: Patient is a 31-year-old gentleman came to the hospital with abdominal pain along with intractable nausea and vomiting. Patient has multiple admissions in the past for alcohol abuse and pancreatitis. However, his CT is negative. Patient has been drinking once again. According to his he had cut down on drinking a couple of beers daily. But he started drinking vodka again and he got abdominal pain and nausea and vomiting. Patient has severe metabolic acidosis and will be admitted for IV rehydration. Hospital Course: Patient has done well during hospitalization. His pain is better controlled. Plan is to discharge him home on steroids, antibiotics, pain control, and medication to prevent DTs. Patient states he gets anxiety and starts drinking. So we will give him a breakthrough anxiolytics as well. He will need to go to counseling and he would benefit from AA. He also needs to follow-up with gastroenterology for his abdominal issues as well as for neurology for his seizures. At this time, he is stable for discharge home. Vital Signs/Physical Exam: Temp Pulse Resp BP Pulse Ox 98.3 F 51 18 108/73 98 05/14/22 04:00 05/14/22 08:00 05/14/22 08:00 05/14/22 08:00 05/14/22 08:00 General: Alert, In no apparent distress, Oriented x3 Laboratory Data at Discharge: WBC 7.30 K/uL (4.3-10.9) 05/14/22 02:04 Hgb 14.2 g/dL (13.6-17.9) D 05/14/22 02:04 Hct 42.3 % (39.6-49.0) 05/14/22 02:04 Plt Count 130 K/uL (152-406) L 05/14/22 02:04 PT 10.3 SECONDS (9.5-12.5) 05/11/22 05:24 INR 0.94 05/11/22 05:24 APTT 27.1 SECONDS (24.3-36.9) 05/11/22 05:24 Sodium 138 mmol/L (136-145) D 05/14/22 02:04 Potassium 3.2 mmol/L (3.5-5.1) L D 05/14/22 02:04 BUN < 3 mg/dL (7-18) L 05/14/22 02:04 Creatinine 0.62 mg/dL (0.55-1.3) 05/14/22 02:04 Glucose 154 mg/dL (74-106) H 05/14/22 02:04 Total Bilirubin 0.3 mg/dL (0.2-1.0) 05/14/22 02:04 AST 180 U/L (15-37) H 05/14/22 02:04 ALT 223 U/L (12-78) H 05/14/22 02:04 Alkaline Phosphatase 97 U/L (45-117) 05/14/22 02:04 Triglycerides 48 mg/dL (<150) 05/11/22 05:24 Cholesterol 124 mg/dL (<200) 05/11/22 05:24 HDL Cholesterol 73 mg/dL (40-60) H 05/11/22 05:24 Cholesterol/HDL Ratio 1.70 05/11/22 05:24 Lipase 84 U/L (73-393) 05/14/22 02:04 Home Medications: Levetiracetam [Keppra Xr] 500 mg PO DAILY 11/03/21 ALPRAZolam [Alprazolam ER] 0.5 mg PO DAILY PRN #30 tab 05/14/22 Hydrocodone 10/APAP 325 [[place] 10/325] 1 tab PO Q6H PRN #30 tab 05/14/22 Metronidazole 500 mg PO Q8H #30 tab 05/14/22 Ondansetron [Zofran (Odt)*] 4 mg PO Q8H PRN #20 tab 05/14/22 chlordiazePOXIDE HCl [Chlordiazepoxide HCl] 10 mg PO Q6H #60 cap 05/14/22 levETIRAcetam [Keppra Tab] 500 mg PO BID #60 tab 05/14/22 metroNIDAZOLE [Flagyl] 500 mg PO Q8H #14 tab 05/14/22 metroNIDAZOLE [Metronidazole] 500 mg PO TID #20 tab 12/05/22 predniSONE [Deltasone] 20 mg PO BID #11 tab 05/14/22 New Medications: ALPRAZolam [Alprazolam ER] 0.5 mg PO DAILY PRN #30 tab PRN Reason: Anxiety chlordiazePOXIDE HCl [Chlordiazepoxide HCl] 10 mg PO Q6H #60 cap metroNIDAZOLE [Flagyl] 500 mg PO Q8H #14 tab levETIRAcetam [Keppra Tab] 500 mg PO BID #60 tab Metronidazole 500 mg PO Q8H #30 tab metroNIDAZOLE [Metronidazole] 500 mg PO TID #20 tab Hydrocodone 10/APAP 325 [[place] 10/325] 1 tab PO Q6H PRN #30 tab PRN Reason: Pain predniSONE [Deltasone] 20 mg PO BID #11 tab Ondansetron [Zofran (Odt)*] 4 mg PO Q8H PRN #20 tab PRN Reason: Nausea / Vomiting Physician Discharge Instructions: -DC IV and DC home -Follow-up with PCP in 1 to 2 weeks -Follow-up with gastroenterology in 1 to 2 weeks -Please call Dr. Gomez at [phone] if any questions regarding hospital stay -Please call nursing station at [phone] if any nursing or medication questions -Return to the emergency room if symptoms worsen Diet: Regular Activity: Fall precautions Followup: Unknown,U [Primary Care Provider] - Time spent managing pt's care (in minutes): 35
== END 2022-05-14 10:30 | disposition home or self-care (01) | DRG 392 ==
LOC: ER 10:34 → ERHOLD 14:53 → OBSVTOIN 05-13 07:51
PROVIDERS: ADMIT Hospitalist; ATTEND Hospitalist
DX: R10.9 Unspecified abdominal pain (principal); E87.21 Acute metabolic acidosis; F10.10 Alcohol abuse, uncomplicated; F41.9 Anxiety disorder, unspecified; F17.200 Nicotine dependence, unspecified, uncomplicated; R11.2 Nausea with vomiting, unspecified; Z56.0 Unemployment, unspecified; Z79.52 Long term (current) use of systemic steroids; Z79.899 Other long term (current) drug therapy; Z28.310 Unvaccinated for COVID-19; Z20.822 Contact with and (suspected) exposure to COVID-19
CPT/HCPCS: 0240U; 36415; 74019; 74177; 80053; 80061; 80320; 82010; 82805; 83605; 83690; 85025; 85610; 85730; 96361; 96374; 96375; 99284; G0378; J1170; J1720; J1953; J2405; J2920; J2930; J3010; J3360; J3480; J7030; J7042; J7799; Q9967

== ENCOUNTER 2022-05-24 19:01 | Emergency (ER) | payer SELFPAY ==
--- NOTE | 2022-05-24 19:54 | ER ---
Nurse's Notes [facility] Name: Mitchell Mendez III Age: 31 yrs Sex: Male : 1990 Arrival Date: 05/24/2022 Time: 19:02 Bed 20 Private MD: Diagnosis: Edema, unspecified Presentation: 05/24 19:26 Chief complaint: Spouse and/or significant other states: He was here two weeks ago with kd3 liver failure and they discharged him home and told him to come back if his feet and legs are swollen and he didn't listen and they are swollen now so I made him come. Coronavirus screen: Vaccine status: Patient reports being unvaccinated. Ebola Screen: No symptoms or risks identified at this time. Initial Sepsis Screen: Does the patient meet any 2 criteria? No. Patient's initial sepsis screen is negative. Does the patient have a suspected source of infection? No. Patient's initial sepsis screen is negative. Risk Assessment: Do you want to hurt yourself or someone else? Patient reports no desire to harm self or others. Onset of symptoms was May 24, 2022. 19:26 Method Of Arrival: Wheelchair kd3 19:26 Acuity: CAROLINE 3 kd3 Triage Assessment: 19:29 General: Appears in no apparent distress. Behavior is calm, cooperative. Pain: Denies kd3 pain. Neuro: Level of Consciousness is awake, alert, obeys commands, Oriented to person, place, time, situation. Musculoskeletal: Swelling present in right leg, left lateral ankle, lateral aspect of left foot, left Achilles, left heel, left medial ankle, medial aspect of left foot, anterior aspect of left ankle and dorsum of left foot. Historical: - Allergies: 19:29 No Known Allergies; kd3 - Home Meds: 19:29 Keppra Oral [Active]; kd3 - PMHx: 19:29 Migraine; Pancreatitis; repetitive head injury; scoliosis; Seizures; kd3 - Immunization history:: Adult Immunizations not up to date. - Social history:: Smoking status: Patient reports the use of cigarette tobacco products, smokes one-half pack cigarettes per day. Screenin:39 [facility] ED Fall Risk Assessment (Adult) History of falling in the last 3 months, kl including since admission No falls in past 3 months (0 pts) Confusion or Disorientation No (0 pts) Intoxicated or Sedated No (0 pts) Impaired Gait No (0 pts) Mobility Assist Device Used No (0 pt) Altered Elimination No (0 pt) Score/Fall Risk Level 0 - 2 = Low Risk Oriented to surroundings, Maintained a safe environment, Educated pt \T\ family on fall prevention, incl call for assistance when getting out of bed, Hourly rounding (assess needs \T\ fall precautionary measures) done. Abuse screen: Denies threats or abuse. Nutritional screening: No deficits noted. Tuberculosis screening: No symptoms or risk factors identified. Fall Risk No fall in past 12 months (0 pts). No secondary diagnosis (0 pts). No IV (0 pts). Ambulatory Aid- None/Bed Rest/Nurse Assist (0 pts). Gait- Normal/Bed Rest/Wheelchair (0 pts) Mental Status- Oriented to own ability (0 pts). Assessment: 19:38 General: Appears in no apparent distress. comfortable, unkempt, Behavior is calm, kl cooperative. Pain: Denies pain. Neuro: No deficits noted. Level of Consciousness is awake, alert, obeys commands, Oriented to person, place, time, situation, Speech is normal, Facial symmetry appears normal. Cardiovascular: No deficits noted. Edema is 2+ to left ankle, left foot, right ankle and right foot. Respiratory: No deficits noted. GI: No deficits noted. No signs and/or symptoms were reported involving the gastrointestinal system. : No deficits noted. No signs and/or symptoms were reported regarding the genitourinary system. Vital Signs: 19:26 BP 103 / 65; Pulse 85; Resp 17; Temp 99.5(TE); Pulse Ox 97% ; Weight 56.7 kg; Height 6 kd3 ft. 3 in. (190.50 cm); Pain 0/10; 20:11 BP 128 / 72; Pulse 71; Resp 18; Pulse Ox 98% on R/A; Pain 0/10; kl 19:26 Body Mass Index 15.62 (56.70 kg, 190.50 cm) kd3 ED Course: 19:02 Patient arrived in ED. as 19:29 Triage completed. kd3 19:29 Arm band placed on left wrist. kd3 19:31 Bert Rodriguez NP is PHCP. pm1 19:31 Edson Hoang MD is Attending Physician. pm1 20:12 No provider procedures requiring assistance completed. Patient did not have IV access kl during this emergency room visit. 20:14 Patient has correct armband on for positive identification. kl Administered Medications: No medications were administered Medication: 20:12 VIS not applicable for this client. kl Outcome: 19:53 Discharge ordered by MD. pm1 20:12 Discharged to home ambulatory. kl 20:12 Condition: stable 20:12 Discharge instructions given to patient, family, Instructed on discharge instructions, follow up and referral plans. Demonstrated understanding of instructions, follow-up care. 20:17 Patient left the ED. kl Signatures: Susan Irby, RN RN Lindy Thompson Patrick, PLAN EXAMINER PLAN EXAMINER pm1 Sarah Robles, RN RN kd3
--- NOTE | 2022-05-24 19:54 | EDPHYS ---
Physician Documentation [facility] Name: Mitchell Mendez III Age: 31 yrs Sex: Male : 1990 Arrival Date: 05/24/2022 Time: 19:02 Bed 20 Private MD: ED Physician Edson Hoang HPI: 05/24 19:51 This 31 yrs old Male presents to ER via Wheelchair with complaints of Feet Swelling and pm1 Ankle Swelling. 19:51 The patient presents with swelling. The complaints affect the right foot, left foot, pm1 right ankle and left ankle. Context: The problem was sustained at home, resulted from an unknown cause, the patient can fully bear weight, the patient is able to ambulate. Onset: The symptoms/episode began/occurred 4 day(s) ago. Modifying factors: The symptoms are alleviated by elevating leg. Associated signs and symptoms: Pertinent negatives calf tenderness, fever, numbness, rash, tingling, warmth, chest pain, shortness of breath, abdominal pain or swelling. Treatment prior to arrival includes: no previous treatment. Severity of symptoms: in the emergency department the symptoms have improved. 19:51 The patient has not experienced similar symptoms in the past. The patient has been pm1 recently been admitted at [facility], for apparently unrelated complaints, 10 days ago for metabolic acidosis, ETOH abuse. Patient has not drank ETOH since discharged home. Historical: - Allergies: 19:29 No Known Allergies; kd3 - Home Meds: 19:29 Keppra Oral [Active]; kd3 - PMHx: 19:29 Migraine; Pancreatitis; repetitive head injury; scoliosis; Seizures; kd3 - Immunization history:: Adult Immunizations not up to date. - Social history:: Smoking status: Patient reports the use of cigarette tobacco products, smokes one-half pack cigarettes per day. ROS: 19:51 Constitutional: Negative for fever, chills, and weight loss, Cardiovascular: Negative pm1 for chest pain, palpitations, and edema, Respiratory: Negative for shortness of breath, cough, wheezing, and pleuritic chest pain, Abdomen/GI: Negative for abdominal pain, nausea, vomiting, diarrhea, and constipation. 19:51 Skin: Negative for injury, rash, and discoloration, Neuro: Negative for headache, weakness, numbness, tingling, and seizure. 19:51 MS/extremity: Positive for swelling, of the right ankle and left foot and left ankle and right foot, Negative for injury or acute deformity, decreased range of motion, pain, paresthesias, tingling. 19:51 All other systems are negative. Exam: 19:51 Constitutional: This is a well developed, well nourished patient who is awake, alert, pm1 and in no acute distress. Head/Face: Normocephalic, atraumatic. 19:51 Skin: Warm, dry with normal turgor. Normal color with no rashes, no lesions, and no evidence of cellulitis. MS/ Extremity: Pulses equal, no cyanosis. Neurovascular intact. Full, normal range of motion. Mild bilateral pedal edema present 19:51 Eyes: Exam is negative for acute changes, Periorbital structures: no acute changes, Extraocular movements: no acute changes, Conjunctiva: no acute changes, no injection. 19:51 ENT: Exam is negative for acute changes, Mouth: no acute changes, Lips: normal, moist, Oral mucosa: normal, pink and intact, moist. 19:51 Cardiovascular: Exam negative for acute changes, Rate: normal, Rhythm: regular, Pulses: no pulse deficits are appreciated. 19:51 Respiratory: Exam negative for acute changes, respiratory distress, shortness of breath. 19:51 Abdomen/GI: Exam negative for acute changes, Inspection: distension, is not seen, Palpation: abdomen is soft and non-tender, in all quadrants. 19:51 Neuro: Exam negative for acute changes, Orientation: is normal, Mentation: is normal, Motor: is normal, moves all fours, Gait: is steady, at a normal pace, without difficulty. Vital Signs: 19:26 BP 103 / 65; Pulse 85; Resp 17; Temp 99.5(TE); Pulse Ox 97% ; Weight 56.7 kg; Height 6 kd3 ft. 3 in. (190.50 cm); Pain 0/10; 20:11 BP 128 / 72; Pulse 71; Resp 18; Pulse Ox 98% on R/A; Pain 0/10; kl 19:26 Body Mass Index 15.62 (56.70 kg, 190.50 cm) kd3 MDM: 19:32 Patient medically screened. [facility] 19:51 Data reviewed: vital signs. Data interpreted: Pulse oximetry: on room air is 97 %. pm1 Interpretation: normal. 19:51 Counseling: I had a detailed discussion with the patient and/or guardian regarding: the pm1 historical points, exam findings, and any diagnostic results supporting the discharge/admit diagnosis, the need for outpatient follow up, a family practitioner, a suspender cutter, to return to the emergency department if symptoms worsen or persist or if there are any questions or concerns that arise at home. 19:51 ED course: Patient without any complaints other than bilateral lower ankle and feet pm1 swelling. Patient without any chest pain, shortness of breath, abdominal pain or swelling. was concerned about the risk for blood clots. Patient offered ultrasound of lower legs and work up but he refused. Patient and educated on management of dependent peripheral edema at home and the need for follow up with PCP. Administered Medications: No medications were administered Disposition Summary: 05/24/22 19:53 Discharge Ordered Location: Home pm1 Problem: new pm1 Symptoms: are unchanged pm1 Condition: Stable pm1 Diagnosis - Edema, unspecified pm1 Followup: pm1 - With: Emergency Department - When: As needed - Reason: Worsening of condition Followup: pm1 - With: Private Physician - When: 2 - 3 days - Reason: Recheck today's complaints, Continuance of care, Re-evaluation by your physician Discharge Instructions: - Discharge Summary Sheet pm1 - Peripheral Edema pm1 Forms: - Medication Reconciliation Form pm1 - Thank You Letter pm1 - Antibiotic Education pm1 - Prescription Opioid Use pm1 Signatures: Edson Hoang MD MD cha Marinas, Patrick, NP DEXIGRAPH OPERATOR pm1 Sarah Robles, RN RN kd3
[2022-05-24 20:23] VITALS: TEMP 99.5
[2022-05-24 20:24] VITALS: BP 128/72; O2SAT 98
== END 2022-05-24 20:17 | disposition home or self-care (01) ==
LOC: ER 19:01
DX: R60.9 Edema, unspecified (principal); F17.210 Nicotine dependence, cigarettes, uncomplicated
CPT/HCPCS: 99281

== ENCOUNTER 2022-08-10 02:06 | Emergency (ER) | payer SELFPAY ==
--- OUTSIDE RECORDS SUMMARY | 2022-08-10 02:09 | XMS REPORT | Continuity of Care Document ---
:1990 Author Organization [facility] t Address [address] [place] [address] [place] [id number] Care Team Providers Name Role Phone Unavailable Unavailable Unavailable Problems This patient has no known problems. Allergies, Adverse Reactions, Alerts This patient has no known allergies or adverse reactions. Medications This patient has no known medications. Procedures This patient has no known procedures. Encounters Start End Encounter Admission Attending Care Care Encounter Source Date/Time Date/Time Type Type Clinicians Facility Department ID 2022-07-13 2022-07-13 Outpatient [facility] [id number] Charlie 16:06:27 16:06:27 [id number] [address] [place] Results This patient has no known results.
[2022-08-10] MEDS ORDERED: Ringers Lactate 1,000 ML IV ONE (02:49)
[2022-08-10 03:05] LABS: Absolute Lymphocytes (CBC) 2.3 K/uL (0.7-4.9); Hematocrit 44.2 % (39.6-49.0); Lymphocytes % 33.1 % (15.3-44.8); MCV 92.7 fL (80-100); RBC Red Blood Cell Count 4.77 M/uL (4.33-5.43)
[2022-08-10 03:18] LABS: Albumin 4.3 g/dL (3.4-5.0); Magnesium 2.2 mg/dL (1.6-2.4); Potassium 3.2 mmol/L (3.5-5.1)
[2022-08-10 03:23] LABS: Bilirubin Total 0.7 mg/dL (0.2-1.0); Protein, Total 7.3 g/dL (6.4-8.2)
--- NOTE | 2022-08-10 03:50 | ER ---
Nurse's Notes [facility] Name: Mitchell Mendez III Age: 31 yrs Sex: Male : 1990 Arrival Date: 08/10/2022 Time: 02:08 Bed 20 Private MD: Diagnosis: Alcohol abuse Presentation: 08/10 02:40 Chief complaint: Spouse and/or significant other states: "He has been drinking a lot vc1 these last 4 days and tonight it looked like his muscles were tightening up and spasming. When he's done this before he has ended up seizing.". Coronavirus screen: Vaccine status: Patient reports being unvaccinated. At this time, the client does not indicate any symptoms associated with coronavirus-19. Ebola Screen: Patient negative for fever greater than or equal to 101.5 degrees Fahrenheit, and additional compatible Ebola Virus Disease symptoms Patient denies exposure to infectious person. Patient denies travel to an Ebola-affected area in the 21 days before illness onset. No symptoms or risks identified at this time. Initial Sepsis Screen: Does the patient meet any 2 criteria? Yes Does the patient have a suspected source of infection? No. Patient's initial sepsis screen is negative. Risk Assessment: Do you want to hurt yourself or someone else? Patient reports no desire to harm self or others. Onset of symptoms was August 10, 2022. 02:40 Method Of Arrival: Ambulatory vc1 02:40 Acuity: CAROLINE 3 vc1 Triage Assessment: 02:43 General: Appears in no apparent distress. uncomfortable, slender, Behavior is vc1 cooperative. Pain: Denies pain. EENT: No deficits noted. Neuro: Level of Consciousness is awake, obeys commands, Oriented to person, place, time, situation, Appropriate for age. Cardiovascular: No deficits noted. Respiratory: Airway is patent Respiratory effort is even, unlabored, Respiratory pattern is regular, symmetrical. GI: Reports anorexia, nausea, vomiting. : No deficits noted. No signs and/or symptoms were reported regarding the genitourinary system. Derm: No deficits noted. No signs and/or symptoms reported regarding the dermatologic system. Musculoskeletal: Reports muscle spasms. Historical: - Allergies: 02:42 No Known Allergies; vc1 - Home Meds: 02:42 Keppra Oral [Active]; vc1 - PMHx: 02:42 Migraine; Pancreatitis; repetitive head injury; scoliosis; Seizures; vc1 - PSHx: 02:42 None; vc1 - Immunization history:: Client reports having NOT received the Covid vaccine. - Social history:: Smoking status: Patient reports the use of cigarette tobacco products, smokes one-half pack cigarettes per day. - Family history:: not pertinent. Screenin:42 Abuse screen: Denies threats or abuse. Nutritional screening: Has had N/V for 3 or more vc1 days. Tuberculosis screening: No symptoms or risk factors identified. 04:17 [facility] ED Fall Risk Assessment (Adult) History of falling in the last 3 months, pf1 including since admission No falls in past 3 months (0 pts) Confusion or Disorientation No (0 pts) Intoxicated or Sedated No (0 pts) Impaired Gait No (0 pts) Mobility Assist Device Used No (0 pt) Altered Elimination No (0 pt) Score/Fall Risk Level 0 - 2 = Low Risk Oriented to surroundings, Maintained a safe environment, Educated pt \\T\\ family on fall prevention, incl call for assistance when getting out of bed, Assessed \\T\\ reinforced patient's understanding of fall precautions, Provided non-skid footwear, Hourly rounding (assess needs \\T\\ fall precautionary measures) done, Used ambulatory aids as needed (educated on \\T\\ assisted with), Used gait belt as appropriate. Assessment: 02:27 General: Appears comfortable, Behavior is calm, cooperative. Pain: Denies pain. Neuro: ha1 Level of Consciousness is awake, alert, obeys commands, Oriented to person, place, time, situation. Cardiovascular: Patient's skin is warm and dry. Respiratory: Airway is patent Respiratory effort is even, unlabored, Respiratory pattern is regular, symmetrical. GI: No signs and/or symptoms were reported involving the gastrointestinal system. : No signs and/or symptoms were reported regarding the genitourinary system. Musculoskeletal: Circulation, motion, and sensation intact. Range of motion: intact in all extremities, Reports shakiness. 03:20 Reassessment: Patient and/or family updated on plan of care and expected duration. Pain ha1 level reassessed. Patient is alert, oriented x 3, equal unlabored respirations, skin warm/dry/pink. 04:10 Reassessment: Patient and/or family updated on plan of care and expected duration. Pain ha1 level reassessed. Patient is alert, oriented x 3, equal unlabored respirations, skin warm/dry/pink. Patient states symptoms have improved. Vital Signs: 02:40 BP 150 / 95; Pulse 86; Resp 19; Temp 97.7; Pulse Ox 99% on R/A; Weight 63.5 kg; Height vc1 6 ft. 0 in. (182.88 cm); Pain 0/10; 03:00 BP 130 / 85; Pulse 80; Resp 17 S; Pulse Ox 99% on R/A; ha1 04:00 BP 138 / 94; Pulse 78; Resp 18; Temp 98; Pulse Ox 100% on R/A; Pain 0/10; pf1 02:40 Body Mass Index 18.99 (63.50 kg, 182.88 cm) vc1 ED Course: 02:08 Patient arrived in ED. ja2 02:29 Sukumar Rondon MD is Attending Physician. rt 02:41 Della Alexander RN is Primary Nurse. ha1 02:42 Triage completed. vc1 02:42 Arm band placed on right wrist. vc1 02:45 Patient has correct armband on for positive identification. Bed in low position. Call vc1 light in reach. Client placed on continuous cardiac and pulse oximetry monitoring. NIBP monitoring applied. 02:59 ETOH Level Sent. ha1 02:59 Magnesium Sent. ha1 02:59 CMP Sent. ha1 02:59 CBC with Diff Sent. ha1 02:59 Inserted saline lock: 20 gauge in right antecubital area, using aseptic technique. pf1 Blood collected. 04:10 IV discontinued, intact, bleeding controlled, No redness/swelling at site. Pressure pf1 dressing applied. 04:17 No provider procedures requiring assistance completed. pf1 Administered Medications: 02:50 Drug: Ringers - Lactated Ringers Solution 1000 ml Route: IV; Rate: bolus; Site: right ha1 antecubital; 03:50 Follow up: IV Status: Completed infusion; IV Intake: 1000ml pf1 04:10 Follow up: Response: No adverse reaction ha1 03:50 Drug: Keppra (levETIRAcetam) 500 mg Route: PO; ha1 04:10 Follow up: Response: No adverse reaction ha1 04:12 Follow up: Response: No adverse reaction; Marked relief of symptoms pf1 03:51 Drug: Potassium Chloride Liquid 40 mEq Route: PO; ha1 04:10 Follow up: Response: No adverse reaction ha1 Medication: 02:45 VIS not applicable for this client. vc1 Intake: 03:50 IV: 1000ml; Total: 1000ml. pf1 Outcome: 03:50 Discharge ordered by . rt 04:17 Discharged to home ambulatory, with family. pf1 04:17 Condition: improved 04:17 Discharge instructions given to patient, family, Instructed on discharge instructions, follow up and referral plans. Demonstrated understanding of instructions, follow-up care, medications, Prescriptions given X 1. 04:18 Patient left the ED. pf1 Signatures: Yancy Condon2 Faye Shetty RN RN vc1 Della Alexander RN RN ha1 Sukumar Rondon MD MD rt Ashley saba RN RN pf1
--- NOTE | 2022-08-10 03:50 | EDPHYS ---
Physician Documentation [facility] Name: Mitchell Mendez III Age: 31 yrs Sex: Male : 1990 Arrival Date: 08/10/2022 Time: 02:08 Bed 20 Private MD: ED Physician Sukumar Rondon HPI: 08/10 05:52 This 31 yrs old Male presents to ER via Ambulatory with complaints of Alcohol rt Withdrawal. 05:52 Patient presents to the ED requesting medications to prevent alcohol withdrawal. rt Patient drinks a gallon of vodka a day plus several whiskey drinks. Patient states that he felt shaky, was concerned that he had a seizure. The patient denies other acute complaints at this time. Symptoms are moderate severity, no other aggravating or alleviating factors.. Historical: - Allergies: 02:42 No Known Allergies; vc1 - Home Meds: 02:42 Keppra Oral [Active]; vc1 - PMHx: 02:42 Migraine; Pancreatitis; repetitive head injury; scoliosis; Seizures; vc1 - PSHx: 02:42 None; vc1 - Immunization history:: Client reports having NOT received the Covid vaccine. - Social history:: Smoking status: Patient reports the use of cigarette tobacco products, smokes one-half pack cigarettes per day. - Family history:: not pertinent. ROS: 05:52 Constitutional: Negative for fever, chills, and weight loss, Cardiovascular: Negative rt for chest pain, palpitations, and edema, Respiratory: Negative for shortness of breath, cough, wheezing, and pleuritic chest pain, Abdomen/GI: Negative for abdominal pain, nausea, vomiting, diarrhea, and constipation, Skin: Negative for injury, rash, and discoloration, Psych: Negative for depression, anxiety, suicide ideation, homicidal ideation, and hallucinations. 05:52 Neuro: Positive for tremor, Negative for altered mental status. Exam: 05:52 Constitutional: This is a well developed, well nourished patient who is awake, alert, rt and in no acute distress. Head/Face: Normocephalic, atraumatic. Chest/axilla: Normal chest wall appearance and motion. Nontender with no deformity. No lesions are appreciated. Cardiovascular: Regular rate and rhythm with a normal S1 and S2. No gallops, murmurs, or rubs. Normal PMI, no JVD. No pulse deficits. Respiratory: Lungs have equal breath sounds bilaterally, clear to auscultation and percussion. No rales, rhonchi or wheezes noted. No increased work of breathing, no retractions or nasal flaring. Abdomen/GI: Soft, non-tender, with normal bowel sounds. No distension or tympany. No guarding or rebound. No evidence of tenderness throughout. Neuro: Awake and alert, GCS 15, oriented to person, place, time, and situation. Cranial nerves II-XII grossly intact. Motor strength 5/5 in all extremities. Sensory grossly intact. Cerebellar exam normal. Normal gait. Psych: Awake, alert, with orientation to person, place and time. Behavior, mood, and affect are within normal limits. Vital Signs: 02:40 BP 150 / 95; Pulse 86; Resp 19; Temp 97.7; Pulse Ox 99% on R/A; Weight 63.5 kg; Height vc1 6 ft. 0 in. (182.88 cm); Pain 0/10; 03:00 BP 130 / 85; Pulse 80; Resp 17 S; Pulse Ox 99% on R/A; ha1 04:00 BP 138 / 94; Pulse 78; Resp 18; Temp 98; Pulse Ox 100% on R/A; Pain 0/10; pf1 02:40 Body Mass Index 18.99 (63.50 kg, 182.88 cm) vc1 MDM: 02:29 Patient medically screened. rt 05:52 Differential Diagnosis Alcohol withdrawal, electrolyte disturbance, alcohol rt intoxication, seizure. Data reviewed: vital signs, nurses notes, lab test result(s). I considered the following discharge prescriptions or medication management in the emergency department Medications were administered in the Emergency Department. See MAR. Care significantly affected by the following Social Determinants of Health: Misuse of alcohol and/or drugs. Counseling: I had a detailed discussion with the patient and/or guardian regarding: the historical points, exam findings, and any diagnostic results supporting the discharge/admit diagnosis, the presence of at least one elevated blood pressure reading (>120/80) during this emergency department visit, the need for outpatient follow up, to return to the emergency department if symptoms worsen or persist or if there are any questions or concerns that arise at home, smoking cessation. 08/10 02:39 Order name: CBC with Diff rt 08/10 02:39 Order name: CMP rt 08/10 02:39 Order name: Magnesium rt 08/10 02:39 Order name: ETOH Level rt 08/10 03:06 Order name: CBC with Automated Diff; Complete Time: 03:37 EDMS 08/10 03:18 Order name: Comprehensive Metabolic Panel; Complete Time: 03:37 EDMS 08/10 03:18 Order name: Magnesium; Complete Time: 03:37 EDMS 08/10 03:18 Order name: Alcohol Serum/Plasma; Complete Time: 03:37 EDMS Administered Medications: 02:50 Drug: Ringers - Lactated Ringers Solution 1000 ml Route: IV; Rate: bolus; Site: right ha1 antecubital; 03:50 Follow up: IV Status: Completed infusion; IV Intake: 1000ml pf1 04:10 Follow up: Response: No adverse reaction ha1 03:50 Drug: Keppra (levETIRAcetam) 500 mg Route: PO; ha1 04:10 Follow up: Response: No adverse reaction ha1 04:12 Follow up: Response: No adverse reaction; Marked relief of symptoms pf1 03:51 Drug: Potassium Chloride Liquid 40 mEq Route: PO; ha1 04:10 Follow up: Response: No adverse reaction ha1 Disposition Summary: 08/10/22 03:50 Discharge Ordered Location: Home rt Problem: an ongoing problem rt Symptoms: have improved rt Condition: Stable rt Diagnosis - Alcohol abuse rt Followup: rt - With: Private Physician - When: 5 - 6 days - Reason: Discharge Instructions: - Discharge Summary Sheet rt - Alcohol Use Disorder rt - Alcohol Abuse and Dependence Information, Adult rt Forms: - Medication Reconciliation Form rt - Thank You Letter rt - Antibiotic Education rt - Prescription Opioid Use rt Prescriptions: - chlordiazepoxide HCl 25 mg Oral capsule - take 1 capsule by ORAL route 4 times per day; 15 capsule; Refills: 0, Product rt Selection Permitted Signatures: Dispatcher [employer] Faye Juárez RN RN vc1 Della Alexander RN RN ha1 Sukumar Rondon MD MD rt Ashley saba RN pf1
[2022-08-10] MEDS ORDERED: levETIRAcetam 500 MG TAB ONE (03:57)
[2022-08-10] MEDS ORDERED: POTASSIUM CL SA 10 MEQ TAB PO ONE (03:58)
[2022-08-10 04:24] VITALS: BP 138/94; TEMP 98; O2SAT 100
== END 2022-08-10 04:18 | disposition home or self-care (01) ==
LOC: ER 02:06
DX: F10.10 Alcohol abuse, uncomplicated (principal)
CPT/HCPCS: 36415; 80053; 83735; 85025; 96365; 99284; G0480; J7120

== ENCOUNTER 2022-12-13 17:17 | Emergency (ER) | payer SELFPAY ==
--- OUTSIDE RECORDS SUMMARY | 2022-12-13 17:20 | XMS REPORT | Continuity of Care Document ---
:1990 Author Organization [facility] t Address [address] [place] [address] [place] [id number] Care Team Providers Name Role Phone Unavailable [...] Department ID 2022-07-13 2022-07-13 Outpatient [facility] [id number] [address] 16:06:27 16:06:27 [id number] [address] [place] Results This patient has no known results.
[2022-12-13 19:03] LABS: Absolute Lymphocytes (CBC) 1.9 K/uL (0.7-4.9); Hematocrit 40.9 % (39.6-49.0); Lymphocytes % 24.8 % (15.3-44.8); MCV 95.4 fL (80-100); MPV 7.4 fL (7.6-11.3); RBC Red Blood Cell Count 4.28 M/uL (4.33-5.43)
[2022-12-13 19:15] LABS: ALT/SGPT 64 U/L (16-61); AST/SGOT 27 U/L (15-37); Albumin 3.8 g/dL (3.4-5.0); Alkaline Phosphatase 94 U/L (45-117); BUN Blood Urea Nitrogen 9 mg/dL (7-18); Bicarbonate 30 mEq/L (21-32); Bilirubin Total 0.2 mg/dL (0.2-1.0); Glomerular Filtration Rate 124 ml/min (=/>90); Glucose Level 114 mg/dL (74-106); Potassium 3.4 mEq/L (3.5-5.1); Protein, Total 7.4 g/dL (6.4-8.2); Sodium Level 143 mEq/L (136-145)
[2022-12-13 19:18] LABS: Bilirubin Direct < 0.1 mg/dL (0-0.2); Bilirubin Indirect, Calculated ND mg/dL (0.2-0.8)
--- NOTE | 2022-12-13 19:23 | EDPHYS ---
Physician Documentation [facility] Name: Mitchell Mendez III Age: 32 yrs Sex: Male : 1990 Arrival Date: 12/13/2022 Time: 17:17 Bed 19 Private MD: ED Physician Harris Batista HPI: 12/13 18:26 This 32 yrs old Male presents to ER via Ambulatory with complaints of Feet Swelling. rn 18:27 The patient presents with swelling. The complaints affect the left foot, right foot. rn Onset: The symptoms/episode began/occurred at an unknown time. Modifying factors: The symptoms are alleviated by elevation of extremity, the symptoms are aggravated by weight bearing. Severity of symptoms: At their worst the symptoms were moderate, in the emergency department the symptoms are unchanged. The patient has experienced similar episodes in the past. The patient has not recently seen a physician. Pt reports swelling in both feet, improves with elevation of extremities, no trauma, has happened before multiple times, is daily drinker, still drinks, has known liver problems. . Historical: - Allergies: 17:21 No Known Allergies; ll1 - Home Meds: 17:30 Keppra Oral [Active]; eh3 - PMHx: 17:21 Pancreatitis; repetitive head injury; scoliosis; Migraine; Seizures; ll1 - Immunization history:: Adult Immunizations up to date. - Social history:: Smoking status: Patient reports the use of cigarette tobacco products, smokes one pack cigarettes per day. - Family history:: not pertinent. - Hospitalizations: : No recent hospitalization is reported. ROS: 18:27 Constitutional: Negative for fever, chills, and weight loss, Cardiovascular: Negative rn for chest pain, palpitations MS/Extremity: + swelling of both feet Exam: 18:27 Constitutional: Very skinny male, no acute distress Cardiovascular: Regular rate and rn rhythm. No pulse deficits. Respiratory: No increased work of breathing, no retractions or nasal flaring. Skin: Warm, dry MS/ Extremity: Pulses equal, no cyanosis. Neurovascular intact. Full, normal range of motion. Equal circumference. + bilateral non-pitting pedal edema. Neuro: Awake and alert, GCS 15 Vital Signs: 17:22 BP 122 / 76; Pulse 100; Resp 16; Temp 99.1; Pulse Ox 96% on R/A; Weight 61.23 kg; ll1 Height 6 ft. 1 in. ; Pain 8/10; 19:41 BP 113 / 76; Pulse 78; Resp 18; Pulse Ox 98% on R/A; Pain 0/10; pf1 17:22 Body Mass Index 17.81 (61.23 kg, 185.42 cm) ll1 17:22 Pain Scale: Adult ll1 19:41 Pain Scale: Adult pf1 MDM: 17:27 Patient medically screened. rn 19:21 Differential diagnosis: dependent edema, cirrhosis, renal insufficiency. Data reviewed: rn vital signs, nurses notes, lab test result(s), and as a result, I will discharge patient. Counseling: I had a detailed discussion with the patient and/or guardian regarding: the historical points, exam findings, and any diagnostic results supporting the discharge/admit diagnosis, lab results, the need for outpatient follow up, to return to the emergency department if symptoms worsen or persist or if there are any questions or concerns that arise at home. Special discussion: I discussed with the patient/guardian in detail that at this point there is no indication for admission to the hospital. It is understood, however, that if the symptoms persist or worsen the patient needs to return immediately for re-evaluation. 12/13 17:38 Order name: CBC with Diff; Complete Time: 19:20 rn 12/13 17:38 Order name: Basic Metabolic Panel; Complete Time: 19:20 rn 12/13 17:38 Order name: LFT's; Complete Time: 19:20 rn 12/13 17:38 Order name: IV Start; Complete Time: 18:50 rn Administered Medications: No medications were administered Disposition Summary: 12/13/22 19:22 Discharge Ordered Location: Home rn Problem: new rn Symptoms: have improved rn Condition: Stable rn Diagnosis - Localized edema rn Followup: rn - With: Private Physician - When: As needed - Reason: Recheck today's complaints, Re-evaluation by your physician Discharge Instructions: - Discharge Summary Sheet rn - Edema rn - Alcohol Abuse and Dependence Information, Adult rn Forms: - Medication Reconciliation Form rn - Thank You Letter rn - Antibiotic financial services intern - Prescription Opioid Use rn - [email or web address] rn - Family Work Release pf1 Prescriptions: - Spironolactone 25 mg Oral Tablet - take 1 tablet by ORAL route 1-2 times daily As needed For swelling; 14 tablet; rn Refills: 0, Product Selection Permitted Signatures: Dispatcher [employer] Harris Sun MD MD rn Oscar Irby RN RN ll1 Deandra Salazar RN RN eh3
--- NOTE | 2022-12-13 19:23 | ER ---
Nurse's Notes [facility] Name: Mitchell Mendez III Age: 32 yrs Sex: Male : 1990 Arrival Date: 12/13/2022 Time: 17:17 Bed 19 Private MD: Diagnosis: Localized edema Presentation: 12/13 17:22 Chief complaint: Patient states: B feet, legs swelling and pain for 3 days. No fever. ll1 Coronavirus screen: Vaccine status: Patient reports being unvaccinated. Client denies travel out of the [place] in the last 14 days. At this time, the client does not indicate any symptoms associated with coronavirus-19. Ebola Screen: Patient denies travel to an Ebola-affected area in the 21 days before illness onset. Initial Sepsis Screen: Does the patient meet any 2 criteria? No. Patient's initial sepsis screen is negative. Does the patient have a suspected source of infection? No. Patient's initial sepsis screen is negative. Risk Assessment: Do you want to hurt yourself or someone else? Patient reports no desire to harm self or others. Onset of symptoms was December 11, 2022. 17:22 Method Of Arrival: Ambulatory ll1 17:22 Acuity: CAROLINE 3 ll1 Triage Assessment: 17:29 General: Appears uncomfortable, Behavior is calm, cooperative, appropriate for age. ll1 Pain: Complains of pain in right foot and left foot Quality of pain is described as aching. Derm: Reports pain. Musculoskeletal: Reports swelling B LE. Historical: - Allergies: 17:21 No Known Allergies; ll1 - Home Meds: 17:30 Keppra Oral [Active]; eh3 - PMHx: 17:21 Pancreatitis; repetitive head injury; scoliosis; Migraine; Seizures; ll1 - Immunization history:: Adult Immunizations up to date. - Social history:: Smoking status: Patient reports the use of cigarette tobacco products, smokes one pack cigarettes per day. - Family history:: not pertinent. - Hospitalizations: : No recent hospitalization is reported. Screenin:30 [facility] ED Fall Risk Assessment (Adult) Score/Fall Risk Level 0 - 2 = Low Risk. Abuse eh3 screen: Denies threats or abuse. Denies injuries from another. Nutritional screening: No deficits noted. Tuberculosis screening: No symptoms or risk factors identified. Assessment: 17:30 General: Appears in no apparent distress. uncomfortable, Behavior is cooperative. Pain: eh3 Denies pain. Neuro: Level of Consciousness is awake, alert, obeys commands, Oriented to person, place, time, situation. Cardiovascular: Capillary refill < 3 seconds Patient's skin is warm and dry. Respiratory: Airway is patent Respiratory effort is even, unlabored, Respiratory pattern is regular, symmetrical. GI: Abdomen is round non-distended. Derm: Skin is pink, warm \T\ dry. Musculoskeletal: Circulation, motion, and sensation intact. 18:30 Reassessment: Patient appears in no apparent distress at this time. Patient and/or eh3 family updated on plan of care and expected duration. Pain level reassessed. Patient is alert, oriented x 3, equal unlabored respirations, skin warm/dry/pink. Vital Signs: 17:22 BP 122 / 76; Pulse 100; Resp 16; Temp 99.1; Pulse Ox 96% on R/A; Weight 61.23 kg; ll1 Height 6 ft. 1 in. ; Pain 8/10; 19:41 BP 113 / 76; Pulse 78; Resp 18; Pulse Ox 98% on R/A; Pain 0/10; pf1 17:22 Body Mass Index 17.81 (61.23 kg, 185.42 cm) ll1 17:22 Pain Scale: Adult ll1 19:41 Pain Scale: Adult pf1 ED Course: 17:18 Patient arrived in ED. am2 17:25 Triage completed. ll1 17:26 Arm band placed on. ll1 17:27 Harris Batista MD is Attending Physician. rn 17:30 Patient has correct armband on for positive identification. Bed in low position. Call eh3 light in reach. Side rails up X2. Adult w/ patient. Pulse ox on. NIBP on. 18:33 Patient placed in an exam room, on a stretcher. eh3 18:50 Inserted saline lock: 20 gauge in right forearm, using aseptic technique. aw1 18:50 Initial lab(s) drawn, by me, sent to lab. aw1 19:32 IV discontinued, intact, bleeding controlled, No redness/swelling at site. Pressure eh3 dressing applied. 19:32 No provider procedures requiring assistance completed. eh3 Administered Medications: No medications were administered Medication: 19:32 VIS not applicable for this client. eh3 Outcome: 19:22 Discharge ordered by . rn 19:33 Discharged to home via wheelchair, with significant other. 3 19:33 Condition: stable 19:33 Discharge instructions given to patient, significant other, Instructed on discharge instructions, follow up and referral plans. medication usage, Demonstrated understanding of instructions, follow-up care, medications, Prescriptions given X 1. 19:42 Patient left the ED. 3 Signatures: Harris Batista MD MD rn Faviola Singh am2 Oscar Irby RN RN 1 Deandra Salazar RN RN 3 Ashley Mcnally RN RN pf1 Martha Buckley aw1 Corrections: (The following items were deleted from the chart) 19:31 18:34 Reassessment: No changes from previously documented assessment. Patient and/or 3 family updated on plan of care and expected duration. Pain level reassessed. Patient is alert, oriented x 3, equal unlabored respirations, skin warm/dry/pink. 3
[2022-12-13 19:59] VITALS: TEMP 99.1
[2022-12-13 20:01] VITALS: BP 113/76; O2SAT 98
== END 2022-12-13 19:42 | disposition home or self-care (01) ==
LOC: ER 17:17
DX: R60.0 Localized edema (principal)
CPT/HCPCS: 36415; 80048; 80076; 85025; 99284

== ENCOUNTER 2023-04-20 10:32 | Inpatient (IN) | payer SELFPAY ==
--- OUTSIDE RECORDS SUMMARY | 2023-04-20 10:35 | XMS REPORT | Continuity of Care Document ---
:1990 Author Organization [facility] t Address [address] [place] [address] [place] [id number] Care Team Providers Name Role Phone Unavailable [...] Department ID 2022-07-13 2022-07-13 Outpatient ALCIDES MCGRATH [id number] 16:06:27 16:06:27 [id number] [address] [place] Results This patient has no known results.
[2023-04-20 10:52] LABS: Absolute Lymphocytes (CBC) 0.4 K/uL (0.7-4.9); Hematocrit 48.8 % (39.6-49.0); Lymphocytes % 2.4 % (15.3-44.8); MCV 97.1 fL (80-100); MPV 7.8 fL (7.6-11.3); Platelets 189 thou/uL (152-406); Protime INR 0.87; RBC Red Blood Cell Count 5.02 M/uL (4.33-5.43)
[2023-04-20] MEDS ORDERED: MORPHINE 4 MG/ML SYR ONE (10:58)
[2023-04-20] MEDS ORDERED: NA CHLORIDE 0.9% 100 ML ONE (10:58)
[2023-04-20] MEDS ORDERED: LEVETIRACETAM 500 MG/5 ML VIAL IV ONE (10:58)
[2023-04-20] MEDS ORDERED: FAMOTIDINE 20 MG/2 ML VIAL IV ONE (10:59)
[2023-04-20] MEDS ORDERED: NA CHLORIDE 0.9% 1,000 ML ONE ×2 (11:08→17:07)
[2023-04-20 11:12] LABS: Albumin 4.8 g/dL (3.4-5.0); Bilirubin Total 1.4 mg/dL (0.2-1.0); Magnesium 2.1 mg/dL (1.6-2.4); Potassium 3.9 mEq/L (3.5-5.1); Protein, Total 8.9 g/dL (6.4-8.2)
[2023-04-20 11:35] LABS: Blood Morphology Comment NOT SEEN (NOT SEEN); Platelet Estimate ADEQ; White Blood Cell Scan OK (OK)
--- NOTE | 2023-04-20 12:19 | RAD REPORT ---
EXAM DESCRIPTION: CT - Abdomen Pelvis W Contrast - 04/20/2023 11:29 am CLINICAL HISTORY: ABD PAIN COMPARISON: Abdomen Pelvis W Contrast dated 05/13/2022; Abdomen Pelvis W Contrast dated 05/10/2022 ; Abdomen Pelvis W Contrast dated 04/10/2022; Abdomen Pelvis W Contrast dated 02/26/2021 TECHNIQUE: Thin cut axial CT imaging of the abdomen and pelvis was performed following intravenous a dministration of 100 mL Isovue 300. Multiplanar reformats were generated and reviewed. All CT scans are performed using dose optimization technique as appropriate and may include automated exposure control or mA/KV adjustment according to patient size. FINDINGS: No suspicious findings in the lung bases. The liver demonstrates small foci of focal fatty infiltration adjacent to the gallbladder bed and fal ciform fissure spleen, and pancreas show no suspicious findings. Gallbladder again shows mild distent ion. Biliary tree without suspicious finding. Symmetric renal function is seen with no hydronephrosis or suspicious renal mass. No dilated bowel loops. Mild bowel wall thickening throughout most of the proximal colon, sparing the sigmoid. No free air, free fluid or inflammatory stranding. No hernia, mass or bulky lymphadenopathy . The urinary bladder is without significant finding. No suspicious bony findings. IMPRESSION: Mild bowel wall thickening throughout most of the proximal colon, suggestive of nonspeci fic colitis. No other acute findings.
--- NOTE | 2023-04-20 12:26 | ER ---
Nurse's Notes [facility] Name: Mitchell Mendez III Age: 32 yrs Sex: Male : 1990 Arrival Date: 04/20/2023 Time: 10:32 Bed 14 Private MD: Diagnosis: colitis, acute on chronic pancreatitis, metabolic acidosis Presentation: 04/20 10:39 Chief complaint: EMS states: "toned out for LUQ pain and blood in emesis that started mb9 this morning. Gave 4 mg of Zofran and 1 liter of 0.9% NS via 18 g to left AC. Pt has history of ETOH abuse and Pancreatitis.". Coronavirus screen: At this time, the client does not indicate any symptoms associated with coronavirus-19. Ebola Screen: No symptoms or risks identified at this time. Initial Sepsis Screen: Does the patient meet any 2 criteria? HR > 90 bpm. Does the patient have a suspected source of infection? No. Patient's initial sepsis screen is negative. Risk Assessment: Do you want to hurt yourself or someone else? Patient reports no desire to harm self or others. Onset of symptoms was April 20, 2023. 10:39 Acuity: CAROLINE 3 mb9 10:39 Method Of Arrival: EMS: [facility] mb9 Historical: - Allergies: 10:40 No Known Allergies; mb9 - Home Meds: 10:40 Keppra 1,000 mg oral tablet [Active]; mb9 - PMHx: 10:40 Migraine; Pancreatitis; repetitive head injury; scoliosis; Seizures; mb9 - PSHx: 10:40 None; mb9 - Immunization history:: Adult Immunizations up to date. - Social history:: Smoking status: Patient reports the use of cigarette tobacco products, smokes one-half pack cigarettes per day. Screenin:57 [facility] ED Fall Risk Assessment (Adult) History of falling in the last 3 months, mb9 including since admission No falls in past 3 months (0 pts) Confusion or Disorientation No (0 pts) Intoxicated or Sedated No (0 pts) Impaired Gait No (0 pts) Mobility Assist Device Used No (0 pt) Altered Elimination No (0 pt) Score/Fall Risk Level 0 - 2 = Low Risk Oriented to surroundings, Maintained a safe environment, Educated pt \\T\\ family on fall prevention, incl call for assistance when getting out of bed. Abuse screen: Denies threats or abuse. Nutritional screening: No deficits noted. Tuberculosis screening: No symptoms or risk factors identified. Assessment: 10:55 General: Appears uncomfortable, ill, Behavior is cooperative. Pain: Complains of pain mb9 in epigastric area Pain radiates to left upper quadrant Pain currently is 10 out of 10 on a pain scale. Quality of pain is described as sharp, shooting, Pain began suddenly, Is continuous. Neuro: Roland Agitation-Sedation Scale (RASS): 0 - Alert and Calm Level of Consciousness is awake, alert, obeys commands, Oriented to person, place, time, situation, Appropriate for age. Cardiovascular: Heart tones S1 S2 present Patient's skin is warm and dry. Respiratory: Airway is patent Respiratory effort is even, unlabored, Respiratory pattern is regular, symmetrical, Breath sounds are clear bilaterally. GI: Abdomen is flat, non-distended, Bowel sounds present X 4 quads. Reports nausea, vomiting. : No signs and/or symptoms were reported regarding the genitourinary system. EENT: No signs and/or symptoms were reported regarding the EENT system. Derm: Skin is pink, warm \\T\\ dry. Musculoskeletal: Range of motion: intact in all extremities. Musculoskeletal: tremors noted. 11:19 Reassessment: pt taken to CT via wheelchair. mb9 12:12 Reassessment: No changes from previously documented assessment. Patient and/or family mb9 updated on plan of care and expected duration. Pain level reassessed. Patient is alert, oriented x 3, equal unlabored respirations, skin warm/dry/pink. 13:45 Reassessment: Patient and/or family updated on plan of care and expected duration. Pain mb9 level reassessed. Patient is alert, oriented x 3, equal unlabored respirations, skin warm/dry/pink. Patient states feeling better. Patient states symptoms have improved. 14:12 Reassessment: See [facility] for further charting. mb9 17:00 Reassessment: Attempted to call report admitting nurse. mb9 Vital Signs: 10:39 BP 140 / 92; Pulse 100; Resp 18; Temp 98.2; Pulse Ox 100% ; Weight 54.43 kg; Height 6 mb9 ft. 3 in. ; Pain 10/10; 11:37 BP 159 / 91; Pulse 97; Resp 17; Pulse Ox 99% on R/A; mb9 12:12 BP 124 / 82; Pulse 93; Resp 18; Pulse Ox 100% on R/A; mb9 10:39 Body Mass Index 15.00 (54.43 kg, 190.5 cm) mb9 10:39 Pain Scale: Adult mb9 ED Course: 10:36 Patient arrived in ED. sb4 10:36 Gela Sosa PA-C [facility]. sb4 10:36 Toni Bojorquez MD is Attending Physician. sb4 10:38 Carmina Scruggs RN is Primary Nurse. mb9 10:40 Triage completed. mb9 10:41 Arm band placed on. mb9 10:52 Magnesium Sent. mb9 10:52 PT-INR Sent. mb9 10:52 ETOH Level Sent. mb9 10:52 CMP Sent. mb9 10:52 Lipase Sent. mb9 10:57 Placed in gown. Bed in low position. Call light in reach. Side rails up X 1. Client mb9 placed on continuous cardiac and pulse oximetry monitoring. NIBP monitoring applied. quality assurance monitor on. 11:31 CT Abd/Pelvis - IV Contrast Only In Process Unspecified. EDMS 12:24 Matthew Tim MD is Hospitalizing Provider. sb4 12:45 First set of blood cultures drawn by me, Second set of blood cultures drawn. sm8 12:53 Inserted saline lock: 22 gauge in right antecubital area, using aseptic technique. sm8 Blood collected. 12:54 Blood Culture Adult (2) Sent. mb9 14:12 No provider procedures requiring assistance completed. Patient admitted, IV remains in mb9 place. Administered Medications: 10:40 Drug: NS 0.9% IV 1000 ml IV at 1 bolus Per protocol; 1000 mL bolus Route: IV; Rate: 1 mb9 bolus; Site: left antecubital; 13:07 Follow up: Response: No adverse reaction; IV Status: Completed infusion mb9 10:48 Drug: morphine IVP or IV 4 mg IVP once over 4 mins Route: IVP; Infused Over: 4 mins; mb9 Site: left antecubital; 11:34 Follow up: Response: No adverse reaction mb9 10:50 Drug: Famotidine IVP 20 mg IVP once; dilute with 10 mL 0.9% NaCl; give over 2 minutes mb9 Route: IVP; Site: left antecubital; 11:34 Follow up: Response: No adverse reaction mb9 10:53 Drug: Keppra IV 1000 mg IV at calculated rate once Route: IV; Rate: calculated rate; mb9 Site: left antecubital; 11:34 Follow up: Response: No adverse reaction; IV Status: Completed infusion mb9 12:50 Drug: NS IV 0.45 % 1000 ml IV at 125 ml/hr continuous Route: IV; Rate: 125 ml/hr; Site: mb9 left antecubital; 12:54 Drug: metroNIDAZOLE IVPB 500 mg 100 ml IVPB at 200 ml/hr once over 30 mins Volume: 100 mb9 ml; Route: IVPB; Rate: 200 ml/hr; Infused Over: 30 mins; Site: right antecubital; 13:41 Follow up: Response: No adverse reaction; IV Status: Completed infusion; IV Intake: cm10 100ml 13:41 Drug: Ciprofloxacin IVPB 400 mg 200 ml IVPB once over 60 mins Volume: 200 ml; Route: cm10 IVPB; Infused Over: 60 mins; Site: right antecubital; Medication: 10:57 VIS not applicable for this client. mb9 Intake: 13:41 IV: 100ml; Total: 100ml. cm10 Outcome: 12:25 Decision to Hospitalize by Provider. sb4 17:13 Admitted to Med/surg accompanied by tech, via wheelchair, room 228, Report called to mbGelacio Ontiveros RN 17:13 Condition: stable 17:13 Instructed on the need for admit, 17:24 Patient left the ED. handy Signatures: Dispatcher [employer] EDGela Vinson PA-C PAGalileo sb4 Carmina Scruggs RN RN mb9 Zohra Juarez RN RN cm10 Michelle Epperson 8 Corrections: (The following items were deleted from the chart) 10:41 10:39 Chief complaint: EMS states: "toned out for LUQ pain and blood in emesis that mb9 started this morning. Pt has history of ETOH abuse and Pancreatitis." [email or web address]
--- NOTE | 2023-04-20 12:26 | EDPHYS ---
Physician Documentation [facility] Name: Mitchell Mendez III Age: 32 yrs Sex: Male : 1990 Arrival Date: 04/20/2023 Time: 10:32 Bed 14 Private MD: ED Physician Toni Bojorquez HPI: 04/20 10:38 This 32 yrs old Male presents to ER via Unassigned with complaints of abdominal pain. sb4 10:38 The patient presents with abdominal pain in the epigastric area, in the left upper sb4 quadrant. Onset: The symptoms/episode began/occurred this morning. The symptoms do not radiate. Associated signs and symptoms: Pertinent positives: nausea and vomiting, vomiting blood. Modifying factors: The symptoms are alleviated by nothing, the symptoms are aggravated by alcohol, drinking, food. The patient has experienced similar episodes in the past, a few times. The patient has not recently seen a physician. Historical: - Allergies: 10:40 No Known Allergies; mb9 - Home Meds: 10:40 Keppra 1,000 mg oral tablet [Active]; mb9 - PMHx: 10:40 Migraine; Pancreatitis; repetitive head injury; scoliosis; Seizures; mb9 - PSHx: 10:40 None; mb9 - Immunization history:: Adult Immunizations up to date. - Social history:: Smoking status: Patient reports the use of cigarette tobacco products, smokes one-half pack cigarettes per day. ROS: 10:38 Constitutional: Negative for fever, chills, and weight loss, sb4 10:38 Abdomen/GI: Positive for abdominal pain, nausea and vomiting, hematemesis, 10:38 All other systems are negative, Exam: 10:38 Head/Face: Normocephalic, atraumatic. Eyes: Extra-ocular motions intact. Periorbital sb4 areas with no swelling, redness, or edema. Respiratory: Lungs have equal breath sounds bilaterally, clear to auscultation and percussion. No rales, rhonchi or wheezes noted. No increased work of breathing, no retractions or nasal flaring. Skin: Warm, dry with normal turgor. Normal color with no rashes, no lesions, and no evidence of cellulitis. MS/ Extremity: Pulses equal, no cyanosis. Neurovascular intact. Full, normal range of motion. Neuro: Awake and alert, GCS 15, oriented to person, place, time, and situation. Motor strength 5/5 in all extremities. Sensory grossly intact. 10:38 Constitutional: The patient appears alert, awake, in obvious pain, uncomfortable, 10:38 Cardiovascular: Rate: tachycardic, Rhythm: regular, Pulses: no pulse deficits are appreciated, Heart sounds: normal, 10:38 Abdomen/GI: Inspection: abdomen appears normal, Bowel sounds: normal, Palpation: soft, mild abdominal tenderness, in the epigastric area and left upper quadrant, Vital Signs: 10:39 BP 140 / 92; Pulse 100; Resp 18; Temp 98.2; Pulse Ox 100% ; Weight 54.43 kg; Height 6 mb9 ft. 3 in. ; Pain 10/; 11:37 BP 159 / 91; Pulse 97; Resp 17; Pulse Ox 99% on R/A; mb9 12:12 BP 124 / 82; Pulse 93; Resp 18; Pulse Ox 100% on R/A; mb9 10:39 Body Mass Index 15.00 (54.43 kg, 190.5 cm) mb9 10:39 Pain Scale: Adult mb9 MDM: 10:36 Patient medically screened. sb4 10:38 Differential diagnosis: gastritis, gastroesophageal reflux disease, GI Bleed, sb4 non-specific abd pain, pancreatitis, Peptic Ulcer Disease. 12:23 Data reviewed: vital signs, nurses notes, EMS record, lab test result(s), radiologic sb4 studies, and as a result, I will admit patient. Consideration of Admission/Observation Patient was admitted/placed on observation. Management of patient was discussed with the following: Hospitalist: Gill COLLINS. Counseling: I had a detailed discussion with the patient and/or guardian regarding the historical points, exam findings, and any diagnostic results supporting the discharge/admit diagnosis, the presence of at least one elevated blood pressure reading (>120/80) during this emergency department visit, lab results, radiology results, the need for further work-up and treatment in the hospital. 04/20 10:37 Order name: CBC with Diff; Complete Time: 11:48 sb4 04/20 10:37 Order name: CMP; Complete Time: 11:12 sb4 04/20 10:37 Order name: Lipase; Complete Time: 11:12 sb4 04/20 10:37 Order name: ETOH Level; Complete Time: 11:12 sb4 04/20 10:37 Order name: PT-INR; Complete Time: 10:52 sb4 04/20 10:37 Order name: Magnesium; Complete Time: 11:12 sb4 04/20 11:35 Order name: CBC Smear Scan; Complete Time: 11:48 EDMS 04/20 12:21 Order name: Blood Culture Adult (2) sb4 04/20 12:21 Order name: Lactate w/ 2H reflex if indic.; Complete Time: 13:56 sb4 04/20 10:46 Order name: CT Abd/Pelvis - IV Contrast Only; Complete Time: 12:20 sb4 04/20 10:37 Order name: IV Saline Lock; Complete Time: 10:38 sb4 04/20 10:37 Order name: Labs collected and sent; Complete Time: 10:39 sb4 Administered Medications: 10:40 Drug: NS 0.9% IV 1000 ml IV at 1 bolus Per protocol; 1000 mL bolus Route: IV; Rate: 1 mb9 bolus; Site: left antecubital; 13:07 Follow up: Response: No adverse reaction; IV Status: Completed infusion mb9 10:48 Drug: morphine IVP or IV 4 mg IVP once over 4 mins Route: IVP; Infused Over: 4 mins; mb9 Site: left antecubital; 11:34 Follow up: Response: No adverse reaction mb9 10:50 Drug: Famotidine IVP 20 mg IVP once; dilute with 10 mL 0.9% NaCl; give over 2 minutes mb9 Route: IVP; Site: left antecubital; 11:34 Follow up: Response: No adverse reaction mb9 10:53 Drug: Keppra IV 1000 mg IV at calculated rate once Route: IV; Rate: calculated rate; mb9 Site: left antecubital; 11:34 Follow up: Response: No adverse reaction; IV Status: Completed infusion mb9 12:50 Drug: NS IV 0.45 % 1000 ml IV at 125 ml/hr continuous Route: IV; Rate: 125 ml/hr; Site: mb9 left antecubital; 12:54 Drug: metroNIDAZOLE IVPB 500 mg 100 ml IVPB at 200 ml/hr once over 30 mins Volume: 100 mb9 ml; Route: IVPB; Rate: 200 ml/hr; Infused Over: 30 mins; Site: right antecubital; 13:41 Follow up: Response: No adverse reaction; IV Status: Completed infusion; IV Intake: cm10 100ml 13:41 Drug: Ciprofloxacin IVPB 400 mg 200 ml IVPB once over 60 mins Volume: 200 ml; Route: cm10 IVPB; Infused Over: 60 mins; Site: right antecubital; Disposition Summary: 04/20/23 12:25 Hospitalization Ordered Notes: Hospitalization Status: Inpatient Admission sb4 Provider: Matthew Tim sb4 Condition: Fair sb4 Problem: new sb4 Symptoms: are unchanged sb4 Bed/Room Type: Standard sb4 Location: Telemetry/MedSurg (Inpatient)(04/20/23 16:40) dw Room Assignment: 228(04/20/23 16:40) dw Diagnosis - colitis, acute on chronic pancreatitis, metabolic acidosis sb4 Discharge Instructions: - Discharge Summary Sheet rs5 Forms: - Medication Reconciliation Form sb4 - Leadership Thank You Letter sb4 - SBAR form rs5 Addendum: 04/21/2023 18:07 I was immediately available for consultation during this patient's visit. I did not e c2 personally see the patient or guide the patient's care. . Signatures: Dispatcher [employer] Fiorella Ochoa RN RN Avis Perry Sophia, PA-C PA-C sb4 Carmina Scruggs RN RN mb9 Zohra Juarez RN RN cm10 Toni Bojorquez MD MD ec2 Corrections: (The following items were deleted from the chart) 04/20 13:48 12:25 Telemetry/MedSurg (Inpatient) sb4 eb 13:48 12:25 sb4 eb 16:40 13:48 [facility] ER HOLD eb dw 16:40 13:48 ERHOLD- eb dw
--- NOTE | 2023-04-20 12:47 | P.HP ---
Certification for Inpatient Patient admitted to: Inpatient With expected LOS: <2 Midnights Patient will require the following post-hospital care: None Practitioner: I am a practitioner with admitting privileges, knowledge of patient current condition, hospital course, and medical plan of care. Services: Services provided to patient in accordance with Admission requirements found in Title 42 Section 412.3 of the Code of Federal Regulations Patient History Date of Service: 04/20/23 History of Present Illness: 32-year-old male with a past medical history of pancreatitis, migraines, seizures, scoliosis, presents to the emergency room abdominal pain. He reports abdominal pain is in epigastric area radiates to the left upper quadrant. Started today. He reports associated nauseated and vomiting worse today. Nausea vomiting worse with p.o. intake. He reports history of pancreatitis. He denies fever, chills, edema, dizziness, rectal bleeding. Abdominal pain is rated 10 out of 10. Left upper quadrant. Plan to admit for colitis, history chronic pancreatitis, metabolic acidosis Laboratory evaluation mild hyponatremia 134 potassium is normal, WBCs elevated at 18.30, elevated neutrophils 9.4, acute kidney injury BUN 17 creatinine 1.45, estimated GFR 66, glucose 153, transaminitis AST 59, ALT 85, lipase normal at 27, alcohol negative. CT of the abdomen pelvis IMPRESSION: Mild bowel wall thickening throughout most of the proximal colon, suggestive of nonspecific colitis. No other acute findings. Allergies No Known Allergies Allergy (Verified 08/17/20 23:26) Home Medications: levETIRAcetam [Keppra Tab] 500 mg PO BID #60 tab 05/14/22 - Past Medical/Surgical History Diabetic: No -: Heart palpitations -: Seizure disorder -: Migraines -: Alcohol abuse -: None Psychosocial/ Personal History: Unemployed, lives at home with significant other - Family History Mother -: Heart disease, Diabetes, Stroke - Social History Alcohol use: Yes CD- Drugs: Yes Caffeine use: Yes Review of Systems 10-point ROS is otherwise unremarkable Physical Examination - Physical Exam General: Alert, In no apparent distress, Oriented x3 HEENT: Atraumatic, Normocephalic Neck: Supple, 2+ carotid pulse no bruit Respiratory: Clear to auscultation bilaterally, Normal air movement Cardiovascular: No edema, Normal pulses, Regular rate/rhythm Gastrointestinal: Hypoactive (LUQ tendernes) Musculoskeletal: No clubbing, No swelling Integumentary: No breakdown, No significant lesion Neurological: Normal speech, Normal strength at 5/5 x4 extr - Studies Laboratory Data (last 24 hrs) 04/20/23 04/20/23 04/20/23 10:42 10:42 10:42 WBC 18.30 H Hgb 16.8 Hct 48.8 Plt Count 189 PT 9.6 INR 0.87 Sodium 134 L Potassium 3.9 BUN 17 Creatinine 1.45 H Glucose 153 H Magnesium 2.1 Total Bilirubin 1.4 H AST 59 H ALT 85 H Alkaline Phosphatase 112 Lipase 27 Assessment and Plan - Plan Assessment and plan Colitis Abdominal pain, nausea vomiting WBCs elevated at 18.30, elevated neutrophils 9.4, IV Flagyl, Cipro, as needed analgesics, as needed antiemetics, IV fluids CT of the abdomen pelvis IMPRESSION: Mild bowel wall thickening throughout most of the proximal colon, suggestive of nonspecific colitis. Acute kidney injury likely secondary to prerenal nausea vomiting BUN 17 creatinine 1.45, estimated GFR 66, glucose 153, IV fluids, Transaminitis transaminitis AST 59, ALT 85, lipase normal at 27, alcohol negative. He reports history of fatty liver, prior alcohol History of chronic pancreatitis History migraines History seizures History scoliosis Resume appropriate home medications Diet n.p.o. Full code DVT Lovenox Discharge Plan: Home Plan to discharge in: 48 Hours - Advance Directives Does patient have a Living Will: No Does patient have a Durable POA for Healthcare: No - Code Status/Comfort Care Code Status: Full Code Physician Review: Patient Assessed, Agree with Above Assessment and Plan Critical Care: No Time Spent Managing Pts Care (In Minutes): 50
[2023-04-20] MEDS ORDERED: METRONIDAZOLE 500mg IVPB 500 MG/100 ML BAG IV ONE (12:51)
[2023-04-20] MEDS ORDERED: NACHLORIDE 0.45% 1,000 ML IV ONE (12:51)
[2023-04-20] MEDS ORDERED: CIPROFLOXACIN 400mg IV 400 MG/200 ML BAG IV ONE (12:51)
[2023-04-20 13:50] VITALS: BMI 15.0
[2023-04-20] MEDS ORDERED: NA CHLORIDE 0.9% 1,000 ML IV SCH (13:53)
[2023-04-20] MEDS: MORPHINE 4 MG/ML SYR IV PRN ×2 (14:10→20:36)
[2023-04-20] MEDS: ONDANSETRON 4 MG/2 ML VIAL IV PRN ×2 (14:11→20:36)
[2023-04-20] MEDS: METRONIDAZOLE 500mg IVPB 500 MG/100 ML BAG IV SCH (16:26)
[2023-04-20] MEDS: LORazepam 2 MG/ML VIAL IV PRN ×2 (16:56→20:37)
[2023-04-20] MEDS: NA CHLORIDE 0.9% 1,000 ML IV SCH (18:04)
[2023-04-20] MEDS: CIPROFLOXACIN 400mg IV 400 MG/200 ML BAG IV SCH (20:35)
[2023-04-20] MEDS: levETIRAcetam 500 MG in NA CHLORIDE 0.9% 100 ML IV SCH (20:36)
--- NOTE | 2023-04-21 00:14 | P.PN ---
Date of Service: 04/21/23 Patient requesting to advance his diet. Patient still having a significant amount of pain to where he is needing pain medication routinely. He is not having any nausea or vomiting at this time. White count is elevated on admission and repeat pending in the morning. We will reassess him in a.m. and if his pain is better controlled and he continues to go without any nausea or vomiting we can consider advancing his diet at that time. However, we did let him know that his pain has to be better controlled before we make any signi ficant changes in his diet.
[2023-04-21] MEDS: METRONIDAZOLE 500mg IVPB 500 MG/100 ML BAG IV SCH ×3 (00:36→16:15)
[2023-04-21 03:59] LABS: Absolute Lymphocytes (CBC) 1.2 K/uL (0.7-4.9); Hematocrit 39.6 % (39.6-49.0); Lymphocytes % 15.3 % (15.3-44.8); MCV 96.8 fL (80-100); MPV 8.4 fL (7.6-11.3); Platelets 129 thou/uL (152-406); RBC Red Blood Cell Count 4.09 M/uL (4.33-5.43)
[2023-04-21 04:20] LABS: Potassium 3.6 mEq/L (3.5-5.1)
[2023-04-21] MEDS: MORPHINE 4 MG/ML SYR IV PRN ×3 (04:32→18:44)
[2023-04-21] MEDS: ONDANSETRON 4 MG/2 ML VIAL IV PRN ×3 (04:32→18:44)
[2023-04-21] MEDS: NA CHLORIDE 0.9% 1,000 ML IV SCH ×2 (04:33→11:31)
[2023-04-21] MEDS: CIPROFLOXACIN 400mg IV 400 MG/200 ML BAG IV SCH ×2 (08:13→21:34)
[2023-04-21] MEDS: levETIRAcetam 500 MG in NA CHLORIDE 0.9% 100 ML IV SCH ×2 (08:13→20:12)
[2023-04-21] MEDS: LORazepam 2 MG/ML VIAL IV PRN ×2 (09:53→20:11)
[2023-04-21] MEDS ORDERED: SODIUM CHLORIDE 0.9% 10ML INJ IV PRN (10:04)
--- NOTE | 2023-04-21 10:04 | P.PN ---
Subjective Date of Service: 04/21/23 Primary Care Provider: Dr. Garrett Chief Complaint: Abdominal pain, NV Subjective: No new changes, Improving Plan to advance today, nausea improving/conrolled with prn meds Review of Systems 10-point ROS is otherwise unremarkable Physical Examination - Vital Signs Temperature: 98.2 F Blood Pressure: 125/64 Pulse: 72 Respirations: 17 Pulse Ox (%): 97 - Physical Exam General: Alert, In no apparent distress, Oriented x3 HEENT: Atraumatic, Normocephalic Neck: Supple, 2+ carotid pulse no bruit Respiratory: Clear to auscultation bilaterally, Normal air movement Cardiovascular: No edema, Normal pulses Capillary refill: <2 Seconds Gastrointestinal: Normal bowel sounds, Soft and benign Musculoskeletal: No clubbing, No swelling Neurological: Normal speech, Normal strength at 5/5 x4 extr - Studies Laboratory Data (last 24 hrs) 04/20/23 04/20/23 04/20/23 10:42 10:42 10:42 WBC 18.30 H Hgb 16.8 Hct 48.8 Plt Count 189 PT 9.6 INR 0.87 Sodium 134 L Potassium 3.9 BUN 17 Creatinine 1.45 H Glucose 153 H Magnesium 2.1 Total Bilirubin 1.4 H AST 59 H ALT 85 H Alkaline Phosphatase 112 Lipase 27 Assessment And Plan - Plan Assessment and plan Colitis acute Abdominal pain, nausea vomiting acute WBCs elevated at 18.30, elevated neutrophils 9.4, IV Flagyl, Cipro, as needed analgesics, as needed antiemetics, IV fluids CT of the abdomen pelvis IMPRESSION: Mild bowel wall thickening throughout most of the proximal colon, suggestive of nonspecific colitis. Advance diet today Acute kidney injury likely secondary to prerenal nausea vomiting acute BUN 17 creatinine 1.45, estimated GFR 66, glucose 153, IV fluids, Transaminitis transaminitis AST 59, ALT 85, lipase normal at 27, alcohol negative. He reports history of fatty liver, prior alcohol History of chronic pancreatitis History migraines History seizures History scoliosis Resume appropriate home medications Diet n.p.o. Full code DVT Lovenox Discharge Plan: Home - Code Status/Comfort Care Code Status: Full Code Physician Review: Patient Assessed, Agree with Above Assessment and Plan Critical Care: No Time Spent Managing PTS Care (In Minutes): 35
[2023-04-21] MEDS: PANTOPRAZOLE 40 MG INJ IVP SCH ×2 (11:30→21:35)
[2023-04-21] MEDS ORDERED: NA CHLORIDE 0.9% 100 ML ONE (20:21)
[2023-04-22] MEDS: METRONIDAZOLE 500mg IVPB 500 MG/100 ML BAG IV SCH ×2 (00:32→08:18)
[2023-04-22] MEDS: MORPHINE 4 MG/ML SYR IV PRN ×3 (00:33→12:43)
[2023-04-22 00:55] VITALS: O2SAT 97
[2023-04-22 02:52] LABS: Absolute Lymphocytes (CBC) 1.3 K/uL (0.7-4.9); Hematocrit 39.1 % (39.6-49.0); Lymphocytes % 25.2 % (15.3-44.8); MCV 97.4 fL (80-100); MPV 8.5 fL (7.6-11.3); Platelets 100 thou/uL (152-406); RBC Red Blood Cell Count 4.02 M/uL (4.33-5.43)
[2023-04-22 03:01] LABS: Potassium 3.3 mEq/L (3.5-5.1)
[2023-04-22] MEDS: LORazepam 2 MG/ML VIAL IV PRN ×2 (04:20→12:38)
[2023-04-22] MEDS: CIPROFLOXACIN 400mg IV 400 MG/200 ML BAG IV SCH (08:18)
[2023-04-22] MEDS: levETIRAcetam 500 MG in NA CHLORIDE 0.9% 100 ML IV SCH (08:18)
[2023-04-22] MEDS: PANTOPRAZOLE 40 MG INJ IVP SCH (08:23)
--- NOTE | 2023-04-22 08:30 | P.DS ---
Admission Date: 04/20/23 Discharge Date: 04/22/23 Primary Care Provider: Dr. Garrett Disposition: TRANSFER TO PRISON Discharge Condition: GOOD Reason for Admission: Abdominal pain, NV Vital Signs/Physical Exam: Temp Pulse Resp BP Pulse Ox 98.8 F 63 18 118/68 98 04/22/23 04:00 04/22/23 04:00 04/22/23 05:40 04/22/23 04:00 04/22/23 05:40 General: Alert, Oriented x3 HEENT: Atraumatic, Normocephalic Neck: Supple, 2+ carotid pulse no bruit Respiratory: Clear to auscultation bilaterally, Normal air movement Cardiovascular: No edema, Normal pulses, Regular rate/rhythm Capillary refill: <2 Seconds Gastrointestinal: Normal bowel sounds, Hypoactive, Soft and benign Musculoskeletal: No clubbing, No swelling Integumentary: No rashes, No breakdown Laboratory Data at Discharge: WBC 5.30 thou/uL (4.3-10.9) 04/22/23 01:45 Hgb 13.5 g/dL (13.6-17.9) L 04/22/23 01:45 Hct 39.1 % (39.6-49.0) L 04/22/23 01:45 Plt Count 100 thou/uL (152-406) L 04/22/23 01:45 PT 9.6 SECONDS (9.5-12.5) 04/20/23 10:42 INR 0.87 04/20/23 10:42 Sodium 136 mEq/L (136-145) 04/22/23 01:45 Potassium 3.3 mEq/L (3.5-5.1) L 04/22/23 01:45 BUN 5 mg/dL (7-18) L 04/22/23 01:45 Creatinine 0.64 mg/dL (0.70-1.30) L 04/22/23 01:45 Glucose 102 mg/dL (74-106) 04/22/23 01:45 Phosphorus 2.9 mg/dL (2.5-4.9) 04/22/23 01:45 Magnesium 2.0 mg/dL (1.6-2.4) 04/22/23 01:45 Total Bilirubin 1.4 mg/dL (0.2-1.0) H 04/20/23 10:42 AST 59 U/L (15-37) H 04/20/23 10:42 ALT 85 U/L (16-61) H 04/20/23 10:42 Alkaline Phosphatase 112 U/L (45-117) 04/20/23 10:42 Lipase Cancelled 04/20/23 13:53 Home Medications: levETIRAcetam [Keppra*] 500 mg PO BID #60 tab 05/14/22 Physician Discharge Instructions: Mr. Mendez 32-year-old is a pleasant male patient with a past medical history significant for pancreatitis, migraine, seizures, scoliosis, who was admitted to the [facility] on 04/20/2020 for patient.presents to the emergency room abdominal pain. He reports abdominal pain is in epigastric area radiates to the left upper quadrant. Started today. He reports associated nauseated and vomiting worse today. Nausea vomiting worse with p.o. intake. He reports history of pancreatitis. He denies fever, chills, edema, dizziness, rectal bleeding. Abdominal pain is rated 10 out of 10. Left upper quadrant. Plan to admit for colitis, history chronic pancreatitis, metabolic acidosis Laboratory evaluation mild hyponatremia 134 potassium is normal, WBCs elevated at 18.30, elevated neutrophils 9.4, acute kidney injury BUN 17 creatinine 1.45, estimated GFR 66, glucose 153, transaminitis AST 59, ALT 85, lipase normal at 27, alcohol negative. CT of the abdomen pelvis IMPRESSION: Mild bowel wall thickening throughout most of the proximal colon, suggestive of nonspecific colitis. No other acute findings. Patient was treated with Flagyl and Cipro IV for colitis. Treated with as needed pain medications and nausea medications. Given IV fluids. WBCs returned to normal after IV antibiotics and IV fluids. Acute kidney injury from dehydration labs returned to normal after IV fluids. Patient has abnormal liver enzymes AST 59 ALT 50, lipase was normal, patient reports history of fatty liver. Patient denies current alcohol use. On 04/22/2020, patient was seen on morning rounds and deemed medically stable for discharge. Patient was discharged with instructions to schedule follow-up appointments with PCP. Patient was provided prescriptions for [text]. The patient and family members were given the opportunity to ask questions and reported no further questions. Furthermore, all questions were answered to the best of my ability. -Advance diet to as tolerated, -Activity as tolerated Follow up with PCP in 1 to 2 weeks -Please call nursing station [phone] if you have any questions regarding your medications, or hospital stay -Please return to the emergency department if your symptoms worsen Diet: Regular Activity: Ad jyotsna Followup: NONE,NONE [Primary Care Provider] -
[2023-04-22] MEDS ORDERED: POTASSIUM CL SA 10 MEQ TAB PO ONE (09:00)
[2023-04-22] MEDS ORDERED: KCL 20 MEQ/100 mL IVPB 20 MEQ/100 ML BAG IV ONE (09:00)
[2023-04-22] MEDS: ONDANSETRON 4 MG/2 ML VIAL IV PRN (12:37)
[2023-04-22 16:17] VITALS: BP 136/98; TEMP 98.5
[2023-04-22] MEDS ORDERED: ENSURE MAX PROTEIN 330 ML LIQUID PO SCH (21:00)
== END 2023-04-22 17:06 | disposition home or self-care (01) | DRG 683 ==
LOC: ER 10:32 → ERHOLD 12:47 → 2ND 17:14
PROVIDERS: ADMIT Internal Medicine Nephrology; ATTEND Hospitalist
DX: N17.9 Acute kidney failure, unspecified (principal); E87.1 Hypo-osmolality and hyponatremia; E87.20 Acidosis, unspecified; K86.1 Other chronic pancreatitis; E86.0 Dehydration; K52.9 Noninfective gastroenteritis and colitis, unspecified; G43.909 Migraine, unspecified, not intractable, without status migrainosus; M41.9 Scoliosis, unspecified; F17.210 Nicotine dependence, cigarettes, uncomplicated; R56.9 Unspecified convulsions; R74.01 Elevation of levels of liver transaminase levels; Z79.899 Other long term (current) drug therapy
CPT/HCPCS: 36415; 74177; 80048; 80053; 82077; 83605; 83690; 83735; 84100; 85025; 85610; 87040; 99285; C9113; J0744; J1953; J2405; J3480; J7030; Q9967

== ENCOUNTER 2023-05-13 07:32 | Emergency (ER) | payer SELFPAY ==
--- OUTSIDE RECORDS SUMMARY | 2023-05-13 07:35 | XMS REPORT | Continuity of Care Document ---
:1990 Author Organization [facility] t Address [address] [place] [address] [place] [id number] Care Team Providers Name Role Phone Unavailable [...] Department ID 2022-07-13 2022-07-13 Outpatient ALCIDES MCGRATH [id number] 16:06:27 16:06:27 [id number] [address] [place] Results This patient has no known results.
[2023-05-13] MEDS ORDERED: ONDANSETRON 4 MG/2 ML VIAL ONE (09:01)
[2023-05-13] MEDS ORDERED: IBUPROFEN 400 MG TAB ONE (09:01)
[2023-05-13] MEDS ORDERED: NA CHLORIDE 0.9% 1,000 ML ONE ×2 (09:01→10:25)
[2023-05-13] MEDS ORDERED: FAMOTIDINE 20 MG/2 ML VIAL IV ONE (09:01)
[2023-05-13 09:13] LABS: Absolute Lymphocytes (CBC) 0.2 K/uL (0.7-4.9); Hematocrit 45.8 % (39.6-49.0); Lymphocytes % 3.3 % (15.3-44.8); MCV 96.5 fL (80-100); MPV 8.4 fL (7.6-11.3); Platelets 126 thou/uL (152-406); RBC Red Blood Cell Count 4.75 M/uL (4.33-5.43)
[2023-05-13 09:37] LABS: Albumin 4.1 g/dL (3.4-5.0); Bilirubin Total 0.6 mg/dL (0.2-1.0); Protein, Total 7.9 g/dL (6.4-8.2)
[2023-05-13 09:44] LABS: SARS-CoV-2 Antigen Rapid Res Negative (Negative)
[2023-05-13] MEDS ORDERED: MORPHINE 4 MG/ML SYR ONE (09:47)
[2023-05-13] MEDS ORDERED: INSULIN REGULAR (HUMAN) 100 UNIT/ML ONE (10:25)
[2023-05-13 12:00] LABS: Blood Morphology Comment NOT SEEN (NOT SEEN); Platelet Estimate DECR
[2023-05-13] MEDS ORDERED: OSELTAMIVIR 75 MG CAP PO ONE (12:05)
[2023-05-13 13:36] LABS: Potassium 3.7 mEq/L (3.5-5.1)
--- NOTE | 2023-05-13 13:48 | EDPHYS ---
Physician Documentation [facility] Name: Mitchell Mendez III Age: 32 yrs Sex: Male : 1990 Arrival Date: 05/13/2023 Time: 07:32 Bed 17 Private MD: ED Physician Harris Batista HPI: 05/13 08:15 This 32 yrs old Male presents to ER via Ambulatory with complaints of Vomiting, rn Abdominal Pain. 08:15 This 32 yrs old Male presents to ER via Ambulatory with complaints of Vomiting, flu. rn 08:15 The patient presents to the emergency department with nausea, vomiting. Onset: The rn symptoms/episode began/occurred at an unknown time. Possible causes: sick contacts, by family. The symptoms are aggravated by nothing. The symptoms are alleviated by nothing. Associated signs and symptoms: Pertinent positives: diarrhea, nausea, vomiting, Runny nose, congestion, sore throat. Severity of symptoms: At their worst the symptoms were moderate in the emergency department the symptoms are unchanged. The patient has experienced similar episodes in the past. The patient has not recently seen a physician. Patient reports 2 days of worsening vomiting, congestion, sore throat, cough. Kids at home tested positive for the flu. They were vomiting as well. Patient reports chronic pancreatitis due to alcoholism, does not drink as much now. Does not feel like he is withdrawing as he has before. Low-grade temperature present. No shortness of breath. Reports this does not feel like his pancreatitis or as bad is his pancreatitis.. Historical: - Allergies: 07:53 No Known Allergies; hb - Home Meds: 07:53 Keppra 1 Oral tablet [Active]; hb - PMHx: 07:53 Migraine; Pancreatitis; repetitive head injury; scoliosis; Seizures; hb - Immunization history:: Adult Immunizations up to date. - Social history:: Smoking status: Patient reports the use of cigarette tobacco products, smokes one-half pack cigarettes per day. - Family history:: not pertinent. - Hospitalizations: : No recent hospitalization is reported. ROS: 08:15 Constitutional: Positive for fever, chills, myalgias Eyes: Negative for injury, pain, rn redness, and discharge, ENT: Positive for runny nose and sore throat Cardiovascular: Negative for chest pain, palpitations, and edema, Respiratory: Negative for shortness of breath, cough, wheezing, and pleuritic chest pain, Abdomen/GI: Positive for abdominal pain/nausea/vomiting MS/Extremity: Negative for injury and deformity, Skin: Negative for injury, rash, and discoloration, Neuro: Positive for headache and generalized weakness Exam: 08:15 Constitutional: Thin male, no acute distress Head/Face: Normocephalic, atraumatic. 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 No Meningismus. Cardiovascular: Tachycardic, regular. Respiratory: Speaking full sentences, unlabored. No increased work of breathing, no retractions or nasal flaring. Abdomen/GI: Soft, mild epigastric tenderness. No rebound MS/ Extremity: Pulses equal, no cyanosis. Neuro: Awake and alert, GCS 15 Vital Signs: 07:49 BP 147 / 98; Pulse 123; Resp 16; Temp 99.7(TE); Pulse Ox 98% on R/A; Weight 56.7 kg; hb Height 6 ft. 3 in. ; Pain 9/10; 09:05 BP 141 / 84; Pulse 112; Resp 18; Pulse Ox 98% on R/A; mb9 11:19 BP 111 / 90; Pulse 95; Resp 16; Pulse Ox 97% on R/A; mb9 12:24 BP 122 / 70; Pulse 99; Resp 18; Pulse Ox 97% on R/A; mb9 07:49 Body Mass Index 15.62 (56.70 kg, 190.5 cm) hb 07:49 Pain Scale: Adult hb MDM: 07:35 Patient medically screened. rn 13:43 Differential diagnosis: Nonspecific abd pain, gastritis, pancreatitis, viral rn gastroenteritis, gastroenteritis. Data reviewed: vital signs, nurses notes, lab test result(s), and as a result, I will discharge patient. 13:44 Care significantly affected by the following chronic conditions: Chronic pancreatitis. rn Counseling: I had a detailed discussion with the patient and/or guardian regarding the historical points, exam findings, and any diagnostic results supporting the discharge/admit diagnosis, lab results, the need for outpatient follow up, to return to the emergency department if symptoms worsen or persist or if there are any questions or concerns that arise at home. Response to treatment: the patient's symptoms have markedly improved after treatment, and as a result, I will discharge patient. Special discussion: I discussed with the patient/guardian in detail that at this point there is no indication for admission to the hospital. It is understood, however, that if the symptoms persist or worsen the patient needs to return immediately for re-evaluation. ED course: No acute findings on labs other than influenza B positive. This was anticipated as family members with flu B as well. No signs of pancreatitis at this time. Normal WBC. No longer vomiting. Reports mild nausea but feels much better. Initially had mild elevation of glucose and acidosis on the basic metabolic panel, 2 bags of fluids given with correction of acidosis as well as normalization of glucose. Told patient to follow-up with PCP for further evaluation and to rule out diabetes given chronic pancreatitis. I have personally reviewed all of the results, including but not limited to blood tests deemed necessary to safely discharge this patient at this time. All results given to and printed out for patient. I personally went over all the results with the patient and answered all questions. Patient will follow-up with PCP and or specialist as discussed. Return precautions given and understood.. 05/13 07:54 Order name: CBC with Diff; Complete Time: 12:07 rn 05/13 07:54 Order name: CMP; Complete Time: 09:57 rn 05/13 07:54 Order name: Lipase; Complete Time: 09:57 rn 05/13 07:54 Order name: Flu; Complete Time: 09:57 rn 05/13 07:54 Order name: SARS RAPID; Complete Time: 09:57 rn 05/13 11:29 Order name: BMP; Complete Time: 13:40 rn 05/13 12:00 Order name: Manual Differential; Complete Time: 12:07 EDMS 05/13 07:54 Order name: IV Saline Lock; Complete Time: 09: rn 05/13 07:54 Order name: Labs collected and sent; Complete Time: 09:04 rn Administered Medications: 08:48 Drug: Ondansetron IVP 4 mg IVP once; over 2 minutes Route: IVP; Site: left antecubital; mb9 09:29 Follow up: Response: No adverse reaction mb9 09:04 Drug: NS 0.9% IV 1000 ml IV at 1 bolus Per protocol; 1000 mL bolus Route: IV; Rate: 1 mb9 bolus; Site: left antecubital; 09:04 Drug: Ibuprofen PO 800 mg PO once Route: PO; mb9 09:29 Follow up: Response: No adverse reaction mb9 09:05 Drug: Famotidine IVP 20 mg IVP once; dilute with 10 mL 0.9% NaCl; give over 2 minutes mb9 Route: IVP; Site: left antecubital; 09:29 Follow up: Response: No adverse reaction mb9 09:33 Drug: morphine IVP or IV 4 mg IVP once over 4 mins Route: IVP; Infused Over: 4 mins; mb9 Site: left antecubital; 11:54 Follow up: Response: No adverse reaction mb9 10:15 Drug: NS 0.9% IV 1000 ml IV at 1000 ml once Route: IV; Rate: 1000 ml; Site: left mb9 antecubital; 10:15 Drug: Insulin Regular Human Sub-Q 5 units Sub-Q once {Co-Signature: ld1 (Tyra Lorenzana9 RN).} Route: Sub-Q; Site: left upper arm; 12:31 Follow up: Response: No adverse reaction mb9 11:54 Drug: Oseltamivir PO 75 mg PO once Route: PO; mb9 12:31 Follow up: Response: No adverse reaction mb9 13:54 Drug: Promethazine IVP 12.5 mg IVP once Route: IVP; Site: left antecubital; mb9 Disposition Summary: 05/13/23 13:47 Discharge Ordered Notes: Location: Home rn Problem: new rn Symptoms: have improved rn Condition: Stable rn Diagnosis - Influenza due to other identified influenza virus with gastrointestinal rn manifestations - Acidosis rn - Dehydration rn Followup: rn - With: Private Physician - When: As needed - Reason: Recheck today's complaints, Re-evaluation by your physician Discharge Instructions: - Discharge Summary Sheet rn - Dehydration, Adult rn - Hyperglycemia rn - Influenza, Adult rn Forms: - Medication Reconciliation Form rn - Thank You Letter rn - 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 - Prescription Opioid Use rn - Patient Portal Instructions rn - Leadership Thank You Letter rn Prescriptions: - ondansetron 4 mg Oral Tablet,disintegrating - take 1 tablet ORAL route every 8 hours As needed; 15 tablet; Refills: 0, rn Product Selection Permitted - Tamiflu 75 mg Oral capsule - take 1 tablet ORAL route every 12 hours for 5 days; 10 tablet; Refills: 0, rn Product Selection Permitted Signatures: Dispatcher [employer] Harris Sun MD MD rn Baxter, Heather, RN RN Carmina Scruggs RN RN mb9 Tyra Lorenzana RN ld1 Corrections: (The following items were deleted from the chart) 13:47 13:43 Data reviewed: vital signs, nurses notes, lab test result(s), radiologic studies, rn CT scan, and as a result, I will discharge patient, rn 14:01 09:59 BETA HYDROXYBUTYRATE+C.LAB.BRZ ordered. rn mb9
--- NOTE | 2023-05-13 13:48 | ER ---
Nurse's Notes [facility] Name: Mitchell Mendez III Age: 32 yrs Sex: Male : 1990 Arrival Date: 05/13/2023 Time: 07:32 Bed 17 Private MD: Diagnosis: Influenza due to other identified influenza virus with gastrointestinal manifestations;Acidosis;Dehydration Presentation: 05/13 07:49 Chief complaint: Fever, chills, runny nose, headache, N/V, and abdominal pain x 2 days. hb Coronavirus screen: At this time, the client does not indicate any symptoms associated with coronavirus-19. Ebola Screen: No symptoms or risks identified at this time. 07:49 Method Of Arrival: Ambulatory hb 07:49 Initial Sepsis Screen: Does the patient meet any 2 criteria? HR > 90 bpm. No. Patient's hb initial sepsis screen is negative. Does the patient have a suspected source of infection? No. Patient's initial sepsis screen is negative. Risk Assessment: Do you want to hurt yourself or someone else? Patient reports no desire to harm self or others. Onset of symptoms was May 12, 2023. 07:49 Acuity: CAROLINE 2 hb Historical: - Allergies: 07:53 No Known Allergies; hb - Home Meds: 07:53 Keppra 1 Oral tablet [Active]; hb - PMHx: 07:53 Migraine; Pancreatitis; repetitive head injury; scoliosis; Seizures; hb - Immunization history:: Adult Immunizations up to date. - Social history:: Smoking status: Patient reports the use of cigarette tobacco products, smokes one-half pack cigarettes per day. - Family history:: not pertinent. - Hospitalizations: : No recent hospitalization is reported. Screenin:06 [facility] ED Fall Risk Assessment (Adult) History of falling in the last 3 months, mb9 including since admission No falls in past 3 months (0 pts) Confusion or Disorientation No (0 pts) Intoxicated or Sedated No (0 pts) Impaired Gait No (0 pts) Mobility Assist Device Used No (0 pt) Altered Elimination No (0 pt) Score/Fall Risk Level 0 - 2 = Low Risk Oriented to surroundings, Maintained a safe environment, Educated pt \T\ family on fall prevention, incl call for assistance when getting out of bed. Abuse screen: Denies threats or abuse. Nutritional screening: No deficits noted. Tuberculosis screening: No symptoms or risk factors identified. Assessment: 08:40 Reassessment: pt brought back to ER room. mb9 09:05 General: Appears uncomfortable, ill, Behavior is cooperative. Pain: Complains of pain mb9 in abdomen. Neuro: Roland Agitation-Sedation Scale (RASS): 0 - Alert and Calm Level of Consciousness is awake, alert, obeys commands, Oriented to person, place, time, situation, Appropriate for age. Neuro: Reports headache. Cardiovascular: Patient's skin is warm and dry. Respiratory: Airway is patent Respiratory effort is even, unlabored, Respiratory pattern is regular, symmetrical. GI: Abdomen is flat, non-distended, Bowel sounds present X 4 quads. Abd is soft and non tender X 4 quads. Reports nausea, vomiting. : No signs and/or symptoms were reported regarding the genitourinary system. EENT: No signs and/or symptoms were reported regarding the EENT system. Derm: Skin is pink, warm \T\ dry. Musculoskeletal: Range of motion: intact in all extremities. 11:19 Reassessment: Patient appears in no apparent distress at this time. No changes from mb9 previously documented assessment. Patient and/or family updated on plan of care and expected duration. Pain level reassessed. Patient is alert, oriented x 3, equal unlabored respirations, skin warm/dry/pink. 12:24 Reassessment: No changes from previously documented assessment. Patient and/or family mb9 updated on plan of care and expected duration. Pain level reassessed. Patient is alert, oriented x 3, equal unlabored respirations, skin warm/dry/pink. Vital Signs: 07:49 BP 147 / 98; Pulse 123; Resp 16; Temp 99.7(TE); Pulse Ox 98% on R/A; Weight 56.7 kg; hb Height 6 ft. 3 in. ; Pain 9/10; 09:05 BP 141 / 84; Pulse 112; Resp 18; Pulse Ox 98% on R/A; mb9 11:19 BP 111 / 90; Pulse 95; Resp 16; Pulse Ox 97% on R/A; mb9 12:24 BP 122 / 70; Pulse 99; Resp 18; Pulse Ox 97% on R/A; mb9 07:49 Body Mass Index 15.62 (56.70 kg, 190.5 cm) hb 07:49 Pain Scale: Adult hb ED Course: 07:34 Patient arrived in ED. mg5 07:35 Harris Batista MD is Attending Physician. rn 07:53 Triage completed. hb 07:53 Arm band placed on. hb 08:43 Carmina Scruggs, PALAK is Primary Nurse. mb9 09:04 Inserted saline lock: 20 gauge in left antecubital area, using aseptic technique. mb9 09:04 SARS RAPID Sent. mb9 09:04 Flu Sent. mb9 09:04 CBC with Diff Sent. mb9 09:04 CMP Sent. mb9 09:04 Lipase Sent. mb9 09:06 Placed in gown. Bed in low position. Call light in reach. Side rails up X 1. Client mb9 placed on continuous cardiac and pulse oximetry monitoring. NIBP monitoring applied. 12:24 No provider procedures requiring assistance completed. mb9 13:16 BMP Sent. mb9 14:00 IV discontinued, intact, bleeding controlled, No redness/swelling at site. Pressure mb9 dressing applied. Administered Medications: 08:48 Drug: Ondansetron IVP 4 mg IVP once; over 2 minutes Route: IVP; Site: left antecubital; mb9 09:29 Follow up: Response: No adverse reaction mb9 09:04 Drug: NS 0.9% IV 1000 ml IV at 1 bolus Per protocol; 1000 mL bolus Route: IV; Rate: 1 mb9 bolus; Site: left antecubital; 09:04 Drug: Ibuprofen PO 800 mg PO once Route: PO; mb9 09:29 Follow up: Response: No adverse reaction mb9 09:05 Drug: Famotidine IVP 20 mg IVP once; dilute with 10 mL 0.9% NaCl; give over 2 minutes mb9 Route: IVP; Site: left antecubital; 09:29 Follow up: Response: No adverse reaction mb9 09:33 Drug: morphine IVP or IV 4 mg IVP once over 4 mins Route: IVP; Infused Over: 4 mins; mb9 Site: left antecubital; 11:54 Follow up: Response: No adverse reaction mb9 10:15 Drug: NS 0.9% IV 1000 ml IV at 1000 ml once Route: IV; Rate: 1000 ml; Site: left mb9 antecubital; 10:15 Drug: Insulin Regular Human Sub-Q 5 units Sub-Q once {Co-Signature: ld1 (Tyra Lorenzana9 RN).} Route: Sub-Q; Site: left upper arm; 12:31 Follow up: Response: No adverse reaction mb9 11:54 Drug: Oseltamivir PO 75 mg PO once Route: PO; mb9 12:31 Follow up: Response: No adverse reaction mb9 13:54 Drug: Promethazine IVP 12.5 mg IVP once Route: IVP; Site: left antecubital; mb9 Medication: 09:06 VIS not applicable for this client. mb9 Outcome: 13:47 Discharge ordered by . rn 14:01 Discharged to home ambulatory, mb9 14:01 Condition: stable 14:01 Discharge instructions given to patient, Instructed on discharge instructions, follow up and referral plans. Demonstrated understanding of instructions, follow-up care, medications, Prescriptions given X 2, 14:01 Patient left the ED. mb9 Signatures: Harris Batista MD MD rn Baxter, Heather, RN RN hb Breneman, Mary Beth RN RN [email or web address] Salma Dean mg5 Tyra Lorenzana RN ld1 Corrections: (The following items were deleted from the chart) 07:53 07:49 BP 147 / 98; Pulse 123bpm; Resp 16bpm; Pulse Ox 98%; Temp 99.7F Temporal; 56.7 hb kg; hb
[2023-05-13] MEDS ORDERED: PROMETHAZINE INJ 25 MG/ML AMP ONE (14:07)
[2023-05-13 14:14] VITALS: TEMP 99.7
[2023-05-13 14:19] VITALS: O2SAT 97
[2023-05-13 14:21] VITALS: BP 122/70
== END 2023-05-13 14:01 | disposition home or self-care (01) ==
LOC: ER 07:32
DX: J10.2 Influenza due to other identified influenza virus with gastrointestinal manifestations (principal); E86.0 Dehydration; E87.20 Acidosis, unspecified; Z11.52 Encounter for screening for COVID-19
CPT/HCPCS: 36415; 80048; 80053; 83690; 85025; 87804; 87811; 96372; 96374; 96375; 99284; J1815; J2405; J2550; J7030

== ENCOUNTER 2024-01-20 16:51 | Inpatient (IN) | payer MEDICAID, SELFPAY ==
--- OUTSIDE RECORDS SUMMARY | 2024-01-20 16:54 | XMS REPORT | Continuity of Care Document ---
Author Name Unknown Address [address] [place] [address] [address] [place] [address] [facility] Address [address] [facility] 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
[2024-01-20] MEDS ORDERED: ONDANSETRON 4 MG/2 ML VIAL ONE (17:49)
[2024-01-20] MEDS ORDERED: NA CHLORIDE 0.9% 1,000 ML ONE (17:50)
[2024-01-20] MEDS ORDERED: MORPHINE 4 MG/ML SYR ONE ×2 (17:50→20:20)
[2024-01-20 18:09] LABS: Absolute Basophils 0.1 K/uL (0-0.5); Absolute Eosinophils 0.1 K/uL (0-0.5); Absolute Lymphocytes (CBC) 1.4 K/uL (0.7-4.9); Absolute Monocytes 0.5 K/uL (0.1-1.3); Absolute Neutrophil 1.9 K/uL (1.8-8.0); Basophils % 1.9 % (0-1.3); Eosinophils % 3.6 % (0-4.4); Hematocrit 41.8 % (39.6-49.0); Hemoglobin 14.1 g/dL (13.6-17.9); Lymphocytes % 35.6 % (15.3-44.8); MCH 33.6 pg (27.0-35.0); MCHC 33.7 g/dL (32.0-36.0); MCV 99.6 fL (80-100); MPV 7.3 fL (7.6-11.3); Neutrophils % 46.9 % (41.7-73.7); Nucleated Red Blood Cells % 0.2 % (0-0); Platelets 161 thou/uL (152-406)
--- NOTE | 2024-01-20 18:24 | RAD REPORT ---
EXAM DESCRIPTION: Sb Single View01/20/2024 5:56 pm CLINICAL HISTORY: Chest pain COMPARISON: 2008 FINDINGS: The lungs appear clear of acute infiltrate. The heart is normal size IMPRESSION: No acute abnormalities displayed
[2024-01-20 18:30] LABS: Albumin/Globulin Ratio 1.3 (1.1-1.8); Anion Gap 10.8 mEq/L (5.0-15.0); Bilirubin Total 0.4 mg/dL (0.2-1.0); Globulin 2.4 g/dL (2.3-3.5); Potassium 2.8 mEq/L (3.5-5.1); Protein, Total 5.4 g/dL (6.4-8.2); Troponin High Sensitivity 11.6 pg/mL (<58.9)
--- NOTE | 2024-01-20 18:40 | RAD REPORT ---
EXAM DESCRIPTION: CT - Abdomen Pelvis W Contrast - 01/20/2024 6:19 pm CLINICAL HISTORY: Abdominal pain COMPARISON: 2022 TECHNIQUE: Computed axial tomography of the abdomen pelvis was obtained. 100 cc Isovue-300 was admin istered intravenously. Oral contrast was not requested which limits evaluation of bowel and appendix All CT scans are performed using dose optimization technique as appropriate and may include automated exposure control or mA/KV adjustment according to patient size. FINDINGS: Marked fatty infiltration liver Spleen, pancreas, adrenals and kidneys unremarkable No evidence of diverticulitis. Mild thickening of the wall of the proximal transverse colon and ascending colon with mild stranding in the adjacent fat Mild gallbladder distention Small left inguinal hernia IMPRESSION: Mild thickening of the wall of the proximal transverse colon and ascending colon with mi ld stranding in the adjacent fat may indicate a mild colitis Marked fatty infiltration of liver Mild gallbladder distention
[2024-01-20] MEDS ORDERED: CALCIUM GLUCONATE 1 GM IVPB 2 GM/100 ML BAG IV ONE (18:58)
[2024-01-20] MEDS ORDERED: KCL 20 MEQ/100 mL IVPB 200 ML IV ONE (18:58)
--- NOTE | 2024-01-20 20:11 | EDPHYS ---
Physician Documentation [facility] Name: Mitchell Mendez III Age: 33 yrs Sex: Male : 1990 Arrival Date: 01/20/2024 Time: 16:51 Bed 13 Private MD: ED Physician Sukumar Rondon HPI: 01/19 20:10 This 33 yrs old Male presents to ER via EMS with complaints of Seizure, Abdominal Pain. rt 20:11 Patient presents to the ED with a seizure. Reports compliance with Keppra. Reports a rt left-sided tingling. Patient states that he has left upper quadrant pain, consistent with previous episodes of colitis, pancreatitis. The patient denies other acute complaints at this time, symptoms are moderate in severity, no other aggravating elevating factors.. Historical: - Allergies: 17:05 No Known Allergies; aa5 - Home Meds: 17:05 Keppra 1 Oral tablet [Active]; aa5 - PMHx: 17:05 Migraine; Pancreatitis; repetitive head injury; scoliosis; Seizures; aa5 - Immunization history:: Adult Immunizations unknown. - Infectious Disease History:: Denies. - Social history:: Smoking status: Patient reports the use of cigarette tobacco products. - Family history:: not pertinent. ROS: 20:11 Constitutional: Negative for fever, chills, and weight loss, Cardiovascular: Negative rt for chest pain, palpitations, and edema, Respiratory: Negative for shortness of breath, cough, wheezing, and pleuritic chest pain, MS/Extremity: Negative for injury and deformity, Skin: Negative for injury, rash, and discoloration, 20:11 Abdomen/GI: Positive for abdominal pain, nausea, 20:11 Neuro: Positive for seizure activity, tingling, Exam: 20:11 Constitutional: This is a well developed, well nourished patient who is awake, alert, rt and in no acute distress. Head/Face: Normocephalic, atraumatic. Chest/axilla: Normal chest wall appearance and motion. Nontender with no deformity. No lesions are appreciated. Cardiovascular: Regular rate and rhythm with a normal S1 and S2. No gallops, murmurs, or rubs. Normal PMI, no JVD. No pulse deficits. Respiratory: Lungs have equal breath sounds bilaterally, clear to auscultation and percussion. No rales, rhonchi or wheezes noted. No increased work of breathing, no retractions or nasal flaring. Skin: Warm, dry with normal turgor. Normal color with no rashes, no lesions, and no evidence of cellulitis. MS/ Extremity: Pulses equal, no cyanosis. Neurovascular intact. Full, normal range of motion. Neuro: Awake and alert, GCS 15, oriented to person, place, time, and situation. Cranial nerves II-XII grossly intact. Motor strength 5/5 in all extremities. Sensory grossly intact. Cerebellar exam normal. Normal gait. 20:11 ECG was reviewed by the Attending Physician. 20:11 Abdomen/GI: Tenderness to the epigastrium without rebound, guarding, distention, Vital Signs: 17:05 BP 113 / 84; Pulse 92; Resp 20 S; Temp 97.8(TE); Pulse Ox 100% on R/A; Weight 63.5 kg aa5 (R); Height 6 ft. 2 in. (R); Pain 6/10; 17:44 BP 120 / 82; Pulse 92; Resp 16; Pulse Ox 100% ; db 19:30 BP 116 / 80; Pulse 87; Resp 15; Pulse Ox 100% ; Pain 9/10; tl4 21:02 BP 112 / 71; Pulse 76; Resp 20; Temp 98.9(O); Pulse Ox 99% on R/A; Pain 8/10; tl4 17:05 Body Mass Index 17.97 (63.50 kg, 187.96 cm) aa5 17:05 Pain Scale: Adult aa5 19:30 Pain Scale: Adult tl4 21:02 Pain Scale: Adult tl4 [place] Coma Score: 21:22 Eye Response: spontaneous(4). Motor Response: obeys commands(6). Verbal Response: tl4 oriented(5). Total: 15. MDM: 17:13 Patient medically screened. rt 20:11 Differential diagnosis: Colitis, pancreatitis, seizure, pseudoseizure. Data reviewed: rt vital signs, nurses notes, lab test result(s), EKG, radiologic studies. Consideration of Admission/Observation Patient was admitted/placed on observation. Management of patient was discussed with the following: Hospitalist: Agrees to admit. I considered the following discharge prescriptions or medication management in the emergency department Medications were administered in the Emergency Department. See MAR. Independent interpretation of the following test(s) in the Emergency Department CT Scan: My interpretation is No bowel obstruction syndrome interpretation of CT scan images. Test considered but Not performed: CT: Pre-existing seizure history, CT scan of the head not decayed. Care significantly affected by the following chronic conditions: Seizure disorder. Counseling: I had a detailed discussion with the patient and/or guardian regarding the historical points, exam findings, and any diagnostic results supporting the discharge/admit diagnosis, lab results, radiology results, the need for further work-up and treatment in the hospital. Response to treatment: the patient's symptoms have mildly improved after treatment. ED course: Patient's initial presentation was thought to be due to a pancreatitis as well as a seizure. This etiology, colitis was identified, IV antibiotics, cultures were ordered.. 01/19 17:28 Order name: CBC with Diff; Complete Time: 18:42 rt 08 17:28 Order name: CMP; Complete Time: 18:42 rt 01/19 17:28 Order name: Lipase; Complete Time: 18:42 rt 01/19 17:28 Order name: Urinalysis w/ reflexes rt 01/19 17:28 Order name: Troponin HS; Complete Time: 18:42 rt 0812 19:36 Order name: Blood Culture Adult (2) rt 01/19 19:36 Order name: Lactate w/ 2H reflex if indic. rt 01/19 19:36 Order name: Protime (+inr) rt 01/19 19:36 Order name: Ptt, Activated rt 01/19 20:13 Order name: Glucose, Ancillary Testing EDMS 01/19 20:15 Order name: Glucose, Ancillary Testing EDMS 01/19 17:28 Order name: CT Abd/Pelvis - IV Contrast Only; Complete Time: 18:42 rt 08 17:28 Order name: XRAY Chest (1 view); Complete Time: 18:42 rt 08 17:28 Order name: IV Saline Lock; Complete Time: 18:10 rt 08 17:28 Order name: Labs collected and sent; Complete Time: 18:10 rt 08 17:28 Order name: Cardiac monitoring; Complete Time: 18:10 rt 08 17:28 Order name: EKG - Nurse/Tech; Complete Time: 18:10 rt 01/19 17:28 Order name: O2 Per Protocol; Complete Time: 18:10 rt 0812 17:28 Order name: O2 Sat Monitoring; Complete Time: 18:10 rt 12 19:36 Order name: Accucheck; Complete Time: 20:11 rt 12 19:36 Order name: IV Saline Lock - Large Bore; Complete Time: 19:48 rt 0812 19:36 Order name: Vital Signs; Complete Time: 19:48 rt EC:11 Rate is 81 beats/min. Rhythm is regular, Normal Sinus Rhythm with No ectopy. QRS Byron rt is Normal. WA interval is normal. QRS interval is normal. QT interval is normal. No Q waves. T waves are Normal. No ST changes noted. Interpreted by me. Administered Medications: 17:55 Drug: NS 0.9% IV 1000 ml IV at 1 bolus Per protocol; 1000 mL bolus Route: IV; Rate: 1 db bolus; Site: right forearm; 21:02 Follow up: Response: No adverse reaction; IV Status: Completed infusion; IV Intake: tl4 1000ml 17:55 Drug: Ondansetron IVP 4 mg IVP once; over 2 minutes Route: IVP; Site: right forearm; db 19:47 Follow up: Response: No adverse reaction tl4 17:55 Drug: morphine IVP or IV 4 mg IVP once over 4 mins Route: IVP; Infused Over: 4 mins; db Site: right forearm; 19:47 Follow up: Response: No adverse reaction; Pain is unchanged, physician notified tl4 19:47 Drug: Potassium Chloride IV 40 mEq IV at calculated rate once; administer over 4 hours tl4 Route: IV; Rate: calculated rate; Site: right antecubital; Delivery: Primary tubing; 20:15 Drug: Calcium Gluconate IVPB 2 grams IVPB once over 60 mins; (mix in NS 100 mL) Route: tl4 IVPB; Infused Over: 60 mins; Site: left forearm; 21:21 Follow up: Response: No adverse reaction; IV Status: Completed infusion; IV Intake: tl4 100ml 20:25 Drug: morphine IVP or IV 4 mg IVP once over 4 mins Route: IVP; Infused Over: 4 mins; tl4 Site: left forearm; 21:02 Follow up: Response: No adverse reaction; Pain is decreased tl4 21:01 Drug: Piperacillin-Tazobactam IVPB 3.375 grams IVPB once over 60 mins; (mix in NS 100 tl4 mL) Route: IVPB; Infused Over: 60 mins; Site: left forearm; 21:21 Follow up: Response: No adverse reaction; IV Status: Completed infusion; IV Intake: tl4 100ml Disposition Summary: 01/20/24 20:10 Hospitalization Ordered Notes: Hospitalization Status: Inpatient Admission rt Provider: Missy Jacob rt Location: Telemetry/[facility] (Inpatient) rt Condition: Fair rt Problem: new rt Symptoms: are unchanged rt Bed/Room Type: Standard rt Room Assignment: 401(01/20/24 21:00) kmf Diagnosis - Colitis rt - Seizure rt - Sepsis rt - Hypocalcemia rt - Hypokalemia rt Forms: - Medication Reconciliation Form rt - SBAR form rt - Leadership Thank You Letter rt Critical care time excluding procedures: 20:24 Critical care time: Bedside Care: 30 minutes, Consultation: 5 minutes. Total time: 35 rt minutes Signatures: Dispatcher [employer] EDWanda Varma, PALAK RN aa5 Phuong Desir, RN RN db Sukumar Rondon MD MD rt Kanchan Cortez [facility] Jonh Castellano RN RN tl4 Corrections: (The following items were deleted from the chart) 17:28 17:28 CBC+H.LAB.BRZ ordered. EDMS EDMS 17:28 17:28 COMPREHENSIVE METABOLIC PANEL+C.LAB.BRZ ordered. EDMS EDMS 17:28 17:28 LIPASE+C.LAB.BRZ ordered. EDMS EDMS 17:28 17:28 Urinalysis+U.LAB.BRZ ordered. EDMS EDMS 17:28 17:28 Troponin High Sensitivity+C.LAB.BRZ ordered. EDMS EDMS 17:28 17:28 Abdomen Pelvis W Con+CT.RAD.BRZ ordered. EDMS EDMS 17:28 17:28 Chest Single View+RAD.RAD.BRZ ordered. EDMS EDMS 21:00 20:10 rt kmf
--- NOTE | 2024-01-20 20:11 | ER ---
Nurse's Notes [facility] Name: Mitchell Mendez III Age: 33 yrs Sex: Male : 1990 Arrival Date: 01/20/2024 Time: 16:51 Bed 13 Private MD: Diagnosis: Colitis;Seizure;Sepsis;Hypocalcemia;Hypokalemia Presentation: 01/19 17:05 Chief complaint: EMS states: Pt's mother called 911 for seizure. Pt reports LUQ and aa5 chest pain that began today, also reports left arm and left leg numbness/tingling that began 2 hours ago. EMS reports 1 seizure en route, given Versed 5 mg, Tylenol 1000 mg, and Toradol 15 mg. Coronavirus screen: At this time, the client does not indicate any symptoms associated with coronavirus-19. Ebola Screen: Patient denies travel to an Ebola-affected area in the 21 days before illness onset. Initial Sepsis Screen: Does the patient meet any 2 criteria? No. Patient's initial sepsis screen is negative. Does the patient have a suspected source of infection? No. Patient's initial sepsis screen is negative. Risk Assessment: Do you want to hurt yourself or someone else? Patient reports no desire to harm self or others. Onset of symptoms was January 20, 2024. 17:05 Acuity: CAROLINE 2 aa5 17:05 Method Of Arrival: EMS: [facility] aa5 Historical: - Allergies: 17:05 No Known Allergies; aa5 - Home Meds: 17:05 Keppra 1 Oral tablet [Active]; aa5 - PMHx: 17:05 Migraine; Pancreatitis; repetitive head injury; scoliosis; Seizures; aa5 - Immunization history:: Adult Immunizations unknown. - Infectious Disease History:: Denies. - Social history:: Smoking status: Patient reports the use of cigarette tobacco products. - Family history:: not pertinent. Screenin:44 [facility] ED Fall Risk Assessment (Adult) History of falling in the last 3 months, db including since admission No falls in past 3 months (0 pts) Confusion or Disorientation No (0 pts) Intoxicated or Sedated No (0 pts) Impaired Gait No (0 pts) Mobility Assist Device Used No (0 pt) Altered Elimination No (0 pt) Score/Fall Risk Level 0 - 2 = Low Risk Oriented to surroundings, Maintained a safe environment. Abuse screen: Denies threats or abuse. Denies injuries from another. Nutritional screening: No deficits noted. Tuberculosis screening: No symptoms or risk factors identified. Assessment: 17:45 Reassessment: Patient appears in no apparent distress at this time. Patient and/or db family updated on plan of care and expected duration. Pain level reassessed. Patient is alert, oriented x 3, equal unlabored respirations, skin warm/dry/pink. General: Appears in no apparent distress. uncomfortable, Behavior is calm, cooperative. Pain: Complains of pain in abdomen. Neuro: Level of Consciousness is awake, alert, obeys commands, Oriented to person, place, time, situation. Respiratory: Airway is patent Respiratory effort is even, unlabored, Respiratory pattern is regular, symmetrical. GI: Abdomen is non-distended. : No deficits noted. No signs and/or symptoms were reported regarding the genitourinary system. Vital Signs: 17:05 BP 113 / 84; Pulse 92; Resp 20 S; Temp 97.8(TE); Pulse Ox 100% on R/A; Weight 63.5 kg aa5 (R); Height 6 ft. 2 in. (R); Pain 6/10; 17:44 BP 120 / 82; Pulse 92; Resp 16; Pulse Ox 100% ; db 19:30 BP 116 / 80; Pulse 87; Resp 15; Pulse Ox 100% ; Pain 9/10; tl4 21:02 BP 112 / 71; Pulse 76; Resp 20; Temp 98.9(O); Pulse Ox 99% on R/A; Pain 8/10; tl4 17:05 Body Mass Index 17.97 (63.50 kg, 187.96 cm) aa5 17:05 Pain Scale: Adult aa5 19:30 Pain Scale: Adult tl4 21:02 Pain Scale: Adult tl4 [place] Coma Score: 21:22 Eye Response: spontaneous(4). Motor Response: obeys commands(6). Verbal Response: tl4 oriented(5). Total: 15. ED Course: 17:04 Patient arrived in ED. aa5 17:05 Arm band placed on Patient placed in an exam room, on a stretcher. aa5 17:06 Sukumar Rondon MD is Attending Physician. rt 17:07 Triage completed. aa5 17:44 Phuong Desir RN is Primary Nurse. db 17:44 Patient has correct armband on for positive identification. Bed in low position. Call db light in reach. Side rails up X2. Seizure precautions initiated. Client placed on continuous cardiac and pulse oximetry monitoring. NIBP monitoring applied. shelter monitor on. Pulse ox on. NIBP on. Warm blanket given. Pillow given. 17:45 Maintain EMS IV. Dressing intact. Site clean \T\ dry. Gauge \T\ site: 18 G RIGHT FOREARM. db 17:58 XRAY Chest (1 view) In Process Unspecified. EDMS 18:00 Initial lab(s) drawn, by me, sent to lab. db 18:21 CT Abd/Pelvis - IV Contrast Only In Process Unspecified. EDMS 19:13 Report given to PALAK VELEZ. db 20:05 Initial lab(s) drawn, by pr, sent to lab. First set of blood cultures drawn by me, tl4 Second set of blood cultures drawn by pr. 20:09 Missy Jacob MD is Hospitalizing Provider. rt 20:11 Blood Culture Adult (2) Sent. tl4 20:11 Lactate w/ 2H reflex if indic. Sent. tl4 20:11 Protime (+inr) Sent. tl4 20:11 Ptt, Activated Sent. tl4 20:12 Inserted saline lock: 22 gauge in left forearm, using aseptic technique. Blood tl4 collected. Flushed with 10 mL NS. 21:01 Blood Culture Adult (2) Sent. tl4 21:22 Provided Education on: ed process, call motta. tl4 21:22 No provider procedures requiring assistance completed. Patient admitted, IV remains in tl4 place. Administered Medications: 17:55 Drug: NS 0.9% IV 1000 ml IV at 1 bolus Per protocol; 1000 mL bolus Route: IV; Rate: 1 db bolus; Site: right forearm; 21:02 Follow up: Response: No adverse reaction; IV Status: Completed infusion; IV Intake: tl4 1000ml 17:55 Drug: Ondansetron IVP 4 mg IVP once; over 2 minutes Route: IVP; Site: right forearm; db 19:47 Follow up: Response: No adverse reaction tl4 17:55 Drug: morphine IVP or IV 4 mg IVP once over 4 mins Route: IVP; Infused Over: 4 mins; db Site: right forearm; 19:47 Follow up: Response: No adverse reaction; Pain is unchanged, physician notified tl4 19:47 Drug: Potassium Chloride IV 40 mEq IV at calculated rate once; administer over 4 hours tl4 Route: IV; Rate: calculated rate; Site: right antecubital; Delivery: Primary tubing; 20:15 Drug: Calcium Gluconate IVPB 2 grams IVPB once over 60 mins; (mix in NS 100 mL) Route: tl4 IVPB; Infused Over: 60 mins; Site: left forearm; 21:21 Follow up: Response: No adverse reaction; IV Status: Completed infusion; IV Intake: tl4 100ml 20:25 Drug: morphine IVP or IV 4 mg IVP once over 4 mins Route: IVP; Infused Over: 4 mins; tl4 Site: left forearm; 21:02 Follow up: Response: No adverse reaction; Pain is decreased tl4 21:01 Drug: Piperacillin-Tazobactam IVPB 3.375 grams IVPB once over 60 mins; (mix in NS 100 tl4 mL) Route: IVPB; Infused Over: 60 mins; Site: left forearm; 21:21 Follow up: Response: No adverse reaction; IV Status: Completed infusion; IV Intake: tl4 100ml Medication: 17:44 VIS not applicable for this client. db Intake: 21:02 IV: 1000ml; Total: 1000ml. tl4 21:21 IV: 100ml; Total: 1100ml. tl4 21:21 IV: 100ml; Total: 1200ml. tl4 Outcome: 20:10 Decision to Hospitalize by Provider. rt 22:15 Patient left the ED. sb4 Signatures: Dispatcher [employer] EDMS Wanda Lau, RN RN aa5 Phuong Desir RN RN db Gela Sosa, PAGalileo PAHillaryC sb4 Sukumar Rondon MD MD rt Jonh Castellano RN RN tl4 Corrections: (The following items were deleted from the chart) 18:12 18:12 Maintain EMS IV. Dressing intact. Site clean \T\ dry. Gauge \T\ site: 18 G RIGHT db FOREARM. db 21:08 21:02 BP 112 / 71; Pulse 76bpm; Resp 20bpm; Pulse Ox 99% RA; Pain 8/10, Adult; tl4 tl4
[2024-01-20] MEDS ORDERED: NA CHLORIDE 0.9% 100 ML ONE (20:20)
[2024-01-20] MEDS ORDERED: PIPERACIL/TAZO 3.375 GM VIAL IV ONE (20:21)
--- NOTE | 2024-01-20 20:22 | P.HP ---
Certification for Inpatient Patient admitted to: Inpatient With expected LOS: <2 Midnights <Gill Paz - Last Filed: 01/21/24 00:21> Patient History Date of Service: 01/21/24 Reason for admission: Colitis History of Present Illness: 33 yrs old Male with past medical history of Migraine; Pancreatitis; repetitive head injury; scoliosis; Seizures presents to ER with abdominal pain. He reports left upper quadrant pain, consistent with previous episodes of pancreatitis /colitis. He reports nausea, tolerating minimal p.o. intake. Denies vomiting, reports loose stools. He reports history of alcohol use at least 2-3 drinks of alcohol per night, reports history of pancreatitis, he denies following up with GI, no reported recent colonoscopy. He reports history of seizures with left- sided tingling. No reported chest pain, shortness of breath, fever, vomiting, he reports being prescribed dicyclomine and reports body scaly rash started after taking the medication. Plan to admit for colitis, seizure. Abdominal CT IMPRESSION: Mild thickening of the wall of the proximal transverse colon and ascending colon with mild stranding in the adjacent fat may indicate a mild colitis Marked fatty infiltration of liver Mild gallbladder distention, laboratory evaluation hypokalemia 2.8 lactic acidosis 3.4 hypocalcemia 6.8 transaminitis AST 104 ALT 60, lipase normal at 38 - Past Medical/Surgical History Diabetic: No -: Heart palpitations -: Seizure disorder -: Migraines -: Alcohol abuse -: Tobacco use -: Marijuana use -: Fatty liver -: None Psychosocial/ Personal History: Unemployed, lives at home with significant other - Family History Mother -: Heart disease, Diabetes, Stroke - Social History Alcohol use: Yes CD- Drugs: Yes Caffeine use: Yes <Gill Paz - Last Filed: 01/21/24 00:21> Date of Service: 01/21/24 <Missy Jacob - Last Filed: 01/21/24 13:51> Allergies dicyclomine Adverse Reaction (Verified 01/20/24 22:45) Hives/Rash Home Medications: levETIRAcetam [Keppra*] 500 mg PO BID #60 tab 05/14/22 ALPRAZolam [Alprazolam] 2 mg PO Q6HP PRN 01/20/24 Review of Systems Per HPI <Gill Paz - Last Filed: 01/21/24 00:21> Physical Examination - Physical Exam General: Alert, In no apparent distress, Oriented x3 HEENT: Atraumatic, Normocephalic Neck: Supple, 2+ carotid pulse no bruit Respiratory: Clear to auscultation bilaterally, Normal air movement Cardiovascular: Normal pulses, Regular rate/rhythm Capillary refill: <2 Seconds Gastrointestinal: Normal bowel sounds, Other (left upper quadrant tenderness) Musculoskeletal: No clubbing, No swelling Integumentary: No breakdown, No significant lesion Neurological: Normal speech, Normal strength at 5/5 x4 extr, Cranial nerves 3-12 intact - Studies Laboratory Data (last 24 hrs) 01/20/24 01/20/24 18:00 18:00 WBC 4.00 L Hgb 14.1 Hct 41.8 Plt Count 161 Sodium 146 H Potassium 2.8 L BUN 4 L Creatinine 0.50 L Glucose 58 L Total Bilirubin 0.4 AST 104 H ALT 67 H Alkaline Phosphatase 80 Lipase 38 <Gill Paz - Last Filed: 01/21/24 00:21> - Studies Laboratory Data (last 24 hrs) 01/20/24 01/20/24 01/20/24 19:50 18:00 18:00 WBC 4.00 L Hgb 14.1 Hct 41.8 Plt Count 161 PT 10.9 INR 0.97 APTT 30.9 Sodium 146 H Potassium 2.8 L BUN 4 L Creatinine 0.50 L Glucose 58 L Total Bilirubin 0.4 AST 104 H ALT 67 H Alkaline Phosphatase 80 Lipase 38 <Missy Jacob - Last Filed: 01/21/24 13:51> Assessment and Plan - Plan Assessment plan Colitis Abdominal pain Fatty liver Transaminitis Alcohol use IV fluids, IV antibiotics, as needed analgesia, as needed antiemetic Clear liquid diet Needs to follow-up with GI outpatient for colonoscopy Trend liver enzymes Abdominal CT IMPRESSION: Mild thickening of the wall of the proximal transverse colon and ascending colon with mild stranding in the adjacent fat may indicate a mild colitis Marked fatty infiltration of liver Mild gallbladder distention, laboratory evaluation hypokalemia 2.8 lactic acidosis 3.4 hypocalcemia 6.8 transaminitis AST 104 ALT 60, lipase normal at 38 Ativan for CIWA protocol Hypokalemia Hypernatremia Hypocalcemia Trend electrolytes replace as needed Rash Reported after taking dicyclomine Instructed to stop taking,, Pepcid, Benadryl Anxiety Tobacco use Marijuana use Educate on alcohol, tobacco, marijuana since Seizure disorder Resume home meds Seizure precaution Full code DVT SCDs Diet clear liquid Disposition Home independent prior Discharge Plan: Home - Advance Directives Does patient have a Living Will: No Does patient have a Durable POA for Healthcare: No - Code Status/Comfort Care Code Status: Full Code Critical Care: No Time Spent Managing Pts Care (In Minutes): 55 <Gill Paz - Last Filed: 01/21/24 00:21> - Plan Pt seen and examined. I agree with the note by the FOREST TECHNOLOGY PROFESSOR. Pt is a 33 yo male with past medical history of Migraine; Pancreatitis, repetitive head injury, scoliosis, and Seizures who presents with abdominal pain. The abdominal pain is periumbilical, constant and radiates to the back. Pt repots drinking 2 - 3 drinks of alcohol per night. On admission, CT abd shows mild thickening of the wall of the proximal transverse colon and ascending colon with mild stranding in the adjacent fat may indicate a mild colitis with marked fatty infiltration of liver Mild gallbladder distention,. Lab studies show K 2.8, lipase 38, lactic acidosis 3.4, Calcium 6.8, AST 104, and ALT 60. At bedside, pt complains of skin rash due to dicyclomine. A/P: Colitis: Pt is still having diarrhea. Will check C diff. Continue IVFa nd prn antiemetic. Alcohol dependence: Pt drinks 2 - 3 alcohol drinks per night. Will place on CIWA protocol. Pt was advised to quit drinking. Seizure: Continue home med. Continue home meds for other chronic medical problems. <Missy Jacob - Last Filed: 01/21/24 13:51>
[2024-01-20 20:36] LABS: PT Prothrombin Time 10.9 SECONDS (9.4-12.5); PTT, Activated Partial Thromb 30.9 SECONDS (24.3-36.9); Protime INR 0.97
[2024-01-20] MEDS ORDERED: NA CHLORIDE 0.9% 250 ML ONE (21:25)
[2024-01-20] MEDS ORDERED: ACETAMINOPHEN 500 MG TAB PO PRN (21:47)
[2024-01-20] MEDS: HYDROMORPHONE HCL 2 MG/ML inj IV PRN (22:59)
[2024-01-20] MEDS: D5.45NS W/KCL 20MEQ 1,000 ML IV SCH (23:06)
[2024-01-20] MEDS: levETIRAcetam 500 MG in NA CHLORIDE 0.9% 100 ML IV SCH (23:06)
[2024-01-21] MEDS: ALPRAZOLAM 1 MG TABLET PO PRN (00:16)
[2024-01-21] MEDS ORDERED: FLUMAZENIL 0.1 MG/ML (5 mL VIAL) IV PRN (00:25)
[2024-01-21] MEDS ORDERED: LORazepam 2 MG/ML VIAL IV PRN (00:26)
[2024-01-21] MEDS: PIPER TAZO 3.375 GM in NA CHLORIDE 0.9% 100 ML IV SCH (00:50)
[2024-01-21] MEDS: FAMOTIDINE 20 MG/2 ML VIAL IV SCH (00:50)
[2024-01-21 01:27] VITALS: BMI 17.9
[2024-01-21 04:21] LABS: Specific Gravity > 1.030 (1.005-1.030); Sqamous Epithelial <5 /HPF (None Seen); Urine Bacteria None Seen /HPF (<20); Urine Bilirubin NEGATIVE (Negative); Urine Blood Negative (Negative); Urine Clarity Clear (Clear); Urine Color Light-Yellow (Yellow); Urine Crystals Unidentified Few /HPF (None Seen); Urine Culture Reflex Order NOT NEEDED; Urine Glucose NEGATIVE (Negative); Urine Ketones NEGATIVE (Negative); Urine Microscopic Reflex YN ORDER UMIC; Urine Mucus Slight /HPF (None Seen); Urine Nitrite NEGATIVE (Negative); Urine Protein NEGATIVE (Negative); Urine RBC <5 /HPF (None Seen); Urine Urobilinogen Normal (Normal); Urine WBC <5 /HPF (<5); Urine pH 5.5 (5.0-7.0)
[2024-01-21 05:41] LABS: Absolute Basophils 0.1 K/uL (0-0.5); Absolute Eosinophils 0.3 K/uL (0-0.5); Absolute Lymphocytes (CBC) 1.5 K/uL (0.7-4.9); Absolute Monocytes 0.4 K/uL (0.1-1.3); Absolute Neutrophil 1.9 K/uL (1.8-8.0); Basophils % 1.4 % (0-1.3); Eosinophils % 6.6 % (0-4.4); Hematocrit 39.4 % (39.6-49.0); Hemoglobin 13.3 g/dL (13.6-17.9); Lymphocytes % 36.3 % (15.3-44.8); MCH 33.9 pg (27.0-35.0); MCHC 33.7 g/dL (32.0-36.0); MCV 100.8 fL (80-100); MPV 7.8 fL (7.6-11.3); Neutrophils % 45.7 % (41.7-73.7); Nucleated Red Blood Cells % 0.1 % (0-0); Platelets 142 thou/uL (152-406); RBC Red Blood Cell Count 3.91 M/uL (4.33-5.43); Red Cell Distribution Width 13.6 % (12.1-15.2)
[2024-01-21 06:23] LABS: Anion Gap 5.4 mEq/L (5.0-15.0); Magnesium 1.4 mg/dL (1.6-2.4); Phosphorus 4.3 mg/dL (2.5-4.9); Potassium 4.4 mEq/L (3.5-5.1)
[2024-01-21] MEDS: FOLIC ACID 1 MG TABLET PO SCH (08:06)
[2024-01-21] MEDS: MULTIVITAMIN TAB PO SCH (08:06)
[2024-01-21] MEDS: THIAMINE HCL 100 MG TABLET PO SCH (08:06)
[2024-01-21] MEDS: Magnesium Sulfate 2gm IVPB 2 G/50 ML BAG IV ONE (08:12)
--- NOTE | 2024-01-21 13:57 | P.PN ---
Subjective Date of Service: 01/21/24 Chief Complaint: Colitis Pt is resting comfortably in bed. Still having diarrhea. He wanst regular diet. Lactate is 2.3. No other complaint. Review of Systems General: Unremarkable Eyes: Unremarkable ENT: Unremarkable Respiratory: Unremarkable Cardiovascular: Unremarkable Gastrointestinal: Abdominal Pain Genitourinary: Unremarkable Musculoskeletal: Unremarkable Integumentary: Unremarkable Neurological: Unremarkable Lymphatics: Unremarkable Physical Examination - Vital Signs Temperature: 97.2 F Blood Pressure: 111/75 Pulse: 81 Respirations: 16 Pulse Ox (%): 97 - Physical Exam General: Alert, In no apparent distress, Oriented x3 HEENT: Atraumatic, Normocephalic, PERRLA Neck: Supple, 2+ carotid pulse no bruit Respiratory: Clear to auscultation bilaterally, Normal air movement Cardiovascular: No edema, Normal pulses, Regular rate/rhythm Capillary refill: <2 Seconds Gastrointestinal: Normal bowel sounds, Soft and benign, Non-distended, Tenderness Musculoskeletal: No clubbing, No swelling Integumentary: No breakdown, Rash(es), Skin lesion Neurological: Normal gait, Normal speech, Normal strength at 5/5 x4 extr Lymphatics: No axilla or inguinal lymphadenopathy - Studies Laboratory Data (last 24 hrs) 01/20/24 01/20/24 01/20/24 19:50 18:00 18:00 WBC 4.00 L Hgb 14.1 Hct 41.8 Plt Count 161 PT 10.9 INR 0.97 APTT 30.9 Sodium 146 H Potassium 2.8 L BUN 4 L Creatinine 0.50 L Glucose 58 L Total Bilirubin 0.4 AST 104 H ALT 67 H Alkaline Phosphatase 80 Lipase 38 Assessment And Plan - Plan Sever sepsis 2/2 Colitis: Improving. Pt is still having diarrhea. Will check C diff. Continue IVF and prn antiemetic. Lactate is 2.3 Skin lesions all over his body. He has red spots / pustules all over his body. Pt attributes it to dicyclomine. Will hold it and monitor. Alcohol dependence: Pt drinks 2 - 3 alcohol drinks per night. Will place on CIWA protocol. Pt was advised to quit drinking. lactic acidosis: lactate is 3.4 -> 2.3. Will continue IVF and trend lactate. Seizure: Continue home med. Continue home meds for other chronic medical problems. DVT ppx: SCD Dispo: pending hospital course.
[2024-01-21] MEDS: ONDANSETRON 4 MG/2 ML VIAL IV PRN (21:02)
[2024-01-21] MEDS: DIPHENHYDRAMINE 50 MG/ML VIAL IV PRN (21:45)
[2024-01-22 07:59] LABS: Absolute Eosinophils 0.3 K/uL (0-0.5); Absolute Lymphocytes (CBC) 1.1 K/uL (0.7-4.9); Absolute Monocytes 0.7 K/uL (0.1-1.3); Absolute Neutrophil 3.2 K/uL (1.8-8.0); Basophils % 0.9 % (0-1.3); Eosinophils % 5.8 % (0-4.4); Hematocrit 40.5 % (39.6-49.0); Hemoglobin 13.6 g/dL (13.6-17.9); MCH 34.1 pg (27.0-35.0); MCHC 33.6 g/dL (32.0-36.0); MCV 101.6 fL (80-100); Monocytes % 13.7 % (3.3-12.3); Neutrophils % 59.6 % (41.7-73.7); Nucleated Red Blood Cells % 0.1 % (0-0); Platelets 134 thou/uL (152-406); RBC Red Blood Cell Count 3.98 M/uL (4.33-5.43); Red Cell Distribution Width 13.6 % (12.1-15.2)
[2024-01-22 08:15] LABS: Anion Gap 6.2 mEq/L (5.0-15.0); Magnesium 1.9 mg/dL (1.6-2.4); Potassium 4.2 mEq/L (3.5-5.1)
--- NOTE | 2024-01-22 12:51 | P.PN ---
Subjective Date of Service: 01/22/24 Chief Complaint: Colitis Pt is resting comfortably in bed. He complains of abdominal pain. No diarrhea since yesterday. He is tolerating regular diet. Lactate is 2.3. No other complaint. Review of Systems General: Unremarkable Eyes: Unremarkable ENT: Unremarkable Respiratory: Unremarkable Cardiovascular: Unremarkable Gastrointestinal: Unremarkable Genitourinary: Unremarkable Musculoskeletal: Unremarkable Integumentary: Unremarkable Neurological: Unremarkable Lymphatics: Unremarkable Physical Examination - Vital Signs Temperature: 98.3 F Blood Pressure: 104/61 Pulse: 81 Respirations: 16 Pulse Ox (%): 96 - Physical Exam General: Alert, In no apparent distress, Oriented x3 HEENT: Atraumatic, Normocephalic, PERRLA Neck: Supple, 2+ carotid pulse no bruit, JVD not distended Respiratory: Clear to auscultation bilaterally, Normal air movement Cardiovascular: No edema, Normal pulses, Regular rate/rhythm, Normal S1 S2 Capillary refill: <2 Seconds Gastrointestinal: Normal bowel sounds, Soft and benign, Non-distended Musculoskeletal: No clubbing, No swelling, No contractures Integumentary: No rashes, No breakdown, No significant lesion Neurological: Normal gait, Normal speech, Normal strength at 5/5 x4 extr Lymphatics: No axilla or inguinal lymphadenopathy Assessment And Plan - Plan Severe sepsis 2/2 Colitis: Improving. No diarrhea since yesterday. Will check C diff. Continue IVF and prn antiemetic. Lactate is 2.3 Skin lesions all over his body. He has red spots / pustules all over his body. Pt attributes it to dicyclomine. Will hold it and monitor. Alcohol dependence: Pt drinks 2 - 3 alcohol drinks per night. Will place on CIWA protocol. Pt was advised to quit drinking. lactic acidosis: lactate is 3.4 -> 2.3. Will continue IVF and trend lactate. Seizure: Continue home med. Continue home meds for other chronic medical problems. DVT ppx: SCD Dispo: pending hospital course.
--- NOTE | 2024-01-22 16:31 | EKG ---
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
[2024-01-23 01:58] LABS: C.diff Antigen/Toxin Ag pos : Tox neg (NEG : NEG); CDIFF INTERNAL NEG CONTROL White Background (WHITE BKGD); STOOL CONSISTENCY Formed/Solid (soft)
[2024-01-23 07:13] LABS: Absolute Eosinophils 0.3 K/uL (0-0.5); Absolute Lymphocytes (CBC) 1.2 K/uL (0.7-4.9); Absolute Monocytes 0.8 K/uL (0.1-1.3); Absolute Neutrophil 2.7 K/uL (1.8-8.0); Basophils % 0.6 % (0-1.3); Eosinophils % 6.4 % (0-4.4); Hematocrit 41.3 % (39.6-49.0); Hemoglobin 13.9 g/dL (13.6-17.9); Lymphocytes % 23.1 % (15.3-44.8); MCH 34.1 pg (27.0-35.0); MCHC 33.7 g/dL (32.0-36.0); MCV 101.2 fL (80-100); MPV 8.5 fL (7.6-11.3); Monocytes % 16.5 % (3.3-12.3); Neutrophils % 53.4 % (41.7-73.7); Nucleated Red Blood Cells % 0.1 % (0-0); Platelets 134 thou/uL (152-406); RBC Red Blood Cell Count 4.08 M/uL (4.33-5.43); Red Cell Distribution Width 13.6 % (12.1-15.2)
[2024-01-23 07:30] LABS: Anion Gap 6.7 mEq/L (5.0-15.0); Potassium 4.7 mEq/L (3.5-5.1)
--- NOTE | 2024-01-23 13:37 | P.PN ---
Subjective Date of Service: 01/23/24 Chief Complaint: Colitis Pt is resting comfortably in bed. He complains of abdominal pain. He had semi- solid stool yesterday. He is tolerating regular diet. Lactate is 2.3. No other complaint. Review of Systems General: Unremarkable Eyes: Unremarkable ENT: Unremarkable Respiratory: Unremarkable Cardiovascular: Unremarkable Gastrointestinal: Unremarkable Genitourinary: Unremarkable Musculoskeletal: Unremarkable Integumentary: Unremarkable Neurological: Unremarkable Lymphatics: Unremarkable Physical Examination - Vital Signs Temperature: 97.3 F Blood Pressure: 115/66 Pulse: 74 Respirations: 18 Pulse Ox (%): 100 - Physical Exam General: Alert, In no apparent distress, Oriented x3 HEENT: Atraumatic, Normocephalic, PERRLA Neck: Supple, 2+ carotid pulse no bruit, JVD not distended Respiratory: Clear to auscultation bilaterally, Normal air movement Cardiovascular: No edema, Normal pulses, Regular rate/rhythm, Normal S1 S2 Capillary refill: <2 Seconds Gastrointestinal: Normal bowel sounds, Soft and benign, Non-distended Musculoskeletal: No clubbing, No swelling, No contractures Integumentary: No rashes, No breakdown, No significant lesion Neurological: Normal gait, Normal speech, Normal strength at 5/5 x4 extr, Normal tone, Sensation intact Lymphatics: No axilla or inguinal lymphadenopathy Assessment And Plan - Plan Severe sepsis 2/2 Colitis: Improving. No diarrhea since yesterday. C diff Ag is positive. Continue oral vanc, flagyl, IVF and prn antiemetic. Off zosyn. Lactate is 2.3 Skin lesions all over his body. He has red spots / pustules all over his body. Pt attributes it to dicyclomine. Will hold it and monitor. Alcohol dependence: Pt drinks 2 - 3 alcohol drinks per night. Will place on CIWA protocol. Pt was advised to quit drinking. lactic acidosis: lactate is 3.4 -> 2.3. Will continue IVF and trend lactate. Seizure: Continue home med. Continue home meds for other chronic medical problems. DVT ppx: SCD Dispo: pending hospital course.
[2024-01-23] MEDS: VANCOMYCIN HCL 125 MG CAPSULE PO SCH (13:59)
[2024-01-23] MEDS: METRONIDAZOLE 500mg IVPB 500 MG/100 ML BAG IV SCH (17:23)
[2024-01-24] MEDS: HYDROCODONE/APAP 5/325 MG TAB PO PRN (12:37)
--- NOTE | 2024-01-25 12:19 | P.PN ---
Subjective Date of Service: 01/25/24 Chief Complaint: Colitis Pt is resting comfortably in bed. He still complains of abdominal pain and diffuse body rash. He had semi-solid stool yesterday. He is tolerating regular diet. Lactate is 2.3 -> 0.8. No other complaint. Review of Systems General: Unremarkable Eyes: Unremarkable ENT: Unremarkable Respiratory: Unremarkable Cardiovascular: Unremarkable Gastrointestinal: Unremarkable Genitourinary: Unremarkable Musculoskeletal: Unremarkable Integumentary: Unremarkable Neurological: Unremarkable Lymphatics: Unremarkable Physical Examination - Vital Signs Temperature: 97.3 F Blood Pressure: 108/66 Pulse: 84 Respirations: 16 Pulse Ox (%): 98 - Physical Exam General: Alert, In no apparent distress, Oriented x3 HEENT: Atraumatic, Normocephalic, PERRLA Neck: Supple, 2+ carotid pulse no bruit, JVD not distended Respiratory: Clear to auscultation bilaterally, Normal air movement Cardiovascular: No edema, Normal pulses, Regular rate/rhythm Capillary refill: <2 Seconds Gastrointestinal: Normal bowel sounds, Soft and benign, Non-distended Musculoskeletal: No clubbing, No swelling, No contractures Integumentary: No breakdown, Rash(es), Skin lesion Neurological: Normal gait, Normal speech, Normal strength at 5/5 x4 extr, Normal tone, Sensation intact Lymphatics: No axilla or inguinal lymphadenopathy Assessment And Plan - Plan Severe sepsis 2/2 Colitis: Improving. No diarrhea since yesterday. C diff Ag is positive. Continue oral vanc, IVF and prn antiemetic. Off zosyn. Lactate is 0.8 <- 2.3 Skin lesions all over his body. He has red spots / pustules all over his body. Pt attributes it to dicyclomine. Will hold it and apply hydrocortisone cream TID Alcohol dependence: Pt drinks 2 - 3 alcohol drinks per night. Will place on CIWA protocol. Pt was advised to quit drinking. lactic acidosis: lactate is 3.4 -> 2.3-> 0.8. Will continue IVF and trend lactate. Seizure: Continue home med. Continue home meds for other chronic medical problems. DVT ppx: SCD Dispo: pending hospital course.
--- NOTE | 2024-01-25 14:44 | P.PN ---
Date of Service: 01/24/24 Subjective patient is doing well with no new complaints. Patient still complaining of skin rash. Looks to be raised with no significant changes. Physical Examination - Vitals reviewed - Physical Exam General: Alert, In no apparent distress, Oriented x3 Respiratory: Clear to auscultation bilaterally, Normal air movement Cardiovascular: Normal pulses, Regular rate/rhythm Gastrointestinal: Normal bowel sounds, Other (left upper quadrant tenderness) Musculoskeletal: No clubbing, No swelling Integumentary: Hives; multiple raised lesions Neurological: No focal deficits Assessment and Plan - Assessment/Plan Assessment/Plan -Colitis -Abdominal pain -Fatty liver -Alcohol use Continue with oral antibiotic at this time. Diarrhea has pretty much improved. Patient only going maybe once to twice a day. Continue monitoring liver function testing. Possibly will need imaging studies. Also going to give enema. Cdiff infection negative Hypokalemia Hypernatremia Hypocalcemia Repekace electrolytes as needed Rash Reported after taking dicyclomine Instructed to stop taking, Pepcid, Benadryl; Continue with patient having mild fever Anxiety Tobacco use Marijuana use Educate on alcohol, tobacco, marijuana cessation Seizure disorder Resume home meds Seizure precaution Full code DVT SCDs Diet clear liquid Disposition Home independent prior Discharge Plan: Home - Advance Directives Does patient have a Living Will: No Does patient have a Durable POA for Healthcare: No - Code Status/Comfort Care Code Status: Full Code Critical Care: No Time Spent Managing Pts Care (In Minutes): 40
[2024-01-26 07:28] LABS: Absolute Basophils 0.1 K/uL (0-0.5); Absolute Eosinophils 0.5 K/uL (0-0.5); Absolute Lymphocytes (CBC) 1.4 K/uL (0.7-4.9); Absolute Neutrophil 1.9 K/uL (1.8-8.0); Basophils % 1.2 % (0-1.3); Eosinophils % 9.7 % (0-4.4); Hematocrit 44.4 % (39.6-49.0); Hemoglobin 14.8 g/dL (13.6-17.9); MCH 33.8 pg (27.0-35.0); MCHC 33.4 g/dL (32.0-36.0); MCV 101.2 fL (80-100); MPV 8.4 fL (7.6-11.3); Monocytes % 21.3 % (3.3-12.3); Neutrophils % 38.8 % (41.7-73.7); Nucleated Red Blood Cells % 0.2 % (0-0); Platelets 182 thou/uL (152-406); RBC Red Blood Cell Count 4.39 M/uL (4.33-5.43); Red Cell Distribution Width 13.5 % (12.1-15.2)
[2024-01-26 07:49] LABS: Anion Gap 5.1 mEq/L (5.0-15.0); Potassium 4.1 mEq/L (3.5-5.1)
--- NOTE | 2024-01-26 08:12 | P.PN ---
Subjective Date of Service: 01/26/24 Chief Complaint: Colitis Pt is resting comfortably in bed. He still complains of abdominal pain and diffuse body rash. The rash is getting better. He had semi-solid stool yesterday. He is tolerating regular diet. Lactate is 2.3 -> 0.8. No other complaint. Review of Systems General: Unremarkable Eyes: Unremarkable ENT: Unremarkable Respiratory: Unremarkable Cardiovascular: Unremarkable Gastrointestinal: Abdominal Pain Genitourinary: Unremarkable Musculoskeletal: Unremarkable Integumentary: Lesions Neurological: Unremarkable Lymphatics: Unremarkable Physical Examination - Vital Signs Temperature: 97.5 F Blood Pressure: 117/79 Pulse: 72 Respirations: 18 Pulse Ox (%): 97 - Physical Exam General: Alert, In no apparent distress, Oriented x3 HEENT: Atraumatic, Normocephalic, PERRLA Neck: Supple, 2+ carotid pulse no bruit Respiratory: Clear to auscultation bilaterally, Normal air movement Cardiovascular: No edema, Normal pulses, Regular rate/rhythm, Normal S1 S2 Capillary refill: <2 Seconds Gastrointestinal: Normal bowel sounds, Soft and benign, Non-distended Musculoskeletal: No clubbing, No swelling, No contractures Integumentary: No rashes, No breakdown, No significant lesion Neurological: Normal gait, Normal speech, Normal strength at 5/5 x4 extr, Normal tone Lymphatics: No axilla or inguinal lymphadenopathy - Studies Microbiology Data (last 24 hrs): 01/20/24 20:05 Blood - Blood Aerobic Blood Culture - Final No growth in 5 days. 01/20/24 20:05 Blood - Blood Anaerobic Blood Culture - Final No growth in 5 days. 01/20/24 19:50 Blood - Blood Aerobic Blood Culture - Final No growth in 5 days. 01/20/24 19:50 Blood - Blood Anaerobic Blood Culture - Final No growth in 5 days. Assessment And Plan - Plan Severe sepsis 2/2 Colitis: Improving. No diarrhea since yesterday. C diff Ag is positive. Continue oral vanc, IVF and prn antiemetic. Off zosyn. Lactate is 0.8 <- 2.3. CT abd/pelvis on admission showed mild colitis. Skin lesions all over his body. He has red spots / pustules all over his body. Pt attributes it to dicyclomine. Will hold it and apply hydrocortisone cream TID Alcohol dependence: Pt drinks 2 - 3 alcohol drinks per night. Will place on CIWA protocol. Pt was advised to quit drinking. lactic acidosis: lactate is 3.4 -> 2.3-> 0.8. Will continue IVF and trend lactate. Seizure: Continue home med. Continue home meds for other chronic medical problems. DVT ppx: SCD Dispo: pending hospital course.
[2024-01-26 08:44] LABS: Atypical Lymphocytes 5 %; Blood Morphology Comment NOT SEEN (NOT SEEN); Differential Total Cells Count 100; Eosinophils 4 % (0-3); Lymphocytes 34 % (15-42); Metamyelocytes 1 % (0-0); Monocytes 17 % (0-10); Platelet Estimate ADEQ; Platelets, Giant FEW; Segmented Neutrophils 36 % (40-80)
[2024-01-26] MEDS: HYDROCORTISONE 1 % CREAM 30GM TOP PRN (10:40)
[2024-01-27] MEDS: HYDROMORPHONE HCL 2 MG/ML inj IV PRN (00:34)
[2024-01-27] MEDS ORDERED: LORazepam 2 MG/ML VIAL IV PRN (02:03)
[2024-01-27] MEDS: ALPRAZOLAM 1 MG TABLET PO PRN (04:41)
[2024-01-27 06:34] LABS: Absolute Basophils 0.1 K/uL (0-0.5); Absolute Eosinophils 0.4 K/uL (0-0.5); Absolute Lymphocytes (CBC) 1.2 K/uL (0.7-4.9); Absolute Monocytes 0.9 K/uL (0.1-1.3); Absolute Neutrophil 2.2 K/uL (1.8-8.0); Basophils % 1.6 % (0-1.3); Eosinophils % 9.4 % (0-4.4); Hemoglobin 13.9 g/dL (13.6-17.9); Lymphocytes % 25.3 % (15.3-44.8); MCHC 33.9 g/dL (32.0-36.0); MCV 100.3 fL (80-100); MPV 8.1 fL (7.6-11.3); Monocytes % 18.4 % (3.3-12.3); Neutrophils % 45.3 % (41.7-73.7); Nucleated Red Blood Cells % 0.1 % (0-0); Platelets 178 thou/uL (152-406); RBC Red Blood Cell Count 4.09 M/uL (4.33-5.43); Red Cell Distribution Width 13.4 % (12.1-15.2)
--- NOTE | 2024-01-27 12:07 | P.PN ---
Subjective Date of Service: 01/27/24 Chief Complaint: Colitis Pt is resting comfortably in bed. He still complains of abdominal pain and diffuse body rash. The rash is itching. Will biopsy the skin lesion. He had semi-solid stool yesterday. He is tolerating regular diet. Lactate is 2.3 -> 0.8. No other complaint. Review of Systems General: Unremarkable Eyes: Unremarkable ENT: Unremarkable Respiratory: Unremarkable Cardiovascular: Unremarkable Gastrointestinal: Abdominal Pain Genitourinary: Unremarkable Musculoskeletal: Unremarkable Integumentary: Rash (on face), Lesions Neurological: Unremarkable Lymphatics: Unremarkable Physical Examination - Vital Signs Temperature: 97.1 F Blood Pressure: 107/55 Pulse: 77 Respirations: 18 Pulse Ox (%): 100 - Physical Exam General: Alert, In no apparent distress, Oriented x3 HEENT: Atraumatic, Normocephalic, PERRLA Neck: Supple, 2+ carotid pulse no bruit, JVD not distended Respiratory: Clear to auscultation bilaterally, Normal air movement Cardiovascular: No edema, Normal pulses, Regular rate/rhythm, Normal S1 S2 Capillary refill: <2 Seconds Gastrointestinal: Normal bowel sounds, Soft and benign, Non-distended Musculoskeletal: No clubbing, No swelling, No contractures Integumentary: No breakdown, Rash(es), Skin lesion Neurological: Normal gait, Normal speech, Normal strength at 5/5 x4 extr Lymphatics: No axilla or inguinal lymphadenopathy Assessment And Plan - Plan Severe sepsis 2/2 Colitis: Improving. No diarrhea since yesterday. C diff Ag is positive. Continue oral vanc, IVF and prn antiemetic. Off zosyn. Lactate is 0.8 <- 2.3. CT abd/pelvis on admission showed mild colitis. Skin lesions all over his body. He has red spots / pustules all over his body. Pt attributes it to dicyclomine. Will hold it and apply hydrocortisone cream TID. Will f/u skin biopsy. Consulted IR. Alcohol dependence: Pt drinks 2 - 3 alcohol drinks per night. Will place on CIWA protocol. Pt was advised to quit drinking. lactic acidosis: lactate is 3.4 -> 2.3-> 0.8. Will continue IVF and trend lactate. Seizure: Continue home med. Continue home meds for other chronic medical problems. DVT ppx: SCD Dispo: pending hospital course.
[2024-01-27] MEDS: METHYLPREDNISOLONE 125 MG INJ IV ONE (14:29)
[2024-01-27] MEDS: ENSURE ENLIVE 237 ML CAN PO SCH (21:00)
[2024-01-28 07:42] LABS: Absolute Eosinophils 0.1 K/uL (0-0.5); Absolute Monocytes 1.1 K/uL (0.1-1.3); Absolute Neutrophil 4.7 K/uL (1.8-8.0); Basophils % 0.6 % (0-1.3); Eosinophils % 0.8 % (0-4.4); Hematocrit 40.9 % (39.6-49.0); Hemoglobin 13.8 g/dL (13.6-17.9); Lymphocytes % 14.4 % (15.3-44.8); MCH 33.9 pg (27.0-35.0); MCHC 33.7 g/dL (32.0-36.0); MCV 100.5 fL (80-100); MPV 8.3 fL (7.6-11.3); Monocytes % 16.1 % (3.3-12.3); Neutrophils % 68.1 % (41.7-73.7); Platelets 200 thou/uL (152-406); RBC Red Blood Cell Count 4.07 M/uL (4.33-5.43); Red Cell Distribution Width 13.4 % (12.1-15.2)
--- NOTE | 2024-01-28 07:51 | P.PN ---
Date of Service: 01/28/24 Subjective Date of Service: 01/27/24 Chief Complaint: Colitis Plan for biopsy for skin lesion Repeat CT of the abdomen today, Review of Systems 10 point review of system negative unless listed in HPI Physical Examination - Vital Signs Reviewed - Physical Exam General: Alert, In no apparent distress, Oriented x3 HEENT: Atraumatic, Normocephalic, PERRLA Neck: Supple, 2+ carotid pulse no bruit, JVD not distended Respiratory: Clear to auscultation bilaterally, Normal air movement Cardiovascular: No edema, Normal pulses, Regular rate/rhythm, Normal S1 S2 Capillary refill: <2 Seconds Gastrointestinal: Normal bowel sounds, Soft and benign, Non-distended Musculoskeletal: No clubbing, No swelling, No contractures Integumentary: No breakdown, Rash(es), Skin lesion Neurological: Normal gait, Normal speech, Normal strength at 5/5 x4 extr Lymphatics: No axilla or inguinal lymphadenopathy Assessment And Plan - Plan Severe sepsis 2/2 Colitis: Improved Abdominal pain Improving. No diarrhea since yesterday. C diff Ag is positive. Continue oral vanc, IVF and prn antiemetic. Off zosyn. Lactate is 0.8 <- 2.3. CT abd/pelvis on admission showed mild colitis. Repeat CT scan IMPRESSION: No acute intra-abdominal or pelvic fi nding.Significant constipationFatty liver Stool softeners added Skin lesions all over his body. He has red spots / pustules all over his body. Pt attributes it to dicyclomine. Will hold it and apply hydrocortisone cream TID. Will f/u skin biopsy. Consulted IR. Alcohol dependence: History of pancreatitis Pt drinks 2 - 3 alcohol drinks per night. Will place on CIWA protocol. Pt was advised to quit drinking. lactic acidosis: lactate is 3.4 -> 2.3-> 0.8. Will continue IVF and trend lactate. Seizure: Continue home med. Continue home meds for other chronic medical problems. DVT ppx: SCD Dispo: pending hospital course. <Gill Paz - Last Filed: 01/28/24 19:25> Patient was seen and examined. Events of the last 24 hours have been noted. Spoke with with JAY regarding patient's clinical picture after evaluating and examining the patient independently. I performed a substantial part of the MDM during this patient's care today. I personally made or approved the documented management plan and acknowledge its risk of complications. I agree with the findings and documentation provided in the JAY's notes. Continue with antibiotic therapy. Plan of discharge with outpatient follow-up with Dermatology and Gastroenterology. At this time patient is doing well and he has been counseled to refrain from alcohol use. Patient will discharge home with outpatient follow-up as mentioned above <Analilia Gomez - Last Filed: 02/19/24 16:47>
[2024-01-28 07:53] LABS: Anion Gap 8.9 mEq/L (5.0-15.0); Potassium 3.9 mEq/L (3.5-5.1)
[2024-01-28] MEDS: METHYLPREDNISOLONE 125 MG INJ IV SCH ×2 (09:00→10:10)
--- NOTE | 2024-01-28 11:21 | RAD REPORT ---
EXAM DESCRIPTION: CTAbdomen Pelvis W Contrast - 01/28/2024 11:11 am CLINICAL HISTORY: Abdominal pain. persistent diarrhea COMPARISON: Abdomen Pelvis W Contrast dated 01/20/2024; Abdomen Pelvis W Contrast dated 3; Abdomen Pelvis W Contrast dated 05/13/2022; Abdomen Pelvis W Contrast dated 05/10/2022 TECHNIQUE: Biphasic CT imaging of the abdomen and pelvis was performed with 100 ml non-ionic IV cont rast. All CT scans are performed using dose optimization technique as appropriate and may include automated exposure control or mA/KV adjustment according to patient size. FINDINGS: The lung bases are clear. The liver demonstrates diffuse fatty liver. Spleen, pancreas, adrenal glands and kidneys are within n ormal limits. No bowel obstruction, free air, free fluid or abscess. There is a significant amount of retained stoo l throughout the colon. The appendix is normal. No evidence of significant lymphadenopathy. Mild L5-S1 spondylosis with vacuum disc degeneration. IMPRESSION: No acute intra-abdominal or pelvic finding. Significant constipation Fatty liver.
[2024-01-28] MEDS: POTASSIUM CL SA 10 MEQ TAB PO ONE (13:08)
--- NOTE | 2024-01-28 14:18 | CON ---
History Of Present Illness: This is a 33-year-old male. I was consulted for evaluation of colitis. Patient has significant past medical history of migraine, pancreatitis, scoliosis, head injury, seiz ure disorder, coming in with the left upper quadrant pain. CT scan shows ascending and transverse co justine mild colitis. C diff antigen is positive, toxin is negative. Past Medical History: As per HPI. Social History: Tobacco positive. Alcohol positive. Family History: Noncontributory. Medications: Vancomycin p.o. See MARs for other medications. Allergies: DICYCLOMINE WHICH WAS GIVEN TO HIM AT [facility] CAUSED HIM TO HAVE A RASH. Review of Systems: A 10-point review was performed. Physical Examination: General: This is a 33-year-old male, lying in bed, not in any acute cardiopulmonary distress. Vital Signs: Temperature 98, pulse 78, respirations 16, blood pressure 90/60. HEENT: Unremarkable. Neck: Supple. Lungs: Basal crackles. Heart: S1, S2. Regular. Abdomen: Soft, nontender. Bowel sounds present. Extremity: No edema. Abdomen: Tenderness noted in right upper and lower quadrants. Laboratory Data: Shows WBC 6.9, hemoglobin 13.8, platelets 200. Chemistry shows BUN of 15, creatini ne 0.8. Micro data: Blood cultures are negative. Assessment And Plan: 33-year-old male with colitis, currently on vancomycin, with the stool starting to become semi-solid. Continue current treatment for a total of 10 days. Consider GI evaluation an d consider getting [employer] school social [employer] teacher for patient's treatment and management of his overall condition. Drug reaction to dicyclomine. Consider Benadryl and Medrol Dosepak. We will follow the patient nicole collazo. Thank you for consult. NF/MODL Voice ID: [id number] Report ID: [id number]
[2024-01-28] MEDS: HYDROCODONE/APAP 5/325 MG TAB PO PRN (16:05)
[2024-01-28] MEDS: BISACODYL E.C. 5 MG TAB PO PRN (17:24)
[2024-01-29 07:46] LABS: Anion Gap 10.4 mEq/L (5.0-15.0); Potassium 3.4 mEq/L (3.5-5.1)
[2024-01-29] MEDS: POTASSIUM CL SA 10 MEQ TAB PO ONE (08:41)
[2024-01-29] MEDS: AMYLASE/LIPASE/PROTEASE CAP PO SCH (10:32)
[2024-01-29 16:06] VITALS: BP 106/62; TEMP 97.2
[2024-01-29 22:08] VITALS: O2SAT 98
[2024-02-08 13:20] LABS: Anti-Nuclear Antibody Screen Negative (Negative)
--- NOTE | 2024-02-19 16:48 | P.DS ---
Discharge Date: 01/29/24 Disposition: ROUTINE DISCHARGE Discharge Condition: GOOD Reason for Admission: Colitis Brief History of Present Illness: 33 yrs old Male with past medical history of Migraine; Pancreatitis; repetitive head injury; scoliosis; Seizures presents to ER with abdominal pain. He reports left upper quadrant pain, consistent with previous episodes of pancreatitis /colitis. He reports nausea, tolerating minimal p.o. intake. Denies vomiting, reports loose stools. He reports history of alcohol use at least 2-3 drinks of alcohol per night, reports history of pancreatitis, he denies following up with GI, no reported recent colonoscopy. He reports history of seizures with left- sided tingling. No reported chest pain, shortness of breath, fever, vomiting, he reports being prescribed dicyclomine and reports body scaly rash started af ter taking the medication. Plan to admit for colitis, seizure. CT scan revealed mild thickening of the wall of the proximal transverse colon and ascending colon with mild stranding in the adjacent fat may indicate a mild colitis Marked fatty infiltration of liver Mild gallbladder distention, laboratory evaluation hypokalemia 2.8 lactic acidosis 3.4 hypocalcemia 6.8 transaminitis AST 104 ALT 60, lipase normal at 38 Hospital Course: Patient is clinically doing much better. Patient is stable for discharge with outpatient GI follow-up. Patient will also need to follow with Dermatology. At this time, patient will be sent home with antibiotic therapy. Vital Signs/Physical Exam: Temp Pulse Resp BP Pulse Ox 97.2 F 61 16 106/62 99 01/29/24 16:00 01/29/24 16:00 01/29/24 16:00 01/29/24 16:00 01/29/24 16:00 General: Alert, In no apparent distress, Oriented x3 Laboratory Data at Discharge: WBC 6.90 thou/uL (4.3-10.9) 01/28/24 07:30 Hgb 13.8 g/dL (13.6-17.9) 01/28/24 07:30 Hct 40.9 % (39.6-49.0) 01/28/24 07:30 Plt Count 200 thou/uL (152-406) 01/28/24 07:30 PT 10.9 SECONDS (9.4-12.5) 01/20/24 19:50 INR 0.97 01/20/24 19:50 APTT 30.9 SECONDS (24.3-36.9) 01/20/24 19:50 Sodium 140 mEq/L (136-145) 01/29/24 06:58 Potassium 3.8 mEq/L (3.5-5.1) 01/29/24 15:50 BUN 12 mg/dL (7-18) 01/29/24 06:58 Creatinine 0.79 mg/dL (0.70-1.30) 01/29/24 06:58 Glucose 110 mg/dL (74-106) H 01/29/24 06:58 Phosphorus 4.3 mg/dL (2.5-4.9) 01/21/24 05:20 Magnesium 2.0 mg/dL (1.6-2.4) 01/23/24 06:41 Total Bilirubin 0.4 mg/dL (0.2-1.0) 01/20/24 18:00 AST 104 U/L (15-37) H 01/20/24 18:00 ALT 67 U/L (16-61) H 01/20/24 18:00 Alkaline Phosphatase 80 U/L (45-117) 01/20/24 18:00 Lipase 39 U/L (13-75) 01/28/24 07:30 Home Medications: levETIRAcetam [Keppra*] 500 mg PO BID #60 tab 05/14/22 ALPRAZolam [Alprazolam] 1 mg PO Q6HP PRN #30 tab 01/29/24 Hydrocodone 5/APAP 325 [[place] 5/325*] 1 tab PO Q6H PRN #30 tab 01/29/24 Lipase/Protease/Amylase [Pancreaze Dr 21,000 Unit Cap] 1 each PO AC #90 cap 01/29/24 Thiamine HCl [Vitamin B-1*] 100 mg PO DAILY #30 tab 01/29/24 Vancomycin HCl 125 mg PO QID #20 cap 01/29/24 predniSONE [Deltasone] 20 mg PO BID #20 tab 01/29/24 New Medications: ALPRAZolam [Alprazolam] 1 mg PO Q6HP PRN #30 tab PRN Reason: Anxiety Hydrocodone 5/APAP 325 [[place] 5/325*] 1 tab PO Q6H PRN #30 tab PRN Reason: Pain Scale 5-7 (Moderate) Lipase/Protease/Amylase [Pancrejerod Ignacio 21,000 Unit Cap] 1 each PO AC #90 cap predniSONE [Deltasone] 20 mg PO BID #20 tab Vancomycin HCl 125 mg PO QID #20 cap Thiamine HCl [Vitamin B-1*] 100 mg PO DAILY #30 tab Physician Discharge Instructions: -DC IV and DC home -Follow-up with PCP in 1 to 2 weeks -Follow-up with GI in 1 to 2 weeks -Follow-up with Dermatology in 1-2 weeks -Please call Dr. Gomez at [phone] if any questions regarding hospital stay -Please call nursing station at [phone] if any nursing or medication questions -Return to the emergency room if symptoms worsen Diet: low fat Activity: Fall precautions Followup: NONE,NONE [Primary Care Provider] - 1-2 Weeks Alfredito Sood MD [ASSOCIATE-ACTIVE - CAN ADMIT] - 1-2 Weeks Time spent managing pt's care (in minutes): 35
== END 2024-01-29 19:40 | disposition home or self-care (01) | DRG 872 ==
LOC: ER 16:51 → ERHOLD 20:23 → 4TH 21:09
PROVIDERS: ADMIT Hospitalist; ATTEND Hospitalist
DX: A41.9 Sepsis, unspecified organism (principal); E87.20 Acidosis, unspecified; E87.0 Hyperosmolality and hypernatremia; A04.72 Enterocolitis due to Clostridium difficile, not specified as recurrent; R65.20 Severe sepsis without septic shock; E87.6 Hypokalemia; E83.51 Hypocalcemia; F41.9 Anxiety disorder, unspecified; M41.9 Scoliosis, unspecified; K76.0 Fatty (change of) liver, not elsewhere classified; G40.909 Epilepsy, unspecified, not intractable, without status epilepticus; F10.20 Alcohol dependence, uncomplicated; L27.0 Generalized skin eruption due to drugs and medicaments taken internally; T44.3X5A Adverse effect of other parasympatholytics [anticholinergics and antimuscarinics] and spasmolytics, initial encounter; F17.210 Nicotine dependence, cigarettes, uncomplicated; R74.01 Elevation of levels of liver transaminase levels; Z56.0 Unemployment, unspecified; Z88.8 Allergy status to other drugs, medicaments and biological substances; Z79.899 Other long term (current) drug therapy; Y90.9 Presence of alcohol in blood, level not specified
CPT/HCPCS: 36415; 71045; 74177; 80048; 80053; 81001; 82947; 83605; 83690; 83735; 84100; 84132; 84484; 85025; 85610; 85730; 86038; 86140; 86671; 87040; 87045; 87046; 87177; 87209; 87324; 93005; 94760; 99285; J0612; J1170; J1200; J1953; J2405; J2543; J2919; J3475; J3480; J7030; J7050; Q9967

== ENCOUNTER 2024-02-16 23:24 | Emergency (ER) | payer MEDICAID, SELFPAY ==
--- OUTSIDE RECORDS SUMMARY | 2024-02-16 23:26 | XMS REPORT | Continuity of Care Document ---
Author Name Unknown Address [address] [place] [address] Ivan. [address] [employer] Address [address] [place] [address]. [address] [place] [address] Care Team Providers Care Double Cut Sawyer Name Role Phone Unavailable Unavailable Unavailable Encounters Start Date/Time End Date/Time Encounter Type Admission Type Attending Clinicians Care Facility Care Department Encounter ID Source 2023-06-27 13:17:34 2023-06-27 13:17:34 Outpatient [facility] [id number] Charlie Peguero 2022-07-13 16:06:27 2022-07-13 16:06:[address] [facility] [facility] [id number] Charlie Peguero Results Test Description Test Time Test Comments Results Result Co mments Source
[2024-02-16] MEDS ORDERED: LEVETIRACETAM 500 MG/5 ML VIAL IV ONE (23:54)
[2024-02-16] MEDS ORDERED: ONDANSETRON 4 MG/2 ML VIAL ONE (23:54)
[2024-02-16] MEDS ORDERED: NA CHLORIDE 0.9% 100 ML ONE (23:55)
[2024-02-17 00:06] LABS: Absolute Basophils 0.1 K/uL (0-0.5); Absolute Eosinophils 0.1 K/uL (0-0.5); Absolute Lymphocytes (CBC) 2.4 K/uL (0.7-4.9); Absolute Monocytes 0.5 K/uL (0.1-1.3); Absolute Neutrophil 2.2 K/uL (1.8-8.0); Basophils % 1.4 % (0-1.3); Eosinophils % 2.5 % (0-4.4); Hematocrit 43.8 % (39.6-49.0); Hemoglobin 14.8 g/dL (13.6-17.9); Lymphocytes % 45.1 % (15.3-44.8); MCH 33.1 pg (27.0-35.0); MCHC 33.8 g/dL (32.0-36.0); MCV 97.9 fL (80-100); MPV 8.5 fL (7.6-11.3); Monocytes % 9.5 % (3.3-12.3); Neutrophils % 41.5 % (41.7-73.7); Nucleated Red Blood Cells % 0.1 % (0-0); Platelets 191 thou/uL (152-406); RBC Red Blood Cell Count 4.47 M/uL (4.33-5.43); Red Cell Distribution Width 13.5 % (12.1-15.2)
[2024-02-17 00:20] LABS: Albumin 3.8 g/dL (3.4-5.0); Albumin/Globulin Ratio 1.2 (1.1-1.8); Anion Gap 13.4 mEq/L (5.0-15.0); Bilirubin Direct 0.2 mg/dL (0-0.2); Bilirubin Indirect, Calculated 0.6 mg/dL (0.2-0.8); Bilirubin Total 0.8 mg/dL (0.2-1.0); Globulin 3.3 g/dL (2.3-3.5); Potassium 3.4 mEq/L (3.5-5.1); Protein, Total 7.1 g/dL (6.4-8.2); Troponin High Sensitivity 11.2 pg/mL (<58.9)
--- NOTE | 2024-02-17 03:26 | EDPHYS ---
Physician Documentation [facility] Name: Mitchell Mendez III Age: 33 yrs Sex: Male : 1990 Arrival Date: 02/16/2024 Time: 23:24 Bed 17 Private MD: ED Physician Toni Bojorquez HPI: 02/16 00:29 This 33 yrs old Male presents to ER via EMS with complaints of Seizure. ec2 00:29 Patient arrives today for evaluation of seizure. Patient with history of seizure, ec2 history of pancreatitis. Patient reports abdominal pain as well as seizure episode tonight. Reports medication compliance on his Keppra. Denies any other concerns.. Historical: - Allergies: 02/15 23:41 No Known Allergies; bm8 - Home Meds: 23:41 Keppra 1 Oral tablet [Active]; bm8 - PMHx: 23:41 Migraine; Pancreatitis; repetitive head injury; scoliosis; Seizures; bm8 - PSHx: 23:41 Unable to Obtain; bm8 - Immunization history:: Adult Immunizations up to date. - Infectious Disease History:: Denies. - Social history:: Smoking status: unknown. ROS: 02/16 00:29 Constitutional: as per hpi ec2 Exam: 02/15 23:45 ECG was reviewed by the Attending Physician. ec2 02/16 00:29 Constitutional: GEN: NAD Head: atraumatic Eyes: EOMI Ears: External ears are ec2 normal. CV: regular rate LUNGS: no respiratory distress ABD: non-distended SKIN: no evidence of rashes MSK: no evidence of trauma. Neuro: Cranial nerves II through XII intact, strength intact all 4 extremities. Vital Signs: 02/15 23:25 BP 116 / 87; Pulse 96; Resp 18; Temp 97.9; Pulse Ox 98% ; Weight 65.77 kg; Height 6 ft. bm8 3 in. ; Pain 10/10; 02/16 01:20 BP 124 / 91; Pulse 108; Resp 17; Temp 98.1; Pulse Ox 96% ; Pain 8/10; bm8 03:16 BP 97 / 62; Pulse 67; Resp 14; Temp 98.1; Pulse Ox 98% ; Pain 0/10; bm8 02/15 23:25 Body Mass Index 18.12 (65.77 kg, 190.5 cm) bm8 02/15 23:25 Pain Scale: Adult bm8 02/16 01:20 Pain Scale: Adult bm8 03:16 Pain Scale: Adult bm8 [place] Coma Score: 02/15 23:41 Eye Response: spontaneous(4). Motor Response: obeys commands(6). Verbal Response: bm8 oriented(5). Total: 15. 23:46 Eye Response: spontaneous(4). Motor Response: obeys commands(6). Verbal Response: bm8 oriented(5). Total: 15. 02/16 01:20 Eye Response: spontaneous(4). Motor Response: obeys commands(6). Verbal Response: bm8 oriented(5). Total: 15. 03:16 Eye Response: spontaneous(4). Motor Response: obeys commands(6). Verbal Response: bm8 oriented(5). Total: 15. MDM: 02/15 23:28 Patient medically screened. ec2 23:46 ED course: EKG independently reviewed and interpreted by me, shows normal sinus rhythm, ec2 rate of 89, no acute ST segment elevations, intervals are nonconcerning.. 02/16 00:29 Data reviewed: vital signs. ec2 00:30 ED course: Patient arrives today for seizure episode as well as abdominal pain. ec2 Examination remarkable for neuro intact individuals otherwise in no acute distress. Will obtain lab work, EKG, chest x-ray, CT scan of the head as well as abdomen pelvis imaging. Differential includes seizure, electrolyte disturbances, anemia.. 00:31 ED course: Metabolic profile shows slight hypokalemia, CBC reassuring, troponin within ec2 normal ranges, LFTs and lipase within normal ranges. Pending CT imaging.. 01:24 ED course: Chest x-ray negative.. ec2 03:25 ED course: CT abdomen pelvis shows no acute intra-abdominal process, CT scan of the ec2 head shows no acute intracranial process. On reassessment patient well-appearing no acute distress. Will discharge home. Return precautions given. . 02/15 23:45 Order name: Basic Metabolic Panel; Complete Time: 00:29 ec2 02/15 23:45 Order name: CBC with Diff; Complete Time: 00:29 ec2 02/15 23:45 Order name: Troponin HS; Complete Time: 00:29 ec2 02/15 23:45 Order name: LFT's; Complete Time: 00:29 ec2 02/15 23:45 Order name: Lipase; Complete Time: 00:29 ec2 02/15 23:45 Order name: XRAY Chest (1 view) ec2 02/15 23:45 Order name: CT Abd/Pelvis - IV Contrast Only ec2 02/15 23:45 Order name: CT Head Brain wo Cont ec2 02/15 23:45 Order name: EKG; Complete Time: 23:46 ec2 02/15 23:45 Order name: Cardiac monitoring; Complete Time: 23:49 ec2 02/15 23:45 Order name: EKG - Nurse/Tech; Complete Time: 23:49 ec2 02/15 23:45 Order name: IV Saline Lock; Complete Time: 23:49 ec2 02/15 23:45 Order name: Labs collected and sent; Complete Time: 23:49 ec2 02/15 23:45 Order name: O2 Per Protocol; Complete Time: 23:49 ec2 02/15 23:45 Order name: O2 Sat Monitoring; Complete Time: 00:08 ec2 Administered Medications: 00:19 Drug: Keppra IV 1000 mg IV at calculated rate once Route: IV; Rate: calculated rate; bm8 Site: right hand; 03:18 Follow up: Response: No adverse reaction; IV Status: Completed infusion; IV Intake: bm8 100ml 00:19 Drug: Ondansetron IVP 4 mg IVP once; over 2 minutes Route: IVP; Site: left forearm; bm8 03:18 Follow up: Response: No adverse reaction bm8 01:19 Drug: Droperidol IVP 2.5 mg IVP once Route: IVP; Site: left forearm; bm8 03:18 Follow up: Response: No adverse reaction bm8 Disposition Summary: 02/17/24 03:25 Discharge Ordered Notes: Location: Home ec2 Condition: Stable ec2 Diagnosis - Other seizures ec2 - Abdominal pain, Generalized ec2 Followup: ec2 - With: Private Physician - When: - Reason: Re-evaluation by your physician Discharge Instructions: - Discharge Summary Sheet ec2 - Seizure, Adult ec2 Forms: - Medication Reconciliation Form ec2 - Antibiotic Education ec2 - Prescription Opioid Use ec2 - Patient Portal Instructions ec2 - Leadership Thank You Letter ec2 Signatures: Dispatcher [employer] EDMS Toni Bojorquez MD MD ec2 Cl Fletcher, RN RN bm8 Corrections: (The following items were deleted from the chart) 02/15 23:46 23:46 BASIC METABOLIC PANEL+C.LAB.BRZ ordered. EDMS EDMS 23:46 23:46 CBC+H.LAB.BRZ ordered. EDMS EDMS 23:46 23:46 Troponin High Sensitivity+C.LAB.BRZ ordered. EDMS EDMS :46 23:46 HEPATIC FUNCTION+C.LAB.BRZ ordered. EDMS EDMS 23:46 23:46 LIPASE+C.LAB.BRZ ordered. EDMS EDMS
--- NOTE | 2024-02-17 03:26 | ER ---
Nurse's Notes [facility] Name: Mitchell Mendez III Age: 33 yrs Sex: Male : 1990 Arrival Date: 02/16/2024 Time: 23:24 Bed 17 Private MD: Diagnosis: Other seizures;Abdominal pain, Generalized Presentation: 02/15 23:25 Chief complaint: EMS states: pt had seizures yesterday and was just feeling weak today. bm8 He wanted to be evaluated. en route pt had 2 seizures each lasting about 20 secs. pt received 5 mg versed, 2 mg Ativan, 1 g IV tylenol. Coronavirus screen: At this time, the client does not indicate any symptoms associated with coronavirus-19. Ebola Screen: Patient negative for fever greater than or equal to 101.5 degrees Fahrenheit, and additional compatible Ebola Virus Disease symptoms Patient denies exposure to infectious person. Patient denies travel to an Ebola-affected area in the 21 days before illness onset. No symptoms or risks identified at this time. Initial Sepsis Screen: Does the patient meet any 2 criteria? No. Patient's initial sepsis screen is negative. Does the patient have a suspected source of infection? No. Patient's initial sepsis screen is negative. Risk Assessment: Do you want to hurt yourself or someone else? Patient reports no desire to harm self or others. Onset of symptoms was February 16, 2024 at 22:00. 23:25 Method Of Arrival: EMS: [facility] bm8 23:25 Acuity: CAROLINE 2 bm8 23:41 Care prior to arrival: Medication(s) given: Tylenol, 1 g IV, 5 mg VERSED IV, 2 mg bm8 Ativan IV IV initiated. 20 GA, in the right hand. Triage Assessment: 23:41 General: Appears distressed, uncomfortable, Behavior is calm, cooperative, appropriate bm8 for age. Pain: Complains of pain in chest and abdomen Pain does not radiate. Pain currently is 10 out of 10 on a pain scale. Quality of pain is described as crampy, sharp. EENT: No deficits noted. Neuro: No deficits noted. Level of Consciousness is awake, alert, obeys commands, Oriented to person, place, time, situation, Appropriate for age [employer] [place] are equal bilaterally Moves all extremities. Full function Speech is normal, Facial symmetry appears normal, Pupils are PERRLA, Reports weakness Seizure activity reported prior to arrival. Type of seizure: grand mal seizure. Seizure lasted approximately 1 minutes. Cardiovascular: Reports chest pain, Heart tones S1 S2 present Capillary refill < 3 seconds Patient's skin is warm and dry. Rhythm is sinus rhythm. Respiratory: Airway is patent Trachea midline Respiratory effort is even, unlabored, Respiratory pattern is regular, symmetrical, Breath sounds are clear bilaterally. GI: Abdomen is flat, non-distended, Bowel sounds present X 4 quads. Abd is soft Abdomen is tender to palpation in suprapubic area, left upper quadrant and left lower quadrant Reports lower abdominal pain, upper abdominal pain, nausea, Pain is 10 out of 10 on a pain scale. also demanding ice for stomach pain pt explained that he was not to have food or drink until scans and reads were complete. : No signs and/or symptoms were reported regarding the genitourinary system. Derm: No signs and/or symptoms reported regarding the dermatologic system. Musculoskeletal: No signs and/or symptoms reported regarding the musculoskeletal system. Historical: - Allergies: 23:41 No Known Allergies; bm8 - Home Meds: 23:41 Keppra 1 Oral tablet [Active]; bm8 - PMHx: 23:41 Migraine; Pancreatitis; repetitive head injury; scoliosis; Seizures; bm8 - PSHx: 23:41 Unable to Obtain; bm8 - Immunization history:: Adult Immunizations up to date. - Infectious Disease History:: Denies. - Social history:: Smoking status: unknown. Screenin:46 [facility] ED Fall Risk Assessment (Adult) History of falling in the last 3 months, bm8 including since admission Yes- physiologic fall (2 pts) Confusion or Disorientation No (0 pts) Intoxicated or Sedated No (0 pts) Impaired Gait No (0 pts) Mobility Assist Device Used No (0 pt) Altered Elimination No (0 pt) Score/Fall Risk Level 3 or more points = High Risk Oriented to surroundings, Maintained a safe environment, Educated pt \T\ family on fall prevention, incl call for assistance when getting out of bed, Assessed \T\ reinforced patient's understanding of fall precautions, Hourly rounding (assess needs \T\ fall precautionary measures) done, Used ambulatory aids as needed (educated on \T\ assisted with), Used gait belt as appropriate Implemented a Fall Risk Plan of Care, Apply high fall risk patient identification: yellow non skid footwear/ fall signage. Abuse screen: Denies threats or abuse. Nutritional screening: No deficits noted. Tuberculosis screening: No symptoms or risk factors identified. Assessment: 23:46 Reassessment: see triage note. bm8 02/16 01:20 General: Appears in no apparent distress. comfortable, Behavior is calm, cooperative, bm8 appropriate for age. Pain: Complains of pain in abdomen Pain does not radiate. Pain currently is 5 out of 10 on a pain scale. Neuro: No deficits noted. Level of Consciousness is awake, alert, obeys commands, Oriented to person, place, time, situation, Appropriate for age. Cardiovascular: No deficits noted. Heart tones S1 S2 present Capillary refill < 3 seconds in bilateral fingers toes Patient's skin is warm and dry. Respiratory: No deficits noted. Airway is patent Trachea midline Respiratory effort is even, unlabored, Respiratory pattern is regular, symmetrical, Breath sounds are clear bilaterally. GI: No signs and/or symptoms were reported involving the gastrointestinal system. : No signs and/or symptoms were reported regarding the genitourinary system. EENT: No signs and/or symptoms were reported regarding the EENT system. Derm: No signs and/or symptoms reported regarding the dermatologic system. Musculoskeletal: No signs and/or symptoms reported regarding the musculoskeletal system. 02:17 Reassessment: pt to ct. bm8 03:16 Reassessment: Patient appears in no apparent distress at this time. Patient and/or bm8 family updated on plan of care and expected duration. Pain level reassessed. Patient is alert, oriented x 3, equal unlabored respirations, skin warm/dry/pink. pt is resting with eyes closed breathing is even unlabored with symmetrical rise and fall of chest Patient states feeling better. Patient states symptoms have improved. Vital Signs: 02/15 23:25 BP 116 / 87; Pulse 96; Resp 18; Temp 97.9; Pulse Ox 98% ; Weight 65.77 kg; Height 6 ft. bm8 3 in. ; Pain 03/19; 02/16 01:20 BP 124 / 91; Pulse 108; Resp 17; Temp 98.1; Pulse Ox 96% ; Pain 01/17; bm8 03:16 BP 97 / 62; Pulse 67; Resp 14; Temp 98.1; Pulse Ox 98% ; Pain 0/10; bm8 02/15 23:25 Body Mass Index 18.12 (65.77 kg, 190.5 cm) bm8 02/15 23:25 Pain Scale: Adult bm8 02/16 01:20 Pain Scale: Adult bm8 03:16 Pain Scale: Adult bm8 [place] Coma Score: 02/15 23:41 Eye Response: spontaneous(4). Motor Response: obeys commands(6). Verbal Response: bm8 oriented(5). Total: 15. 23:46 Eye Response: spontaneous(4). Motor Response: obeys commands(6). Verbal Response: bm8 oriented(5). Total: 15. 02/16 01:20 Eye Response: spontaneous(4). Motor Response: obeys commands(6). Verbal Response: bm8 oriented(5). Total: 15. 03:16 Eye Response: spontaneous(4). Motor Response: obeys commands(6). Verbal Response: bm8 oriented(5). Total: 15. ED Course: 02/15 23:24 Patient arrived in ED. [id number] 23:28 Toni Bojorquez MD is Attending Physician. ec2 23:38 Cl Fletcher, RN is Primary Nurse. bm8 23:41 Triage completed. bm8 23:41 Arm band placed on right wrist. EKG completed in triage. Results shown to MD. bm8 23:46 Patient has correct armband on for positive identification. Bed in low position. Call bm8 light in reach. Side rails up X2. Seizure precautions initiated. Client placed on continuous cardiac and pulse oximetry monitoring. NIBP monitoring applied. bullion weigher on. Pulse ox on. NIBP on. Door closed. Noise minimized. Visitors limited. Warm blanket given. Pillow given. Verbal reassurance given. Head of bed elevated. 23:46 No provider procedures requiring assistance completed. Initial lab(s) drawn, by myra gomez sent to lab. EKG done, by ED staff, reviewed by Toni Bojorquez MD. Inserted saline lock: 20 gauge in left forearm, using aseptic technique. Blood collected. Flushed with 10 mL NS Maintain EMS IV. Dressing intact. Good blood return noted. Site clean \T\ dry. Gauge \T\ site: 20g right hand. Flushed with 10 mL NS. Patient maintains SpO2 saturation greater than 95% on room air. 09/09 00:48 XRAY Chest (1 view) In Process Unspecified. EDMS 02:27 CT Abd/Pelvis - IV Contrast Only In Process Unspecified. EDMS 02:27 CT Head Brain wo Cont In Process Unspecified. EDMS 03:38 Patient is placed in psych hold. bm8 03:38 Provided Education on: post er care. bm8 03:38 IV discontinued, intact, bleeding controlled, No redness/swelling at site. Pressure bm8 dressing applied, x2. Administered Medications: 00:19 Drug: Keppra IV 1000 mg IV at calculated rate once Route: IV; Rate: calculated rate; bm8 Site: right hand; 03:18 Follow up: Response: No adverse reaction; IV Status: Completed infusion; IV Intake: bm8 100ml 00:19 Drug: Ondansetron IVP 4 mg IVP once; over 2 minutes Route: IVP; Site: left forearm; bm8 03:18 Follow up: Response: No adverse reaction bm8 01:19 Drug: Droperidol IVP 2.5 mg IVP once Route: IVP; Site: left forearm; bm8 03:18 Follow up: Response: No adverse reaction bm8 Medication: 02/15 23:46 VIS not applicable for this client. bm8 Intake: 02/16 03:18 IV: 100ml; Total: 100ml. bm8 Outcome: 03:25 Discharge ordered by . ec2 03:37 Discharged to home ambulatory, bm8 03:37 Condition: stable 03:37 Discharge instructions given to patient, family, Instructed on discharge instructions, follow up and referral plans. no drinking with medication, no driving heavy equipment, medication usage, safety practices, 03:38 Patient left the ED. bm8 Signatures: Dispatcher [employer] EDVania Foley [id number] Toni Bojorquez MD MD ec2 Cl Fletcher, RN RN bm8
[2024-02-17 03:50] VITALS: TEMP 98.1
[2024-02-17 03:52] VITALS: BP 97/62; O2SAT 98
--- NOTE | 2024-02-17 15:10 | RAD REPORT ---
EXAM DESCRIPTION: Chest Single View CLINICAL HISTORY: 33-year-old male with chest pain. TECHNIQUE: Single view, AP portable chest was obtained. COMPARISON: None. FINDINGS: Unremarkable cardiac and mediastinal silhouette. Heart size is normal. Lungs are clear without focal opacity, pneumothorax or pleural effusions. The visualized bones are within normal limits. IMPRESSION: No acute cardiopulmonary abnormalities. Electronically signed by: Antonia Allan MD 02/17/2024 12:56 AM CDT RP Due to temporary technical issues with the PACS/Fluency reporting system, reports are being signed by the in house radiologists without review as a courtesy to insure prompt reporting. The interpreting radiologist is fully responsible for the content of the report.
--- NOTE | 2024-02-17 16:59 | EKG ---
Test Date: 2024-02-16 Test Time: 23:36:18 Podiatric Medicine Doctor: LISA MEASUREMENT RESULTS: Intervals: Rate: 89 LA: 148 QRSD: 106 QT: 370 QTc: 450 [place]: P: 65 LA: 148 QRS: 81 T: 65 INTERPRETIVE STATEMENTS: Normal sinus rhythm Normal ECG Compared to ECG 01/20/2024 18:06:11 Left ventricular hypertrophy no longer present Electronically Signed On 02-17-24 16:58:16 CDT by Silverio Will
--- NOTE | 2024-02-17 18:18 | RAD REPORT ---
EXAM DESCRIPTION: CT HEAD WITHOUT IV CONTRAST CLINICAL HISTORY: Seizure. COMPARISON: CT Head without IV contrast 11/02/2021. TECHNIQUE: CT images of the head were obtained without contrast. Multiplanar reformats were provided . Dose lowering techniques such as automated exposure control, iterative reconstruction, and mA and/o r kV adjustment for patient size was utilized for this examination. FINDINGS: PARENCHYMA: No acute infarct or hemorrhage. No mass effect or midline shift. VENTRICLES: Normal in size for patient's age. EXTRA-AXIAL: No focal collection. Patent basilar cisterns. BONES: No acute finding. ORBITS: Unremarkable. PARANASAL SINUSES/MASTOIDS/MIDDLE EARS: Clear. SOFT TISSUES: No acute findings. OTHER: None. IMPRESSION: No acute intracranial abnormality. Electronically signed by: Jyoti Marcus MD 02/17/2024 03:09 AM CDT Due to temporary technical issues with the PACS/Fluency reporting system, reports are being signed by the in house radiologists without review as a courtesy to insure prompt reporting. The interpreting radiologist is fully responsible for the content of the report
--- NOTE | 2024-02-17 18:20 | RAD REPORT ---
EXAM DESCRIPTION: CT Abdomen and Pelvis With Intravenous Contrast CLINICAL HISTORY: Abdominal pain. TECHNIQUE: Axial computed tomography images of the abdomen and pelvis with intravenous contrast. S agittal and coronal reformatted images were created and reviewed. This CT exam was performed using one or more of the following dose reduction techniques: automated exposure control, adjustment of t he mA and/or kV according to patient size, and/or use of iterative reconstruction technique. COMPARISON: CT Abdomen Pelvis 01/28/2024. FINDINGS: Lung bases: Unremarkable. No mass. No consolidation. ABDOMEN: Liver: The liver is diffusely low in density compatible with steatosis. Gallbladder and bile ducts: Unremarkable. No calcified stones. No ductal dilation. Pancreas: Unremarkable. No mass. No ductal dilation. Spleen: Unremarkable. No splenomegaly. Adrenals: Unremarkable. No mass. Kidneys and ureters: Unremarkable. No solid mass. No hydronephrosis. Stomach and bowel: Intramural fat within portions of the large bowel which can be seen in the setti ng of prior inflammation. No bowel obstruction. No appreciable mucosal thickening. PELVIS: Appendix: Normal caliber appendix. No findings to suggest acute appendicitis. Bladder: Unremarkable. No mass. Reproductive: Unremarkable as visualized. ABDOMEN and PELVIS: Intraperitoneal space: Unremarkable. No free air. No significant fluid collection. Bones/joints: Multilevel spondylosis. No acute fracture. No dislocation. Soft tissues: Small fat-containing left inguinal hernia. Vasculature: Minimal atherosclerotic disease. No abdominal aortic aneurysm. Lymph nodes: Unremarkable. No enlarged lymph nodes. IMPRESSION: 1. No acute inflammatory process identified within the abdomen and pelvis. 2. Other findings as above. Electronically signed by: Ev Moe MD 02/17/2024 03:15 AM [facility] Due to temporary technical issues with the PACS/Fluency reporting system, reports are being signed by the in house radiologists without review as a courtesy to insure prompt reporting. The interpreting radiologist is fully responsible for the content of the report
== END 2024-02-17 03:38 | disposition home or self-care (01) ==
LOC: ER 23:24
DX: G40.802 Other epilepsy, not intractable, without status epilepticus (principal); R10.84 Generalized abdominal pain
CPT/HCPCS: 36415; 70450; 71045; 74177; 80048; 80076; 83690; 84484; 85025; 93005; 96365; 96366; 96375; 99285; J1953; J2405; Q9967

== ENCOUNTER 2024-07-20 09:46 | Emergency (ER) | payer SELFPAY ==
--- OUTSIDE RECORDS SUMMARY | 2024-07-20 09:48 | XMS REPORT | Continuity of Care Document ---
Author Name Unknown Address [address] [place] [address] [address]. [address] [employer] Address [address] [place] [address] Ivan. [address] [place] [address] Care Team Providers Care Delimber Operator Name Role Phone Unavailable Unavailable Unavailable Encounters Start Date/Time End Date/Time Encounter Type Admission Type Attending Clinicians Care Facility Care Department Encounter ID Source 2023-06-27 13:17:34 2023-06-27 13:17:34 Outpatient [facility] [id number] Charlie Peguero 2022-07-13 16:06:27 2022-07-13 16:06:27 Outpatient [facility] [id number] Charlie Peguero Results Test Description Test Time Test Comments Results Result Co mments Source
[2024-07-20] MEDS ORDERED: levETIRAcetam 500 MG TAB ONE (10:07)
[2024-07-20] MEDS ORDERED: DIAZEPAM 2 MG TABLET ONE (10:07)
[2024-07-20] MEDS ORDERED: Mastisol Adhesive Liq ONE (10:08)
--- NOTE | 2024-07-20 10:38 | RAD REPORT ---
EXAM: CT brain without contrast HISTORY: head injury COMPARISON: None TECHNIQUE: Multiple contiguous axial images were obtained and a CT of the brain without contrast. Sag ittal and coronal reformats were performed. One or more of the following dose reduction techniques were used: Automated exposure control, adjust ment of the mA and/or kV according to patient size, and/or iterative reconstruction. FINDINGS: No evidence of hydrocephalus, intracranial hemorrhage, or extra-axial fluid collection. The brain is normal in morphology. No evidence of midline shift or areas of brain edema. The calvarium is intact. Mild polypoid mucosal thickening noted in the paranasal sinuses. Small left frontal scalp hematoma measuring 10 mm. IMPRESSION: No evidence of acute intracranial abnormality.
--- NOTE | 2024-07-20 10:42 | RAD REPORT ---
EXAMINATION: CT MAXILLOFACIAL WITHOUT CONTRAST CLINICAL INDICATION: left medial orbit;Facial pain TECHNIQUE: Axial images were obtained through the facial bones and orbits without intravenous contras t. Sagittal and coronal reconstructions were created from the data. One or more of the following dose reduction techniques were used: Automated exposure control, adjustment of the mA and/or kV accor ding to patient size, and/or iterative reconstruction. Unless otherwise specified, incidental findings do not require dedicated imaging follow-up. COMPARISON: 02/17/2024 FINDINGS: SOFT TISSUE: Small left frontal scalp hematoma. Mild left periorbital soft tissue swelling. BONES: Nasal bone irregularity is present along the right aspect, likely fracture. Correlation with c linical point tenderness suggested. ORBITS: The globes are intact. No intraorbital hemorrhage or mass. SINUSES: Mild high density fluid is seen in the dependent portion of the left maxillary sinus, possib ly a small amount of hemorrhagic material. IMPRESSION: Nasal bone fracture along the right is suspected, correlation with clinical point tenderness advised. No additional facial bone fracture apparent. A small amount of hyperdense fluid in the left maxillary sinus may be blood product.
--- NOTE | 2024-07-20 10:48 | EDPHYS ---
Physician Documentation [facility] Name: Mitchell Mendez III Age: 33 yrs Sex: Male : 1990 Arrival Date: 07/20/2024 Time: 09:46 Bed 17 Private MD: ED Physician Harris Batista HPI: 07/20 10:00 This 33 yrs old Male presents to ER via EMS with complaints of face injury. rn 10:00 The patient or guardian reports injury, pain. The complaints affect the forehead and rn nose. Onset: The symptoms/episode began/occurred just prior to arrival. Severity of symptoms: At their worst the symptoms were mild, in the emergency department the symptoms are unchanged. The patient has not experienced similar symptoms in the past. Patient reports has known seizure disorder, takes Keppra 500 mg p.o. twice daily, ran out of his Keppra recently and had a seizure today while sitting on toilet. Fell forward and struck face on cabinet. Denies any other injury other than face. Reports pain to the left brow and has a skin tear over the nasal bridge. No neck pain or back pain. No extremity injury or rib injury.. Historical: - Allergies: 09:59 dicyclomine; bp - Home Meds: :59 Keppra 1 Oral tablet 1 tab 2 times per day [Active]; bp - PMHx: 09:59 Migraine; Pancreatitis; repetitive head injury; scoliosis; Seizures; bp - Immunization history:: Adult Immunizations up to date. - Infectious Disease History:: Denies. - Social history:: Smoking status: Patient reports the use of cigarette tobacco products, unknown amount. - Family history:: not pertinent. - Hospitalizations: : No recent hospitalization is reported. ROS: 10:00 Constitutional: Negative for fever, chills, and weight loss, ENT: Positive for skin rn tear to the nasal bridge Neck: Negative for injury, pain, and swelling, Cardiovascular: Negative for chest pain, palpitations, and edema, Respiratory: Negative for shortness of breath, cough, wheezing, and pleuritic chest pain, Abdomen/GI: Negative for abdominal pain, nausea, vomiting, diarrhea, and constipation, MS/Extremity: Negative for injury and deformity, Skin: Positive for skin tear to nasal bridge Neuro: Positive for mild headache and status post single seizure Exam: 10:00 Constitutional: This is a well developed, well nourished patient who is awake, alert, rn and in no acute distress. Head/Face: Left supraorbital hematoma without laceration. 1 cm triangular skin tear that is superficial over nasal bridge, no active bleeding. No nasal deformity noted. Mild ecchymosis along the medial orbit Neck: No midline cervical tenderness Chest/axilla: No rib tenderness or crepitus Cardiovascular: Regular rate and rhythm. No pulse deficits. Respiratory: No increased work of breathing, no retractions or nasal flaring. Abdomen/GI: Soft, non-tender MS/ Extremity: Pulses equal, no cyanosis. Neurovascular intact. Full, normal range of motion. Equal circumference. Neuro: Awake and alert, GCS 15, oriented to person, place, time, and situation. Cranial nerves II-XII grossly intact. Motor strength 5/5 in all extremities. Sensory grossly intact. Vital Signs: 09:58 BP 137 / 81; Pulse 101; Resp 15; Temp 98; Pulse Ox 96% on R/A; bp 11:10 BP 121 / 75; Pulse 89; Resp 16; Pulse Ox 99% ; bp Pippa Coma Score: 10:00 Eye Response: spontaneous(4). Motor Response: obeys commands(6). Verbal Response: rn oriented(5). Total: 15. 10:46 Eye Response: spontaneous(4). Motor Response: obeys commands(6). Verbal Response: rn oriented(5). Total: 15. MDM: 09:56 Medical Screening Exam initiated rn 10:46 Differential diagnosis: Contusion of Hematoma on Intracranial bleed- Concussion rn cerebral contusion. Data reviewed: vital signs, nurses notes, radiologic studies, CT scan, and as a result, I will discharge patient. Counseling: I had a detailed discussion with the patient and/or guardian regarding the historical points, exam findings, and any diagnostic results supporting the discharge/admit diagnosis, radiology results, the need for outpatient follow up, to return to the emergency department if symptoms worsen or persist or if there are any questions or concerns that arise at home. Special discussion: Based on the patient's history, exam and DX evaluation, there is no indication for emergent intervention or inpatient [place]. It is understood by the patient/guardian that if the SXs persist or worsen they need to return immediately for re-evaluation. I discussed with the patient/guardian in detail that at this point there is no indication for admission to the hospital. It is understood, however, that if the symptoms persist or worsen the patient needs to return immediately for re-evaluation. ED course: Questionable nasal fracture on CT face. Will discharge home with return precautions. Will refill his Keppra.. 07/20 09:58 Order name: CT Head Brain wo Cont; Complete Time: 10:45 rn 07/20 09:58 Order name: CT Facial Bones W/O Con; Complete Time: 10:45 rn 07/20 10:00 Order name: Wound Care; Complete Time: 10:58 rn 07/20 10:00 Order name: Wound dressing: steri-strips to nasal wound; Complete Time: 10:58 rn 07/20 10:00 Order name: Ice pack; Complete Time: 10:58 rn Administered Medications: 10:23 Drug: Diazepam PO 2 mg PO once Route: PO; bp 11:09 Follow up: Response: No adverse reaction bp 10:24 Drug: Keppra PO 500 mg PO once Route: PO; bp 11:09 Follow up: Response: No adverse reaction bp 11:05 Drug: HYDROcodone-acetaminophen PO 5 mg-325 mg 1 tabs PO once Route: PO; bp 11:09 Follow up: Response: No adverse reaction bp Disposition Summary: 07/20/24 10:48 Discharge Ordered Notes: Location: Home rn Problem: new rn Symptoms: have improved rn Condition: Stable rn Diagnosis - Unspecified injury of head, initial encounter rn - Fracture of nasal bones rn - Epileptic seizures related to external causes, not intractable, without status rn epilepticus Followup: rn - With: Private Physician - When: As needed - Reason: Recheck today's complaints, Re-evaluation by your physician Discharge Instructions: - Discharge Summary Sheet rn - Head Injury, Adult rn - Seizure, Adult rn Forms: - Medication Reconciliation Form rn - Antibiotic axle turner - Prescription Opioid Use rn - Patient Portal Instructions rn - Leadership Thank You Letter rn Prescriptions: - Augmentin 875-125 mg Oral Tablet - take 1 tablet ORAL route every 12 hours for 10 days; 20 tablet; Refills: 0, rn Product Selection Permitted - Keppra 500 mg Oral tablet - take 1 tablet ORAL route every 12 hours; 60 tablet; Refills: 0, Product rn Selection Permitted Signatures: Dispatcher [employer] EDMS Harris Batista MD MD rn Jeff Steward, RN RN bp Corrections: (The following items were deleted from the chart) 09:58 Head Brain Wo Cont+CT.RAD.BRZ ordered. EDMS EDMS 09:58 Facial Bones W/ MPR+CT.RAD.BRZ ordered. EDMS EDMS
--- NOTE | 2024-07-20 10:48 | ER ---
Nurse's Notes [facility] Name: Mitchell Mendez III Age: 33 yrs Sex: Male : 1990 Arrival Date: 07/20/2024 Time: 09:46 Bed 17 Private MD: Diagnosis: Unspecified injury of head, initial encounter;Fracture of nasal bones;Epileptic seizures related to external causes, not intractable, without status epilepticus Presentation: 07/20 09:58 Chief complaint: EMS states: SZ WHILE ON TOILET WITH HEAD STRIKE (NOSE/FOREHEAD). PT bp OUT OF MEDS. Coronavirus screen: At this time, the client does not indicate any symptoms associated with coronavirus-19. Ebola Screen: No symptoms or risks identified at this time. Initial Sepsis Screen: Does the patient meet any 2 criteria? HR > 90 bpm. No. Patient's initial sepsis screen is negative. Does the patient have a suspected source of infection? No. Patient's initial sepsis screen is negative. Risk Assessment: Do you want to hurt yourself or someone else? Patient reports no desire to harm self or others. Onset of symptoms was July 20, 2024 at 08:40. Care prior to arrival: Medication(s) given: Tylenol, 1000 mg. 09:58 Method Of Arrival: EMS: [facility] bp 09:58 Acuity: CAROLINE 3 bp Triage Assessment: 09:59 General: Appears in no apparent distress. uncomfortable, Behavior is calm, cooperative, bp appropriate for age. Pain: Complains of pain in head. EENT: No deficits noted. Neuro: Level of Consciousness is awake, alert, obeys commands, Oriented to Appropriate for age Seizure activity reported prior to arrival. Cardiovascular: No deficits noted. Respiratory: No deficits noted. GI: No deficits noted. : No signs and/or symptoms were reported regarding the genitourinary system. Derm: No deficits noted. Musculoskeletal: No deficits noted. Injury Description: Bruise sustained to face. Historical: - Allergies: :59 dicyclomine; bp - Home Meds: :59 Keppra 1 Oral tablet 1 tab 2 times per day [Active]; bp - PMHx: 09:59 Migraine; Pancreatitis; repetitive head injury; scoliosis; Seizures; bp - Immunization history:: Adult Immunizations up to date. - Infectious Disease History:: Denies. - Social history:: Smoking status: Patient reports the use of cigarette tobacco products, unknown amount. - Family history:: not pertinent. - Hospitalizations: : No recent hospitalization is reported. Screenin:58 [facility] ED Fall Risk Assessment (Adult) History of falling in the last 3 months, bp including since admission Yes- physiologic fall (2 pts) Confusion or Disorientation No (0 pts) Intoxicated or Sedated No (0 pts) Impaired Gait No (0 pts) Mobility Assist Device Used No (0 pt) Altered Elimination No (0 pt) Score/Fall Risk Level 0 - 2 = Low Risk Oriented to surroundings. Abuse screen: Denies threats or abuse. Denies injuries from another. Nutritional screening: No deficits noted. Tuberculosis screening: No symptoms or risk factors identified. Assessment: 11:10 Neuro: Level of Consciousness is awake, alert, obeys commands, Oriented to Appropriate bp for age Gait is steady. Vital Signs: 09:58 BP 137 / 81; Pulse 101; Resp 15; Temp 98; Pulse Ox 96% on R/A; bp 11:10 BP 121 / 75; Pulse 89; Resp 16; Pulse Ox 99% ; bp Herald Coma Score: 10:00 Eye Response: spontaneous(4). Motor Response: obeys commands(6). Verbal Response: rn oriented(5). Total: 15. 10:46 Eye Response: spontaneous(4). Motor Response: obeys commands(6). Verbal Response: rn oriented(5). Total: 15. ED Course: 09:56 Patient arrived in ED. rn 09:56 Harris Batista MD is Attending Physician. rn 09:57 Jeff Steward, PALAK is Primary Nurse. bp 09:58 Patient has correct armband on for positive identification. Seizure precautions bp initiated. 09:59 Triage completed. bp 09:59 Arm band placed on. bp 10:33 CT Head Brain wo Cont In Process Unspecified. EDMS 10:33 CT Facial Bones W/O Con In Process Unspecified. EDMS 10:58 No provider procedures requiring assistance completed. Patient did not have IV access bp during this emergency room visit. Wound care: to laceration located on nose was cleaned with soap and water, dressed with STERI-STRIP. 10:59 Provided Education on: NONE. bp Administered Medications: 10:23 Drug: Diazepam PO 2 mg PO once Route: PO; bp 11:09 Follow up: Response: No adverse reaction bp 10:24 Drug: Keppra PO 500 mg PO once Route: PO; bp 11:09 Follow up: Response: No adverse reaction bp 11:05 Drug: HYDROcodone-acetaminophen PO 5 mg-325 mg 1 tabs PO once Route: PO; bp 11:09 Follow up: Response: No adverse reaction bp Medication: 11:10 VIS not applicable for this client. bp Outcome: 10:48 Discharge ordered by . rn 11:10 Discharged to home ambulatory, with family, bp 11:10 Condition: stable 11:10 Discharge instructions given to patient, family, Instructed on discharge instructions, follow up and referral plans. medication usage, wound care, Demonstrated understanding of instructions, follow-up care, medications, wound care, Prescriptions given X 2, 11:11 Patient left the ED. bp Signatures: Dispatcher [employer] EDHarris Jimenez MD MD rn Peltier, Brian, RN RN bp
[2024-07-20] MEDS ORDERED: HYDROCODONE/APAP 5/325 MG TAB ONE (11:02)
[2024-07-20 11:19] VITALS: TEMP 98
[2024-07-20 11:20] VITALS: BP 121/75; O2SAT 99
== END 2024-07-20 11:11 | disposition home or self-care (01) ==
LOC: ER 09:46
DX: S02.2XXA Fracture of nasal bones, initial encounter for closed fracture (principal); G40.509 Epileptic seizures related to external causes, not intractable, without status epilepticus; W18.12XA Fall from or off toilet with subsequent striking against object, initial encounter
CPT/HCPCS: 70450; 70486; 76377; 99284